=== PATIENT | female | born 1985 | race Caucasian/White ===

== ENCOUNTER 2024-12-23 03:08 | Emergency (ER) | payer BC, SELFPAY ==
[2024-12-23 03:09] VITALS: BP 151/99; PULSE 116; RESP 20; TEMP 36.4; O2SAT 100; BMI 49.1
[2024-12-23 03:13] VITALS: BP 151/99; PULSE 87; RESP 16; TEMP 36.4; O2SAT 100
--- NOTE | 2024-12-23 03:15 | EDS_ITS ---
HPI History of Present Illness Chief Complaint: Wound Check Informant: patient Narrative Narrative: 39-year-old female currently camping this past day noticed redness that seemed warm and felt hot in the right lower leg, was sore at some point and itchy at the same time. It spread up her leg, she sonia a line at the limit of it just below the knee. She states she took some Benadryl 5 hours ago and it seems to be much improved now but when she got up to walk, she had a pain that shot up her leg. She states she is concerned about a blood clot. She has never had a blood clot before. No clotting disorders that she knows of. No recent immobilization, long travel, hospitalization, or surgery. She denies any chest pain, shortness breath, fevers, chills, or other systemic symptoms. She is diabetic she takes medication for it. She has been camping so she is pretty sure she has been bitten by insects as well. She also took a pill of an antibiotic earlier because she was concerned this may be some type of infection. [facility] Medical History Diabetes Diabetes delivery delivered Home Medications ?Medication ?Instructions ?Recorded ?Last Taken ?Type glimepiride 4 mg tablet 4 mg PO DAILY 12/23/24 Unkno wn History losartan 50 mg tablet 50 mg PO DAILY 12/23/24 Unkn own History metformin 500 mg tablet,extended 1,000 mg PO BID 12/23 Unknown History release 24 hr montelukast 10 mg tablet 10 mg PO DAILY 12/23/24 Unkn own History omeprazole 40 mg capsule,delayed 40 mg PO DAILY Unknown History release rosuvastatin 5 mg tablet 5 mg PO QHS 12/23/24 Unknown History Allergy/AdvReac Type Severity Reaction Status Date / Time lisinopril Allergy Angioedema Verified 12/23/24 03:12 Surgical History H/O excision of mass H/O laparoscopy Social History Smoking Status: Former smoker ROS ROS ED Constitutional Constitutional ED: Denies chills or fever(s) Cardiovascular Cardiovascular: Denies chest pain Respiratory/Chest Respiratory/Chest: Denies dyspnea Gastrointestinal Gastrointestinal: Denies nausea or vomiting Musculoskeletal Musculoskeletal: Reports extremity pain; Denies neck pain Integumentary Reports erythema, pruritus and rash; Denies Abrasions or wounds Neurologic Neurologic: Denies paresthesias or weakness EXAM Physical Exam Const Vital Signs: 12/23/24 03:09 12/23/24 03:13 Temperature 97.5 F L 97.5 F L Temperature Source Oral Oral Pulse Rate 116 H 87 Respiratory Rate 20 H 16 Blood Pressure 151/99 H 151/99 H Blood Pressure Mean 116 116 Pulse Ox 100 100 Positive well nourished, well developed and obese General Appearance ED: well developed and NAD Nutritional Appearance: obese Neck full ROM and supple Resp normal respiratory effort Back/Spine normal ROM and normal to inspection Extremity Extremity Narrative: Faint nontender erythema medial aspect of the right lower leg. Patient has an ink pen line drawn just below the knee, and there is barely visible hyperemia present below this area. Patient presents a photograph of the erythema distal lower leg much more prominent than it is now from earlier in the day yesterday. No inguinal lymphadenopathy. All compartment soft and nondistended. No edema in the leg. Full range of motion all joints without difficulty or limitation. Neuro oriented x3, no focal motor deficits and no sensory deficits noted Neuro Narrative: Normal gait Sensorium / Orientation: alert Psych mental status grossly normal and thought process normal Skin no wounds Rashes: no rashes MDM MDM MDM Narrative Medical decision making narrative: I do not think this is likely to be cellulitis or a DVT. 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 She has neurovascular intact distally with palpable pulses. There is no induration or tenderness with the hyperemia that is at the medial aspect of the distal right lower leg right now, and it blanches and there is no petechia or bullae or other skin abnormalities. This barely visible closer to the line that she sonia. It is much less prominent than the photograph that she provides of her leg earlier in the day. It improved with antihistamine. I think this is probably some type of localized reaction or insect sting, and I do not think she needs to be taking antibiotics especially if they were not prescribed for this reason. We discussed that. She is concerned about a blood clot so I did a D-dimer since she is low risk for having that problem, it is negative ruling out DVT and PE. Patient reassured, discharged, we discussed reasons to return to the ER signs or symptoms of dangerous infection such as cellulitis, which we both agrees probably not present right now. Lab Data Attestation: I reviewed the patient's lab results. Labs: Laboratory Results - last 24 hr 12/23/24 03:17 WBC 11.0 RBC 4.67 Hgb 10.2 L Hct 34.8 L MCV 74.5 L MCH 21.8 L MCHC 29.3 L RDW Std Deviation 73.4 H RDW Coeff of Brandee 27.4 H Plt Count 237 MPV 9.3 Immature Gran % (Auto) 1.000 H Neut % (Auto) 53.8 Lymph % (Auto) 32.7 [place] % (Auto) 6.0 Eos % (Auto) 6.0 H Baso % (Auto) 0.5 Absolute Neuts (auto) 5.9 Absolute Lymphs (auto) 3.59 Nucleated RBC % 0 D-Dimer Quant (PE/DVT) 0.29 Discharge Plan Triage Chief Complaint: Wound Check ED Provider: Karlos Mercer Dx/Rx/DC Orders Clinical Impression: Insect bite of right lower leg with local reaction Instructions: ED Insect Bite Prescriptions: No Action losartan 50 mg tablet 50 mg PO DAILY omeprazole 40 mg capsule,delayed release(DR/EC) 40 mg PO DAILY glimepiride 4 mg tablet 4 mg PO DAILY montelukast 10 mg tablet 10 mg PO DAILY metformin 500 mg tablet extended release 24 hr 1,000 mg PO BID rosuvastatin 5 mg tablet 5 mg PO QHS Primary Care Provider: Percy Graham Referrals: Doctor,Your [Non-Staff] - 3-5 Days if not improving Activity Restrictions/Additional Instructions: May use oral Benadryl as needed, may also use topical Benadryl and/or topical hydrocortisone 1% cream twice daily to the affected area. If worsening or developing fevers return to the ER. Print Language: [place] Disposition Disposition: Home, Self Care
[2024-12-23 03:26] LABS: Hematocrit 34.8 % (37-47); Hemoglobin 10.2 g/dL (12.0-15.0); Immature Granulocytes Count 0.110 X10^3/uL (0.0-0.0); Mean Corp Hgb Conc 29.3 g/dL (32-36); Mean Corpuscular Volume 74.5 fL (81-99); Mean Platelet Vol. 9.3 fl (6.2-12.0); NRBC Flagged by Analyzer 0 % (0-5); POSITIVE MORPHOLOGY YES; Platelet Count 237 K/mm3 (150-450); RBC Distribution Width CV 27.4 % (11.6-14.6); RBC Distribution Width SD 73.4 fl (35.1-43.9); Red Blood Count 4.67 M/mm3 (4.2-5.4); White Blood Count 11.0 K/mm3 (4.4-11.0)
[2024-12-23 03:29] LABS: Differential Indicated SCAN CRITERIA MET
--- OUTSIDE RECORDS SUMMARY | 2024-12-23 03:30 | XMS RPT_ITS | CCD ---
Author Organization [facility] Care Team Providers Care Ldr Nurse Name Role Phone Pcp, No Primary Care Provider Unavaildanielle Campos MD, Mayte Colby Primary Care Provider Andres FONSECA, Mayte Colby Primary Care Provider Andres FONSECA, Mayte Colby Primary Care Provider Andres FONSECA, Mayte Colby Primary Care Provider Andres FONSECA, Mayte Colby Primary Care Provider Andres FONSECA, Mayte Colby Primary Care Provider ANDRES FONSECA, DR HU Primary Care Unavailable MENDOZA BOSWELL DO Attending Unavailab MENDOZA Walton DO Attending Unavailab sonny CAMPOS MD, DR HU Primary Care Unavailable Andres FONSECA, Mayte Colby Primary Care Provider Kimberly Alvarado CNP Unavailable ANDRES FONSECA, DR HU Primary Care Physician Kimberly Alvarado CNP Unavailable Jazz Jarquin DO, Nicholas E Unavailable Davis Velazco APRN.CNP Unavailable MAYTE CAMPOS Attending Unavailab MAYTE Garcia Primary Care Unavailab le SELF Referring Unavailable MAYTE CAMPOS Primary Care Unavailab JARRELL Mcghee Attending Unavailable MAYTE CAMPOS Attending Unavailab le MAYTE CAMPOS Primary Care Unavailab le MAYTE CAMPOS Referring Unavailab le MAYTE CAMPOS Primary Care Unavailab le ANDRES, MAYTE COLBY Referring Unavailab le ANDRES, MAYTE COLBY Primary Care Unavailab le ANDRES, MAYTE COLBY Referring Unavailab le ANDRES, MAYTE COLBY Primary Care Unavailab le ANDRES, MAYTE COLBY Referring Unavailab le ANDRES, MAYTE COLBY Primary Care Unavailab le ANDRES, MAYTE COLBY Referring Unavailab le ANDRES, MAYTE COLBY Primary Care Unavailab le ANDRES, MAYTE COLBY Referring Unavailab le ANDRES, MAYTE COLBY Primary Care Unavailab le ANDRES, MAYTE COLBY Referring Unavailab le ANDRES, MAYTE COLBY Primary Care Unavailab le CHLEBECK, DAVIS Attending Unavailable ANDRES, MAYTE COLBY Referring Unavailab le ANDRES, MAYTE COLBY Primary Care Unavailab le CHLEBECK, DAVIS Referring Unavailable ANDRES, MAYTE COLBY Primary Care Unavailab le BLACK, JAKY SNEED Attending Unavailabl e ANDRES, MAYTEDEBORAH TAYLORORY Primary Care Unavailab le Allergies Allergy Classification Reported Allergen(s) Allergy Type Date of Onset Reaction(s) Facility (20 sources) Lisinopril; Translations: [lisinopril] Drug Allergy 12-12-2019 Cough [facility] Medications Current Medications Medication Drug Class(es) Dates Sig (Normalized) Sig (Original) acetaminophen 325 mg oral tablet (20 sources) take 2 tablets by mouth every six hours as needed acetaminophen (TYLENOL) 325 mg tablet Take 650 mg by mouth every 6 hours as needed. Active Comment on above: Take 650 mg by mouth every 6 hours as needed. acetaminophen 325 mg / oxyCODONE hydrochloride 5 mg oral tablet (1 source) Opioid Agonist Start: 04-21-2023 End: 2023 take 1 tablet by mouth every four hours as needed for pain Percocet 5 mg-325 mg oral tablet Dose = 1 tab(s), Oral, q4h, PRN for pain, X 2 day(s), # 12 tab(s), 0 Refill(s), Pharmacy: [facility], Status post endometrial ablation, 170.2, cm, 04/21/23 9:25:00 EST, Height, 131.8, kg, 04/21/23 9:25:00 EST, Dosing Weight Start Date: 04/21/23 Stop Date: 04/23/23 Status: Ordered [id number] 200 actuat albuterol 0.09 mg/actuat metered dose inhaler (20 sources) beta2-Adrenergic Agonist Start: 12-01-2022 End: 02-01-2024 take 2 puff(s) by inhalation every four hours as needed for wheezing albuterol HFA (PROVENTIL HFA, VENTOLIN HFA) 90 mcg/actuation inhaler Inhale 2 Puffs as instructed every 4 hours as needed for wheezing/shortness of breath. 3 Each 3 02/01/2024 Active Start: 02-25-2021 End: 12-01-2022 albuterol HFA (PROVENTIL HFA , VENTOLIN HFA) 90 mcg/actuation inhaler Apply to affected area. 0 02/25/2021 12/01/2022 Discontinued Comment on above: Apply to affected ar ea. Inhale 2 Puffs as in structed every 4 hours as needed for wheezing/shortness of breath. Albuterol (Eqv-ProAir HFA) 90 mcg/inh inhalation aerosol (1 source) Start: Albuterol (Eqv-ProAir HFA) 90 mcg/inh inhalation aerosol 0 Refill(s) Start Date: 04/06/23 Status: Ordered amoxicillin 875 mg / clavulanate 125 mg oral tablet (2 sources) Penicillin-class Antibacterial Start: End: 5 take 1 tablet by mouth every twelve hours amoxicillin-clavula mera potassium (AUGMENTIN) 875-125 mg per tablet Indications: Acute otitis media, right Take 1 tablet by mouth every 12 hours for 10 days. 20 tablet 05/05/2024 05/15/2024 Active Start: 01-27-2022 End: 02-03-2022 take 1 tablet by mouth every twelve hours amoxicillin-clavulanic acid (AUGMENTIN) 875-125 mg per tablet Indications: Chronic sinusitis, unspecified location Take 1 tablet by mouth every 12 hours for 7 days. 14 tablet 0 01/27/2022 02/03/2022 Active Comment on above: Take 1 tablet by guanako every 12 hours for 7 days. Ascorbic Acid (20 sources) Vitamin C Start: 07-05-2018 Vitamin C 0 Re fill(s) Start Date: 07/05/18 Status: Ordered take 1 tablet by mouth once donnie y Ascorbic Acid (VITAMIN C) 1,000 mg tablet Take 1,000 mg by mouth once daily. Active Comment on above: Take 1,000 mg by guanako th once daily. atorvastatin 10 mg oral tablet (1 source) HMG-CoA Reductase Inhibitor Start: 9 atorvastatin 10 mg oral tablet 0 Refill(s) Start Date: 07/05/18 Status: Ordered CHOLECALCIFEROL, VITAMIN D3, ORAL (20 sources) take 5000 [IU] by mouth once daily CHOLECALCIFEROL, VITAMIN D3, ORAL Take 5,000 Units by mouth once daily. Active take 5000 [IU] by mouth once rachele ly CHOLECALCIFEROL, VITAMIN D3, ORAL Take 5,000 Units by mouth once daily. 0 Active Comment on above: Take 5,000 Units by mouth once daily. ferrous gluconate 324 mg oral tablet (1 source) Start: ferrous gluconate 324 mg (38 mg elemental iron) oral tablet Dose : 324 mg = 1 tab(s), Oral, BID, # 100 tab(s), 0 Refill(s), Pharmacy: [facility], 170.2, cm, 04/21/23 9:25:00 EST, Height, kg, 04/21/23 9:25:00 EST, Dosing Weight Start Date: 04/21/23 Status: Ordered fluticasone propionate 0.05 mg/actuat metered dose nasal spray (20 sources) Corticosteroid Start: take 1 spray(s) nasal route once daily fluticasone (FLONASE) 50 mcg/actuation nasal spray INHALE 1 SPRAY EACH NOSTRIL ONCE DAILY 3 Each 3 05/22/2024 Active Start: 04-15-2023 End: 05-05-2024 take 1 spray(s) nasal route once daily fluticasone (FLONASE) 50 mcg/actuation nasal spray INHALE 1 SPRAY EACH NOSTRIL ONCE DAILY 3 Each 3 04/15/2023 05/05/2024 Discontinued (Course of therapy completed) Start: 04-06-2023 fluticasone pr oprionate NASAL 50 mcg/ spray 100 mcg Dose = 2 spray(s), Nostril, each, qAM, 0 Refill(s) Start Date: 04/06/23 Status: Ordered Start: 01-27-2022 End: 04-15-2023 take 1 spray(s) nasal route once daily fluticasone (FLONASE) 50 mcg/actuation nasal spray Use 1 Atkins in each nostril once daily. 1 Each 3 12/01/2022 04/15/2023 Discontinued Start: 11-30-2021 End: 12-01-2022 fluticasone (FLONASE) 50 mcg/actuation nasal spray Comment on above: Use 1 Atkins in each nostril once daily. INHALE 1 SPRAY EACH NOSTRIL ONCE DAILY glimepiride 4 mg oral tablet (20 sources) Sulfonylurea Start: End: take 1 tablet by mouth once daily glimepiride (AMARYL) 4 mg tablet Amaryl 4 mg tablet oral daily 90 tablet 3 08/01/2024 Active Start: 12-25-2021 End: 12-01-2022 glimepiride (AMARYL) 4 mg ta blet Amaryl 4 mg tablet 90 tablet 3 12/25/2021 12/01/2022 Discontinued Start: 09-24-2020 End: 12-25-2021 glimepiride (AMARYL) 4 mg ta blet Amaryl 4 mg tablet 0 09/24/2020 12/25/2021 Discontinued Comment on above: Amaryl 4 mg tablet Amaryl 4 mg tablet o ral daily ibuprofen 600 mg oral tablet (1 source) Nonsteroidal Anti-inflammatory Drug Start: 04-21-20 ibuprofen 600 mg oral tablet Dose : 600 mg = 1 tab(s), Oral, QID, PRN as needed for pain, # 40 tab(s), 1 Refill(s), Pharmacy: [facility], 170.2, cm, 04/21/23 9:25:00 EST, Height, kg, 04/21/23 9:25:00 EST, Dosing Weight Start Date: 04/21/23 Status: Ordered iron sucrose 200 mg in NaCl 0.9% 100 mL (1 source) Start: 08-24-19 End: 08-24-19 iron sucrose 200 mg in NaCl 0.9% 100 mL Inject 200 mg intravenously one time only for 1 dose. 200 mg 3 08/23/2024 08/23/2024 Active loratadine 10 mg oral tablet (20 sources) Start: 05-09-18 loratadine (CLARITIN) 10 mg tablet Take by mouth once daily as needed. 05/09/1971 Active Comment on above: Take by mouth. losartan potassium 50 mg oral tablet (20 sources) Angiotensin 2 Receptor Gregory Start: 12-01-19 End: 08-02-19 take 1 tablet by mouth once daily losartan (COZAAR) 50 mg tablet Take 1 tablet by mouth once daily. 90 tablet 3 08/01/2024 Active Comment on above: Take 1 tablet by guanako once daily. 24 hr metFORMIN hydrochloride 500 mg extended release oral tablet (20 sources) Biguanide Start: 12-26-19 End: 08-02-19 take 2 tablets by mouth twice daily metFORMIN ER (GLUCOPHAGE XR) 500 mg 24 hr tablet Take 2 tablets by mouth two times a day. 360 tablet 3 08/01/2024 Active Start: 09-23-2021 End: 12-25-2021 metFORMIN ER (GLUCOPHAGE XR) 500 mg 24 hr tablet Start: 07-05-2018 take 1 tablet by guanako twice daily metFORMIN 750 mg oral tablet, extended release Dose : 1,000 mg =, Oral, BID, 0 Refill(s) Start Date: 07/05/18 Status: Ordered Comment on above: Take 2 tablets by mo [facility] twice daily. methylPREDNISolone (1 source) Corticosteroid Start : 05-05 End: 05-11 methylPREDNISolone (MEDROL, LYNDA,) 4 mg Dose-Pack Indications: Acute otitis media, right Take as instructed per package. 21 tablet 05/05/2024 05/11/2024 Active montelukast 10 mg oral tablet (20 sources) Leukotriene Receptor Antagonist Start : 11-30 End: 08-01 take 1 tablet by mouth once daily montelukast (SINGULAIR) 10 mg tablet Take 1 tablet by mouth once daily. 90 tablet 3 08/01/2024 Active Comment on above: Take 1 tablet by guanako once daily. omeprazole 40 mg delayed release oral capsule (20 sources) Proton Pump Inhibitor Start : 01-12 End: 08-01 take 1 capsule by mouth once daily omeprazole (PRILOSEC) 40 mg capsule Take 1 capsule by mouth once daily. 90 capsule 3 08/01/2024 Active Comment on above: Take 1 capsule by mo uth once daily. Take 40 mg by mouth once daily. ondansetron 4 mg disintegrating oral tablet (1 source) Serotonin-3 Receptor Antagonist Start : 04-21 ondansetron 4 mg oral tablet, disintegrating Dose : 4 mg = 1 tab(s), Oral, q6h, PRN Nausea/Vomiting, # 20 tab(s), 0 Refill(s), Pharmacy: [facility], 170.2, cm, 04/21/23 9:25:00 EST, Height, kg, 04/21/23 9:25:00 EST, Dosing Weight Start Date: 04/21/23 Status: Ordered pioglitazone 30 mg oral tablet (20 sources) Peroxisome Proliferator Receptor alpha Agonist, Peroxisome Proliferator Receptor gamma Agonist, Thiazolidinedione Start : 07-19 End: 07-19 take 1 tablet by mouth once daily pioglitazone (ACTOS) 30 mg tablet TAKE 1 TABLET BY MOUTH ONCE DAILY 90 tablet 3 07/18/2024 Active Comment on above: Take 1 tablet by guanako once daily. rosuvastatin calcium 5 mg oral tablet (20 sources) HMG-CoA Reductase Inhibitor Start : 12-01 End: 10-25 take 1 tablet by mouth once daily at bedtime rosuvastatin (CRESTOR) 5 mg tablet Take 1 tablet by mouth daily at bedtime. 90 tablet 3 08/01/2024 Active Comment on above: Take 1 tablet by guanako th daily at bedtime. Vitamin D3 (1 source) Start : 07-05 Vitamin D3 0 Refill(s) Start Date: 07/05/18 Status: Ordered Completed/Discontinued Medications Medication Drug Class(es) Dates Sig (Normalized) Sig (Original) Acetaminophen / Chlorpheniramine (4 sources) Histamine-1 Receptor Antagonist End: 12-01-2022 acetaminophen/chlo rpheniramine (COLD AND FLU BP ORAL) Take by mouth as needed. 0 12/01/2022 Discontinued acetaminophen/ch lorpheniramine (COLD AND FLU BP ORAL) Take by mouth as needed. 0 Active Comment on above: Take by mouth as nee ded. escitalopram 10 mg oral tablet (9 sources) Serotonin Reuptake Inhibitor Start: End: 3 take 1 tablet by mouth once daily escitalopram oxalate (LEXAPRO) 10 mg tablet Take 1 tablet by mouth once daily. 30 tablet 01/20/2022 12/01/2022 Discontinued Comment on above: [facility] guaiFENesin (4 sources) End: 3 guaifenesin (MUCUS RELIEF ORAL) Take by mouth as needed. 0 12/01/2022 Discontinued guaifenesin (MUC US RELIEF ORAL) Take by mouth as needed. 0 Active Comment on above: Take by mouth as nee ded. 5 ml iron sucrose 20 mg/ml injection (1 source) Parenteral Iron Replacement Start: End: 200 mg, INTRAVENOUS, ONCE, 1 dose, On Tue10/17/24 at 1400, May administer up to 200 mg via IV push over 5-10 minutes. progesterone 100 mg oral capsule (2 sources) Progesterone Start: End: take 1 capsule by mouth once daily progesterone micronized (PROMETRIUM) 100 mg capsule Take 1 capsule by mouth once daily. 0 04/12/2023 07/20/2023 Discontinued Comment on above: Take 1 capsule by [facility] once daily. SITagliptin 100 mg oral tablet (8 sources) Dipeptidyl Peptidase 4 Inhibitor Start: 022 End: JANUVIA 100 mg tablet tirzepatide (MOUNJARO) 2.5 mg/0.5 mL pen injector (3 sources) Start: End: inject 2.5 mg by subcutaneous injection every week tirzepatide (MOUNJARO) 2.5 mg/0.5 mL pen injector Inject 2.5 mg subcutaneously one time a week. 2 mL 12/29/2022 07/20/2023 Discontinued Start: 12-29-2022 End: 12-29-2023 inject 2.5 mg by subcutaneous injection every week tirzepatide (MOUNJARO) 2.5 mg/0.5 mL pen injector Inject 2.5 mg subcutaneously one time a week. 2 mL 12/29/2022 12/29/2023 Active Comment on above: Inject 2.5 mg subcut aneously one time a week. Problems Active Problems Problem Classification Problem Date Documented Date Episodic/Chronic Acute and chronic tonsillitis (20 sources) Hypertrophy of tonsils; Translations: [Hypertrophy of tonsils] Onset: 09-17-2020 04-28-2022 Chronic Anxiety disorders (20 sources) Anxiety; Translations: [Anxiety disorder, unspecified] Onset: 12-12-2019 04-28-2022 Chronic Deficiency and other anemia (1 source) Iron deficiency anemia secondary to blood loss (chronic); Translations: [Iron deficiency anemia due to chronic blood loss] Onset: 01-20-2022 Chronic Deficiency and other anemia (1 source) Microcytic anemia; Translations: [Iron deficiency anemia, unspecified] 11-01-2024 Episodic Deficiency and other anemia (2 sources) Iron deficiency anemia, unspecified; Translations: [Microcytic anemia] Onset: 01-20-2022 Episodic Diabetes mellitus without complication (20 sources) Type 2 diabetes mellitus; Translations: [Type 2 diabetes mellitus without complications] Onset: 12-12-2019 Chronic Disorders of lipid metabolism (5 sources) Mixed hyperlipidemia; Translations: [Mixed hyperlipidemia] Onset: 02-01-2024 Chronic Esophageal disorders (2 sources) Gastroesophageal reflux disease without esophagitis; Translations: [Gastro-esophageal reflux disease without esophagitis] Onset: 11-01-2024 11-01-2024 Chronic Essential hypertension (20 sources) Essential hypertension; Translations: [Essential (primary) hypertension] Onset: 12-16-2021 Chronic Miscellaneous mental health disorders (2 sources) Primary insomnia; Translations: [Primary insomnia] Onset: 01-20-2022 02-01-2024 Chronic Mood disorders (20 sources) Depressive disorder; Translations: [Depression] Onset: 12-12-2019 01-20-2022 Chronic Mood disorders (1 source) Mood disorders; Translations: [Depression, unspecified depression type] Onset: 01-20-2022 Nonmalignant breast conditions (1 source) Pain of breast; Translations: [Mastodynia] 05-19-2022 Episodic Other hereditary and degenerative nervous system conditions (1 source) Restless legs; Translations: [Restless legs syndrome] 11-01-2024 Chronic Other hereditary and degenerative nervous system conditions (1 source) Restless legs syndrome; Translations: [Restless legs syndrome] Onset: 11-01-2024 Chronic Other nutritional; endocrine; and metabolic disorders (1 source) Morbid obesity 04-21-2023 Chronic Other upper respiratory disease (20 sources) Seasonal allergy; Translations: [Other seasonal allergic rhinitis] Onset: 12-12-2019 04-28-2022 Chronic Other upper respiratory disease (1 source) Other seasonal allergic rhinitis; Translations: [Seasonal allergies] Onset: 04-28-2022 Chronic Other upper respiratory infections (1 source) Chronic sinusitis; Translations: [Chronic sinusitis, unspecified] Chronic Past or Other Problems Problem Classification Problem Date Documented Da te Episodic/Chronic Abdominal pain (20 sources) Upper abdominal pain; Translations: [Upper abdominal pain, unspecified] Onset: 12-16-2021 Episodic Acute bronchitis (20 sources) Acute bronchitis with bronchospasm; Translations: [Acute bronchitis, unspecified] Onset: 02-25-2021 04-28-2022 Episodic Deficiency and other anemia (20 sources) Iron deficiency anemia; Translations: [Iron deficiency anemia, unspecified] Onset: 03-19-2020 01-20-2022 Episodic Deficiency and other anemia (1 source) Other iron deficiency anemias; Translations: [Other iron deficiency anemia] Onset: 01-20-2022 Episodic Headache; including migraine (20 sources) Headache; Translations: [Headaches] Onset: 12-12-2019 04-28-2022 Episodic Hemorrhoids (20 sources) Hemorrhoids; Translations: [Unspecified hemorrhoids] Onset: 12-12-2019 04-28-2022 Episodic Immunizations and screening for infectious disease (20 sources) Contact with or exposure to other viral diseases; Translations: [Exposure to severe acute respiratory syndrome coronavirus 2 (SARS-CoV-2)] Onset: 05-15-2020 04-28-2022 Episodic Malaise and fatigue (2 sources) Fatigue; Translations: [Other fatigue] Onset: 08-01-2024 08-01-2024 Episodic Mycoses (20 sources) Candidiasis of vagina; Translations: [Candidiasis of vagina] Onset: 09-24-2020 04-28-2022 Episodic Other gastrointestinal disorders (3 sources) Mass of left lower quadrant of abdominal wall; Translations: [Left lower quadrant abdominal swelling, mass and lump] Onset: 03-28-2014 03-28-2014 Episodic Other gastrointestinal disorders (20 sources) Left lower quadrant abdominal swelling, mass and lump; Translations: [Abdominal or pelvic swelling, mass, or lump, left lower quadrant] Onset: 03-28-2014 03-28-2014 Episodic Other lower respiratory disease (20 sources) Snoring; Translations: [Snoring] Onset: 12-12-2019 04-28-2022 Episodic Other screening for suspected conditions (not mental disorders or infectious disease) (4 sources) Patient encounter status; Translations: [Encounter for screening mammogram for malignant neoplasm of breast] Onset: 08-22-2024 05-19-2022 Episodic Other skin disorders (20 sources) Acne; Translations: [Acne, unspecified] Onset: 12-12-2019 04-28-2022 Episodic Other upper respiratory infections (20 sources) Upper respiratory infection; Translations: [Acute upper respiratory infection, unspecified] Onset: 05-12-2020 Episodic Otitis media and related conditions (2 sources) Acute right otitis media; Translations: [Otitis media, unspecified, right ear] Onset: 05-05-2024 05-05-2024 Episodic Residual codes; unclassified (20 sources) Insomnia; Translations: [Insomnia, unspecified] Onset: 12-12-2019 01-20-2022 Episodic Residual codes; unclassified (1 source) Past history of procedure; Translations: [Other specified postprocedural states] Onset: 04-21-2023 Episodic Unclassified (2 sources) Patient encounter status 07-03-2024 Results Test Name Value Interpretation Reference Range Facility [facility] 12-13-2024 [facility] Telephone ([facility]) AISSATOU TORRES ([id number]) 1985 F Date Time Provider Department 12/13/24 JAKY HARRISON [facility] During your visit today, we recorded the following information about you: Ethel Fermin RN 12/13/2024 8:47 AM Signed GI referral faxed to [facility] [phone] as ordered. Demos, insurance card, recent office visit and labs sent with referral. Ethel Fermin RN BSN Allergies As of Date: 12/13/2024 Noted Allergy Reaction LISINOPRIL 12/12/2019 3 - Cough Date Reviewed: 12/12/2024 Reviewed by: Ana Lilia Strickland RN - Fully Assessed Reason for Visit: Referral Request [124] Cmt: GI Referral Prescriptions as of 12/13/2024 - rosuvastatin (CRESTOR) 5 mg tablet Take 1 tablet by mouth daily at bedtime. - omeprazole (PRILOSEC) 40 mg capsule Take 1 capsule by mouth once daily. - montelukast (SINGULAIR) 10 mg tablet Take 1 tablet by mouth once daily. - metFORMIN ER (GLUCOPHAGE XR) 500 mg 24 hr tablet Take 2 tablets by mouth two times a day. - losartan (COZAAR) 50 mg tablet Take 1 tablet by mouth once daily. - glimepiride (AMARYL) 4 mg tablet Amaryl 4 mg tablet oral daily - pioglitazone (ACTOS) 30 mg tablet TAKE 1 TABLET BY MOUTH ONCE DAILY - fluticasone (FLONASE) 50 mcg/actuation nasal spray INHALE 1 SPRAY EACH NOSTRIL ONCE DAILY - albuterol HFA (PROVENTIL HFA, VENTOLIN HFA) 90 mcg/actuation inhaler Inhale 2 Puffs as instructed every 4 hours as needed for wheezing/shortness of breath. - CHOLECALCIFEROL, VITAMIN D3, ORAL Take 5,000 Units by mouth once daily. - Ascorbic Acid (VITAMIN C) 1,000 mg tablet Take 1,000 mg by mouth once daily. - loratadine (CLARITIN) 10 mg tablet Take by mouth once daily as needed. - acetaminophen (TYLENOL) 325 mg tablet Take 650 mg by mouth every 6 hours as needed. Problem List As Of Date 12/13/2024 Noted Resolved Abdominal wall mass of left lower quadrant [R19*03/28/2014 Depression [F32.A] 12/12/2019 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 (type 2/adult o*12/12/2019 Iron deficiency anemia [D50.9] 03/19/2020 Insomnia [G47.00] 12/12/2019 Upper respiratory infection [J06.9] 05/15/2020 Snoring [R06.83] 12/12/2019 Seasonal allergies [J30.2] 12/12/2019 Hypertrophy of tonsils [J35.1] 09/17/2020 Hemorrhoids [K64.9] 12/12/2019 Headaches [R51.9] 12/12/2019 Exposure to severe acute respiratory syndrome c*05/15/2020 Essential (primary) hypertension [I10] 12/16/2021 Candidiasis of vagina [B37.31] 09/24/2020 Anxiety [F41.9] 12/12/2019 Acute sinusitis [J01.90] 05/12/2020 Acute bronchitis with bronchospasm [J20.9] 02/25/2021 Acne [L70.9] 12/12/2019 Generalized abdominal pain [R10.84] 12/16/2021 Encounter Status:Closed by ETHEL FERMIN on 12/13/[address] [facility] CNOVSPon 12-12-2024 CNOVSP Visit (SP) Office ([facility]) AISSATOU TORRES ([id number]) 1985 F Date Time Provider Department 12/12/24 2:00 PM JAKY HARRISON [facility] During your visit today, we recorded the following information about you: Jaky Harrison PA-C 12/12/2024 1:28 PM Signed . [facility] CLINICAL NOTE Department of Hematology and Medical Oncology PATIENT NAME: Aissatou Torres CLINIC NO.: [id number] ATTENDING PHYSICIAN: Jaky Harrison PA-C DATE OF SERVICE: 12/12/2024 CLINICAL SUMMARY She reports being anemic for as long as she can remember, with iron deficiency noted during her pregnancies, requiring iron supplementation. Despite this, she feels it was never adequately addressed. 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 She denies any other bleeding, including epistaxis, gingival bleeding, or hematochezia, and has not undergone a colonoscopy. She notes a family history of colon cancer in her maternal grandmother. She has been on omeprazole for GERD, which was diagnosed after she experienced symptoms she initially thought were allergies, including coughing and post-nasal drip. She is also taking Singulair. On 10/17/24, she received her first Venofer iron infusion. Following the infusion, she experienced a mild headache on Tuesday and , which progressed to a severe headache with nausea on Tuesday, causing her to leave work. She reports significant fatigue,restless legs. No ice pica. WBC 10.99, hemoglobin 8.9, MCV 70.5, plts 346 on 11/01/24. Iron 12, TIBC 391, saturation 3.1%, ferritin <0.5 on 08/22/24. Iron 15, TIBC 391, saturation 3.8%, ferritin 1.8 on 10/15/24. Recording using [employer] software for draft documentation of the visit was discussed with the patient/authorized financial services representative; all questions welcomed and answered. Patient/authorized financial services representative agreed to proceed INTERIM HISTORY: Nursing notes reviewed; agree with findings as documented. Ms. Torres returns for follow up. Patient with a history of heavy menstrual bleeding, GERD, and possible IBS presents for evaluation of severe iron deficiency anemia. In April of the previous year, she underwent an endometrial ablation, which initially resulted in cessation of menstrual bleeding. However, in July, she began experiencing menstrual periods again, though not as heavy as before. In October, she received a Venofer infusion, but she did not tolerate it well with headache, and nausea. Subsequent blood work revealed persistently low iron levels. Her hemoglobin has been in the 8s. She reports ongoing fatigue and questions the cause of her iron deficiency. She has not yet seen a GI specialist but has been advised to undergo a colonoscopy, especially given her family history of colon cancer (grandmother). She has been diagnosed with GERD and is taking omeprazole. She has not had any prior blood transfusions. She reports chronic nausea, frequent diarrhea, and constipation. She has not had any stomach or colon surgeries but has had two C-sections. She mentions a previous mass removal, initially thought to be metallic but later suggested to be endometriosis. She has undergone multiple ultrasounds, urine tests, a CT scan, and an MRI related to this issue. REVIEW OF SYSTEMS: As described above. Constitutional: (+) fatigue Gastrointestinal: (+) nausea, (+) diarrhea, (+) constipation, (+) abdominal pain PHYSICAL EXAMINATION: General: Alert AND oriented, no acute distress Skin: Normal HEENT: Pupils equal, round. Oral cavity, oropharynx clear Neck: Supple, no mass Breast: Deferred Respiratory: Clear to auscultation, bilaterally Cardiovascular: Regular rate and rhythm, no murmurs, rubs, or gallops Abdomen: Soft, non-tender, non-distended, no masses palpable, no hepatosplenomegaly, normal bowel sounds Genitourinary: Deferred MSK: Back is non-tender Extremities: No clubbing, cyanosis, or edema DIAGNOSTIC STUDIES: Latest Ref Rng AND Units 08/01/2021 08/08/2024 11/01/2024 CBC WBC 3.70 - 11.00 k/uL 10.8 11.07 10.99 RBC 3.90 - 5.20 m/uL 4.54 4.61 4.64 Hemoglobin 11.5 - 15.5 g/dL 11.7 8.5 8.9 Hematocrit 36.0 - 46.0 % 36.9 31.0 32.7 MCV 80.0 - 100.0 fL 81.3 67.2 70.5 MCH 26.0 - 34.0 pg 18.4 19.2 MCHC 30.5 - 36.0 g/dL 31.7 27.4 27.2 RDW 11 - 14.5 14.3 RDW-CV 11.5 - 15.0 % 17.9 22.5 Platelet Count 150 - 400 k/uL 276 360 346 MPV 9.0 - 12.7 fL 10.2 9.5 9.7 Neutrophil % 45 - 75 % 57.5 Lymphocyte % 20 - 40 % 32.6 Baso% % 0.5 0.4 Abs Neut (ANC) 1.45 - 7.50 k/uL 6.07 6.58 Lymphocytes, Absolute 0.9 - 4.4 K/CU MM 3.50 Abs Lymph 1.00 - 4.00 k/uL 3.74 3.20 MONOCYTES,ABSOLUTE 0.1 - 1.1 K/CU MM 0.50 Abs [place] <0.87 k/uL 0.60 (more content not included)... Normal [facility] Ferritin SerPl-mCncon 2024 Ferritin [Mass/Vol] 4.0 ng/mL Low 8.0-307.0 [facility] Comment on above: Order Comment: Speci men Type: BLOOD SPECIMENOrdering Facility: [facility] Address: [address] [place] [address] Performed By: #### 2 276-4, 17105-1 ####[facility] LABORATORYCLIA [id number] [place] [id number] [place] Iron and Iron binding capaci ty panelon 12-12-2024 Iron [Mass/Vol] 15 ug/dL Low 50-170 [facility] Comment on above: Order Comment: Speci men Type: BLOOD SPECIMENOrdering Facility: [facility] Address: [address] [place] [address] Result Comment: Lyssa ents treated with metal-binding drugs (e.g.deferoxamine) may have depressed iron values, as chelated iron may not properly react in the Siemens iron assay. Performed By: #### 2 276-4, 17267-1 ####[facility] LABORATORYCLIA [id number] [place] [id number] [place] Iron binding capacity [Mass/Vol] 372 ug/dL Normal 221-481 [facility] Comment on above: Order Comment: Speci men Type: BLOOD SPECIMENOrdering Facility: [facility] Address: [address] [place] [address] Performed By: #### 2 276-4, 18447-6 ####[facility] LABORATORYCLIA [id number] [address] [place] Iron/TIBC [Molar ratio] 4.0 % Low 22.0-44.0 [facility] Comment on above: Order Comment: Speci men Type: BLOOD SPECIMENOrdering Facility: [facility] Address: [address] [place] [address] Performed By: #### 2 276-4, 50849-6 ####[facility] LABORATORYCLIA [id number] [place] [id number] [facility] Charlie 11-20-2024 CNPN Telephone ([facility]) AISSATOU TORRES ([id number]) 1985 F Date Time Provider Department 11/20/24 ANA LILIA SINGH [facility] During your visit today, we recorded the following information about you: Reyna Joyner 11/20/2024 9:10 AM Signed Left message for patient to call and schedule her iron. Reyna Joyner Allergies As of Date: 11/20/2024 Noted Allergy Reaction LISINOPRIL 12/12/2019 3 - Cough Date Reviewed: 11/01/2024 Reviewed by: Davis Velazco APRN.AUTOMOTIVE STARTER REPAIRER - Fully Assessed Reason for Visit: Appointment [186] Prescriptions as of 11/20/2024 - rosuvastatin (CRESTOR) 5 mg tablet Take 1 tablet by mouth daily at bedtime. - omeprazole (PRILOSEC) 40 mg capsule Take 1 capsule by mouth once daily. - montelukast (SINGULAIR) 10 mg tablet Take 1 tablet by mouth once daily. - metFORMIN ER (GLUCOPHAGE XR) 500 mg 24 hr tablet Take 2 tablets by mouth two times a day. - losartan (COZAAR) 50 mg tablet Take 1 tablet by mouth once daily. - glimepiride (AMARYL) 4 mg tablet Amaryl 4 mg tablet oral daily - pioglitazone (ACTOS) 30 mg tablet TAKE 1 TABLET BY MOUTH ONCE DAILY - fluticasone (FLONASE) 50 mcg/actuation nasal spray INHALE 1 SPRAY EACH NOSTRIL ONCE DAILY - albuterol HFA (PROVENTIL HFA, VENTOLIN HFA) 90 mcg/actuation inhaler Inhale 2 Puffs as instructed every 4 hours as needed for wheezing/shortness of breath. - CHOLECALCIFEROL, VITAMIN D3, ORAL Take 5,000 Units by mouth once daily. - Ascorbic Acid (VITAMIN C) 1,000 mg tablet Take 1,000 mg by mouth once daily. - loratadine (CLARITIN) 10 mg tablet Take by mouth once daily as needed. - acetaminophen (TYLENOL) 325 mg tablet Take 650 mg by mouth every 6 hours as needed. Problem List As Of Date 11/20/2024 Noted Resolved Abdominal wall mass of left lower quadrant [R19*03/28/2014 Depression [F32.A] 12/12/2019 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 (type 2/adult o*12/12/2019 Iron deficiency anemia [D50.9] 03/19/2020 Insomnia [G47.00] 12/12/2019 Upper respiratory infection [J06.9] 05/15/2020 Snoring [R06.83] 12/12/2019 Seasonal allergies [J30.2] 12/12/2019 Hypertrophy of tonsils [J35.1] 09/17/2020 Hemorrhoids [K64.9] 12/12/2019 Headaches [R51.9] 12/12/2019 Exposure to severe acute respiratory syndrome c*05/15/2020 Essential (primary) hypertension [I10] 12/16/2021 Candidiasis of vagina [B37.31] 09/24/2020 Anxiety [F41.9] 12/12/2019 Acute sinusitis [J01.90] 05/12/2020 Acute bronchitis with bronchospasm [J20.9] 02/25/2021 Acne [L70.9] 12/12/2019 Generalized abdominal pain [R10.84] 12/16/2021 Encounter Status:Closed by [facility] AISSATOU TORRES ([id number]) 1985 F Date Time Provider Department 11/20/24 DAVIS VELAZCO [facility] During your visit today, we recorded the following information about you: Allison Quiroga 11/20/2024 9:17 AM Signed Patient called in to schedule her MONOFERRIC. I talked with Kaila. She advised me to schedule her for 3 hours. Patient is aware of her time and date for apt. Allison Quiroga Allergies As of Date: 11/20/2024 Noted Allergy Reaction LISINOPRIL 12/12/2019 3 - Cough Date Reviewed: 11/01/2024 Reviewed by: Davis Velazco APRN.AUTOMOTIVE STARTER REPAIRER - Fully Assessed Reason for Visit: Appointment [186] Prescriptions as of 11/20/2024 - rosuvastatin (CRESTOR) 5 mg tablet Take 1 tablet by mouth daily at bedtime. - omeprazole (PRILOSEC) 40 mg capsule Take 1 capsule by mouth once daily. - montelukast (SINGULAIR) 10 mg tablet Take 1 tablet by mouth once daily. - metFORMIN ER (GLUCOPHAGE XR) 500 mg 24 hr tablet Take 2 tablets by mouth two times a day. - losartan (COZAAR) 50 mg tablet Take 1 tablet by mouth once daily. - glimepiride (AMARYL) 4 mg tablet Amaryl 4 mg tablet oral daily - pioglitazone (ACTOS) 30 mg tablet TAKE 1 TABLET BY MOUTH ONCE DAILY - fluticasone (FLONASE) 50 mcg/actuation nasal spray INHALE 1 SPRAY EACH NOSTRIL ONCE DAILY - albuterol HFA (PROVENTIL HFA, VENTOLIN HFA) 90 mcg/actuation inhaler Inhale 2 Puffs as instructed every 4 hours as needed for wheezing/shortness of breath. - CHOLECALCIFEROL, VITAMIN D3, ORAL Take 5,000 Units by mouth once daily. - Ascorbic Acid (VITAMIN C) 1,000 mg tablet Take 1,000 mg by mouth once daily. - loratadine (CLARITIN) 10 mg tablet Take by mouth once daily as needed. - acetaminophen (TYLENOL) 325 mg tablet Take 650 mg by mouth every 6 hours as needed. Problem List As Of Date 11/20/2024 Noted Resolved Abdominal wall mass of left lower quadrant [R19*03/28/2014 Depression [F32.A] 12/12/2019 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 (type 2/adult o*12/12/2019 Iron deficiency anemia [D50.9] 03/19/2020 Insomnia [G47.00] 12/12/2019 Upper respiratory infection [J06.9] 05/15/2020 Snoring [R06.83] 12/12/2019 Seasonal allergies [J30.2] 12/12/2019 Hypertrophy of tonsils [J35.1] 09/17/2020 Hemorrhoids [K64.9] 12/12/2019 Headaches [R51.9] 12/12/2019 Exposure to severe acute respiratory syndrome c*05/15/2020 Essential (primary) hypertension [I10] 12/16/2021 Candidiasis of vagina [B37.31] 09/24/2020 Anxiety [F41.9] 12/12/2019 Acute sinusitis [J01.90] 05/12/2020 Acute bronchitis with bronchospasm [J20.9] 02/25/2021 Acne [L70.9] 12/12/2019 Generalized abdominal pain [R10.84] 12/16/2021 Encounter Status:Closed by ALLISNO QUIROGA [facility] AISSATOU TORRES ([id number]) 1985 F Date Time Provider Department 11/20/24 JAKY HARRISON [facility] During your visit today, we recorded the following information about you: William Melgar 11/20/2024 11:06 AM Signed Called patient to schedule follow up. William Melgar November 20, 2024 11:06 AM Allergies As of Date: 11/20/2024 Noted Allergy Reaction LISINOPRIL 12/12/2019 3 - Cough Date Reviewed: 11/01/2024 Reviewed by: Davis Velazco APRN.AUTOMOTIVE STARTER REPAIRER - Fully Assessed Prescriptions as of 11/20/2024 - rosuvastatin (CRESTOR) 5 mg tablet Take 1 tablet by mouth daily at bedtime. - omeprazole (PRILOSEC) 40 mg capsule Take 1 capsule by mouth once daily. - montelukast (SINGULAIR) 10 mg tablet Take 1 tablet by mouth once daily. - metFORMIN ER (GLUCOPHAGE XR) 500 mg 24 hr tablet Take 2 tablets by mouth two times a day. - losartan (COZAAR) 50 mg tablet Take 1 tablet by mouth once daily. - glimepiride (AMARYL) 4 mg tablet Amaryl 4 mg tablet oral daily - pioglitazone (ACTOS) 30 mg tablet TAKE 1 TABLET BY MOUTH ONCE DAILY - fluticasone (FLONASE) 50 mcg/actuation nasal spray INHALE 1 SPRAY EACH NOSTRIL ONCE DAILY - albuterol HFA (PROVENTIL HFA, VENTOLIN HFA) 90 mcg/actuation inhaler Inhale 2 Puffs as instructed every 4 hours as needed for wheezing/shortness of breath. - CHOLECALCIFEROL, VITAMIN D3, ORAL Take 5,000 Units by mouth once daily. - Ascorbic Acid (VITAMIN C) 1,000 mg tablet Take 1,000 mg by mouth once daily. - loratadine (CLARITIN) 10 mg tablet Take by mouth once daily as needed. - acetaminophen (TYLENOL) 325 mg tablet Take 650 mg by mouth every 6 hours as needed. Problem List As Of Date 11/20/2024 Noted Resolved Abdominal wall mass of left lower quadrant [R19*03/28/2014 Depression [F32.A] 12/12/2019 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 (type 2/adult o*12/12/2019 Iron deficiency anemia [D50.9] 03/19/2020 Insomnia [G47.00] 12/12/2019 Upper respiratory infection [J06.9] 05/15/2020 Snoring [R06.83] 12/12/2019 Seasonal allergies [J30.2] 12/12/2019 Hypertrophy of tonsils [J35.1] 09/17/2020 Hemorrhoids [K64.9] 12/12/2019 Headaches [R51.9] 12/12/2019 Exposure to severe acute respiratory syndrome c*05/15/2020 Essential (primary) hypertension [I10] 12/16/2021 Candidiasis of vagina [B37.31] 09/24/2020 Anxiety [F41.9] 12/12/2019 Acute sinusitis [J01.90] 05/12/2020 Acute bronchitis with bronchospasm [J20.9] 02/25/2021 Acne [L70.9] 12/12/2019 Generalized abdominal pain [R10.84] 12/16/2021 Encounter Status:Closed by WILLIAM MELGAR on 11/20/[address] [facility] AISSATOU TORRES ([id number]) 1985 F Date Time Provider Department 11/02/24 JAKY HARRISON [facility] During your visit today, we recorded the following information about you: William Melgar 11/02/2024 7:17 PM Signed Called patient and left voicemail to schedule Iron and follow up office visit William Melgar November 02, 2024 7:17 PM Allergies As of Date: 11/02/2024 Noted Allergy Reaction LISINOPRIL 12/12/2019 3 - Cough Date Reviewed: 11/01/2024 Reviewed by: Davis Velazco APRN.AUTOMOTIVE STARTER REPAIRER - Fully Assessed Prescriptions as of 11/02/2024 - rosuvastatin (CRESTOR) 5 mg tablet Take 1 tablet by mouth daily at bedtime. - omeprazole (PRILOSEC) 40 mg capsule Take 1 capsule by mouth once daily. - montelukast (SINGULAIR) 10 mg tablet Take 1 tablet by mouth once daily. - metFORMIN ER (GLUCOPHAGE XR) 500 mg 24 hr tablet Take 2 tablets by mouth two times a day. - losartan (COZAAR) 50 mg tablet Take 1 tablet by mouth once daily. - glimepiride (AMARYL) 4 mg tablet Amaryl 4 mg tablet oral daily - pioglitazone (ACTOS) 30 mg tablet TAKE 1 TABLET BY MOUTH ONCE DAILY - fluticasone (FLONASE) 50 mcg/actuation nasal spray INHALE 1 SPRAY EACH NOSTRIL ONCE DAILY - albuterol HFA (PROVENTIL HFA, VENTOLIN HFA) 90 mcg/actuation inhaler Inhale 2 Puffs as instructed every 4 hours as needed for wheezing/shortness of breath. - CHOLECALCIFEROL, VITAMIN D3, ORAL Take 5,000 Units by mouth once daily. - Ascorbic Acid (VITAMIN C) 1,000 mg tablet Take 1,000 mg by mouth once daily. - loratadine (CLARITIN) 10 mg tablet Take by mouth once daily as needed. - acetaminophen (TYLENOL) 325 mg tablet Take 650 mg by mouth every 6 hours as needed. Problem List As Of Date 11/02/2024 Noted Resolved Abdominal wall mass of left lower quadrant [R19*03/28/2014 Depression [F32.A] 12/12/2019 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 (type 2/adult o*12/12/2019 Iron deficiency anemia [D50.9] 03/19/2020 Insomnia [G47.00] 12/12/2019 Upper respiratory infection [J06.9] 05/15/2020 Snoring [R06.83] 12/12/2019 Seasonal allergies [J30.2] 12/12/2019 Hypertrophy of tonsils [J35.1] 09/17/2020 Hemorrhoids [K64.9] 12/12/2019 Headaches [R51.9] 12/12/2019 Exposure to severe acute respiratory syndrome c*05/15/2020 Essential (primary) hypertension [I10] 12/16/2021 Candidiasis of vagina [B37.31] 09/24/2020 Anxiety [F41.9] 12/12/2019 Acute sinusitis [J01.90] 05/12/2020 Acute bronchitis with bronchospasm [J20.9] 02/25/2021 Acne [L70.9] 12/12/2019 Generalized abdominal pain [R10.84] 12/16/2021 Encounter Status:Closed by WILLIMA MELGAR on 11/02/[address] [facility] CBC W Auto Differential pane l (Bld)on 11-01-2024 Basophils (Bld) [#/Vol] 0.04 10*3/uL NINF [facility] Basophils/100 WBC (Bld) 0.4 % [facility] Differential cell count method Nom (Bld) Auto [facility] Eosinophils (Bld) [#/Vol] 0.42 10*3/uL [facility] Eosinophils/100 WBC (Bld) 3.8 % [facility] Erythrocyte distribution width (RBC) [Ratio] 22.5 % High 11.5 - 15.0 % [facility] Hematocrit (Bld) [Volume fraction] 32.7 % Low 36.0 - 46.0 % [facility] Hemoglobin (Bld) [Mass/Vol] 8.9 g/dL Low 11.5 - 15.5 g/dL [facility] Immature granulocytes (Bld) [#/Vol] 0.09 10*3/uL [facility] Immature granulocytes/100 WBC (Bld) 0.8 % [facility] Interpretation and review of laboratory results Abnormal [facility] Lymphocytes (Bld) [#/Vol] 3.2 10*3/uL [facility] Lymphocytes/100 WBC (Bld) 29.1 % [facility] MCH (RBC) [Entitic mass] 19.2 pg Low 26.0 - 34.0 pg [facility] MCHC (RBC) [Mass/Vol] 27.2 g/dL Low 30.5 - 36.0 g/dL [facility] MCV (RBC) [Entitic vol] 70.5 fL Low 80.0 - 100.0 fL [facility] Monocytes (Bld) [#/Vol] 0.66 10*3/uL [facility] Monocytes/100 WBC (Bld) 6 % [facility] Neutrophils (Bld) [#/Vol] 6.58 10*3/uL [facility] Neutrophils/100 WBC (Bld) 59.9 % [facility] Nucleated RBC (Bld) [#/Vol] [facility] Nucleated RBC/100 WBC (Bld) [Ratio] 0 % /100 WBC [facility] Platelet mean volume (Bld) [Entitic vol] 9.7 fL 9.0 - 12.7 fL [facility] Platelets (Bld) [#/Vol] 346 10*3/uL [facility] RBC (Bld) [#/Vol] 4.64 10*6/uL 3.90 - 5.2 0 m/uL [facility] WBC (Bld) [#/Vol] 10.99 10*3/uL [facility] Basophils (Bld) [#/Vol] 0.04 10*3/uL Normal <0.11 [facility] Comment on above: Order Comment: Speci men Type: BLOOD SPECIMENOrdering Facility: [facility] Address: [address] [place] [address] Performed By: #### 5 7021-8, 22591-0 ####[facility]ORATORYCLIA [id number] [place] [address] [place] Basophils/100 WBC (Bld) 0.4 % Normal [facility] Comment on above: Order Comment: Speci men Type: BLOOD SPECIMENOrdering Facility: [facility] Address: [address] [place] [address] Performed By: #### 5 7021-8, 02014-1 ####[facility]ORATORYCLIA [id number] [place] [id number] [place] Differential cell count method Nom (Bld) Auto Normal [facility] Comment on above: Order Comment: Speci men Type: BLOOD SPECIMENOrdering Facility: [facility] Address: [address] [place] [address] Performed By: #### 5 7021-8, 86458-7 ####[facility]ORATORYCLIA [id number] [place] [address] [place] Eosinophils (Bld) [#/Vol] 0.42 10*3/uL Normal <0.46 [facility] Comment on above: Order Comment: Speci men Type: BLOOD SPECIMENOrdering Facility: [facility] Address: [address] [place] [address] Performed By: #### 5 7021-8, 22246-1 ####[facility]ORATORYCLIA [id number] [place] [id number] [place] Eosinophils/100 WBC (Bld) 3.8 % Normal [facility] Comment on above: Order Comment: Speci men Type: BLOOD SPECIMENOrdering Facility: [facility] Address: [address] [place] [address] Performed By: #### 5 7021-8, 91923-1 ####[facility]ORATORYCLIA [id number] [address] [place] Erythrocyte distribution width (RBC) [Ratio] 22.5 % High 11.5-15.0 [facility] Comment on above: Order Comment: Speci men Type: BLOOD SPECIMENOrdering Facility: [facility] Address: [address] [place] [address] Performed By: #### 5 7021-8, 16036-6 ####[facility]ORATORYCLIA [id number] [place] [address] [place] Hematocrit (Bld) [Volume fraction] 32.7 % Low 36.0-46.0 [facility] Comment on above: Order Comment: Speci men Type: BLOOD SPECIMENOrdering Facility: [facility] Address: [address] [place] [address] Performed By: #### 5 7021-8, 61418-1 ####[facility]ORATORYCLIA [id number] [place] [address] [place] Hemoglobin (Bld) [Mass/Vol] 8.9 g/dL Low 11.5-15.5 [facility] Comment on above: Order Comment: Speci men Type: BLOOD SPECIMENOrdering Facility: [facility] Address: [address] [place] [address] Performed By: #### 5 7021-8, 74866-6 ####[facility]ATORYCLIA [id number] [place] [address] [place] Immature granulocytes (Bld) [#/Vol] 0.09 10*3/uL Normal <0.10 [facility] Comment on above: Order Comment: Speci men Type: BLOOD SPECIMENOrdering Facility: [facility] Address: [address] [place] [address] Performed By: #### 5 7021-8, 56535-1 ####[facility]ORATORYCLIA [id number] [address] [place] Immature granulocytes/100 WBC (Bld) 0.8 % Normal [facility] Comment on above: Order Comment: Speci men Type: BLOOD SPECIMENOrdering Facility: [facility] Address: [address] [place] [address] Performed By: #### 5 7021-8, 46584-0 ####[facility]ATORYCLIA [id number] [place] [address] [place] Lymphocytes (Bld) [#/Vol] 3.20 10*3/uL Normal 1.00-4.00 [facility] Comment on above: Order Comment: Speci men Type: BLOOD SPECIMENOrdering Facility: [facility] Address: [address] [place] [address] Performed By: #### 5 7021-8, 36629-4 ####[facility]ORATORYCLIA [id number] [place] [address] [place] Lymphocytes/100 WBC (Bld) 29.1 % Normal [facility] Comment on above: Order Comment: Speci men Type: BLOOD SPECIMENOrdering Facility: [facility] Address: [address] [place] [address] Performed By: #### 5 7021-8, 04124-5 ####[facility]ATORYCLIA [id number] [place] [address] [place] MCH (RBC) [Entitic mass] 19.2 pg Low 26.0-34.0 [facility] Comment on above: Order Comment: Speci men Type: BLOOD SPECIMENOrdering Facility: [facility] Address: [address] [place] [address] Performed By: #### 5 7021-8, 45150-9 ####[facility]ATORYCLIA [id number] [place] [address] [place] MCHC (RBC) [Mass/Vol] 27.2 g/dL Low 30.5-36.0 [facility] Comment on above: Order Comment: Speci men Type: BLOOD SPECIMENOrdering Facility: [facility] Address: [address] [place] [address] Performed By: #### 5 7021-8, 94054-4 ####[facility]ATORYCLIA [id number] [place] [address] [place] MCV (RBC) [Entitic vol] 70.5 fL Low 80.0-100.0 [facility] Comment on above: Order Comment: Speci men Type: BLOOD SPECIMENOrdering Facility: [facility] Address: [address] [place] [address] Performed By: #### 5 7021-8, 09541-2 ####[facility]ATORYCLIA [id number] [place] [address] [place] Monocytes (Bld) [#/Vol] 0.66 10*3/uL Normal <0.87 [facility] Comment on above: Order Comment: Speci men Type: BLOOD SPECIMENOrdering Facility: [facility] Address: [address] [place] [address] Performed By: #### 5 7021-8, 99925-3 ####[facility]ORATORYCLIA [id number] [place] [address] [place] Monocytes/100 WBC (Bld) 6.0 % Normal [facility] Comment on above: Order Comment: Speci men Type: BLOOD SPECIMENOrdering Facility: [facility] Address: [address] [place] [address] Performed By: #### 5 7021-8, 81183-0 ####[facility]ORATORYCLIA [id number] [place] [address] [place] Neutrophils (Bld) [#/Vol] 6.58 10*3/uL Normal 1.45-7.50 [facility] Comment on above: Order Comment: Speci men Type: BLOOD SPECIMENOrdering Facility: [facility] Address: [address] [place] [address] Performed By: #### 5 7021-8, 87766-9 ####[facility]ATORYCLIA [id number] [place] [address] [place] Neutrophils/100 WBC (Bld) 59.9 % Normal [facility] Comment on above: Order Comment: Speci men Type: BLOOD SPECIMENOrdering Facility: [facility] Address: [address] [place] [id number] Performed By: #### 5 7021-8, 67370-6 ####[facility]ATORYCLIA [id number] [place] [id number] [place] Nucleated RBC (Bld) [#/Vol] 10*3/uL Normal <0.01 [facility] Comment on above: Order Comment: Speci men Type: BLOOD SPECIMENOrdering Facility: [facility] Address: [address] [place] [address] Performed By: #### 5 7021-8, 54043-3 ####[facility]ORATORYCLIA [id number] [place] [id number] [place] Nucleated RBC/100 WBC (Bld) [Ratio] 0.0 /100 WBC Normal [facility] Comment on above: Order Comment: Speci men Type: BLOOD SPECIMENOrdering Facility: [facility] Address: [address] [place] [address] Performed By: #### 5 7021-8, 18528-2 ####[facility]ORATORYCLIA [id number] [place] [id number] [place] Platelet mean volume (Bld) [Entitic vol] 9.7 fL Normal 9.0-12.7 [facility] Comment on above: Order Comment: Speci men Type: BLOOD SPECIMENOrdering Facility: [facility] Address: [address] [place] [address] Performed By: #### 5 7021-8, 06074-9 ####[facility]ATORYCLIA [id number] [place] [id number] [place] Platelets (Bld) [#/Vol] 346 10*3/uL Normal 150-400 [facility] Comment on above: Order Comment: Speci men Type: BLOOD SPECIMENOrdering Facility: [facility] Address: [address] [place] [address] Performed By: #### 5 7021-8, 55387-8 ####[facility]ATORYCLIA [id number] [place] [address] [place] RBC (Bld) [#/Vol] 4.64 10*6/uL Normal 3.90-5.20 [facility] Comment on above: Order Comment: Speci men Type: BLOOD SPECIMENOrdering Facility: [facility] Address: [address] [place] [address] Performed By: #### 5 7021-8, 91624-4 ####[facility]ATORYCLIA [id number] [place] [id number] [facility] WBC (Bld) [#/Vol] 10.99 10*3/uL Normal 3.70-11.00 [facility] Comment on above: Order Comment: Speci men Type: BLOOD SPECIMENOrdering Facility: [facility] Address: [address] [place] [address] Performed By: #### 5 7021-8, 83697-1 ####[facility]ATORYCLIA [id number] [address] [facility] CNOVSPon 11-01-2024 CNOVSP Visit (SP) Office ([facility]) AISSATOU TORRES ([id number]) 1985 F Date Time Provider Department 11/01/24 10:30 AM DAVIS VELAZCO [facility] During your visit today, we recorded the following information about you: Temperature Pulse Respiration Blood pressure 97 degrees 86/minute 16/minute 139/79 Weight 138.3 kg Davis Velazco APRN.CNP 11/01/2024 3:16 PM Signed [facility] CLINICAL NOTE Department of Hematology and Medical Oncology PATIENT NAME: Aissatou Torres CLINIC NO.: [id number] ATTENDING PROVIDER: Davis Velazco APRN.CNP DATE OF SERVICE: 11/01/2024 REFERRING PHYSICIAN: Mayte Campos MD Recording using [employer] software for draft documentation of the visit was discussed with the patient/authorized financial services representative; all questions welcomed and answered. Patient/authorized financial services representative agreed to proceed HISTORY OF PRESENT ILLNESS Ms. Aissatou Torres is a 39 year old woman with anemia who presents for consultation regarding her diagnosis and management, at the request of Dr. Mayte Campos. My recommendations will be communicated to Dr. Campos by means of shared medical records. She reports being anemic for as long as she can remember, with iron deficiency noted during her pregnancies, requiring iron supplementation. Despite this, she feels it was never adequately addressed. 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 She denies any other bleeding, including epistaxis, gingival bleeding, or hematochezia, and has not undergone a colonoscopy. She notes a family history of colon cancer in her maternal grandmother. She has been on omeprazole for GERD, which was diagnosed after she experienced symptoms she initially thought were allergies, including coughing and post-nasal drip. She is also taking Singulair. On 10/17/24, she received her first Venofer iron infusion. Following the infusion, she experienced a mild headache on Tuesday and , which progressed to a severe headache with nausea on Tuesday, causing her to leave work. She has not received any further infusions. She reports significant fatigue, feeling more drained than usual, and does not feel rested upon waking. She experiences severe pain in her arms, particularly her elbows during the day and shoulders at night, along with restless legs. These symptoms have slightly improved over the past few days. She denies any unusual cravings such as pica. She reports frequent headaches, weight gain despite trying to eat less, and increased sensitivity to cold. She experiences dyspnea and palpitations, particularly when walking, but denies chest pain. She has ongoing abdominal pain and alternating constipation and diarrhea, with occasional nausea, particularly after her iron infusion. She denies any urinary issues or hematuria. 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 She also notes occasional pruritus and dizziness but denies syncope. She has a non-painful nodule on her neck that has decreased in size. PAST MEDICAL HISTORY Diagnosis Date Abdominal wall mass of left lower quadrant 03/28/2014 Acne 12/12/2019 Acute sinusitis 05/12/2020 Candidiasis of vagina 09/24/2020 Depression 12/12/2019 Diabetes mellitus type II (HCC) 12/12/2019 Exposure to severe acute respiratory syndrome coronavirus 2 (SARS-CoV-2) 05/15/2020 Generalized abdominal pain 12/16/2021 Hemorrhoids 12/12/2019 Hypertrophy of tonsils 09/17/2020 Iron deficiency anemia 03/19/2020 Pelvic pain in female Seasonal allergies 12/12/2019 Snoring 12/12/2019 Subcutaneous mass 04/25/14 Left lower abdominal wall Upper respiratory infection 05/15/2020 PAST SURGICAL HISTORY Procedure Laterality Date ANESTH, SECTION X 2 EXC TUMOR SOFT TISSUE ABDL WALL SUBFASCIAL <5CM 04/25/14 EXPL LAP W W/WO BX 11/2013 HYSTEROSCOPY 11/2013 LIG/TRNSXJ FLP TUBE ABDL/VAG APPR UNI/BI 2009 Current Outpatient Medications on File Prior to Visit Medication Sig rosuvastatin (CRESTOR) 5 mg tablet Take 1 tablet by mouth daily at bedtime. omeprazole (PRILOSEC) 40 mg capsule Take 1 capsule by mouth once daily. montelukast (SINGULAIR) 10 mg tablet Take 1 tablet by mouth once daily. metFORMIN ER (GLUCOPHAGE XR) 500 mg 24 hr tablet Take 2 tablets by mouth two times a day. losartan (COZAAR) 50 mg tablet Take 1 tablet by mouth once daily. glimepiride (AMARYL) 4 mg tablet Amaryl 4 mg tablet oral daily pioglitazone (ACTOS) 30 mg tablet TAKE 1 TABLET BY MOUTH ONCE DAILY fluticasone (FLONASE) 50 mcg/actuation nasal spray INHALE 1 SPRAY EACH NOSTRIL ONCE DAILY albuterol HFA (PROVENTIL HFA, VENTOLIN HFA) 90 (more content not included)... Normal [facility] Comprehensive metabolic 2000 panelon 11-01-2024 Albumin [Mass/Vol] 3.5 g/dL 3.2 - 5.0 g/dL [facility] ALP [Catalytic activity/Vol] 63 U/L 45 - 117 U/L [facility] ALT [Catalytic activity/Vol] 20 U/L 13 - 61 U/L [facility] Comment on above: Results may be false ly depressed after the administration of Sulfasalazine and/or Sulfapyridine. Anion gap [Moles/Vol] 10 mmol/L 5 - 16 mmol/L [facility] AST [Catalytic activity/Vol] 23 U/L 8 - 34 U/L [facility] Comment on above: Results may be false ly depressed after the administration of Sulfasalazine and/or Sulfapyridine. Bilirubin [Mass/Vol] 0.4 mg/dL 0.2 - 1 .0 mg/dL [facility] Calcium [Mass/Vol] 8.9 mg/dL 8.5 - 10. 5 mg/dL [facility] Chloride [Moles/Vol] 105 mmol/L 98 - 10 7 mmol/L [facility] CO2 [Moles/Vol] 26 mmol/L 21 - 32 mmol/L [facility] Creatinine [Mass/Vol] 0.66 mg/dL 0.51 - 0.95 mg/dL [facility] Comment on above: Patients receiving e ither N-Acetylcysteine (NAC) or Metamizole prior to venipuncture, may have falsely depressed results. GFR/1.73 sq M.predicted among non-blacks MDRD (S/P/Bld) [Vol rate/Area] 113 mL/min/{1.73_m2} - PINF [facility] Comment on above: Estimated Glomerular Filtration Rate (eGFR) is calculated using the 2020 CKD-EPI creatinine equation. This equation utilizes serum creatinine, sex, and age as parameters. The creatinine assay has traceable calibration to isotope dilution-mass spectrometry. Refer to KDIGO guidelines for clinical interpretation. In patients with unstable renal function, e.g. those with acute kidney injury, the eGFR may not accurately reflect actual GFR. Glucose [Mass/Vol] 83 mg/dL 70 - 100 mg/dL [facility] Comment on above: The [place] Diab[employer] s Association (ADA) provides guidance for cutoff values for fasting glucose and random glucose. The ADA defines fasting as no caloric intake for at least 8 hours. Fasting plasma glucose results between 100 to 125 mg/dL indicate increased risk for diabetes (prediabetes). Fasting plasma glucose results greater than or equal to 126 mg/dL meet the criteria for diagnosis of diabetes. In the absence of unequivocal hyperglycemia, results should be confirmed by repeat testing. In a patient with classic symptoms of hyperglycemia or hyperglycemic crisis, random plasma glucose results greater than or equal to 200 mg/dL meet the criteria for diagnosis of diabetes. Reference: Standards of Medical Care in Diabetes 2016, [place] Diabetes Association. Diabetes Care. 2016.39(Suppl 1). Results may be falsely elevated after the administration of Sulfapyridine. Results may be falsely depressed after the administration of Sulfasalazine. Potassium [Moles/Vol] 4.1 mmol/L 3.5 - 5.1 mmol/L [facility] Protein [Mass/Vol] 6.6 g/dL 6.0 - 8.5 g/dL [facility] Sodium [Moles/Vol] 141 mmol/L 136 - 145 mmol/L [facility] Urea nitrogen [Mass/Vol] 13 mg/dL 7 - 26 mg/dL [facility] Albumin [Mass/Vol] 3.5 g/dL Normal 3.2-5.0 [facility] Comment on above: Order Comment: Daniel mac Type: BLOOD SPECIMENOrdering Facility: [facility] Address: [address] [place] [address] Performed By: #### 2 132-9, 21148-3, 2276-4, 43121-3 ####[facility]ORATORYCLIA [id number] [place] [address] [place] ALP [Catalytic activity/Vol] 63 U/L Normal 45-117 [facility] Comment on above: Order Comment: Daniel mac Type: BLOOD SPECIMENOrdering Facility: [facility] Address: [address] [place], [place] [address] Performed By: #### 2 132-9, 29895-5, 2276-4, 68741-6 ####[facility]ORATORYCLIA [id number] [place] [id number] [place] ALT [Catalytic activity/Vol] 20 U/L Normal 13-61 [facility] Comment on above: Order Comment: Daniel mac Type: BLOOD SPECIMENOrdering Facility: [facility] Address: [address] [place] [address] Result Comment: Resu lts may be falsely depressed after the administration of Sulfasalazine and/or Sulfapyridine. Performed By: #### 2 132-9, 14791-0, 2276-4, 43915-7 ####[facility]ATORYCLIA [id number] [place] [id number] [place] Anion gap [Moles/Vol] 10 mmol/L Normal 5-16 [facility] Comment on above: Order Comment: Speci men Type: BLOOD SPECIMENOrdering Facility: [facility] Address: [address] [place] [address] Performed By: #### 2 132-9, 88560-3, 2276-4, 02980-3 ####[facility]ATORYCLIA [id number] [place] [id number] [place] AST [Catalytic activity/Vol] 23 U/L Normal 8-34 [facility] Comment on above: Order Comment: Speci men Type: BLOOD SPECIMENOrdering Facility: [facility] Address: [address] [place] [address] Result Comment: Resu lts may be falsely depressed after the administration of Sulfasalazine and/or Sulfapyridine. Performed By: #### 2 132-9, 17475-8, 2276-4, 36673-4 ####[facility]ATORYCLIA [id number] [place] [id number] [place] Bilirubin [Mass/Vol] 0.4 mg/dL Normal 0.2-1.0 [facility] Comment on above: Order Comment: Speci men Type: BLOOD SPECIMENOrdering Facility: [facility] Address: [address] [place] [address] Performed By: #### 2 132-9, 59474-8, 2276-4, 22499-2 ####[facility]ATORYCLIA [id number] [place] [id number] [place] Calcium [Mass/Vol] 8.9 mg/dL Normal 8.5-10.5 [facility] Comment on above: Order Comment: Speci men Type: BLOOD SPECIMENOrdering Facility: [facility] Address: [address] [place] [address] Performed By: #### 2 132-9, 53435-7, 2276-4, 13697-1 ####[facility]ATORYCLIA [id number] [place] [id number] [place] Chloride [Moles/Vol] 105 mmol/L Normal 98-107 [facility] Comment on above: Order Comment: Speci men Type: BLOOD SPECIMENOrdering Facility: [facility] Address: [address] [place] [address] Performed By: #### 2 132-9, 23789-2, 2276-4, 69955-3 ####[facility]ATORYCLIA [id number] [place] [id number] [place] CO2 [Moles/Vol] 26 mmol/L Normal 21-32 [facility] Comment on above: Order Comment: Speci men Type: BLOOD SPECIMENOrdering Facility: [facility] Address: [address] [place] [address] Performed By: #### 2 132-9, 63491-7, 2276-4, 67365-9 ####[facility]ATORYCLIA [id number] [place] [id number] [place] Creatinine [Mass/Vol] 0.66 mg/dL Normal 0.51-0.95 [facility] Comment on above: Order Comment: Speci men Type: BLOOD SPECIMENOrdering Facility: [facility] Address: [address] [place] [address] Result Comment: Lyssa ents receiving either N-Acetylcysteine (NAC) or Metamizole prior to venipuncture, may have falsely depressed results. Performed By: #### 2 132-9, 98540-2, 2276-4, 67400-9 ####[facility]ATORYCLIA [id number] [place] [id number] [place] Creatinine and Glomerular filtration rate.predicted panel (S/P/Bld) 113 mL/min/1.73m??? Normal >=60 [facility] Comment on above: Order Comment: Speci men Type: BLOOD SPECIMENOrdering Facility: [facility] Address: [address] [place] [id number] Result Comment: Lynn mated Glomerular Filtration Rate (eGFR) is calculated using the 2020 CKD-EPI creatinine equation. This equation utilizes serum creatinine, sex, and age as parameters. The creatinine assay has traceable calibration to isotope dilution-mass spectrometry. Refer to KDIGO guidelines for clinical interpretation. In patients with unstable renal function, e.g. those with acute kidney injury, the eGFR may not accurately reflect actual GFR. Performed By: #### 2 132-9, 02285-9, 2276-4, 02650-3 ####[facility]ATORYCLIA [id number] [place] [id number] [place] Glucose [Mass/Vol] 83 mg/dL Normal 70-100 [facility] Comment on above: Order Comment: Daniel mac Type: BLOOD SPECIMENOrdering Facility: [facility] Address: [address] [place] [address] Result Comment: The [place] Diabetes Association (ADA) provides guidance for cutoff values for fasting glucose and random glucose. The ADA defines fasting as no caloric intake for at least 8 hours. Fasting plasma glucose results between 100 to 125 mg/dL indicate increased risk for diabetes (prediabetes). Fasting plasma glucose results greater than or equal to 126 mg/dL meet the criteria for diagnosis of diabetes. In the absence of unequivocal hyperglycemia, results should be confirmed by repeat testing. In a patient with classic symptoms of hyperglycemia or hyperglycemic crisis, random plasma glucose results greater than or equal to 200 mg/dL meet the criteria for diagnosis of diabetes. Reference: Standards of Medical Care in Diabetes 2016, [place] Diabetes Association. Diabetes Care. 2016.39(Suppl 1). Results may be falsely elevated after the administration of Sulfapyridine. Results may be falsely depressed after the administration of Sulfasalazine. Performed By: #### 2 132-9, 80334-8, 2276-4, 15627-0 ####[facility]ATORYCLIA [id number] [place] [id number] [place] Potassium [Moles/Vol] 4.1 mmol/L Normal 3.5-5.1 [facility] Comment on above: Order Comment: Daniel mac Type: BLOOD SPECIMENOrdering Facility: [facility] Address: [address] [place] [address] Performed By: #### 2 132-9, 00552-6, 2276-4, 56807-0 ####[facility]ATORYCLIA [id number] [place] [id number] [place] Protein [Mass/Vol] 6.6 g/dL Normal 6.0-8.5 [facility] Comment on above: Order Comment: Speci men Type: BLOOD SPECIMENOrdering Facility: [facility] Address: [address] [place], [place] [address] Performed By: #### 2 132-9, 54593-8, 2276-4, 44834-9 ####[facility]ATORYCLIA [id number] [place] [id number] [place] Sodium [Moles/Vol] 141 mmol/L Normal 136-145 [facility] Comment on above: Order Comment: Speci men Type: BLOOD SPECIMENOrdering Facility: [facility] Address: [address] [place], [place] [address] Performed By: #### 2 132-9, 28447-0, 2276-4, 91733-4 ####[facility]ATORYCLIA [id number] [place] [id number] [place] Urea nitrogen [Mass/Vol] 13 mg/dL Normal 7-26 [facility] Comment on above: Order Comment: Speci men Type: BLOOD SPECIMENOrdering Facility: [facility] Address: [address] [place], [place] [address] Performed By: #### 2 132-9, 55533-8, 2276-4, 61346-6 ####[facility]ATORYCLIA [id number] [place] [id number] [place] FERRITINon 11-01-2024 Ferritin [Mass/Vol] 9.4 ng/mL 8.0 - 30 7.0 ng/mL [facility] FOLATE, SERUMon 11-01-2024 Folate [Mass/Vol] 16.2 ng/mL 3.0 - PINF ng/mL [facility] Ferritin SerPl-mCncon 2024 Ferritin [Mass/Vol] 9.4 ng/mL Normal 8.0-307.0 [facility] Comment on above: Order Comment: Daniel mac Type: BLOOD SPECIMENOrdering Facility: [facility] Address: [address] [place] [address] Performed By: #### 2 132-9, 46758-6, 2276-4, 12490-5 ####[facility]ATORYCLIA [id number] [place] [id number] [place] Folate SerPl-ncon 11-02-19 Folate [Mass/Vol] 16.2 ng/mL Normal >3.0 [facility] Comment on above: Order Comment: Daniel mac Type: BLOOD SPECIMENOrdering Facility: [facility] Address: [address] [place] [address] Performed By: #### 2 284-8 ####[facility]ATORYCLIA [id number] [place] [id number] [place] Folate [Mass/Vol]on 11-02-19 Interpretation and review of laboratory results Normal [facility] Iron and Iron binding capaci panelon 11-01-2024 Interpretation and review of laboratory results Abnormal [facility] Iron [Mass/Vol] 15 ug/dL Low 50 - 170 ug/dL [facility] Comment on above: Patients treated wit h metal-binding drugs (e.g.deferoxamine) may have depressed iron values, as chelated iron may not properly react in the Siemens iron assay. Iron binding capacity [Mass/Vol] 374 ug/dL 221 - 481 ug/dL [facility] Iron/TIBC [Molar ratio] 4 % Low 22.0 - 44.0 % [facility] Iron [Mass/Vol] 15 ug/dL Low 50-170 [facility] Comment on above: Order Comment: Daniel amc Type: BLOOD SPECIMENOrdering Facility: [facility] Address: [address] [place] [address] Result Comment: Lyssa ents treated with metal-binding drugs (e.g.deferoxamine) may have depressed iron values, as chelated iron may not properly react in the Siemens iron assay. Performed By: #### 2 132-9, 47150-3, 2276-4, 78757-8 ####[facility]ATORYCLIA [id number] [place] [id number] [place] Iron binding capacity [Mass/Vol] 374 ug/dL Normal 221-481 [facility] Comment on above: Order Comment: Speci men Type: BLOOD SPECIMENOrdering Facility: [facility] Address: [address] [place] [address] Performed By: #### 2 132-9, 19970-9, 2276-4, 50876-2 ####[facility]ATORYCLIA [id number] [place] [id number] [place] Iron/TIBC [Molar ratio] 4.0 % Low 22.0-44.0 [facility] Comment on above: Order Comment: Speci men Type: BLOOD SPECIMENOrdering Facility: [facility] Address: [address] [place] [address] Performed By: #### 2 132-9, 21067-2, 2276-4, 25630-8 ####[facility]ATORYCLIA [id number] [place] [id number] [place] No Panel Informationon 11-01 Interpretation and review of laboratory results Normal [facility] PROTEIN ELECTROPHORESIS SERU M (P)on 11-01-2024 Albumin [Mass/Vol] 3.57 g/dL Normal 3.43-5.41 [facility] Comment on above: Order Comment: Speci men Type: BLOOD SPECIMENOrdering Facility: [facility] Address: [address] [place], [place] [address] Performed By: #### L [id number] ####[facility] LABCLIA [id number] [place] [id number] [place] Alpha 1 globulin Elph [Mass/Vol] 0.29 g/dL Normal 0.18-0.43 [facility] Comment on above: Order Comment: Speci men Type: BLOOD SPECIMENOrdering Facility: [facility] Address: [address] [place] [address] Performed By: #### L [id number] ####[facility] LABCLIA [id number] [place] [address] [place] Alpha 2 globulin Elph [Mass/Vol] 0.66 g/dL Normal 0.42-0.98 [facility] Comment on above: Order Comment: Speci men Type: BLOOD SPECIMENOrdering Facility: [facility] Address: [address] [place] [address] Performed By: #### L [id number] ####[facility] LABCLIA [id number] [place] [address] [place] Beta globulin Elph [Mass/Vol] 0.73 g/dL Normal 0.61-1.17 [facility] Comment on above: Order Comment: Speci men Type: BLOOD SPECIMENOrdering Facility: [facility] Address: [address] [place] [address] Performed By: #### L [id number] ####[facility] LABCLIA [id number] [place] [address] [place] Gamma globulin Elph [Mass/Vol] 0.85 g/dL Normal 0.53-1.51 [facility] Comment on above: Order Comment: Speci men Type: BLOOD SPECIMENOrdering Facility: [facility] Address: [address] [place] [address] Performed By: #### L [id number] ####[facility] LABCLIA [id number] [place] [address] [place] M-PROTEIN LOCATION Normal [facility] Comment on above: Order Comment: Speci men Type: BLOOD SPECIMENOrdering Facility: [facility] Address: [address] [place] [address] Result Comment: Not Applicable. Performed By: #### L [id number] ####[facility] LABIA [id number] [place] [address] [place] Protein Fractions [Interp] No definitive M protein is identified on protein electrophoresis. Normal No definitive M protein is identified on protein electrophores is. [facility] Comment on above: Order Comment: Speci men Type: BLOOD SPECIMENOrdering Facility: [facility] Address: [address] [place] [address] Performed By: #### L [id number] ####[facility] LABCLIA [id number] [place] [address] [place] Protein.monoclonal Elph [Mass/Vol] 0.00 g/dL Normal <=0.00 [facility] Comment on above: Order Comment: Speci men Type: BLOOD SPECIMENOrdering Facility: [facility] Address: [address] [place] [address] Performed By: #### L [id number] ####[facility] LABCLIA [id number] [place] [address] [place] SPE STAFF REVIEW Reviewed by Miranda Keys MD [facility] Comment on above: Order Comment: Speci men Type: BLOOD SPECIMENOrdering Facility: [facility] Address: [address] [place] [address] Performed By: #### L [id number] ####[facility] LABCLIA [id number] [place] [address] [place] Prot SerPl-mCncon 11-01-2024 Protein [Mass/Vol] 6.1 g/dL Low 6.3-8.0 [facility] Comment on above: Order Comment: Speci men Type: BLOOD SPECIMENOrdering Facility: [facility] Address: [address] [place] [address] Performed By: #### 2 885-2 ####[facility] LABCLIA [id number] [place] [address] [place] RETICULOCYTE COUNTon 025 Reticulocytes (Bld) [#/Vol] 0.088 10*3/uL [facility] Retics #on 06-26-2025 Reticulocytes (Bld) [#/Vol] 0.23039 10*3/uL Normal 0.018-0.100 [facility] Comment on above: Order Comment: Daniel mac Type: BLOOD SPECIMENOrdering Facility: [facility] Address: [address] [place] [id number] Performed By: #### 5 7021-8, 01300-4 ####[facility] LABORATORYCLIA [id number] [address] Reticulocytes (Bld) [#/Vol]o n 11-01-2024 Interpretation and review of laboratory results Normal [facility] Reticulocytes/100 RBC (Bld) 1.9 % 0.4 - 2.0 % [facility] Reticulocytes/100 RBC (Bld) 1.9 % Normal 0.4-2.0 [facility] Comment on above: Order Comment: Daniel mac Type: BLOOD SPECIMENOrdering Facility: [facility] Address: [address] [place] [address] [place] [address] Performed By: #### 5 7021-8, 98424-1 ####[facility] LABORATORYCLIA [id number] [address] [place] VITAMIN B12on 11-01-2024 Cobalamin (Vitamin B12) [Mass/Vol] 441 pg/mL 193 - 986 pg/mL [facility] Vit B12 SerPl-mCncon 025 Cobalamin (Vitamin B12) [Mass/Vol] 441 pg/mL Normal 193-986 [facility] Comment on above: Order Comment: Daniel mac Type: BLOOD SPECIMENOrdering Facility: [facility] Address: [address] [place], [place] [address] [address] Performed By: #### 2 132-9, 25027-5, 2276-4, 66691-0 ####[facility] LABORATORYCLIA [id number] [address] OF [place] CNPVernell 10-22-2024 CNPN Telephone ([facility]) BRIANAISSATOU ([id number]) 1985 F Date Time Provider Department 10/22/24 MAYTE CAMPOS During your visit today, we recorded the following information about you: Yazmin Tovar LPN 10/22/2024 9:34 AM Signed Patient had iron infusion on Tuesday of last week Ever since patient is experiencing increased fatigue, weakness, nauseous, and headache. Patient states they informed her this could be a side effect, but is wondering how long side effects are to be taking place. Patient is 5 days since infusion Yazmin Tovar LPN October 22, 2024 9:34 AM Mayte Campos MD 10/22/2024 9:59 AM Signed Should gradually improve over next week or so. Follow up if fails to get better Yazmin Tovar LPN 10/22/2024 3:30 PM Signed Patient notified of information, verbalized understanding. No questions, comments, or concerns at this time. Yazmin Tovar LPN October 22, 2024 3:30 PM Allergies As of Date: 10/22/2024 Noted Allergy Reaction LISINOPRIL 12/12/2019 3 - Cough Date Reviewed: 10/17/2024 Reviewed by: Ciarra Vallejo, RN - Fully Assessed Prescriptions as of 10/22/2024 - rosuvastatin (CRESTOR) 5 mg tablet Take 1 tablet by mouth daily at bedtime. - omeprazole (PRILOSEC) 40 mg capsule Take 1 capsule by mouth once daily. - montelukast (SINGULAIR) 10 mg tablet Take 1 tablet by mouth once daily. - metFORMIN ER (GLUCOPHAGE XR) 500 mg 24 hr tablet Take 2 tablets by mouth two times a day. - losartan (COZAAR) 50 mg tablet Take 1 tablet by mouth once daily. - glimepiride (AMARYL) 4 mg tablet Amaryl 4 mg tablet oral daily - pioglitazone (ACTOS) 30 mg tablet TAKE 1 TABLET BY MOUTH ONCE DAILY - fluticasone (FLONASE) 50 mcg/actuation nasal spray INHALE 1 SPRAY EACH NOSTRIL ONCE DAILY - albuterol HFA (PROVENTIL HFA, VENTOLIN HFA) 90 mcg/actuation inhaler Inhale 2 Puffs as instructed every 4 hours as needed for wheezing/shortness of breath. - CHOLECALCIFEROL, VITAMIN D3, ORAL Take 5,000 Units by mouth once daily. - Ascorbic Acid (VITAMIN C) 1,000 mg tablet Take 1,000 mg by mouth once daily. - loratadine (CLARITIN) 10 mg tablet Take by mouth once daily as needed. - acetaminophen (TYLENOL) 325 mg tablet Take 650 mg by mouth every 6 hours as needed. Problem List As Of Date 10/22/2024 Noted Resolved Abdominal wall mass of left lower quadrant [R19*03/28/2014 Depression [F32.A] 12/12/2019 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 (type 2/adult o*12/12/2019 Iron deficiency anemia [D50.9] 03/19/2020 Insomnia [G47.00] 12/12/2019 Upper respiratory infection [J06.9] 05/15/2020 Snoring [R06.83] 12/12/2019 Seasonal allergies [J30.2] 12/12/2019 Hypertrophy of tonsils [J35.1] 09/17/2020 Hemorrhoids [K64.9] 12/12/2019 Headaches [R51.9] 12/12/2019 Exposure to severe acute respiratory syndrome c*05/15/2020 Essential (primary) hypertension [I10] 12/16/2021 Candidiasis of vagina [B37.31] 09/24/2020 Anxiety [F41.9] 12/12/2019 Acute sinusitis [J01.90] 05/12/2020 Acute bronchitis with bronchospasm [J20.9] 02/25/2021 Acne [L70.9] 12/12/2019 Generalized abdominal pain [R10.84] 12/16/2021 Encounter Status:Closed by VICTORIANO TOVAR LAUREN on 10/22/[address] [facility] Ferritin SerPl-mCnetteon 2024 Ferritin [Mass/Vol] 1.8 ng/mL Low 8.0-307.0 [facility] Comment on above: Order Comment: Speci men Type: BLOOD SPECIMENOrdering Facility: [facility] Address: [address] [place] [address] Performed By: #### 2 276-4, 44934-7 ####[facility] LABORATORYCLIA [id number] [place] [id number] [place] [facility] Iron and Iron binding capaci ty panelon 10-15-2024 Iron [Mass/Vol] 15 ug/dL Low 50-170 [facility] Comment on above: Order Comment: Daniel mac Type: BLOOD SPECIMENOrdering Facility: [facility] Address: [address] [place] [address] Result Comment: Lyssa ents treated with metal-binding drugs (e.g.deferoxamine) may have depressed iron values, as chelated iron may not properly react in the Siemens iron assay. Performed By: #### 2 276-4, 11142-7 ####[facility] LABORATORYCLIA [id number] [address] Iron binding capacity [Mass/Vol] 391 ug/dL Normal 221-481 [facility] Comment on above: Order Comment: Daniel mac Type: BLOOD SPECIMENOrdering Facility: [facility] Address: [address] [place] [address] Performed By: #### 2 276-4, 36498-6 ####[facility] LABORATORYCLIA [id number] [address] Iron/TIBC [Molar ratio] 3.8 % Low 22.0-44.0 [facility] Comment on above: Order Comment: Daniel mac Type: BLOOD SPECIMENOrdering Facility: [facility] Address: [address] [place] [address] Performed By: #### 2 276-4, 74710-7 ####[facility] LABORATORYCLIA [id number] [place] [id number] [facility] CNPVernell 10-11-2024 CHRISTINAN Telephone ([facility]) BRIANAISSATOU ([id number]) 1985 F Date Time Provider Department 10/11/24 MAYTE CAMPOS During your visit today, we recorded the following information about you: Yazmin Tovar LPN 10/11/2024 11:26 AM Signed [facility] phoned office in regards to patient having an appointment scheduled for iron infusion next week. In order for patient to obtain infusion, new labs need completed. Please sign pended: Pended Orders ID Status Description Pended By When Reason [id number] Pended FERRITIN Yazmin Tovar LPN 10/11/24 1125 [id number] Pended IRON AND TIBC Yazmin Tovar LPN 10/11/24 1125 Yazmin Tovar LPN October 11, 2024 11:26 AM Mayte Campos MD 10/11/2024 4:31 PM Signed signed Yazmin Tovar LPN 10/11/2024 4:42 PM Signed Patient notified of information on My Chart. Notification will be sent to this nurse if message has not been read within 1 day. Patient will be contacted by another form of communication if notification of not reading My Chart message is received. Yazmin Tovar LPN October 11, 2024 4:42 PM Allergies As of Date: 10/11/2024 Noted Allergy Reaction LISINOPRIL 12/12/2019 3 - Cough Date Reviewed: 08/01/2024 Reviewed by: Anabel Stubbs LPN - Fully Assessed Primary Visit Diagnosis:Other iron deficiency anemia [D50.8] Order(s):FERRITIN [SQFERR] Order #: [id number] FUTURE IRON AND TIBC [SQIRON] Order #: [id number] FUTURE Prescriptions as of 10/11/2024 - rosuvastatin (CRESTOR) 5 mg tablet Take 1 tablet by mouth daily at bedtime. - omeprazole (PRILOSEC) 40 mg capsule Take 1 capsule by mouth once daily. - montelukast (SINGULAIR) 10 mg tablet Take 1 tablet by mouth once daily. - metFORMIN ER (GLUCOPHAGE XR) 500 mg 24 hr tablet Take 2 tablets by mouth two times a day. - losartan (COZAAR) 50 mg tablet Take 1 tablet by mouth once daily. - glimepiride (AMARYL) 4 mg tablet Amaryl 4 mg tablet oral daily - pioglitazone (ACTOS) 30 mg tablet TAKE 1 TABLET BY MOUTH ONCE DAILY - fluticasone (FLONASE) 50 mcg/actuation nasal spray INHALE 1 SPRAY EACH NOSTRIL ONCE DAILY - albuterol HFA (PROVENTIL HFA, VENTOLIN HFA) 90 mcg/actuation inhaler Inhale 2 Puffs as instructed every 4 hours as needed for wheezing/shortness of breath. - CHOLECALCIFEROL, VITAMIN D3, ORAL Take 5,000 Units by mouth once daily. - Ascorbic Acid (VITAMIN C) 1,000 mg tablet Take 1,000 mg by mouth once daily. - loratadine (CLARITIN) 10 mg tablet Take by mouth once daily as needed. - acetaminophen (TYLENOL) 325 mg tablet Take 650 mg by mouth every 6 hours as needed. Problem List As Of Date 10/11/2024 Noted Resolved Abdominal wall mass of left lower quadrant [R19*03/28/2014 Depression [F32.A] 12/12/2019 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 (type 2/adult o*12/12/2019 Iron deficiency anemia [D50.9] 03/19/2020 Insomnia [G47.00] 12/12/2019 Upper respiratory infection [J06.9] 05/15/2020 Snoring [R06.83] 12/12/2019 Seasonal allergies [J30.2] 12/12/2019 Hypertrophy of tonsils [J35.1] 09/17/2020 Hemorrhoids [K64.9] 12/12/2019 Headaches [R51.9] 12/12/2019 Exposure to severe acute respiratory syndrome c*05/15/2020 Essential (primary) hypertension [I10] 12/16/2021 Candidiasis of vagina [B37.31] 09/24/2020 Anxiety [F41.9] 12/12/2019 Acute sinusitis [J01.90] 05/12/2020 Acute bronchitis with bronchospasm [J20.9] 02/25/2021 Acne [L70.9] 12/12/2019 Generalized abdominal pain [R10.84] 12/16/2021 Encounter Status:Closed by MAYTE CAMPOS on 10/11/24 Normal [facility] DBT Breast - bilateral luiz capellan 08-22-2024 IMPRESSION: There is no mammographic evidence of malignancy in either breast. Routine screening mammogram is recommended. Annual mammogram will be due in 1 year. BI-RADS Category 1: Negative RISK: Based on the Tyrer-Cuzick (TC) risk assessment model, this patient has a 7.6% lifetime risk of developing breast cancer, meaning they are at average risk for developing breast cancer. However, this is only an estimate based on available history provided on the patient's questionnaire. We encourage all patients to talk with their providers about these results, further recommendations for managing breast health, and appropriate supplemental screening options if the patient has dense breast tissue. Interpreting Radiologist: Dagmar Vegas M.D. Electronically signed on: 08/22/2024 Film Recordist: POWER Transcribe Date/Time: Aug 22 2024 9:08A Dictated by : DAGMAR VEGAS MD This examination was interpreted and the report reviewed and electronically signed by: DAGMAR VEGAS MD on Aug 22 2024 10:34AM [facility] * * *Final Report* * * DATE OF EXAM: Aug 22 2024 9:36AM [facility] 0582 - [facility] SCREENING W LEONOR / PROCEDURE REASON: 93533, 91026, Z12.31 BILATERAL SCREENING MAMMOGRAM WITH CAD * * * * Physician Interpretation * * * * [facility] [address] [facility] [address] #[id number] - [facility] SCREENING W LEONOR HISTORY: 39 year-old patient seen for screening. Patient is asymptomatic in both breasts. Patient states no personal history of breast cancer. COMPARISON STUDIES: The present examination has been compared to a prior imaging study dated 05/19/2022 (mammogram). MAMMOGRAM TECHNIQUE: The study was acquired using full field digital technology and interpreted from soft copy. Digital Breast Tomosynthesis (DBT) images were obtained and used to assist in the interpretation of this examination. MAMMOGRAM FINDINGS: There are scattered areas of fibroglandular density. No suspicious masses, calcifications or other abnormalities are seen in either breast. There are no significant interval changes. [facility] Provider, Armin Latifsanti multani [place] - 08/22/2024 * * *Final Report* * * DATE OF EXAM: Aug 22 2024 9:36AM [facility] 0582 - [facility] SCREENING W LEONOR / PROCEDURE REASON: 17184, 53277, Z12.31 BILATERAL SCREENING MAMMOGRAM WITH CAD * * * * Physician Interpretation * * * * [facility] - [facility] [address] [place] [address] #[id number] - [facility] SCREENING W LEONOR HISTORY: 39 year-old patient seen for screening. Patient is asymptomatic in both breasts. Patient states no personal history of breast cancer. COMPARISON STUDIES: The present examination has been compared to a prior imaging study dated 05/19/2022 (mammogram). MAMMOGRAM TECHNIQUE: The study was acquired using full field digital technology and interpreted from soft copy. Digital Breast Tomosynthesis (DBT) images were obtained and used to assist in the interpretation of this examination. MAMMOGRAM FINDINGS: There are scattered areas of fibroglandular density. No suspicious masses, calcifications or other abnormalities are seen in either breast. There are no significant interval changes. IMPRESSION IMPRESSION: There is no mammographic evidence of malignancy in either breast. Routine screening mammogram is recommended. Annual mammogram will be due in 1 year. BI-RADS Category 1: Negative RISK: Based on the Tyrer-Cuzick (TC) risk assessment model, this patient has a 7.6% lifetime risk of developing breast cancer, meaning they are at average risk for developing breast cancer. However, this is only an estimate based on available history provided on the patient's questionnaire. We encourage all patients to talk with their providers about these results, further recommendations for managing breast health, and appropriate supplemental screening options if the patient has dense breast tissue. Interpreting Radiologist: Dagmar Vegas M.D. Electronically signed on: 08/22/2024 Film Recordist: POWER Transcribe Date/Time: Aug 22 2024 9:08A Dictated by : DAGMAR VEGAS MD This examination was interpreted and the report reviewed and electronically signed by: DAGMAR VEGAS MD on Aug 22 2024 10:34AM EST [facility] Radiology Study observation (narrative) [facility] DBT Breast - bilateral scree ningOrdered By: Ccf Provider on 08-22-2024 [facility] Ferritin SerPl-mCncon 2024 Ferritin [Mass/Vol] ng/mL Low 8.0-307.0 [facility] Comment on above: Order Comment: Speci men Type: BLOOD SPECIMENOrdering Facility: [facility] Address: [address] [place], [place] [address] Performed By: #### 2 276-4, 74550-6 ####[facility] LABORATORYCLIA [id number] [place] [id number] [place] Iron and Iron binding capaci ty panelon 08-22-2024 Iron [Mass/Vol] 12 ug/dL Low 50-170 [facility] Comment on above: Order Comment: Speci men Type: BLOOD SPECIMENOrdering Facility: [facility] Address: [address] [place] [address] Result Comment: Lyssa ents treated with metal-binding drugs (e.g.deferoxamine) may have depressed iron values, as chelated iron may not properly react in the Siemens iron assay. Performed By: #### 2 276-4, 12358-3 ####[facility] LABORATORYCLIA [id number] [place] [id number] [place] Iron binding capacity [Mass/Vol] 391 ug/dL Normal 221-481 [facility] Comment on above: Order Comment: Speci men Type: BLOOD SPECIMENOrdering Facility: [facility] Address: [address] [place] [address] Performed By: #### 2 276-4, 61087-8 ####[facility] LABORATORYCLIA [id number] [place] [id number] [place] Iron/TIBC [Molar ratio] 3.1 % Low 22.0-44.0 [facility] Comment on above: Order Comment: Speci men Type: BLOOD SPECIMENOrdering Facility: [facility] Address: [address] [place] [address] Performed By: #### 2 276-4, 86558-8 ####[facility] LABORATORYCLIA [id number] [place] [address] [place] [facility] SCREENING W TOMOon 08-22 [facility] SCREENING W LEONOR * * *Final Report* * * DATE OF EXAM: Aug 22 2024 9:36AM [facility] 0582 - [facility] SCREENING W LEONOR / PROCEDURE REASON: 74014, 71504, Z12.31 BILATERAL SCREENING MAMMOGRAM WITH CAD * * * * Physician Interpretation * * * * [facility] [address] [place] [address] #[id number] - [facility] SCREENING W LEONOR HISTORY: 39 year-old patient seen for screening. Patient is asymptomatic in both breasts. Patient states no personal history of breast cancer. COMPARISON STUDIES: The present examination has been compared to a prior imaging study dated 05/19/2022 (mammogram). MAMMOGRAM TECHNIQUE: The study was acquired using full field digital technology and interpreted from soft copy. Digital Breast Tomosynthesis (DBT) images were obtained and used to assist in the interpretation of this examination. MAMMOGRAM FINDINGS: There are scattered areas of fibroglandular density. No suspicious masses, calcifications or other abnormalities are seen in either breast. There are no significant interval changes. IMPRESSION: There is no mammographic evidence of malignancy in either breast. Routine screening mammogram is recommended. Annual mammogram will be due in 1 year. BI-RADS Category 1: Negative RISK: Based on the Tyrer-Cuzick (TC) risk assessment model, this patient has a 7.6% lifetime risk of developing breast cancer, meaning they are at average risk for developing breast cancer. However, this is only an estimate based on available history provided on the patient's questionnaire. We encourage all patients to talk with their providers about these results, further recommendations for managing breast health, and appropriate supplemental screening options if the patient has dense breast tissue. Interpreting Radiologist: Dagmar Vegas M.D. Electronically signed on: 08/22/2024 Film Recordist: POWER Transcribe Date/Time: Aug 22 2024 9:08A Dictated by : DAGMAR VEGAS MD This examination was interpreted and the report reviewed and electronically signed by: DAGMAR VEGAS MD on Aug 22 2024 10:34AM EST [id number] Normal [facility] CBC W Auto Differential pane l (Bld)on 08-08-2024 Basophils (Bld) [#/Vol] 0.05 10*3/uL Normal <0.11 [facility] Comment on above: Order Comment: Speci men Type: BLOOD SPECIMENOrdering Facility: [facility] Address: [address] [place] [address] Performed By: #### 5 7021-8 ####[facility] LABORATORYCLIA [id number] [place] [address] [place] Basophils/100 WBC (Bld) 0.5 % Normal [facility] Comment on above: Order Comment: Speci men Type: BLOOD SPECIMENOrdering Facility: [facility] Address: [address] [place] [address] Performed By: #### 5 7021-8 ####[facility] LABORATORYCLIA [id number] [place] [address] [place] Differential cell count method Nom (Bld) Auto Normal [facility] Comment on above: Order Comment: Speci men Type: BLOOD SPECIMENOrdering Facility: [facility] Address: [address] [place] [address] Performed By: #### 5 7021-8 ####[facility] LABORATORYCLIA [id number] [place] [address] [place] Eosinophils (Bld) [#/Vol] 0.52 10*3/uL High <0.46 [facility] Comment on above: Order Comment: Speci men Type: BLOOD SPECIMENOrdering Facility: [facility] Address: [address] [place] [address] Performed By: #### 5 7021-8 ####[facility] LABORATORYCLIA [id number] [place] [address] [place] Eosinophils/100 WBC (Bld) 4.7 % Normal [facility] Comment on above: Order Comment: Speci men Type: BLOOD SPECIMENOrdering Facility: [facility] Address: [address] [place] [address] Performed By: #### 5 7021-8 ####[facility] LABORATORYCLIA [id number] [place] [address] [place] Erythrocyte distribution width (RBC) [Ratio] 17.9 % High 11.5-15.0 [facility] Comment on above: Order Comment: Speci men Type: BLOOD SPECIMENOrdering Facility: [facility] Address: [address] [place] [address] Performed By: #### 5 7021-8 ####[facility] LABORATORYCLIA [id number] [place] [address] [place] Hematocrit (Bld) [Volume fraction] 31.0 % Low 36.0-46.0 [facility] Comment on above: Order Comment: Speci men Type: BLOOD SPECIMENOrdering Facility: [facility] Address: [address] [place] [address] Performed By: #### 5 7021-8 ####[facility] LABORATORYCLIA [id number] [place] [address] [place] Hemoglobin (Bld) [Mass/Vol] 8.5 g/dL Low 11.5-15.5 [facility] Comment on above: Order Comment: Speci men Type: BLOOD SPECIMENOrdering Facility: [facility] Address: [address] [place] [address] Performed By: #### 5 7021-8 ####[facility] LABORATORYCLIA [id number] [place] [address] [place] Immature granulocytes (Bld) [#/Vol] 0.09 10*3/uL Normal <0.10 [facility] Comment on above: Order Comment: Speci men Type: BLOOD SPECIMENOrdering Facility: [facility] Address: [address] [place] [address] Performed By: #### 5 7021-8 ####[facility] LABORATORYCLIA [id number] [address] Immature granulocytes/100 WBC (Bld) 0.8 % Normal [facility] Comment on above: Order Comment: Speci men Type: BLOOD SPECIMENOrdering Facility: [facility] Address: [address] [place] [address] Performed By: #### 5 7021-8 ####[facility] LABORATORYCLIA [id number] [place] [address] [facility] OF [place] Lymphocytes (Bld) [#/Vol] 3.74 10*3/uL Normal 1.00-4.00 [facility] Comment on above: Order Comment: Speci men Type: BLOOD SPECIMENOrdering Facility: [facility] Address: [address] [place] [address] Performed By: #### 5 7021-8 ####[facility] LABORATORYCLIA [id number] [address] Lymphocytes/100 WBC (Bld) 33.8 % Normal [facility] Comment on above: Order Comment: Speci men Type: BLOOD SPECIMENOrdering Facility: [facility] Address: [address] [place] [address] Performed By: #### 5 7021-8 ####[facility]ATORYCLIA [id number] [address] [place] MCH (RBC) [Entitic mass] 18.4 pg Low 26.0-34.0 [facility] Comment on above: Order Comment: Speci men Type: BLOOD SPECIMENOrdering Facility: [facility] Address: [address] [place] [address] Performed By: #### 5 7021-8 ####[facility]ATORYCLIA [id number] [address] [place] MCHC (RBC) [Mass/Vol] 27.4 g/dL Low 30.5-36.0 [facility] Comment on above: Order Comment: Speci men Type: BLOOD SPECIMENOrdering Facility: [facility] Address: [address] [place] [address] Performed By: #### 5 7021-8 ####[facility]ATORYCLIA [id number] [place] [address] [place] MCV (RBC) [Entitic vol] 67.2 fL Low 80.0-100.0 [facility] Comment on above: Order Comment: Speci men Type: BLOOD SPECIMENOrdering Facility: [facility] Address: [address] [place] [address] Performed By: #### 5 7021-8 ####[facility]ATORYCLIA [id number] [place] [address] [place] Monocytes (Bld) [#/Vol] 0.60 10*3/uL Normal <0.87 [facility] Comment on above: Order Comment: Speci men Type: BLOOD SPECIMENOrdering Facility: [facility] Address: [address] [place] [address] Performed By: #### 5 7021-8 ####[facility]ATORYCLIA [id number] [address] [place] Monocytes/100 WBC (Bld) 5.4 % Normal [facility] Comment on above: Order Comment: Speci men Type: BLOOD SPECIMENOrdering Facility: [facility] Address: [address] [place] [address] Performed By: #### 5 7021-8 ####[facility]ATORYCLIA [id number] [place] [address] [place] Neutrophils (Bld) [#/Vol] 6.07 10*3/uL Normal 1.45-7.50 [facility] Comment on above: Order Comment: Speci men Type: BLOOD SPECIMENOrdering Facility: [facility] Address: [address] [place] [address] Performed By: #### 5 7021-8 ####[facility]ATORYCLIA [id number] [address] [place] Neutrophils/100 WBC (Bld) 54.8 % Normal [facility] Comment on above: Order Comment: Speci men Type: BLOOD SPECIMENOrdering Facility: [facility] Address: [address] [place] [address] Performed By: #### 5 7021-8 ####[facility]ATORYCLIA [id number] [place] [id number] [place] Nucleated RBC (Bld) [#/Vol] 10*3/uL Normal <0.01 [facility] Comment on above: Order Comment: Speci men Type: BLOOD SPECIMENOrdering Facility: [facility] Address: [address] [place] [address] Performed By: #### 5 7021-8 ####[facility]ATORYCLIA [id number] [place] [id number] [place] Nucleated RBC/100 WBC (Bld) [Ratio] 0.0 /100 WBC Normal [facility] Comment on above: Order Comment: Speci men Type: BLOOD SPECIMENOrdering Facility: [facility] Address: [address] [place] [address] Performed By: #### 5 7021-8 ####[facility]ATORYCLIA [id number] [place] [address] [place] Platelet mean volume (Bld) [Entitic vol] 9.5 fL Normal 9.0-12.7 [facility] Comment on above: Order Comment: Speci men Type: BLOOD SPECIMENOrdering Facility: [facility] Address: [address] [place] [address] Performed By: #### 5 7021-8 ####[facility]ATORYCLIA [id number] [place] [id number] [place] Platelets (Bld) [#/Vol] 360 10*3/uL Normal 150-400 [facility] Comment on above: Order Comment: Speci men Type: BLOOD SPECIMENOrdering Facility: [facility] Address: [address] [place] [address] Performed By: #### 5 7021-8 ####[facility]ATORYCLIA [id number] [place] [id number] [place] RBC (Bld) [#/Vol] 4.61 10*6/uL Normal 3.90-5.20 [facility] Comment on above: Order Comment: Speci men Type: BLOOD SPECIMENOrdering Facility: [facility] Address: [address] [place] [address] Performed By: #### 5 7021-8 ####[facility]ATORYCLIA [id number] [address] OF [facility] WBC (Bld) [#/Vol] 11.07 10*3/uL High 3.70-11.00 [facility] Comment on above: Order Comment: Speci men Type: BLOOD SPECIMENOrdering Facility: [facility] Address: [address] [place] [address] Performed By: #### 5 7021-8 ####[facility]ATORYCLIA [id number] [place] 3235[address] [facility] Comprehensive metabolic 2000 panelon 08-08-2024 Albumin [Mass/Vol] 3.3 g/dL Normal 3.2-5.0 [facility] Comment on above: Order Comment: Speci men Type: BLOOD SPECIMENOrdering Facility: [facility] Address: [address] [place], [place] [address] Performed By: #### 2 4323-8, 3015-3 ####[facility]ATORYCLIA [id number] [address] OF [facility]#### 65597-3 ####[facility]ATORYCLIA [id number] [address] STATES OF [facility] LABCLIA [id number] [place] [address] [place] ALP [Catalytic activity/Vol] 61 U/L Normal 45-117 [facility] Comment on above: Order Comment: Speci men Type: BLOOD SPECIMENOrdering Facility: [facility] Address: [address] [place] [address] Performed By: #### 2 4323-8, 6-3 ####[facility]ATORYCLIA [id number] [address] [place]#### [address]-5 ####[facility]ATORYCLIA [id number] [address] [place] LABCLIA [id number] [place] [address] [place] ALT [Catalytic activity/Vol] 16 U/L Normal 13-61 [facility] Comment on above: Order Comment: Speci men Type: BLOOD SPECIMENOrdering Facility: [facility] Address: [address] [place] [address] Result Comment: Resu lts may be falsely depressed after the administration of Sulfasalazine and/or Sulfapyridine. Performed By: #### 2 4323-8, 3016-3 ####[facility]ATORYCLIA [id number] [address] [place]#### [address]-9 ####[facility]ATORYCLIA [id number] [address] [place] LABCLIA [id number] [address] STATES [facility] Anion gap [Moles/Vol] 7 mmol/L Normal 5-16 [facility] Comment on above: Order Comment: Speci men Type: BLOOD SPECIMENOrdering Facility: [facility] Address: [address] [place] [address] Performed By: #### 2 4323-8, 3016-3 ####[facility]ATORYCLIA [id number] [address] [place]#### 16625-5 ####[facility]ORYCLIA [id number] [address] [place] LABCLIA [id number] [place] [address] [place] AST [Catalytic activity/Vol] 18 U/L Normal 8-34 [facility] Comment on above: Order Comment: Speci men Type: BLOOD SPECIMENOrdering Facility: [facility] Address: [address] [place] [id number] Result Comment: Resu lts may be falsely depressed after the administration of Sulfasalazine and/or Sulfapyridine. Performed By: #### 2 4323-8, 3015-3 ####[facility]ATORYCLIA [id number] [place] [address] [place]#### 97547-3 ####[facility]ATORYCLIA [id number] [place] [address] [facility] [place] LABCLIA [id number] [place] [address] [place] Bilirubin [Mass/Vol] 0.3 mg/dL Normal 0.2-1.0 [facility] Comment on above: Order Comment: Speci men Type: BLOOD SPECIMENOrdering Facility: [facility] Address: [address] [place] [address] Performed By: #### 2 4323-8, 3015-07 ####[facility]ATORYCLIA [id number] [place] [address] [place]#### 98733-9 ####[facility]ATORYCLIA [id number] [place] [address] [facility] [place] LABCLIA [id number] [place] [address] [place] Calcium [Mass/Vol] 9.5 mg/dL Normal 8.5-10.5 [facility] Comment on above: Order Comment: Speci men Type: BLOOD SPECIMENOrdering Facility: [facility] Address: [address] [place], [place] [address] Performed By: #### 2 4323-8, 3 ####[facility]ATORYCLIA [id number] [place] [address] [place]#### 47087-0 ####[facility]ATORYCLIA [id number] [place] [address] [facility] [place] LABCLIA [id number] [place] [address] [place] Chloride [Moles/Vol] 103 mmol/L Normal 98-107 [facility] Comment on above: Order Comment: Speci men Type: BLOOD SPECIMENOrdering Facility: [facility] Address: [address] [place] [address] Performed By: #### 2 4323-8, 6-3 ####[facility]ATORYCLIA [id number] [place] [address] [place]#### 24668-2 ####[facility]ATORYCLIA [id number] [address] [place] LABCLIA [id number] [place] [address] [place] CO2 [Moles/Vol] 28 mmol/L Normal 21-32 [facility] Comment on above: Order Comment: Speci men Type: BLOOD SPECIMENOrdering Facility: [facility] Address: [address] [place] [address] Performed By: #### 2 4323-8, 3015-3 ####[facility]ATORYCLIA [id number] [address] [place]#### 52734-2 ####[facility]ORYCLIA [id number] [address] [place] LABCLIA [id number] [place] [address] [place] Creatinine [Mass/Vol] 0.64 mg/dL Normal 0.51-0.95 [facility] Comment on above: Order Comment: Speci men Type: BLOOD SPECIMENOrdering Facility: [facility] Address: [address] [place] [address] Result Comment: Lyssa ents receiving either N-Acetylcysteine (NAC) or Metamizole prior to venipuncture, may have falsely depressed results. Performed By: #### 2 4323-8, 3016-3 ####[facility]ATORYCLIA [id number] [address]#### 36552-9 ####[facility]ATORYCLIA [id number] [address] [place] LABCLIA [id number] [address] Creatinine and Glomerular filtration rate.predicted panel (S/P/Bld) 114 mL/min/1.73m??? Normal >=60 [facility] Comment on above: Order Comment: Speci men Type: BLOOD SPECIMENOrdering Facility: [facility] Address: [address] [place] [address] Result Comment: Lynn mated Glomerular Filtration Rate (eGFR) is calculated using the 2020 CKD-EPI creatinine equation. This equation utilizes serum creatinine, sex, and age as parameters. The creatinine assay has traceable calibration to isotope dilution-mass spectrometry. Refer to KDIGO guidelines for clinical interpretation. In patients with unstable renal function, e.g. those with acute kidney injury, the eGFR may not accurately reflect actual GFR. Performed By: #### 2 4323-8, 3016-3 ####[facility]ATORYCLIA [id number] [address]#### 82002-1 ####[facility]ORYCLIA [id number] [address] [place] LABCLIA [id number] [address] Glucose [Mass/Vol] 73 mg/dL Normal 70-100 [facility] Comment on above: Order Comment: Daniel men Type: BLOOD SPECIMENOrdering Facility: [facility] Address: [address] [place] [address] Result Comment: The [place] Diabetes Association (ADA) provides guidance for cutoff values for fasting glucose and random glucose. The ADA defines fasting as no caloric intake for at least 8 hours. Fasting plasma glucose results between 100 to 125 mg/dL indicate increased risk for diabetes (prediabetes). Fasting plasma glucose results greater than or equal to 126 mg/dL meet the criteria for diagnosis of diabetes. In the absence of unequivocal hyperglycemia, results should be confirmed by repeat testing. In a patient with classic symptoms of hyperglycemia or hyperglycemic crisis, random plasma glucose results greater than or equal to 200 mg/dL meet the criteria for diagnosis of diabetes. Reference: Standards of Medical Care in Diabetes 2016, [place] Diabetes Association. Diabetes Care. 2016.39(Suppl 1). Results may be falsely elevated after the administration of Sulfapyridine. Results may be falsely depressed after the administration of Sulfasalazine. Performed By: #### 2 4323-8, 3016-3 ####[facility]ATORYCLIA [id number] [address]#### 90365-8 ####[facility]ORYCLIA [id number] [address] [place] LABCLIA [id number] [place] [address] [place] Potassium [Moles/Vol] 4.2 mmol/L Normal 3.5-5.1 [facility] Comment on above: Order Comment: Cocoi estefania Type: BLOOD SPECIMENOrdering Facility: [facility] Address: [address] [place] [address] Performed By: #### 2 4323-8, 6-3 ####[facility]ATORYCLIA [id number] [address]#### 33614-5 ####[facility]ATORYCLIA [id number] [address] [place] LABCLIA [id number] [place] [address] [place] Protein [Mass/Vol] 6.3 g/dL Normal 6.0-8.5 [facility] Comment on above: Order Comment: Speci men Type: BLOOD SPECIMENOrdering Facility: [facility] Address: [address] [place] [address] Performed By: #### 2 4323-8, 6-3 ####[facility]ORATORYCLIA [id number] [place] [address] [place]#### 94400-8 ####[facility]ATORYCLIA [id number] [place] [address] [place] [facility] [place] LABCLIA [id number] [place] [address] [place] Sodium [Moles/Vol] 138 mmol/L Normal 136-145 [facility] Comment on above: Order Comment: Speci men Type: BLOOD SPECIMENOrdering Facility: [facility] Address: [address] [place] [address] Performed By: #### 2 4323-8, 3015-3 ####[facility]ATORYCLIA [id number] [place] [address] [place]#### 87232-5 ####[facility]ATORYCLIA [id number] [place] [address] [place] [facility] [place] LABCLIA [id number] [place] [address] [place] [address] [place] [facility] Urea nitrogen [Mass/Vol] 10 mg/dL Normal 7-26 [facility] Comment on above: Order Comment: Speci men Type: BLOOD SPECIMENOrdering Facility: [facility] Address: [address] [place] [address] Performed By: #### 2 4323-8, 3015-3 ####[facility]ATORYCLIA [id number] [place] [address] [place]#### 42014-9 ####[facility]ATORYCLIA [id number] [place] [address] [place] [facility] [place] LABCLIA [id number] [place] [address] [place] HbA1c (Bld)on 08-08-2024 Average glucose Estimated from glycated hemoglobin (Bld) [Mass/Vol] 128 mg/dL Normal [facility] Comment on above: Order Comment: Daniel mac Type: BLOOD SPECIMENOrdering Facility: [facility] Address: [address] [place] [address] Result Comment: eAG: (Estimated average glucose) is a calculated value from HgbA1c and is financial services representative of the average blood glucose level in the last 2-3 month period. Performed By: #### 5 5454-3 ####[facility] LABCLIA [id number] [address] STATES OF [facility] HbA1c (Bld) [Mass fraction] 6.1 % High 4.3-5.6 [facility] Comment on above: Order Comment: Daniel mac Type: BLOOD SPECIMENOrdering Facility: [facility] Address: [address] [place] [address] Result Comment: Amer [place] Diabetes Association guidelines indicate that patients with HgbA1c in the range 5.7-6.4% are at increased risk for development of diabetes, and intervention by lifestyle modification may be beneficial. HgbA1c greater or equal to 6.5% is considered diagnostic of diabetes. Performed By: #### 5 5454-3 ####[facility] LABCLIA [id number] [address] Lipid 1996 panelon 5 Cholesterol [Mass/Vol] 110 mg/dL Normal 0-199 [facility] Comment on above: Order Comment: Daniel mac Type: BLOOD SPECIMENOrdering Facility: [facility] Address: [address] [place] [address] Result Comment: <200 mg/dL, Desirable 200-239 mg/dL, Borderline high >239 mg/dL, High Performed By: #### 2 4323-8, 3016-3 ####[facility]ATORYCLIA [id number] [address] [place]#### 62119-8 ####[facility]ORATORYCLIA [id number] [address] [place] LABCLIA [id number] [place], [place] [address] [place] [address] Cholesterol in HDL [Mass/Vol] 32 mg/dL Low >40 [facility] Comment on above: Order Comment: Speci men Type: BLOOD SPECIMENOrdering Facility: [facility] Address: [address] [place] [address] Result Comment: 40-5 9 mg/dL, Acceptable >59 mg/dL, High: Negative risk factor for coronary heart disease <40 mg/dL, Low: Positive risk factor for coronary heart disease Performed By: #### 2 4323-8, 3015-3 ####[facility]ATORYCLIA [id number] [address]#### 41564-7 ####[facility]ATORYCLIA [id number] [address] LABCLIA [id number] [address] Cholesterol in LDL [Mass/Vol] 52 mg/dL Normal 0-129 [facility] Comment on above: Order Comment: Speci men Type: BLOOD SPECIMENOrdering Facility: [facility] Address: [address] [place] [address] Result Comment: <100 mg/dL, Optimal 100-129 mg/dL, Near optimal/above optimal 130-159 mg/dL, Borderline high 160-189 mg/dL, High >189 mg/dL, Very high Secondary prevention optimal LDL Cholesterol levels are recommended to be < 70 mg/dL Performed By: #### 2 4323-8, 3015-3 ####[facility]ATORYCLIA [id number] [address] [place]#### 48990-1 ####[facility]ORATORYCLIA [id number] [place] [address] [facility] [place] LABCLIA [id number] [place] [address] [place] Cholesterol in LDL/Cholesterol in HDL [Mass ratio] 1.63 {ratio} Normal <2.54 [facility] Comment on above: Order Comment: Speci men Type: BLOOD SPECIMENOrdering Facility: [facility] Address: [address] [place] [address] Result Comment: Adamaris gross: 1. National Cholesterol Education Program ATP III Guideline At-A-Glance Quick Desk Reference: National Heart, Lung, and Blood [place]. National Institutes of Health. 2001: NIH Publication No. 01-3305. 2. An International Atherosclerosis Society position paper: global recommendations for the management of dyslipidemia: executive summary, Atherosclerosis. 2014: 232(2):410-413. Performed By: #### 2 4323-8, 3015-3 ####[facility]ORATORYCLIA [id number] [address] STATES [facility]#### 63105-1 ####[facility]ATORYCLIA [id number] [address] [place] LABCLIA [id number] [address] Cholesterol in VLDL [Mass/Vol] 26 mg/dL Normal <30 [facility] Comment on above: Order Comment: Speci men Type: BLOOD SPECIMENOrdering Facility: [facility] Address: [address] [place] [address] Performed By: #### 2 4323-8, 3015-3 ####[facility]ATORYCLIA [id number] [address] [place]#### [address]90-5 ####[facility]ATORYCLIA [id number] [address] [place] LABCLIA [id number] [address] Cholesterol non HDL [Mass/Vol] 78 mg/dL Normal <130 [facility] Comment on above: Order Comment: Speci men Type: BLOOD SPECIMENOrdering Facility: [facility] Address: [address] [place] [address] [place] [address] Result Comment: <130 mg/dL, Optimal 130-159 mg/dL, Near optimal/above optimal 160-189 mg/dL, Borderline high 190-219 mg/dL, High >219 mg/dL, Very high Secondary prevention optimal non HDL Cholesterol levels are recommended to be <100 mg/dL Performed By: #### 2 4323-8, 3015-3 ####[facility]ATORYCLIA [id number] [address]#### 09607-8 ####[facility]ORATORYCLIA [id number] [address] LABCLIA [id number] [address] Cholesterol.total/Cho lesterol in HDL [Mass ratio] 3.44 {ratio} Normal <5.10 [facility] Comment on above: Order Comment: Speci men Type: BLOOD SPECIMENOrdering Facility: [facility] Address: [address] [place] [address] Performed By: #### 2 43238, 3015-07 ####[facility]ATORYCLIA [id number] [address]#### 68978-3 ####[facility]ORATORYCLIA [id number] [address] LABCLIA [id number] [address] FASTING TIME 12 hrs Normal [facility] Comment on above: Order Comment: Speci men Type: BLOOD SPECIMENOrdering Facility: [facility] Address: [address] [place] [address] Performed By: #### 2 4323-8, 3015-3 ####[facility]ATORYCLIA [id number] [address] [place]#### 77131-4 ####[facility]ATORYCLIA [id number] [address] [place] LABCLIA [id number] [place] [address] [place] [facility] Triglyceride [Mass/Vol] 129 mg/dL Normal 30-149 [facility] Comment on above: Order Comment: Speci men Type: BLOOD SPECIMENOrdering Facility: [facility] Address: [address] [place] [address] Result Comment: <150 mg/dL, Normal 150-199 mg/dL, Borderline high 200-499 mg/dL, High >499 mg/dL, Very high Patients receiving either N-Acetylcysteine (NAC) or Metamizole prior to venipuncture, may have falsely depressed results. Performed By: #### 2 4323-8, 3015-3 ####[facility]ATORYCLIA [id number] [address]#### 42970-2 ####[facility]ATORYCLIA [id number] [address] LABCLIA [id number] [address] [place] TSH SerPl-aCncon 08-08-2024 TSH Qn 2.943 m[IU]/L Normal 0.358-3.740 [facility] Comment on above: Order Comment: Speci men Type: BLOOD SPECIMENOrdering Facility: [facility] Address: [address] [place] [address] Result Comment: 3rd generation ultra sensitive TSH. Performed By: #### 2 4323-8, 3015-3 ####[facility]ORATORYCLIA [id number] [place] [address] [place]#### 00006-1 ####[facility]ORATORYCLIA [id number] [address] LABCLIA [id number] [place] [address] [place] CNOVon 08-01-2024 CNOV Office Visit (FAMMAS ) AISSATOU TORRES ([id number]) 1985 F Date Time Provider Department 08/01/24 1:40 PM MAYTE CAMPOS During your visit today, we recorded the following information about you: Temperature Pulse Respiration Blood pressure 98 degrees 90/minute 18/minute 134/82 Weight Height 136.1 kg 1.651 Anabel Ferrell LPN 08/01/2024 1:54 PM Addendum Patient is here for her annual physical. Urine Albumin:Creatinine Ratio Never done Diabetic Foot Exam Never done Hepatitis C Screening Never done HIV Screening Never done BP Controlled (<130/80) Never done DTaP,Tdap,Td Vaccine(1 - Tdap) Never done Hepatitis B Vaccine(1 of 3 - 19+ 3-dose series) Never done Pneumococcal Vaccine(1 of 2 - PCV) Never done Cervical Cancer Screening Never done HbA1C due on 03/14/2023 Mammogram Screening due on 05/19/2023 Dilated Retinal Exam due on 08/03/2023 LDL Cholesterol due on 12/13/2023 Influenza Vaccine(1) Never done Covid-19 Vaccine( season) Never done No vaccines today. Anabel Stubbs LPN August 01, 2024 1:54 PM Mayte Campos MD 08/01/2024 2:28 PM Signed Subjective Aissatou Torres is a 39 year old female. Aissatou presents today for her annual wellness visit. Additionally she follows up for multiple medical problems. See list. Her blood pressure is under good control on her current regimen. She remains on Crestor for treatment of high cholesterol. GI symptoms are improved with omeprazole. Blood sugars have been elevated. Most recent A1c was 8.0. Insurance did not cover treatment with GLP-1's. She remains on Actos, metformin, glimepiride. Review of Systems Constitutional: Negative. HENT: Negative. Eyes: Negative. Respiratory: Negative. Cardiovascular: Negative. Gastrointestinal: Negative. Endocrine: Negative. Genitourinary: Negative. Musculoskeletal: Negative. Skin: Negative. Allergic/Immunologic: Negative. Neurological: Negative. Hematological: Negative. Psychiatric/Behavioral : Negative. PAST SURGICAL HISTORY Procedure Laterality Date ANESTH, SECTION X 2 EXC TUMOR SOFT TISSUE ABDL WALL SUBFASCIAL <5CM 04/25/14 EXPL LAP W W/WO BX 11/2013 HYSTEROSCOPY 11/2013 LIG/TRNSXJ FLP TUBE ABDL/VAG APPR UNI/BI 2009 PAST MEDICAL HISTORY Diagnosis Date Abdominal wall mass of left lower quadrant 03/28/2014 Acne 12/12/2019 Acute sinusitis 05/12/2020 Candidiasis of vagina 09/24/2020 Depression 12/12/2019 Diabetes mellitus type II (HCC) 12/12/2019 Exposure to severe acute respiratory syndrome coronavirus 2 (SARS-CoV-2) 05/15/2020 Generalized abdominal pain 12/16/2021 Hemorrhoids 12/12/2019 Hypertrophy of tonsils 09/17/2020 Iron deficiency anemia 03/19/2020 Pelvic pain in female Seasonal allergies 12/12/2019 Snoring 12/12/2019 Subcutaneous mass 04/25/14 Left lower abdominal wall Upper respiratory infection 05/15/2020 FAMILY HISTORY Problem Relation Age of Onset None Mother None Father Social History Tobacco Use Smoking status: Never Smokeless tobacco: Never Vaping Use Vaping status: Never Used Substance Use Topics Alcohol use: No Drug use: No ALLERGIES Allergen Reactions Lisinopril Cough MEDICATIONS: pioglitazone (ACTOS) 30 mg tablet TAKE 1 TABLET BY MOUTH ONCE DAILY fluticasone (FLONASE) 50 mcg/actuation nasal spray INHALE 1 SPRAY EACH NOSTRIL ONCE DAILY albuterol HFA (PROVENTIL HFA, VENTOLIN HFA) 90 mcg/actuation inhaler Inhale 2 Puffs as instructed every 4 hours as needed for wheezing/shortness of breath. CHOLECALCIFEROL, VITAMIN D3, ORAL Take 5,000 Units by mouth once daily. Ascorbic Acid (VITAMIN C) 1,000 mg tablet Take 1,000 mg by mouth once daily. loratadine (CLARITIN) 10 mg tablet Take by mouth once daily as needed. acetaminophen (TYLENOL) 325 mg tablet Take 650 mg by mouth every 6 hours as needed. rosuvastatin (CRESTOR) 5 mg tablet Take 1 tablet by mouth daily at bedtime. omeprazole (PRILOSEC) 40 mg capsule Take 1 capsule by mouth once daily. montelukast (SINGULAIR) 10 mg tablet Take 1 tablet by mouth once daily. metFORMIN ER (GLUCOPHAGE XR) 500 mg 24 hr tablet Take 2 tablets by mouth two times a day. losartan (COZAAR) 50 mg tablet Take 1 tablet by mouth once daily. glimepiride (AMARYL) 4 mg tablet Amaryl 4 mg tablet oral daily Allergies, past surgical history, family history and past medical history were reviewed per this encounter. Medications were reviewed and verified. 05/05/2024 07/31/2024 INTAKE PAIN ASSESSMENT Are you having pain associated with your visit today? Yes, Provider notified No Pain Scales Verbal (Numeric Rating or Visual Analog Scale) Pain Level 3 Pain Location Ear-Right Description Aching Duration Amount of Time 1 Duration Units Days Frequency Intermittent If pain assessment is 0, no action needed. If pain assessment is positive, please see assessment and plain. O (more content not included)... [facility] ([facility] ) AISSATOU TORRES ([id number]) 1985 F Date Time Provider Department 05/05/24 12:50 PM JARRELL DRIVER [facility] During your visit today, we recorded the following information about you: Temperature Pulse Respiration Blood pressure 98 degrees 83/minute 18/minute 150/92 Jarrell Driver MD 05/05/2024 1:01 PM Signed Aissatou Murcia Brian is a 39 year old female who presents with Cough (Cough, congestion, right ear pain all x 8 days) HPI Patient is a 39-year-old female presents with cough, congestion, and right ear pain for the last 8 days. She does not have any fevers. She is not having shortness of breath or chest pain. She has not tried anything for her symptoms. PAST MEDICAL HISTORY Diagnosis Date Abdominal wall mass of left lower quadrant 03/28/2014 Acne 12/12/2019 Acute sinusitis 05/12/2020 Candidiasis of vagina 09/24/2020 Depression 12/12/2019 Diabetes mellitus type II (HCC) 12/12/2019 Exposure to severe acute respiratory syndrome coronavirus 2 (SARS-CoV-2) 05/15/2020 Generalized abdominal pain 12/16/2021 Hemorrhoids 12/12/2019 Hypertrophy of tonsils 09/17/2020 Iron deficiency anemia 03/19/2020 Pelvic pain in female Seasonal allergies 12/12/2019 Snoring 12/12/2019 Subcutaneous mass 04/25/14 Left lower abdominal wall Upper respiratory infection 05/15/2020 ACTIVE PROBLEM LIST Abdominal Wall Mass of Left Lower Quadrant Depression Diabetes Beginning in Adulthood (Type 2/Adult Onset) (Hcc) Iron Deficiency Anemia Insomnia Upper Respiratory Infection Snoring Seasonal Allergies Hypertrophy of Tonsils Hemorrhoids Headaches Exposure to Severe Acute Respiratory Syndrome Coronavirus 2 (Sars-Cov-2) Essential (Primary) Hypertension Candidiasis of Vagina Anxiety Acute Sinusitis Acute Bronchitis With Bronchospasm Acne Generalized Abdominal Pain Current Outpatient Medications Medication Sig Dispense Refill albuterol HFA (PROVENTIL HFA, VENTOLIN HFA) 90 mcg/actuation inhaler Inhale 2 Puffs as instructed every 4 hours as needed for wheezing/shortness of breath. 3 Each 3 glimepiride (AMARYL) 4 mg tablet Amaryl 4 mg tablet oral daily 90 tablet 3 losartan (COZAAR) 50 mg tablet Take 1 tablet by mouth once daily. 90 tablet 3 metFORMIN ER (GLUCOPHAGE XR) 500 mg 24 hr tablet Take 2 tablets by mouth two times a day. 360 tablet 3 montelukast (SINGULAIR) 10 mg tablet Take 1 tablet by mouth once daily. 90 tablet 3 omeprazole (PRILOSEC) 40 mg capsule Take 1 capsule by mouth once daily. 90 capsule 3 rosuvastatin (CRESTOR) 5 mg tablet Take 1 tablet by mouth daily at bedtime. 90 tablet 3 CHOLECALCIFEROL, VITAMIN D3, ORAL Take 5,000 Units by mouth once daily. Ascorbic Acid (VITAMIN C) 1,000 mg tablet Take 1,000 mg by mouth once daily. pioglitazone (ACTOS) 30 mg tablet Take 1 tablet by mouth once daily. 90 tablet 3 loratadine (CLARITIN) 10 mg tablet Take by mouth once daily as needed. acetaminophen (TYLENOL) 325 mg tablet Take 650 mg by mouth every 6 hours as needed. amoxicillin-clavulanat e potassium (AUGMENTIN) 875-125 mg per tablet Take 1 tablet by mouth every 12 hours for 10 days. 20 tablet 0 methylPREDNISolone (MEDROL, LYNDA,) 4 mg Dose-Pack Take as instructed per package. 21 tablet 0 No current facility-administered medications for this visit. Social History Tobacco Use Smoking status: Never Smokeless tobacco: Never Vaping Use Vaping status: Never Used Substance Use Topics Alcohol use: No Drug use: No Alcohol Use: No Tobacco Use: Never FAMILY HISTORY Problem Relation Age of Onset None Mother None Father ROS Per HPI. Otherwise negative. BP 150/92 Pulse 83 Temp 98 Resp 18 SpO2 98% Physical Exam Procedures General: Patient appears well and nontoxic appearing. CV: Regular rate and rhythm. Respiratory: Lungs clear to auscultation bilaterally. He is speaking full sentences. HEENT: Pupils are equal round and reactive to light and accommodation. There is no tonsillar hypertrophy or exudates but she is significant bulging of the tympanic membranes right worse than left with a central indentation and erythema of the right TM. ASSESSMENT/PLAN: 1. Acute otitis media, right - ICD9: 382.9, ICD10: H66.91 Patient has acute otitis media on the right side. I will be treating this with Augmentin twice daily for the next 10 days. As well as give Medrol Dosepak for inflammation. Red flag signs and symptoms to include significant worsening of her symptoms was discussed as a reason to return to this urgent care for evaluation. Patient voiced understanding agreement with the above plan and she was discharged in stable condition. - AMOXICILLIN 875 MG-POTASSIUM CLAVULANATE 125 MG TABLET - METHYLPREDNISOLONE 4 MG TABLETS IN A DOSE PACK Jarrell Driver MD Referring Provider: SELF [[id number]] Allergies As of Date: 05/05/2024 Noted Allergy Reaction (more content not included)... [facility]COon 03-22-20[address] [facility] [address] [facility]OVon 02-01-2024 [facility] Office Visit (FAMMAS ) AISSATOU TORRES ([id number]) 1985 F Date Time Provider Department 02/01/24 1:40 PM MAYTE CAMPOS During your visit today, we recorded the following information about you: Temperature Pulse Respiration Blood pressure 97.6 degrees 102/minute 18/minute 134/82 Weight Height 132 kg 1.702 m Yazmin Tovar LPN 02/01/2024 2:29 PM Signed Patient is in office for follow up for Diabetes. Patient was last seen in office on 10-26-2023 Patient was advised: Continue present medications. Start Actos as previously prescribed. Patient's insurance does not cover Ozempic or Mounjaro. Check labs as above. Monitor blood pressure regularly. Exercise as tolerated. Maintain good diet. Follow-up in 6 months. No current complaints or concerns Yazmin Tovar LPN February 01, 2024 1:48 PM Mayte Campos MD 02/01/2024 2:29 PM Signed Subjective Aissatou Torres is a 38 year old female.The patient presents today for follow-up for multiple medical problems. See list. Her chronic medical problems have been stable. Her blood pressure is under good control. Review of Systems Constitutional: Negative. HENT: Negative. Eyes: Negative. Respiratory: Negative. Cardiovascular: Negative. Gastrointestinal: Negative. Endocrine: Negative. Genitourinary: Negative. Musculoskeletal: Negative. Skin: Negative. Allergic/Immunologic: Negative. Neurological: Negative. Hematological: Negative. Psychiatric/Behavioral : Negative. PAST SURGICAL HISTORY Procedure Laterality Date ANESTH, SECTION X 2 EXC TUMOR SOFT TISSUE ABDL WALL SUBFASCIAL <5CM 04/25/14 EXPL LAP W W/WO BX 11/2013 HYSTEROSCOPY 11/2013 LIG/TRNSXJ FLP TUBE ABDL/VAG APPR UNI/BI 2009 PAST MEDICAL HISTORY Diagnosis Date Abdominal wall mass of left lower quadrant 03/28/2014 Acne 12/12/2019 Acute sinusitis 05/12/2020 Candidiasis of vagina 09/24/2020 Depression 12/12/2019 Diabetes mellitus type II (HCC) 12/12/2019 Exposure to severe acute respiratory syndrome coronavirus 2 (SARS-CoV-2) 05/15/2020 Generalized abdominal pain 12/16/2021 Hemorrhoids 12/12/2019 Hypertrophy of tonsils 09/17/2020 Iron deficiency anemia 03/19/2020 Pelvic pain in female Seasonal allergies 12/12/2019 Snoring 12/12/2019 Subcutaneous mass 04/25/14 Left lower abdominal wall Upper respiratory infection 05/15/2020 FAMILY HISTORY Problem Relation Age of Onset None Mother None Father Social History Tobacco Use Smoking status: Never Smokeless tobacco: Never Vaping Use Vaping status: Never Used Substance Use Topics Alcohol use: No Drug use: No ALLERGIES Allergen Reactions Lisinopril Cough MEDICATIONS: glimepiride (AMARYL) 4 mg tablet Amaryl 4 mg tablet oral daily losartan (COZAAR) 50 mg tablet Take 1 tablet by mouth once daily. metFORMIN ER (GLUCOPHAGE XR) 500 mg 24 hr tablet Take 2 tablets by mouth two times a day. montelukast (SINGULAIR) 10 mg tablet Take 1 tablet by mouth once daily. omeprazole (PRILOSEC) 40 mg capsule Take 1 capsule by mouth once daily. rosuvastatin (CRESTOR) 5 mg tablet Take 1 tablet by mouth daily at bedtime. CHOLECALCIFEROL, VITAMIN D3, ORAL Take 5,000 Units by mouth once daily. Ascorbic Acid (VITAMIN C) 1,000 mg tablet Take 1,000 mg by mouth once daily. pioglitazone (ACTOS) 30 mg tablet Take 1 tablet by mouth once daily. fluticasone (FLONASE) 50 mcg/actuation nasal spray INHALE 1 SPRAY EACH NOSTRIL ONCE DAILY (Patient taking differently: Use 2 Sprays in each nostril once daily.) loratadine (CLARITIN) 10 mg tablet Take by mouth once daily as needed. acetaminophen (TYLENOL) 325 mg tablet Take 650 mg by mouth every 6 hours as needed. albuterol HFA (PROVENTIL HFA, VENTOLIN HFA) 90 mcg/actuation inhaler Inhale 2 Puffs as instructed every 4 hours as needed for wheezing/shortness of breath. Allergies, past surgical history, family history and past medical history were reviewed per this encounter. Medications were reviewed and verified. 10/25/2023 02/01/2024 INTAKE PAIN ASSESSMENT Are you having pain associated with your visit today? No No If pain assessment is 0, no action needed. If pain assessment is positive, please see assessment and plain. Objective BP 134/82 (BP Site: Left Arm, BP Position: Sitting, BP Cuff Size: Extra Large Adult) Pulse 102 Temp 36.4 ?C (97.6 ?F) (Temporal) Resp 18 Ht 170.2 cm (5' 7) Wt 132 kg (291 lb) LMP (LMP Unknown) SpO2 99% BMI 45.58 kg/m? Physical Exam Vitals reviewed. Constitutional: Appearance: Normal appearance. HENT: Head: Normocephalic and atraumatic. Nose: Nose normal. Eyes: Extraocular Movements: Extraocular movements intact. Pupils: Pupils are equal, round, and reactive to light. Cardiovascular: Rate and Rhythm: Normal rate and regular rhythm. Pulmonary: Effort: Pulmonary effort is normal. Breath sounds: No (more content not included)... Normal [facility] .CBC Path Reviewon CBC Path Review Marked microcytic, hypochromic anemia with normal RBC count and mild anisopoikilocytosis noted. A few ovalocytes are seen. Rule out blood loss. Rule out combined iron deficiency/thalassemia . Normal [facility] ([place]) Comment on above: Result Comment: Elec tronically signed by: CARLOS BRITO 04.22.2023 07:50 EST Performed By: #### C BCPR #### [place] [address] #### CBC, DIFF, GFR, BMP, MORPH #### [address] [address] .GFRon 04-21-2023 GFR Non- 85 ml/min/1.73sqm Normal [facility] ([place]) Comment on above: Result Comment: GFR Population mean for , Non- Americans Ages 20-29 = 116 mL/min/1.73 sq.m. Ages 30-39 = 107 mL/min/1.73 sq.m. Ages 40-49 = 99 mL/min/1.73 sq.m. Ages 50-59 = 93 mL/min/1.73 sq.m. Ages 60-69 = 85 mL/min/1.73 sq.m. Ages 70+ = 75 mL/min/1.73 sq.m. Chronic Kidney Disease: Less than 60 mL/min/1.73 square meters End Stage Renal Disease: Less than 15 mL/min/1.73 square meters Performed By: #### C BCPR #### [address] [address] #### CBC, DIFF, GFR, BMP, MORPH #### [address] [address] GFR 103 ml/min/1.73sqm Normal [facility] ([place]) Comment on above: Result Comment: GFR Population mean for , Non- Americans Ages 20-29 = 116 mL/min/1.73 sq.m. Ages 30-39 = 107 mL/min/1.73 sq.m. Ages 40-49 = 99 mL/min/1.73 sq.m. Ages 50-59 = 93 mL/min/1.73 sq.m. Ages 60-69 = 85 mL/min/1.73 sq.m. Ages 70+ = 75 mL/min/1.73 sq.m. Chronic Kidney Disease: Less than 60 mL/min/1.73 square meters End Stage Renal Disease: Less than 15 mL/min/1.73 square meters Performed By: #### C BCPR #### [place] [address] #### CBC, DIFF, GFR, BMP, MORPH #### [address] [address] .Manual Diffon 04-21-2023 Basophil %, Manual 1.0 % Normal 0.0-2.5 [facility] ([place]) Comment on above: Performed By: #### C BCPR #### [address] [address] #### CBC, DIFF, GFR, BMP, MORPH #### [address] [address] Basophil, Abs Manual 0.1 10 3/mcL Normal 0.0-0.2 [facility] ([place]) Comment on above: Performed By: #### C BCPR #### [place] [address] #### CBC, DIFF, GFR, BMP, MORPH #### [address] [address] Eosinophil %, Manual 4.0 % Normal 0.0-7.0 [facility] ([place]) Comment on above: Performed By: #### C BCPR #### [place] [address] #### CBC, DIFF, GFR, BMP, MORPH #### [address] [address] Eosinophil, Abs Manual 0.3 10 3/mcL Normal 0.0-0.4 [facility] ([place]) Comment on above: Performed By: #### C BCPR #### [place] [address] #### CBC, DIFF, GFR, BMP, MORPH #### [address] [address] Lymphocyte %, Manual 31.0 % Normal 10.0-50.0 [facility] ([place]) Comment on above: Performed By: #### C BCPR #### [place] [address] #### CBC, DIFF, GFR, BMP, MORPH #### [address] [address] Lymphocyte, Abs Manual 2.8 10 3/mcL Normal 0.8-3.9 [facility] ([place]) Comment on above: Performed By: #### C BCPR #### [place] [address] #### CBC, DIFF, GFR, BMP, MORPH #### [address] [address] Monocyte %, Manual 4.0 % Normal 1.7-13.0 [facility] ([place]) Comment on above: Performed By: #### C BCPR #### [place] [address] #### CBC, DIFF, GFR, BMP, MORPH #### [address] [address] Monocyte, Abs Manual 0.4 10 3/mcL Normal 0.2-1.0 [facility] ([place]) Comment on above: Performed By: #### C BCPR #### [place] [address] #### CBC, DIFF, GFR, BMP, MORPH #### [address] [address] Neutrophil %, Manual 60.0 % Normal 37.0-80.0 [facility] ([place]) Comment on above: Performed By: #### C BCPR #### [place] [address] #### CBC, DIFF, GFR, BMP, MORPH #### [address] [address] Neutrophil, Abs Manual 5.4 10 3/mcL Normal 2.9-6.2 [facility] ([place]) Comment on above: Performed By: #### C BCPR #### [place] [address] #### CBC, DIFF, GFR, BMP, MORPH #### [address] [address] Nucleated RBC 0.0 /100 WBC Normal [facility] ([place]) Comment on above: Performed By: #### C BCPR #### [place] [address] #### CBC, DIFF, GFR, BMP, MORPH #### [address] [address] .Morphon 04-21-2023 Anisocytosis Ql (Bld) 2+ Normal [facility] ([place]) Comment on above: Performed By: #### C BCPR #### [place] [address] #### CBC, DIFF, GFR, BMP, MORPH #### [address] [address] Hypochrom 1+ Normal [facility] ([place]) Comment on above: Performed By: #### C BCPR #### [place] [address] #### CBC, DIFF, GFR, BMP, MORPH #### [address] [address] Microcytosis 2+ Normal [facility] ([place]) Comment on above: Performed By: #### C BCPR #### [address] [address] #### CBC, DIFF, GFR, BMP, MORPH #### [address] [address] Ovalocytes 1+ Normal [facility] ([place]) Comment on above: Performed By: #### C BCPR #### [address] [address] #### CBC, DIFF, GFR, BMP, MORPH #### [address] [address] Platelet Estimate Normal Normal [facility] ([place]) Comment on above: Performed By: #### C BCPR #### [place] [address] #### CBC, DIFF, GFR, BMP, MORPH #### [address] [address] Tear Cell 1+ Normal [facility] ([place]) Comment on above: Performed By: #### C BCPR #### [place] [address] #### CBC, DIFF, GFR, BMP, MORPH #### [address] [address] BMPon 04-21-2023 BUN/Creatinine Ratio 14 ratio Normal 12-02 [facility] ([place]) Comment on above: Performed By: #### C BCPR #### [place] [address] #### CBC, DIFF, GFR, BMP, MORPH #### [address] [address] Calcium [Mass/Vol] 8.3 mg/dL Low 8.4-10.2 [facility] ([place]) Comment on above: Performed By: #### C BCPR #### [place] [address] #### CBC, DIFF, GFR, BMP, MORPH #### [address] [address] Chloride [Moles/Vol] 104 mmol/L Normal 98-107 [facility] ([place]) Comment on above: Performed By: #### C BCPR #### [place] [address] #### CBC, DIFF, GFR, BMP, MORPH #### [address] [address] CO2 [Moles/Vol] 26 mmol/L Normal 22-29 [facility] ([place]) Comment on above: Performed By: #### C BCPR #### [place] [address] #### CBC, DIFF, GFR, BMP, MORPH #### [address] [address] Creatinine [Mass/Vol] 0.76 mg/dL Normal 0.55-1.02 [facility] ([place]) Comment on above: Performed By: #### C BCPR #### [place] [address] #### CBC, DIFF, GFR, BMP, MORPH #### [address] [address] Electrolyte Balance 10.0 mEq/L Normal 4.0-15.0 [facility] ([place]) Comment on above: Performed By: #### C BCPR #### [place] [address] #### CBC, DIFF, GFR, BMP, MORPH #### [address] [address] Glucose [Mass/Vol] 140 mg/dL High 70-105 [facility] ([place]) Comment on above: Performed By: #### C BCPR #### [place] [address] #### CBC, DIFF, GFR, BMP, MORPH #### [address] [address] Potassium [Moles/Vol] 4.3 mmol/L Normal 3.5-5.1 [facility] ([place]) Comment on above: Performed By: #### C BCPR #### [place] [address] #### CBC, DIFF, GFR, BMP, MORPH #### [address] [address] Sodium [Moles/Vol] 140 mmol/L Normal 136-145 [facility] ([place]) Comment on above: Performed By: #### C BCPR #### [place] [address] #### CBC, DIFF, GFR, BMP, MORPH #### [place] [id number] Urea nitrogen [Mass/Vol] 11 mg/dL Normal 7-18 [facility] ([place]) Comment on above: Performed By: #### C BCPR #### [place] [address] #### CBC, DIFF, GFR, BMP, MORPH #### [address] [address] CBCon 04-21-2023 Erythrocyte distribution width (RBC) [Ratio] 18.8 % High 11.5-14.5 [facility] ([place]) Comment on above: Performed By: #### C BCPR #### [place] [address] #### CBC, DIFF, GFR, BMP, MORPH #### [address] [address] Hematocrit (Bld) [Volume fraction] 26.5 % Low 37.0-47.0 [facility] ([place]) Comment on above: Performed By: #### C BCPR #### [place] [address] #### CBC, DIFF, GFR, BMP, MORPH #### [address] [address] Hgb 7.9 G/dL Low 12.0-16.0 [facility] ([place]) Comment on above: Performed By: #### C BCPR #### [place] [address] #### CBC, DIFF, GFR, BMP, MORPH #### [address] [address] MCH (RBC) [Entitic mass] 18.6 pg Low 27.0-31.2 [facility] ([place]) Comment on above: Performed By: #### C BCPR #### [place] [address] #### CBC, DIFF, GFR, BMP, MORPH #### [address] [address] MCHC 29.7 G/dL Low 33.0-37.0 [facility] ([place]) Comment on above: Performed By: #### C BCPR #### [place] [address] #### CBC, DIFF, GFR, BMP, MORPH #### [address] [address] MCV (RBC) [Entitic vol] 62.7 fL Low 80.0-94.0 [facility] ([place]) Comment on above: Performed By: #### C BCPR #### [place] [address] #### CBC, DIFF, GFR, BMP, MORPH #### [address] [address] Platelet 263 10 3/mcL Normal 130-400 [facility] ([place]) Comment on above: Performed By: #### C BCPR #### [place] [address] #### CBC, DIFF, GFR, BMP, MORPH #### [address] [address] Platelet mean volume (Bld) [Entitic vol] 8.3 fL Normal 7.4-10.4 [facility] ([place]) Comment on above: Performed By: #### C BCPR #### [place] [address] #### CBC, DIFF, GFR, BMP, MORPH #### [place] [address] [place], [place] [address] RBC 4.23 10 6/mcL Normal 4.20-5.40 [facility] ([place]) Comment on above: Performed By: #### C BCPR #### [address] [address] #### CBC, DIFF, GFR, BMP, MORPH #### [address] [address] WBC 9.0 10 3/mcL Normal 4.6-10.8 [facility] ([place]) Comment on above: Performed By: #### C BCPR #### [address] [address] #### CBC, DIFF, GFR, BMP, MORPH #### [address] [address] LABORATORYOrdered By: Taylor Layton on 04-21-2023 Glucose [Mass/Vol] 183 mg/dL High 70 - 110 mg/dL [facility] Work Phone: Comment on above: Result Comment: FANS CLERK notified [facility] LABORATORYOrdered By: SYSTEM SYSTEM on 04-21-2023 Anisocytosis Ql (Bld) 2+ *NA* (04/21/23 9:34 AM) Invalid Interpretation Code AO Workflow SS Basophil %, Manual 1.0 % Normal 0.0 - 2.5 % AO Wo rkflow SS Basophil, Abs Manual 0.1 103/mcL Normal 0.0 - 0 .2 10^3/mcL AO Workflow SS Calcium [Mass/Vol] 8.3 mg/dL Low 8.4 - 10. 2 mg/dL AO ADM SS Chloride [Moles/Vol] 104 mmol/L Normal 98 - 10 7 mmol/L AO ADM SS CO2 [Moles/Vol] 26 mmol/L Normal 22 - 29 mmol/L AO ADM SS Creatinine [Mass/Vol] 0.76 mg/dL Normal 0.55 - 1.02 mg/dL AO ADM SS Electrolyte Balance 10.0 mEq/L Normal 4.0 - 15 .0 mEq/L AO ADM SS Eosinophil %, Manual 4.0 % Normal 0.0 - 7.0 % AO Workflow SS Eosinophils (Bld) [#/Vol] 0.3 103/mcL Normal 0.0 - 0.4 10^3/mcL AO Workflow SS Erythrocyte distribution width (RBC) [Ratio] 18.8 % High 11.5 - 14.5 % AO Workflow SS GFR/1.73 sq M.predicted among blacks MDRD (S/P/Bld) [Vol rate/Area] 103 ml/min/1.73sqm Invalid Interpretation Code AO Chemistry S Comment on above: Interpretive Data: GFR Population mean for , Non- Americans Ages 20-29 = 116 mL/min/1.73 sq.m. Ages 30-39 = 107 mL/min/1.73 sq.m. Ages 40-49 = 99 mL/min/1.73 sq.m. Ages 50-59 = 93 mL/min/1.73 sq.m. Ages 60-69 = 85 mL/min/1.73 sq.m. Ages 70+ = 75 mL/min/1.73 sq.m. Chronic Kidney Disease: Less than 60 mL/min/1.73 square meters End Stage Renal Disease: Less than 15 mL/min/1.73 square meters GFR/1.73 sq M.predicted among non-blacks MDRD (S/P/Bld) [Vol rate/Area] 85 ml/min/1.73sqm Invalid Interpretation Code AO Chemistry S Comment on above: Interpretive Data: GFR Population mean for , Non- Americans Ages 20-29 = 116 mL/min/1.73 sq.m. Ages 30-39 = 107 mL/min/1.73 sq.m. Ages 40-49 = 99 mL/min/1.73 sq.m. Ages 50-59 = 93 mL/min/1.73 sq.m. Ages 60-69 = 85 mL/min/1.73 sq.m. Ages 70+ = 75 mL/min/1.73 sq.m. Chronic Kidney Disease: Less than 60 mL/min/1.73 square meters End Stage Renal Disease: Less than 15 mL/min/1.73 square meters Glucose [Mass/Vol] 140 mg/dL High 70 - 105 mg/dL AO ADM SS Hematocrit (Bld) [Volume fraction] 26.5 % Low 37.0 - 47.0 % AO Workflow SS Hemoglobin (Bld) [Mass/Vol] 7.9 G/dL Low 12.0 - 16.0 G/dL AO Workflow SS Hypochromia Ql (Bld) 1+ *NA* (04/21/23 9:34 AM) Invalid Interpretation Code AO Workflow SS Lymphocyte %, Manual 31.0 % Normal 10.0 - 50.0 % A O Workflow SS Lymphocyte, Abs Manual 2.8 103/mcL Normal 0.8 - 3.9 10^3/mcL AO Workflow SS MCH (RBC) [Entitic mass] 18.6 pg Low 27.0 - 31.2 pg AO Workflow SS MCHC 29.7 G/dL Low 33.0 - 37.0 G/dL AO Workflow SS MCV (RBC) [Entitic vol] 62.7 fL Low 80.0 - 94.0 fL AO Workflow SS Microcytes Ql (Bld) 2+ *NA* (04/21/23 9:34 AM) Invalid Interpretation Code AO Workflow SS Monocyte %, Manual 4.0 % Normal 1.7 - 13.0 % AO W orkflow SS Monocyte, Abs Manual 0.4 103/mcL Normal 0.2 - 1 .0 10^3/mcL AO Workflow SS Neutrophil %, Manual 60.0 % Normal 37.0 - 80.0 % A O Workflow SS Neutrophil, Abs Manual 5.4 103/mcL Normal 2.9 - 6.2 10^3/mcL AO Workflow SS Nucleated RBC 0.0 /100 WBC Invalid Interpretation Code AO Workflow SS Ovalocytes LM Ql (Bld) 1+ *NA* (04/21/23 9:34 AM) Invalid Interpretation Code AO Workflow SS Platelet Estimate Normal *NA* (04/21/23 9:34 AM) Invalid Interpretation Code AO Workflow SS Platelet mean volume (Bld) [Entitic vol] 8.3 fL Normal 7.4 - 10.4 fL AO Workflow SS Platelets (Bld) [#/Vol] 263 103/mcL Normal 130 - 400 10^3/mcL AO Workflow SS Potassium [Moles/Vol] 4.3 mmol/L Normal 3.5 - 5.1 mmol/L AO ADM SS RBC (Bld) [#/Vol] 4.23 106/mcL Normal 4.20 - 5.4 0 10^6/mcL AO Workflow SS Sodium [Moles/Vol] 140 mmol/L Normal 136 - 145 mmol/L AO ADM SS Tear Cell 1+ *NA* (04/21/23 9:34 AM) Invalid Interpretation Code AO Workflow SS Urea nitrogen [Mass/Vol] 11 mg/dL Normal 7 - 18 mg/dL AO ADM SS Urea nitrogen/Creatinine [Mass ratio] 14 ratio Normal 7 - 27 ratio AO ADM SS WBC (Bld) [#/Vol] 9.0 103/mcL Normal 4.6 - 10.8 10^3/mcL AO Workflow SS LABORATORYOrdered By: Bk daniels on 04-21-2023 Glucose [Mass/Vol] 137 mg/dL High 70 - 110 mg/dL [facility] Work Phone: LABORATORYOrdered By: Consuelo Tinsley on 04-21-2023 HCG ( test) Ql Negative (04/21/23 9:11 AM) Normal AO Manual Urine SS test (u) int Not detected Invalid Interpretation Code AO Manual Urine SS PREGUon 04-21-2023 HCG ( test) Ql (U) Negative Normal [facility] ([place]) Comment on above: Performed By: #### P REGU #### [address] [address] test (u) int Not detected Invalid Interpretation Code [facility] ([place]) Comment on above: Performed By: #### P REGU #### [address] [address] No Panel Informationon 01-20 IMPRESSION: Uterus is mildly enlarged and heterogeneous but no discrete fibroids are noted. The endometrium is incompletely evaluated but where visualized is not grossly thickened. The left ovary is grossly unremarkable and the right ovary is not visualized. Film Recordist: PSCB Transcribe Date/Time: Jan 20 2023 12:40P Dictated by : SARA LOPEZ MD This examination was interpreted and the report reviewed and electronically signed by: SARA LOPEZ MD on Jan 20 2023 12:45PM [facility] Radiology Study observation (narrative) [facility] No Panel InformationOrdered By: Ccf Provider on 01-20-2023 [facility] US Pelvison 01-20-2023 * * *Final Report* * * DATE OF EXAM: Jan 20 2023 12:18PM U 1065 - US FEMALE PELV TRANSABD COMPLETE / PROCEDURE REASON: irregular menstruation * * * * Physician Interpretation * * * * EXAMINATION: TRANSVAGINAL AND LIMITED TRANSABDOMINAL FEMALE PELVIC ULTRASOUND CLINICAL HISTORY: Irregular menstruation. TECHNIQUE: Sonography of the pelvis was performed by transvaginal and transabdominal (limited) techniques. Images were obtained and stored in a permanent archive. MQ: [facility]_2021 COMPARISON: MRI of the pelvis 02/25/2014 RESULT: Uterus: -Size: 12.6 x 4.3 x 6.7 cm -Orientation: Anteverted -Endometrial echo complex: Evaluation of the endometrium was inadequate. No endometrial abnormality. The endometrial echo complex measured 0.5 cm. -Cervix: Unremarkable. -Adenomyosis assessment: There are no sonographic findings of adenomyosis. -Fibroids: There are no fibroids. Right Ovary: Not visualized Left Ovary: The left ovary is seen transabdominally only measuring 2.5 x 2.7 x 1.9 cm and is grossly normal. Free Fluid: No abnormal free fluid is present. [facility] Provider, [facility] Shaina Tineo - 01/20/2023 * * *Final Report* * * DATE OF EXAM: Jan 20 2023 12:18PM U 1065 - US FEMALE PELV TRANSABD COMPLETE / PROCEDURE REASON: irregular menstruation * * * * Physician Interpretation * * * * EXAMINATION: TRANSVAGINAL AND LIMITED TRANSABDOMINAL FEMALE PELVIC ULTRASOUND CLINICAL HISTORY: Irregular menstruation. TECHNIQUE: Sonography of the pelvis was performed by transvaginal and transabdominal (limited) techniques. Images were obtained and stored in a permanent archive. MQ: [facility]_2021 COMPARISON: MRI of the pelvis 02/25/2014 RESULT: Uterus: -Size: 12.6 x 4.3 x 6.7 cm -Orientation: Anteverted -Endometrial echo complex: Evaluation of the endometrium was inadequate. No endometrial abnormality. The endometrial echo complex measured 0.5 cm. -Cervix: Unremarkable. -Adenomyosis assessment: There are no sonographic findings of adenomyosis. -Fibroids: There are no fibroids. Right Ovary: Not visualized Left Ovary: The left ovary is seen transabdominally only measuring 2.5 x 2.7 x 1.9 cm and is grossly normal. Free Fluid: No abnormal free fluid is present. IMPRESSION IMPRESSION: Uterus is mildly enlarged and heterogeneous but no discrete fibroids are noted. The endometrium is incompletely evaluated but where visualized is not grossly thickened. The left ovary is grossly unremarkable and the right ovary is not visualized. Film Recordist: GALEN Transcribe Date/Time: Jan 20 2023 12:40P Dictated by : SARA LOPEZ MD This examination was interpreted and the report reviewed and electronically signed by: SARA LOPEZ MD on Jan 20 2023 12:45PM [facility] US Pelvis transvaginalon * * *Final Report* * * DATE OF EXAM: Jan 20 2023 12:18PM U 1060 - US FEMALE PELVIS TRANSVAG / PROCEDURE REASON: irregular menstruation * * * * Physician Interpretation * * * * EXAMINATION: TRANSVAGINAL AND LIMITED TRANSABDOMINAL FEMALE PELVIC ULTRASOUND CLINICAL HISTORY: Irregular menstruation. TECHNIQUE: Sonography of the pelvis was performed by transvaginal and transabdominal (limited) techniques. Images were obtained and stored in a permanent archive. MQ: [facility]_2021 COMPARISON: MRI of the pelvis 02/25/2014 RESULT: Uterus: -Size: 12.6 x 4.3 x 6.7 cm -Orientation: Anteverted -Endometrial echo complex: Evaluation of the endometrium was inadequate. No endometrial abnormality. The endometrial echo complex measured 0.5 cm. -Cervix: Unremarkable. -Adenomyosis assessment: There are no sonographic findings of adenomyosis. -Fibroids: There are no fibroids. Right Ovary: Not visualized Left Ovary: The left ovary is seen transabdominally only measuring 2.5 x 2.7 x 1.9 cm and is grossly normal. Free Fluid: No abnormal free fluid is present. [facility] Provider, Armin Tineo - 01/20/2023 * * *Final Report* * * DATE OF EXAM: Jan 20 2023 12:18PM RMU 1060 - US FEMALE PELVIS TRANSVAG / PROCEDURE REASON: irregular menstruation * * * * Physician Interpretation * * * * EXAMINATION: TRANSVAGINAL AND LIMITED TRANSABDOMINAL FEMALE PELVIC ULTRASOUND CLINICAL HISTORY: Irregular menstruation. TECHNIQUE: Sonography of the pelvis was performed by transvaginal and transabdominal (limited) techniques. Images were obtained and stored in a permanent archive. MQ: P_2021 COMPARISON: MRI of the pelvis 02/25/2014 RESULT: Uterus: -Size: 12.6 x 4.3 x 6.7 cm -Orientation: Anteverted -Endometrial echo complex: Evaluation of the endometrium was inadequate. No endometrial abnormality. The endometrial echo complex measured 0.5 cm. -Cervix: Unremarkable. -Adenomyosis assessment: There are no sonographic findings of adenomyosis. -Fibroids: There are no fibroids. Right Ovary: Not visualized Left Ovary: The left ovary is seen transabdominally only measuring 2.5 x 2.7 x 1.9 cm and is grossly normal. Free Fluid: No abnormal free fluid is present. IMPRESSION IMPRESSION: Uterus is mildly enlarged and heterogeneous but no discrete fibroids are noted. The endometrium is incompletely evaluated but where visualized is not grossly thickened. The left ovary is grossly unremarkable and the right ovary is not visualized. Film Recordist: GALEN Transcribe Date/Time: Jan 20 2023 12:40P Dictated by : SARA LOPEZ MD This examination was interpreted and the report reviewed and electronically signed by: SARA LOPEZ MD on Jan 20 2023 12:45PM [facility] Breast Screeningon 2022 IMPRESSION: NEGATIVE There is no mammographic evidence of malignancy. A 1 year screening mammogram is recommended. The false-negative rate of mammography is approximately 10%. Management of a palpable abnormality must be based upon clinical grounds. Dagmar alvarado/portillo:05/19/2022 14:29:29 Boat Captain: Joanne ZARAGOZA)(M), [facility] letter sent: Mammography Normal BI-RADS: 1 Negative Film Recordist: Portillo Transcribe Date/Time: May 19 2022 2:00P Dictated by : DAGMAR VEGAS MD This examination was interpreted and the report reviewed and electronically signed by: DAGMAR VEGAS MD on May 19 2022 2:29PM [facility] * * *Final Report* * * DATE OF EXAM: May 19 2022 2:20PM [facility] - [facility] SCREENING / PROCEDURE REASON: [id number], bilateral screening mammogram with cad * * * * Physician Interpretation * * * * BILATERAL FIRST EVER DIGITAL SCREENING MAMMOGRAM WITH CAD: 05/19/2022 Ordering Physician: MAYTE CAMPOS M.D. CLINICAL: [id number], Bilateral Screening Mammogram With Cad. No prior exams were available for comparison. There are scattered fibroglandular elements in both breasts that could obscure a lesion on mammography. Current study was also evaluated with a Computer Aided Detection (CAD) system. No significant masses, calcifications, or other findings are seen in either breast. [facility] Provider, [facility] Shaina [place] - 05/20/2022 * * *Final Report* * * DATE OF EXAM: May 19 2022 2:20PM [facility] - [facility] SCREENING / PROCEDURE REASON: [id number], bilateral screening mammogram with cad * * * * Physician Interpretation * * * * BILATERAL FIRST EVER DIGITAL SCREENING MAMMOGRAM WITH CAD: 05/19/2022 Ordering Physician: MAYTE CAMPOS M.D. CLINICAL: [id number], Bilateral Screening Mammogram With Cad. No prior exams were available for comparison. There are scattered fibroglandular elements in both breasts that could obscure a lesion on mammography. Current study was also evaluated with a Computer Aided Detection (CAD) system. No significant masses, calcifications, or other findings are seen in either breast. IMPRESSION IMPRESSION: NEGATIVE There is no mammographic evidence of malignancy. A 1 year screening mammogram is recommended. The false-negative rate of mammography is approximately 10%. Management of a palpable abnormality must be based upon clinical grounds. Dagmar Vegas M.D. ear/portillo:05/19/2022 14:29:29 Boat Captain: Joanne WILKERSON(R)(M), [facility] letter sent: Mammography Normal BI-RADS: 1 Negative Film Recordist: Portillo Transcribe Date/Time: May 19 2022 2:00P Dictated by : DAGMAR VEGAS MD This examination was interpreted and the report reviewed and electronically signed by: DAGMAR VEGAS MD on May 19 2022 2:29PM [facility] Breast ScreeningOrdered B y: [facility]cf Provider on 05-20-2022 [facility] Breast Screeningon 2022 Radiology Study observation (narrative) [facility] HGB A1C GLYCOHBon 08-27-2021 HbA1c (Bld) [Mass fraction] 7.9 % High 4.3-6.0 [facility] Comment on above: Performed By: #### L 550.51279 #### [facility] [address] [place] [address] CBC W/DIFFon 08-01-2021 BASO ABS 0.00 K/CU MM Normal 0-0.2 [facility] Comment on above: Performed By: #### L 200.19480 #### [facility] [address] [place] [address] Basophils/100 WBC (Bld) 0.4 % Normal 0-2 [facility] Comment on above: Performed By: #### L 200.86249 #### [facility] [address] [place] [address] EOS ABS 0.40 K/CU MM Normal 0-0.5 [facility] Comment on above: Performed By: #### L 200.31310 #### [facility] [address] [place] [address] Eosinophils/100 WBC (Bld) 3.9 % Normal 0-5 [facility] Comment on above: Performed By: #### L 200.99019 #### [facility] [address] [place] [address] Erythrocyte distribution width (RBC) [Ratio] 14.3 % Normal 11-14.5 [facility] Comment on above: Performed By: #### L 200.10870 #### [facility] [address] [place] [address] Hematocrit (Bld) [Volume fraction] 36.9 % Normal 35.0-47.0 [facility] Comment on above: Performed By: #### L 200.04211 #### [facility] [address] [place] [address] Hemoglobin (Bld) [Mass/Vol] 11.7 g/dL Normal 11.5-15.5 [facility] Comment on above: Performed By: #### L 200.29267 #### [facility] [address] [place] [address] IMMATR GRAN ABS 0.10 K/CU MM Normal Less than 2 [facility] Comment on above: Performed By: #### L 200.53522 #### [facility] [address] [place] [address] IMMATURE GRAN % 0.9 % Normal Less than 2 [facility] Comment on above: Performed By: #### L 200.09634 #### [facility] [address] [place] [address]# [phone] LYMPH ABS 3.50 K/CU MM Normal 0.9-4.4 [facility] Comment on above: Performed By: #### L 200.43241 #### [facility] [address] [place] [address] Lymphocytes/100 WBC (Bld) 32.6 % Normal 20-40 [facility] Comment on above: Performed By: #### L 200.08858 #### [facility] [address] [place] [address] MCHC (RBC) [Mass/Vol] 31.7 g/dL Low 32.0-36.0 [facility] Comment on above: Performed By: #### L 200.11839 #### [facility] [address] [place] [address] MCV (RBC) [Entitic vol] 81.3 fL Normal 80.0-99.0 [facility] Comment on above: Performed By: #### L 200.25254 #### [facility] [place] [address] MONO ABS 0.50 K/CU MM Normal 0.1-1.1 [facility] Comment on above: Performed By: #### L 200.13101 #### [facility] [address] [place] [address] Monocytes/100 WBC (Bld) 4.7 % Normal 2-10 [facility] Comment on above: Performed By: #### L 200.34001 #### [facility] [address] [place] [address] NEUTROPHIL ABS 6.20 K/CU MM Normal 2.0-8.3 [facility] Comment on above: Performed By: #### L 200.90305 #### [facility] [address] [place] [address] Neutrophils/100 WBC (Bld) 57.5 % Normal 45-75 [facility] Comment on above: Performed By: #### L 200.25130 #### [facility] [address] [place] [address] Nucleated RBC/100 WBC (Bld) [Ratio] 0.0 % Normal Less than 1 [facility] Comment on above: Performed By: #### L 200.90510 #### [facility] [address] [place] [address] Platelet mean volume (Bld) [Entitic vol] 10.2 fL Normal 9.4-12.4 [facility] Comment on above: Performed By: #### L 200.14809 #### [facility] [address] [place] [address] PLT 276 K/CU MM Normal 150-450 [facility] Comment on above: Performed By: #### L 200.26681 #### [facility] [address] [place] [address] RBC 4.54 M/CU MM Normal 3.90-5.30 [facility] Comment on above: Performed By: #### L 200.76234 #### [facility] [address] [place] [address] WBC 10.8 K/CUMM Normal 4.5-11.0 [facility] Comment on above: Performed By: #### L 200.40218 #### [facility] [address] [place], [place] [id number] CMPon 08-01-2021 Albumin [Mass/Vol] 3.2 g/dL Normal 3.2-5.0 [facility] Comment on above: Performed By: #### L 500.34900, L500.13783, L500.57180 #### [facility] [address] [place] [address] Albumin/Globulin [Mass ratio] 1.1 {ratio} Normal 0.8-2.0 [facility] Comment on above: Performed By: #### L 500.15568, L500.88652, L500.74912 #### [facility] [address] [place] [address] ALK PHOS 79 U/L Normal 45-117 [facility] Comment on above: Performed By: #### L 500.56832, L500.62854, L500.57113 #### [facility] [address] [place] [address] ALT [Catalytic activity/Vol] 29 U/L Normal 13-61 [facility] Comment on above: Result Comment: RESU LTS MAY BE FALSELY DEPRESSED AFTER THE ADMINISTRATION OF SULFASALAZINE AND/OR SULFAPYRIDINE. Performed By: #### L 500.87854, L500.64294, L500.11663 #### [facility] [address] [place] [address] Anion gap [Moles/Vol] 6 mmol/L Normal 5-16 [facility] Comment on above: Performed By: #### L 500.97763, L500.66916, L500.20612 #### [facility] [place] [address] AST [Catalytic activity/Vol] 35 U/L High 8-34 [facility] Comment on above: Result Comment: RESU LTS MAY BE FALSELY DEPRESSED AFTER THE ADMINISTRATION OF SULFASALAZINE AND/OR SULFAPYRIDINE. Performed By: #### L 500.33821, L500.52807, L500.28083 #### [facility] [address] [place] [address] BILI TOTAL 0.30 MG/DL Normal 0.2-1.0 [facility] Comment on above: Performed By: #### L 500.29074, L500.19037, L500.72048 #### [facility] [address] [place] [address] Calcium [Mass/Vol] 9.3 mg/dL Normal 8.5-10.5 [facility] Comment on above: Result Comment: NOTE NEW NORMAL RANGE DUE TO REAGENT CHANGE Performed By: #### L 500.28074, L500.71521, L500.05198 #### [facility] [address] [place] [address] Chloride [Moles/Vol] 105 mmol/L Normal 98-107 [facility] Comment on above: Performed By: #### L 500.94893, L500.41653, L500.91687 #### [facility] [address] [place] [address] CO2 [Moles/Vol] 27.0 mmol/L Normal 21-32 [facility] Comment on above: Performed By: #### L 500.06893, L500.87223, L500.28868 #### [facility] [address] [place] [address] Creatinine [Mass/Vol] 0.65 mg/dL Normal 0.510-0.950 [facility] Comment on above: Result Comment: Lyssa ents receiving either N-Acetylcysteine (NAC) or Metamizole prior to venipuncture, may have falsely depressed results. Performed By: #### L 500.69392, L500.34862, L500.60112 #### [facility] [address] [place] [address] Globulin (S) [Mass/Vol] 2.9 g/dL Normal 2.2-4.2 [facility] Comment on above: Performed By: #### L 500.07939, L500.63236, L500.22468 #### [facility] [address] [place] [address] Glucose [Mass/Vol] 145 mg/dL High 70-100 [facility] Comment on above: Result Comment: 70-1 00- Normal Fasting; 100-125 Impaired Fasting; greater than 126 on more than one result- Diabetes. ADA guidelines. Results may be falsely elevated after the administration of Sulfapyridine. Results may be falsely depressed after the administration of Sulfasalazine. Performed By: #### L 500.44894, L500.77621, L500.69603 #### [facility] [address] [place] [address] Potassium [Moles/Vol] 4.5 mmol/L Normal 3.5-5.1 [facility] Comment on above: Performed By: #### L 500.09130, L500.43926, L500.53392 #### [facility] [address] [place], [place] [id number] Protein [Mass/Vol] 6.1 g/dL Normal 6.0-8.5 [facility] Comment on above: Performed By: #### L 500.68285, L500.96040, L500.61139 #### [facility] [address] [place] [address] Sodium [Moles/Vol] 138 mmol/L Normal 136-145 [facility] Comment on above: Performed By: #### L 500.79589, L500.35181, L500.43366 #### [facility] [address] [place], [place] [id number] Urea nitrogen [Mass/Vol] 11 mg/dL Normal 7-26 [facility] Comment on above: Performed By: #### L 500.81173, L500.76434, L500.33611 #### [facility] [address] [place] [address] Urea nitrogen/Creatinine [Mass ratio] 17 mg/mg Normal 15-24 [facility] Comment on above: Performed By: #### L 500.29354, L500.04620, L500.33720 #### [facility] [address] [place] [address] GFR ESTon 08-01-2021 IF AMER Greater than 60 Normal [facility] Comment on above: Performed By: #### L 500.21215, L500.51955, L500.43656 #### [facility] [address] [place] [address] IF non-AFR AMER Greater than 60 Normal [facility] Comment on above: Performed By: #### L 500.71085, L500.75749, L500.26325 #### [facility] [address] [place] [address] LIPIDon 08-01-2021 CHOL 139 MG/dL Normal 0-199 [facility] Comment on above: Performed By: #### L 500.04444, L500.23139, L500.35298 #### [facility] [address] [place], [place] [id number] Cholesterol in HDL [Mass/Vol] 33 mg/dL Low GREATER THAN 40 [facility] Comment on above: Result Comment: Lyssa ents receiving Metamizole prior to venipuncture, may have falsely depressed results. Performed By: #### L 500.71887, L500.43659, L500.32346 #### [facility] [address] [place] [address] Cholesterol in LDL [Mass/Vol] 61 mg/dL Normal [facility] Comment on above: Result Comment: ___C HOLESTEROL/HDL RATIO RISK___ CHD RISK = Total CHOL LDL HDL (CHOL/HDL) Recommended <200 <130 >40 <3.4 Borderline 200-239 130-159 3.4-4.99 High >240 >160 >5.0 Performed By: #### L 500.24798, L500.17824, L500.75099 #### [facility] [address] [facility] [place] [address] Triglyceride [Mass/Vol] 225 mg/dL High 30-149 [facility] Comment on above: Result Comment: Lyssa ents receiving either N-Acetylcysteine (NAC) or Metamizole prior to venipuncture, may have falsely depressed results. Performed By: #### L 500.67902, L500.69968, L500.84320 #### [facility] [address] [place] [address] HGB A1C GLYCOHBon 12-24-2020 HbA1c (Bld) [Mass fraction] 8.3 % High 4.3-6.0 [facility] Comment on above: Performed By: #### L 550.08236 #### [facility] [address] [place] [address] IRONon 09-18-2020 Iron [Mass/Vol] 210 ug/dL High 50-170 [facility] Comment on above: Result Comment: Lyssa ents treated with metal-binding drugs (e.g.deferoxamine) may have depressed iron values, as chelated iron may not properly react in the Siemens iron assay. Performed By: #### L 500.42771 #### [facility] [address] [place] [address] CBC W/DIFFon 09-17-2020 BASO ABS 0.10 K/CU MM Normal 0-0.2 [facility] Comment on above: Performed By: #### L 200.34291, L550.66019 #### [facility] [address] [place] [address] Basophils/100 WBC (Bld) 0.5 % Normal 0-2 [facility] Comment on above: Performed By: #### L 200.11378, L550.52272 #### [facility] [address] [place] [address] EOS ABS 0.20 K/CU MM Normal 0-0.5 [facility] Comment on above: Performed By: #### L 200.56028, L550.62547 #### [facility] [address] [place] [address] Eosinophils/100 WBC (Bld) 2.3 % Normal 0-5 [facility] Comment on above: Performed By: #### L 200.97034, L550.68118 #### [facility] [address] [place] [address] Erythrocyte distribution width (RBC) [Ratio] 12.3 % Normal 11-14.5 [facility] Comment on above: Performed By: #### L 200.90424, L550.99005 #### [facility] [address] [place] [address] Hematocrit (Bld) [Volume fraction] 42.2 % Normal 35.0-47.0 [facility] Comment on above: Performed By: #### L 200.77086, L550.72614 #### [facility] [address] [place] [address] Hemoglobin (Bld) [Mass/Vol] 14.0 g/dL Normal 11.5-15.5 [facility] Comment on above: Performed By: #### L 200.21632, L550.41703 #### [facility] [address] [place] [address] IMMATR GRAN ABS 0.10 K/CU MM Normal Less than 2 [facility] Comment on above: Performed By: #### L 200.54089, L550.13396 #### [facility] [address] [place] [address] IMMATURE GRAN % 0.9 % Normal Less than 2 [facility] Comment on above: Performed By: #### L 200.03582, L550.54305 #### [facility] [address] [place] [address] LYMPH ABS 3.40 K/CU MM Normal 0.9-4.4 [facility] Comment on above: Performed By: #### L 200.97144, L550.18724 #### [facility] [address] [place] [address] Lymphocytes/100 WBC (Bld) 32.5 % Normal 20-40 [facility] Comment on above: Performed By: #### L 200.50542, L550.90873 #### [facility] [address] [place] [address] MCHC (RBC) [Mass/Vol] 33.2 g/dL Normal 32.0-36.0 [facility] Comment on above: Performed By: #### L 200.08883, L550.03189 #### [facility] [address] [place] [address] MCV (RBC) [Entitic vol] 85.3 fL Normal 80.0-99.0 [facility] Comment on above: Performed By: #### L 200.33917, L550.45062 #### [facility] [address] [place] [address] MONO ABS 0.50 K/CU MM Normal 0.1-1.1 [facility] Comment on above: Performed By: #### L 200.49353, L550.52307 #### [facility] [address] [place] [address] Monocytes/100 WBC (Bld) 5.0 % Normal 2-10 [facility] Comment on above: Performed By: #### L 200.58867, L550.11592 #### [facility] [address] [place] [address] NEUTROPHIL ABS 6.20 K/CU MM Normal 2.0-8.3 [facility] Comment on above: Performed By: #### L 200.47192, L550.14375 #### [facility] [address] [place] [address] Neutrophils/100 WBC (Bld) 58.8 % Normal 45-75 [facility] Comment on above: Performed By: #### L 200.95437, L550.59393 #### [facility] [address] [place] [id number] Nucleated RBC/100 WBC (Bld) [Ratio] 0.0 % Normal Less than 1 [facility] Comment on above: Performed By: #### L 200.98123, L550.28481 #### [facility] [address] [place] [address] Platelet mean volume (Bld) [Entitic vol] 11.0 fL Normal 9.4-12.4 [facility] Comment on above: Performed By: #### L 200.10638, L550.13498 #### [facility] [address] [place] [address] PLT 218 K/CU MM Normal 150-450 [facility] Comment on above: Performed By: #### L 200.99746, L550.34499 #### [facility] [address] [place] [address] RBC 4.95 M/CU MM Normal 3.90-5.30 [facility] Comment on above: Performed By: #### L 200.82265, L550.39831 #### [facility] [address] [place], [place] [id number] WBC 10.6 K/CUMM Normal 4.5-11.0 [facility] Comment on above: Performed By: #### L 200.93132, L550.34755 #### [facility] [address] [place], [place] [id number] HGB A1C GLYCOHBon 09-17-2020 HbA1c (Bld) [Mass fraction] 11.4 % High 4.3-6.0 [facility] Comment on above: Performed By: #### L 200.66756, L550.87627 #### [facility] [address] [phone] Vital Signs Date Time Vital Sign Value Performing Clinician Facility 11-01-2024 11:27-0400 Body mass index (BMI) [Ratio] 50.75 kg/m2 Davis Velazco AUTO SERVICER.AUTOMOTIVE STARTER REPAIRER Work Phone: [facility] 11-01-2024 11:27-0400 Body temperature 97 [degF] Davis Velazco AUTO SERVICER.AUTOMOTIVE STARTER REPAIRER Work Phone: [facility] 11-01-2024 11:27-0400 Body weight 138.35 kg Davis Velazco AUTO SERVICER.AUTOMOTIVE STARTER REPAIRER Work Phone: [facility] 11-01-2024 11:27-0400 Diastolic blood pressure 79 mm[Hg] Davis Velazco AUTO SERVICER.AUTOMOTIVE STARTER REPAIRER Work Phone: [facility] 11-01-2024 11:27-0400 Heart rate 86 /min Davis Velazco AUTO SERVICER.AUTOMOTIVE STARTER REPAIRER Work Phone: [facility] 11-01-2024 11:27-0400 Respiratory rate 16 /min Davis Velazco AUTO SERVICER.AUTOMOTIVE STARTER REPAIRER Work Phone: [facility] 11-01-2024 11:27-0400 SaO2% (BldA) [Mass fraction] 100 % Davis Velazco AUTO SERVICER.AUTOMOTIVE STARTER REPAIRER Work Phone: [facility] 11-01-2024 11:27-0400 Systolic blood pressure 139 mm[Hg] Davis Velazco AUTO SERVICER.AUTOMOTIVE STARTER REPAIRER Work Phone: [facility] 10-17-2024 14:38-0400 Diastolic blood pressure 68 mm[Hg] [facility] 10-17-2024 14:38-0400 Heart rate 83 /min [facility] 10-17-2024 14:38-0400 Res[facility] rate 16 /[facility]-17-[facility]24 14:38-0400 SaO2% (BldA) [Mass fraction] 97 % [facility] 10-17-2024 14:38-0400 Systolic blood pressure 139 mm[Hg] [facility] 10-17-2024 13:47-0400 Body temperature 97.11 [degF] [facility] 08-01-2024 13:54-0400 Body height 165.1 cm Mayte Campos MD Work Phone: [facility] 08-01-2024 13:54-0400 Body mass index (BMI) [Ratio] 49.92 kg/m2 Mayte Campos MD Work Phone: [facility] 08-01-2024 13:54-0400 Body temperature 98.01 [degF] Mayte Campos MD Work Phone: [facility] 08-01-2024 13:54-0400 Body weight 136.08 kg Mayte Campos MD Work Phone: [facility] 08-01-2024 13:54-0400 Diastolic blood pressure 82 mm[Hg] Mayte Campos MD Work Phone: [facility] 08-01-2024 13:54-0400 Heart rate 90 /min Mayte Campos MD Work Phone: [facility] 08-01-2024 13:54-0400 Respiratory rate 18 /min Mayte Campos MD Work Phone: [facility] 08-01-2024 13:54-0400 SaO2% (BldA) [Mass fraction] 99 % Mayte Campos MD Work Phone: [facility] 08-01-2024 13:54-0400 Systolic blood pressure 134 mm[Hg] Mayte Campos MD Work Phone: [facility] 05-05-2024 12:53-0500 Body temperature 98.01 [degF] Jarrell Driver MD Work Phone: [facility] 05-05-2024 12:53-0500 Diastolic blood pressure 92 mm[Hg] Jarrell Driver MD Work Phone: [facility] 05-05-2024 12:53-0500 Heart rate 83 /min Jarrell Driver MD Work Phone: [facility] 05-05-2024 12:53-0500 Respiratory rate 18 /min Jarrell Driver MD Work Phone: [facility] 05-05-2024 12:53-0500 SaO2% (BldA) [Mass fraction] 98 % Jarrell Driver MD Work Phone: [facility] 05-05-2024 12:53-0500 Systolic blood pressure 150 mm[Hg] Jarrell Driver MD Work Phone: [facility] 02-01-2024 13:44-0400 Body height 170.2 cm Mayte Campos MD Work Phone: [facility] 02-01-2024 13:44-0400 Body mass index (BMI) [Ratio] 45.58 kg/m2 Mayte Campos MD Work Phone: [facility] 02-01-2024 13:44-0400 Body temperature 97.59 [degF] Mayte Campos MD Work Phone: [facility] 02-01-2024 13:44-0400 Body weight 132 kg Mayte Campos MD Work Phone: [facility] 02-01-2024 13:44-0400 Diastolic blood pressure 82 mm[Hg] Mayte Campos MD Work Phone: [facility] 02-01-2024 13:44-0400 Heart rate 102 /min Mayte Campos MD Work Phone: [facility] 02-01-2024 13:44-0400 Respiratory rate 18 /min Mayte Campos MD Work Phone: [facility] 02-01-2024 13:44-0400 SaO2% (BldA) [Mass fraction] 99 % Mayte Campos MD Work Phone: [facility] 02-01-2024 13:44-0400 Systolic blood pressure 134 mm[Hg] Mayte Campos MD Work Phone: [facility] 10-26-2023 09:30-0400 Body height 170.2 cm Mayte Campos MD Work Phone: [facility] 10-26-2023 09:30-0400 Body mass index (BMI) [Ratio] 44.83 kg/m2 Mayte Campos MD Work Phone: [facility] 10-26-2023 09:30-0400 Body temperature 98.1 [degF] Mayte Campos MD Work Phone: [facility] 10-26-2023 09:30-0400 Body weight 129.84 kg Mayte Campos MD Work Phone: [facility] 10-26-2023 09:30-0400 Diastolic blood pressure 86 mm[Hg] Mayte Campos MD Work Phone: [facility] 10-26-2023 09:30-0400 Heart rate 85 /min Mayte Campos MD Work Phone: [facility] 10-26-2023 09:30-0400 Respiratory rate 16 /min Mayte Campos MD Work Phone: [facility] 10-26-2023 09:30-0400 SaO2% (BldA) [Mass fraction] 100 % Mayte Campos MD Work Phone: [facility] 10-26-2023 09:30-0400 Systolic blood pressure 130 mm[Hg] Mayte Campos MD Work Phone: [facility] 07-20-2023 13:06-0400 Body height 170.2 cm Mayte Campos MD Work Phone: [facility] 07-20-2023 13:06-0400 Body temperature 97.9 [degF] Mayte Campos MD Work Phone: [facility] 07-20-2023 13:06-0400 Body weight 131.72 kg Mayte Campos MD Work Phone: [facility] 07-20-2023 13:06-0400 Diastolic blood pressure 78 mm[Hg] Mayte Campos MD Work Phone: [facility] 07-20-2023 13:06-0400 Heart rate 88 /min Mayte Campos MD Work Phone: [facility] 07-20-2023 13:06-0400 Respiratory rate 18 /min Mayte Campos MD Work Phone: [facility] 07-20-2023 13:06-0400 SaO2% (BldA) [Mass fraction] 99 % Mayte Campos MD Work Phone: [facility] 07-20-2023 13:06-0400 Systolic blood pressure 130 mm[Hg] Mayte Campos MD Work Phone: [facility] 04-21-2023 16:02-0500 Diastolic Blood Pressure Non-Invasive 89 mm[Hg] MENDOZA SHEROCK DO [facility] 04-21-2023 16:02-0500 Heart rate 71 /min MENDOZA SHEROCK DO [facility] 04-21-2023 16:02-0500 Respiratory rate 15 /min MENDOZA SHEROCK DO [facility] 04-21-2023 16:02-0500 Systolic Blood Pressure Non-Invasive 147 mm[Hg] MENDOZA SHEROCK DO [facility] 04-21-2023 14:53-0500 Diastolic Blood Pressure Non-Invasive 85 mm[Hg] MENDOZA SHEROCK DO [facility] 04-21-2023 14:53-0500 Heart rate 84 /min MENDOZA SHEROCK DO [facility] 04-21-2023 14:53-0500 Respiratory rate 18 /min MENDOZA SHEROCK DO [facility] 04-21-2023 14:53-0500 Systolic Blood Pressure Non-Invasive 130 mm[Hg] MENDOZA SHEROCK DO [facility] 04-21-2023 14:33-0500 Diastolic Blood Pressure Non-Invasive 97 mm[Hg] MENDOZA SHEROCK DO [facility] 04-21-2023 14:33-0500 Heart rate 91 /min MENDOZA SHEROCK DO [facility] 04-21-2023 14:33-0500 Respiratory rate 20 /min MENDOZA SHEROCK DO [facility] 04-21-2023 14:33-0500 Systolic Blood Pressure Non-Invasive 121 mm[Hg] MENDOZA KINGSLEYOCK DO [facility] 04-21-2023 13:15-0500 Respiratory Rate - Anes 14 br/min MENDOZA SHEROCK DO [facility] 04-21-2023 13:10-0500 Respiratory Rate - Anes 16 br/min MENDOZA SHEROCK DO [facility] 04-21-2023 13:05-0500 Respiratory Rate - Anes 14 br/min MENDOZA SHEROCK DO [facility] 04-21-2023 09:24-0500 Body height 170.2 cm MENDOAZ KINGSLEYOCK DO [facility] 04-21-2023 09:24-0500 Body weight 131.8 kg MENDOZA TEETEEOCK DO [facility] 04-21-2023 09:23-0500 Body temperature 97.88 [degF] MENDOZA TEETEEOCK DO [facility] 04-21-2023 09:23-0500 Heart rate 96 /min MENDOZA BOSWELL [facility] 12-29-2022 14:48-0400 Body height 170.2 cm Mayte Campos MD Work Phone: [facility] 12-29-2022 14:48-0400 Body temperature 97 [degF] Mayte Campos MD Work Phone: [facility] 12-29-2022 14:48-0400 Body weight 130.73 kg Mayte Campos MD Work Phone: [facility] 12-29-2022 14:48-0400 Diastolic blood pressure 82 mm[Hg] Mayte Campos MD Work Phone: [facility] 12-29-2022 14:48-0400 Heart rate 102 /min Mayte Campos MD Work Phone: [facility] 12-29-2022 14:48-0400 Respiratory rate 18 /min Mayte Campos MD Work Phone: [facility] 12-29-2022 14:48-0400 SaO2% (BldA) [Mass fraction] 96 % Mayte Campos MD Work Phone: [facility] 12-29-2022 14:48-0400 Systolic blood pressure 128 mm[Hg] Mayte Campos MD Work Phone: [facility] 12-01-2022 15:36-0400 Body height 170.2 cm Mayte Campos MD Work Phone: [facility] 12-01-2022 15:36-0400 Body temperature 97.3 [degF] Mayte Campos MD Work Phone: [facility] 12-01-2022 15:36-0400 Body weight 131.09 kg Mayte Campos MD Work Phone: [facility] 12-01-2022 15:36-0400 Diastolic blood pressure 86 mm[Hg] Mayte Campos MD Work Phone: [facility] 12-01-2022 15:36-0400 Heart rate 82 /min Mayte Campos MD Work Phone: [facility] 12-01-2022 15:36-0400 Respiratory rate 18 /min Mayte Campos MD Work Phone: [facility] 12-01-2022 15:36-0400 SaO2% (BldA) [Mass fraction] 98 % Mayte Campos MD Work Phone: [facility] 12-01-2022 15:36-0400 Systolic blood pressure 132 mm[Hg] Mayte Campos MD Work Phone: [facility] 05-10-2022 14:04-0500 Body temperature 97.5 [degF] Parmjit Bell MD Work Phone: [facility] 05-10-2022 14:04-0500 Body weight 130 kg Parmjit Bell MD Work Phone: [facility] 05-10-2022 14:04-0500 Diastolic blood pressure 96 mm[Hg] Parmjit Bell MD Work Phone: [facility] 05-10-2022 14:04-0500 Heart rate 83 /min Parmjit Bell MD Work Phone: [facility] 05-10-2022 14:04-0500 Respiratory rate 19 /min Parmjit Bell MD Work Phone: [facility] 05-10-2022 14:04-0500 SaO2% (BldA) [Mass fraction] 98 % Parmjit Bell MD Work Phone: [facility] 05-10-2022 14:04-0500 Systolic blood pressure 146 mm[Hg] Parmjit Bell MD Work Phone: [facility] 01-27-2022 13:07-0400 Body temperature 98.01 [degF] Bry Loco PA-C Work Phone: [facility] 01-27-2022 13:07-0400 Body weight 133.18 kg Bry Loco PA-C Work Phone: [facility] 01-27-2022 13:07-0400 Diastolic blood pressure 99 mm[Hg] Bry Demetro PA-C Work Phone: [facility] 01-27-2022 13:07-0400 Heart rate 88 /min Bry Demetro PA-C Work Phone: [facility] 01-27-2022 13:07-0400 Respiratory rate 20 /min Bry Demetro PA-C Work Phone: [facility] 01-27-2022 13:07-0400 SaO2% (BldA) [Mass fraction] 97 % Bry Demetro PA-C Work Phone: [facility] 01-27-2022 13:07-0400 Systolic blood pressure 147 mm[Hg] Bry Demetro PA-C Work Phone: [facility] 12-16-2021 13:15-0400 Body height 168.9 cm Mayte Campos MD Work Phone: [facility] 12-16-2021 13:15-0400 Body temperature 97.5 [degF] Mayte Campos MD Work Phone: [facility] 12-16-2021 13:15-0400 Body weight 132.09 kg Mayte Campos MD Work Phone: [facility] 12-16-2021 13:15-0400 Diastolic blood pressure 88 mm[Hg] Mayte Campos MD Work Phone: [facility] 12-16-2021 13:15-0400 Heart rate 88 /min Mayte Campos MD Work Phone: [facility] 12-16-2021 13:15-0400 Respiratory rate 18 /min Mayte Campos MD Work Phone: [facility] 12-16-2021 13:15-0400 SaO2% (BldA) [Mass fraction] 98 % Mayte Campos MD Work Phone: [facility] 12-16-2021 13:15-0400 Systolic blood pressure 138 mm[Hg] Mayte Campos MD Work Phone: [facility] 07-15-2021 13:14-0500 Body temperature 96.6 [degF] Mayte Campos MD Work Phone: [facility] 07-15-2021 13:14-0500 Body weight 133.81 kg Mayte Campos MD Work Phone: [facility] 07-15-2021 13:14-0500 Diastolic blood pressure 90 mm[Hg] Mayte Campos MD Work Phone: [facility] 07-15-2021 13:14-0500 Heart rate 100 /min Mayte Campos MD Work Phone: [facility] 07-15-2021 13:14-0500 Respiratory rate 14 /min Mayte Campos MD Work Phone: [facility] 07-15-2021 13:14-0500 Systolic blood pressure 124 mm[Hg] Mayte Campos MD Work Phone: [facility] Encounters Encounter Date Encounter Type Care Provider Facility Start: 12-12-2024 End: 12-12-2024 ambulatory DAVIS VELAZCO Facility:[id number] Start: 12-04-2024 End: 12-04-2024 ambulatory Support Services [facility] Start: 11-26-2024 End: 11-27-2024 ambulatory Support Services [facility]cology Start: 11-20-2024 End: 11-20-2024 Telephone encounter Ana Lilia Singh MD Work Phone: [facility] Comment on above: Appointment Start: 11-02-2024 End: 11-02-2024 Telephone encounter Jaky Harrison PA-C Work Phone: [facility] Start: 11-01-2024 End: 11-01-2024 Patient encounter procedure Davis Velazco AUTO SERVICER.AUTOMOTIVE STARTER REPAIRER Work Phone: [facility] Start: 11-01-2024 End: 11-01-2024 ambulatory Davis Velazco AUTO SERVICER.AUTOMOTIVE STARTER REPAIRER Work Phone: [facility] Comment on above: Iron deficiency anem ia, unspecified iron deficiency anemia type (Primary Dx); Microcytic anemia; Restless legs syndrome; Gastroesophageal reflux disease without esophagitis Start: 10-22-2024 End: 10-22-2024 Telephone encounter Mayte Campos MD Work Phone: [facility] Start: 10-17-2024 End: 10-17-2024 Follow-up encounter Mayte Campos MD Work Phone: [facility] Start: 10-17-2024 End: 10-17-[address] Comment on above: Iron deficiency anem ia, unspecified iron deficiency anemia type (Primary Dx) Start: 10-15-2024 End: 10-15-2024 ambulatory MAYTE CAMPOS Facility:[id number] Start: 10-11-2024 End: 10-11-2024 Telephone encounter Mayte Campos MD Work Phone: [facility] Start: 08-23-2024 End: 08-23-2024 Follow-up encounter Yazmin Tovar LPN [facility] Start: 08-22-2024 End: 08-22-2024 Subsequent hospital visit by physician Screen [facility] RADIO [facility]MO [facility] Comment on above: Encounter for screen ing mammogram for breast cancer [Z12.31] Start: 08-22-2024 End: 08-22-2024 ambulatory MAYTE CAMPOS Facility:[id number] Start: 08-12-2024 End: 08-12-2024 Follow-up encounter Mayte Campos MD Work Phone: [facility] Start: 08-08-2024 End: 08-08-2024 ambulatory MAYTE CAMPOS Facility:[id number] Start: 08-04-2024 ambulatory MAYTE CAMPOS Facility:[id number] Start: 08-01-2024 End: 08-01-2024 Patient encounter status Mayte Campos MD Work Phone: [facility] Work Phone: Start: 08-01-2024 End: 08-01-2024 Periodic preventive med est patient 40-64yrs Mayte Campos MD Work Phone: [facility] Comment on above: Wellness examination (Primary Dx); Essential (primary) hypertension; 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); Other iron deficiency anemia; Depression, unspecified depression type; Anxiety; Seasonal allergies; Pure hypercholesterolemia; Fatigue, unspecified type Start: 08-01-2024 End: 08-01-2024 ambulatory MAYTE CAMPOS Facility:[id number] Start: 08-01-2024 Encounter for genera l adult medical examination without abnormal findings MAYTE CAMPOS [facility] Start: 07-18-2024 End: 07-18-2024 Refill Mayte Campos MD Work Phone: [facility] Comment on above: Refill Request Start: 07-03-2024 End: 08-03-2024 ambulatory Mayte Campos MD Work Phone: [facility] Start: 07-03-2024 End: 08-03-2024 Patient encounter procedure Mayte Campos MD Work Phone: [facility] Start: 06-15-2024 End: 06-15-2024 ambulatory Mayte Campos MD Work Phone: [facility] Start: 06-15-2024 End: 06-15-2024 Patient encounter procedure Mayte Campos MD Work Phone: [facility] Comment on above: Patient Update (DM E ye Exam) Start: 05-21-2024 End: 05-22-2024 Refill Mayte Campos MD Work Phone: [facility] Comment on above: Refill Request Start: 05-05-2024 End: 05-05-2024 Office outpatient visit 15 minutes Jarrell Driver MD Work Phone: [facility] Comment on above: Acute otitis media, right (Primary Dx) Start: 05-05-2024 End: 05-05-2024 ambulatory SELF Facility:[id number] Start: 02-01-2024 End: 02-01-2024 E-mail encounter from caregiver Mayte Campos MD Work Phone: [facility] Start: 02-01-2024 End: 02-01-2024 Patient encounter procedure Mayte Campos MD Work Phone: [facility] Comment on above: DM Eye Exam Start: 02-01-2024 End: 02-01-2024 Office outpatient visit 25 minutes Mayte Campos MD Work Phone: [facility] Comment on above: Essential (primary) hypertension (Primary Dx); 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); Other iron deficiency anemia; Depression, unspecified depression type; Anxiety; Seasonal allergies; Primary insomnia; Pure hypercholesterolemia Start: 02-01-2024 End: 02-01-2024 ambulatory MAYTE CAMPOS Facility:[id number] Start: 12-09-2023 Refill Mayte Levi MD Work Phone: [facility] Comment on above: Refill Request Start: 12-05-2023 Patient Msg Mayte Levi MD Work Phone: [facility] Comment on above: Mammogram Order Start: 12-03-2023 Refill Mayte Levi MD Work Phone: [facility] Comment on above: Refill Request Start: 10-26-2023 End: 10-26-2023 Office outpatient visit 15 minutes Mayte Campos MD Work Phone: [facility] Comment on above: Diabetes beginning i n adulthood (type 2/adult onset) (HCC) (Primary Dx); Essential (primary) hypertension; Anxiety; Other iron deficiency anemia; Depression, unspecified depression type Start: 07-20-2023 End: 07-20-2023 Office outpatient visit 15 minutes Mayte Campos MD Work Phone: [facility] Comment on above: Diabetes beginning i n adulthood (type 2/adult onset) ([facility]) (Primary Dx); Essential (primary) hypertension Start: 04-21-2023 End: 04-21-[address] MAYTE CAMPOS MD Facility:B Start: 04-21-2023 End: 04-21-2023 SAME DAY STAY MENDOZA BOSWELL DO [facility] Start: 04-12-2023 Refill Mayte Levi MD Work Phone: [facility] Comment on above: Refill Request; Refi ll Request Start: 04-06-2023 End: 04-07-2023 ambulatory MENDOZA BOSWELL DO Facility:B Start: 01-20-2023 End: 01-20-2023 Subsequent hospital visit by physician [facility] Jozef [facility] Comment on above: Irregular menstruati on, unspecified [N92.6] Start: 12-29-2022 End: 12-29-2022 Office outpatient visit 15 minutes Mayte Campos MD Work Phone: [facility] Comment on above: Diabetes beginning i n adulthood (type 2/adult onset) ([facility]LY [facility]) (Primary Dx) Start: 12-01-2022 End: 12-01-2022 Office outpatient visit 15 minutes Mayte Campos MD Work Phone: [facility] Comment on above: Hypertension, essent ial (Primary Dx); Pure hypercholesterolemia; 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) Start: 08-02-2022 Patient encounter procedure [facility] Prov ider [facility] Department Start: 05-19-2022 End: 05-19-2022 Subsequent hospital visit by physician Screen Mammo [facility] [place] 1 [facility] Comment on above: Encounter for screen ing mammogram for malignant neoplasm of breast [Z12.31] Start: 05-10-2022 End: 05-10-2022 Patient encounter procedure Parmjit Bell MD Work Phone: [facility] Comment on above: URI with cough and c ongestion (Primary Dx) Start: 01-27-2022 End: 01-27-2022 Patient encounter procedure Bry Loco PA-C Work Phone: [facility] Comment on above: Upper respiratory tr act infection, unspecified type (Primary Dx); Chronic sinusitis, unspecified location Start: 01-15-2022 Chart abstracting Mayte Campos MD Work Phone: Pain Management Start: 12-29-2021 Refill Mayte Levi MD Work Phone: [facility] Comment on above: Refill Request Start: 12-25-2021 Refill Mayte Levi MD Work Phone: [facility] Comment on above: Refill Request Start: 12-16-2021 End: 12-16-2021 Office outpatient visit 25 minutes Mayte Campos MD Work Phone: [facility] Comment on above: Primary hypertension (Primary Dx); Mixed hyperlipidemia; 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); Pain of upper abdomen Start: 10-26-2021 Telephone encounter Mayte Campos MD Work Phone: [facility] Comment on above: Patient Update Refill Request Start: 08-01-2021 End: 08-01-2021 Subsequent hospital visit by physician Mayte Campos MD Work Phone: [facility] Comment on above: I10,E11.9,D50.9 Start: 05-07-2014 End: 05-07-2014 Telephone encounter Aissatou GOODEN Work Phone: General Surgery Start: 11-23-2013 End: 11-23-2013 Telephone encounter Ashley Helms MD Work Phone: [facility] Procedures Date Procedure Procedure Detail Performing Clinician Start: 11-01-2024 Blood count complete auto&auto difrntl wbc Davis Velazco AUTO SERVICER.AUTOMOTIVE STARTER REPAIRER Work Phone: Start: 08-22-2024 Screening digital br east tomosynthesis bi Mayte Campos MD Work Phone: Start: 01-20-2023 Us transvaginal Kimberly Alvarado AUTOMOTIVE STARTER REPAIRER Work Phone: Start: 05-19-2022 Screening mammograph y bi 2-view breast inc cad Mayte Campos MD Work Phone: Start: 12-16-2021 Adult depression scr eening assessment Mayte Campos MD Work Phone: section MENDOZA MARQUEZ DO Other (qualifier value) REJI BOSWELL DO Comment on above: fb removed- excision s GROCERY BAGGER Surgery laparosc opic Plan of Treatment Date Care Activity Detail Author Start: 08-22-2025 Screening for malignant neoplasm of breast Mammogram Screening [facility] Start: 08-08-2025 Hepatitis B surface antibody level LDL Cholesterol [facility] Start: 08-01-2025 Annual PCP Team Chronic Disease Visit Annual PCP Team Chronic Disease Visit [facility] Start: 02-07-2025 Hemoglobin A1c measurement HbA1C [facility] Start: 02-06-2025 End: 02-06-2025 Patient encounter procedure 02/06/2025 1:00 PM EDT Office Visit [facility] [place] [address] [place] [address] Mayte Campos MD [address] [place] [address] 6 Month Follow Up [facility] Comment on above: 6 Month Follow Up Start: 01-31-2025 Annual PCP Team Chronic Disease Visit Annual PCP Team Chronic Disease Visit [facility] Start: 01-07-2025 Influenza vaccination [facility] Start: 12-12-2024 End: 12-12-2024 ambulatory Hematology Oncology Comment on above: 30 day follow [facility] Start: 11-28-2024 End: 11-28-2024 ambulatory 11/28/2024 1:00 PM EDT Infusion Center [facility] [address] [place] [address] [place] [address] [facility] Comment on above: [facility] Start: 11-01-2024 End: 01-31-2025 PROTEIN ELECTROPHORESIS SERUM W/INTERP [facility] Work Phone: Comment on above: Expected: 11/01/2024, Expires: Start: 11-01-2024 End: 11-01-2024 ambulatory 11/01/2024 10:30 AM EDT Visit (SP) Office Hematology Oncology [address] [place] [address] [place] [address] Davis Velazco, AVELINO.AUTOMOTIVE STARTER REPAIRER [address] [facility] [place] [address] new pt SHY/Ref Dr. Meghna Campos Hematology Oncology Comment on above: new pt SHY/Ref Dr. Meghna Campos Start: 10-25-2024 Annual PCP Team Chronic Disease Visit Annual PCP Team Chronic Disease Visit [facility] Start: 10-17-2024 End: 10-17-2024 ambulatory Infusion Center Comment on above: Iron Iron deficiency anem ia, unspecified iron deficiency anemia type (Primary Dx) Start: 10-11-2024 End: 01-10-2025 Ferritin [Mass/volume] in Serum or Plasma [facility] Lab Routine Other iron deficiency anemia Expected: 10/11/2024, Expires: 01/10/2025 [facility] Work Phone: Comment on above: Expected: 10/11/2024, Expires: Start: 10-11-2024 End: 01-10-2025 Iron and Iron binding capacity panel - Serum or Plasma IRON AND TIBC Lab Routine Other iron deficiency anemia Expected: 10/11/2024, Expires: 01/10/2025 [facility] Comment on above: Expected: 10/11/2024, Expires: Start: 08-12-2024 End: 11-11-2024 Ferritin [Mass/volume] in Serum or Plasma FERRITIN Lab Routine Other iron deficiency anemia Expected: 08/12/2024, Expires: 11/11/2024 [facility] Work Phone: Comment on above: Expected: 08/12/2024, Expires: Start: 08-12-2024 End: 11-11-2024 Iron and Iron binding capacity panel - Serum or Plasma IRON AND TIBC Lab Routine Other iron deficiency anemia Expected: 08/12/2024, Expires: 11/11/2024 [facility] Comment on above: Expected: 08/12/2024, Expires: Start: 08-01-2024 End: 10-31-2024 CBC W Auto Differential panel - Blood COMPLETE BLOOD COUNT AND DIFFERENTIAL Lab Routine Other iron deficiency anemia Expected: 08/01/2024, Expires: 10/31/2024 [facility] Work Phone: Comment on above: Expected: 08/01/2024, Expires: Start: 08-01-2024 End: 10-31-2024 Comprehensive metabolic 2000 panel - Serum or Plasma COMPREHENSIVE METABOLIC PANEL Lab Routine Essential (primary) hypertension 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) Pure hypercholesterolemia Expected: 08/01/2024, Expires: 10/31/2024 [facility] Comment on above: Expected: 08/01/2024, Expires: Start: 08-01-2024 End: 10-31-2024 Hemoglobin A1c in Blood HEMOGLOBIN A1C Lab Routine 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) Expected: 08/01/2024, Expires: 10/31/2024 [facility] Comment on above: Expected: 08/01/2024, Expires: Start: 08-01-2024 End: 10-31-2024 Lipid 1996 panel - Serum or Plasma LIPID PANEL, FASTING Lab Routine Pure hypercholesterolemia Expected: 08/01/2024, Expires: 10/31/2024 [facility] Comment on above: Expected: 08/01/2024, Expires: Start: 08-01-2024 End: 10-31-2024 Thyrotropin [Units/volume] in Serum or Plasma THYROID STIMULATING HORMONE Lab Routine Fatigue, unspecified type Expected: 08/01/2024, Expires: 10/31/2024 [facility] Comment on above: Expected: 08/01/2024, Expires: Start: 08-01-2024 End: 08-01-2024 Patient encounter procedure 08/01/2024 1:40 PM EDT Office Visit [facility] [address] [place] [id number] Mayte Campos MD [address] [place], [place] [id number] Annual Wellness [facility] Comment on above: Annual Wellness Start: 07-19-2024 Annual PCP Team Chronic Disease Visit Annual PCP Team Chronic Disease Visit [facility] Start: 02-01-2024 End: 05-02-2024 CBC W Auto Differential panel - Blood COMPLETE BLOOD COUNT AND DIFFERENTIAL Lab Routine Other iron deficiency anemia Expected: 02/01/2024, Expires: 05/02/2024 [facility] Comment on above: Expected: 02/01/2024, Expires: Start: 02-01-2024 End: 05-02-2024 Comprehensive metabolic 2000 panel - Serum or Plasma COMPREHENSIVE METABOLIC PANEL Lab Routine Essential (primary) hypertension 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) Pure hypercholesterolemia Expected: 02/01/2024, Expires: 05/02/2024 [facility] Work Phone: Comment on above: Expected: 02/01/2024, Expires: 4 Start: 02-01-2024 End: 05-02-2024 Hemoglobin A1c in Blood HEMOGLOBIN A1C Lab Routine 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) Expected: 02/01/2024, Expires: 05/02/2024 [facility] Comment on above: Expected: 02/01/2024, Expires: Start: 02-01-2024 End: 05-02-2024 Iron and Iron binding capacity panel - Serum or Plasma IRON AND TIBC Lab Routine Other iron deficiency anemia Expected: 02/01/2024, Expires: 05/02/2024 [facility] Comment on above: Expected: 02/01/2024, Expires: Start: 02-01-2024 End: 05-02-2024 Lipid 1996 panel - Serum or Plasma LIPID PANEL BASIC Lab Routine Pure hypercholesterolemia Expected: 02/01/2024, Expires: 05/02/2024 [facility] Comment on above: Expected: 02/01/2024, Expires: Start: 02-01-2024 End: 02-01-2024 Patient encounter procedure [facility] Comment on above: 3 Month Follow Up COPAY3 Month Fo llow Up Start: 01-08-2024 Covid-19 Vaccine ( season) Covid-19 Vaccine ( season) [facility] Start: 01-08-2024 Covid-19 Vaccine ( season) Covid-19 Vaccine ( season) [facility] Start: 01-08-2024 Influenza vaccination [facility] Start: 12-30-2023 ANNUAL PCP TEAM CHRONIC DISEASE VISIT ANNUAL PCP TEAM CHRONIC DISEASE VISIT [facility] Start: 12-13-2023 Hepatitis B surface antibody level LDL CHOLESTEROL [facility] Start: 12-02-2023 ANNUAL PCP TEAM CHRONIC DISEASE VISIT ANNUAL PCP TEAM CHRONIC DISEASE VISIT [facility] Start: 10-26-2023 End: 01-25-2024 Hemoglobin A1c in Blood HEMOGLOBIN A1C Lab Routine 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) Expected: 10/26/2023, Expires: 01/25/2024 [facility] Work Phone: Comment on above: Expected: 10/26/2023, Expires: 4 Start: 10-20-2023 End: 01-19-2024 Hemoglobin A1c in Blood HGB A1C Lab Routine 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) Expected: 10/20/2023, Expires: 01/19/2024 [facility] Work Phone: Comment on above: Expected: 10/20/2023, Expires: 4 Start: 08-03-2023 Glaucoma screening Dilated Retinal Exam [facility] Start: 08-03-2023 Hepatitis C antibody, confirmatory test DILATED RETINAL EXAM [facility] Start: 05-19-2023 Screening for malignant neoplasm of breast Mammogram Screening [facility] Start: 04-28-2023 ANNUAL PCP TEAM CHRONIC DISEASE VISIT ANNUAL PCP TEAM CHRONIC DISEASE VISIT [facility] Start: 03-14-2023 Hemoglobin A1c measurement HbA1C [facility] Start: 03-14-2023 Hemoglobin A1c/Hemoglobin.total in Blood HBA1C [facility] Start: 01-20-2023 ANNUAL PCP TEAM CHRONIC DISEASE VISIT ANNUAL PCP TEAM CHRONIC DISEASE VISIT [facility] Start: 01-07-2023 Covid-19 Vaccine ( season) Covid-19 Vaccine () [facility] Start: 01-07-2023 Influenza vaccination [facility] Start: 12-16-2022 Adult depression screening assessment DEPRESSION SCREENING [facility] Start: 12-01-2022 End: 01-31-2023 Comprehensive metabolic 2000 panel - Serum or Plasma COMP METABOLIC PANEL Lab Routine Hypertension, essential Pure hypercholesterolemia 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) Expected: 12/01/2022, Expires: 01/31/2023 [facility] Work Phone: Comment on above: Expected: 12/01/2022, Expires: 3 Start: 12-01-2022 End: 01-31-2023 Hemoglobin A1c in Blood HGB A1C Lab Routine 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) Expected: 12/01/2022, Expires: 01/31/2023 [facility] Work Phone: Comment on above: Expected: 12/01/2022, Expires: 3 Start: 12-01-2022 End: 01-31-2023 Lipid 1996 panel - Serum or Plasma LIPID PANEL BASIC Lab Routine Pure hypercholesterolemia Expected: 12/01/2022, Expires: 01/31/2023 [facility] Work Phone: Comment on above: Expected: 12/01/2022, Expires: 3 Start: 08-01-2022 Hepatitis B surface antibody level LDL CHOLESTEROL [facility] Start: 02-25-2022 Hemoglobin A1c/Hemoglobin.total in Blood HBA1C [facility] Start: 01-07-2022 Influenza vaccination [facility] Start: 12-16-2021 End: 02-15-2022 Comprehensive metabolic 2000 panel - Serum or Plasma COMP METABOLIC PANEL Lab Routine Primary hypertension Mixed hyperlipidemia 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 (type 2/adult onset) ([facility]) Expected: 12/16/2021, Expires: 02/15/2022 [facility] Work Phone: Comment on above: Expected: 12/16/2021, Expires: 2 Start: 12-16-2021 End: 02-15-2022 Hemoglobin A1c in Blood HGB A1C Lab Routine 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) Expected: 12/16/2021, Expires: 02/15/2022 [facility] Work Phone: Comment on above: Expected: 12/16/2021, Expires: 2 Start: 12-16-2021 End: 02-15-2022 Lipid 1996 panel - Serum or Plasma LIPID PANEL BASIC Lab Routine Mixed hyperlipidemia Expected: 12/16/2021, Expires: 02/15/2022 [facility] Work Phone: Comment on above: Expected: 12/16/2021, Expires: 2 Start: 01-07-2021 Influenza vaccination [facility] Start: 2013 HPV TESTING HPV TESTING [facility] Start: 2013 Screening for malignant neoplasm of cervix HPV Testing [facility] Start: 2004 PAP TESTING PAP TESTING [facility] Start: 2004 Screening for malignant neoplasm of cervix [facility] Start: 2002 Hepatitis B Vaccine (1 of 3 - 19+ 3-dose series) Hepatitis B Vaccine (1 of 3 - 19+ 3-dose series) [facility] Start: 2002 Pneumococcal vaccination Pneumococcal Vaccine (1 of 2 - PCV) [facility] Start: 2002 Urine microalbumin profile [facility] Start: 2001 BP CONTROLLED (<130/80) BP CONTROLLED (<130/80) [facility] Start: 2001 HEPATITIS C SCREENING HEPATITIS C SCREENING [facility] Start: 2001 Hepatitis C screening Hepatitis C Screening [facility] Start: 2001 HIV SCREENING HIV SCREENING [facility] Start: 2001 HIV screening HIV Screening [facility] Start: 1995 Adult depression screening assessment DEPRESSION SCREENING [facility] Start: 1993 3 comp foot exam completed DIABETIC FOOT EXAM [facility] Start: 1993 Diabetic foot examination Diabetic Foot Exam [facility] Start: 1993 Hepatitis B screening URINE ALBUMIN:CREATININE RATIO [facility] Start: 1993 Hepatitis C antibody, confirmatory test DILATED RETINAL EXAM [facility] Start: 1989 PNEUMOCOCCAL (1 - PCV) PNEUMOCOCCAL (1 - PCV) [facility] Start: 1989 Pneumococcal vaccination [facility] Start: 1988 COVID-19 VACCINE (#1) COVID-19 VACCINE (#1) [facility] Start: 1988 COVID-19 VACCINE (1) COVID-19 VACCINE (1) [facility] Start: 1983 COVID-19 VACCINE (#1) COVID-19 VACCINE (#1) [facility] Start: 1983 HEPATITIS B (1 of 3 - 3-dose series) HEPATITIS B (1 of 3 - 3-dose series) [facility] Start: 1983 Hepatitis B Vaccine (1 of 3 - 3-dose series) Hepatitis B Vaccine (1 of 3 - 3-dose series) [facility] End: 08-02-2025 DBT Breast - bilateral screening AYAD SCREENING [facility] Radiology Routine Encounter for screening mammogram for breast cancer 1 Occurrences starting 07/03/2024 until 08/02/2025 [facility] Work Phone: Comment on above: 1 Occurrences starting 07/03/2024 until 08/02/2025 Protein [Mass/volume ] in Serum or Plasma PROTEIN, TOTAL Lab Routine Iron deficiency anemia, unspecified iron deficiency anemia type Microcytic anemia 11/01/2024 12:07 PM EDT [facility] PROTEIN ELECTROPHORE SIS SERUM (P) PROTEIN ELECTROPHORESIS SERUM (P) Lab Routine Iron deficiency anemia, unspecified iron deficiency anemia type Microcytic anemia 11/01/2024 12:07 PM EDT [facility] End: 01-15-2023 Radiologic exam abdomen 2 views XR ABDOMEN 2V ROUTINE SUPINE W UPRIGHT/DECUB/CTL Radiology Routine Pain of upper abdomen 1 Occurrences starting 12/16/2021 until 01/15/2023 [facility] Work Phone: Comment on above: 1 Occurrences starting 12/16/2021 until 01/15/2023 [facility] Payers Date Payer Category Payer [facility] [id number] 2024 Unknown [id number] 2022 Unknown [id number] 2022 Unknown [id number] 2020 Private Health Insurance [facility] [id number] 2020-Present [phone] [address] [address] [place] [address] O [id number] 2020 Private Health Insurance [id number] 2013 Private Health Insurance [facility] CHOICE PLUS [id number] 2013-2015 POS [id number] 1983 Unknown [id number] 1983 Unknown [id number] Social History Date Type Detail Facility Start: 01-03-2014 End: 05-07-2014 Tobacco smoking status NHIS Never smoker [facility] Start: 01-03-2014 End: 05-07-2014 Tobacco use and exposure Never used [email or web address] Work Phone: Start: 05-07-2014 End: 11-01-2024 Alcohol intake Current non-drinker of alcohol (finding) [facility] Start: 1985 Sex Assigned At Not on file [facility] Start: 12-06-2021 End: 01-27-2022 Exposure to SARS-CoV-2 (event) Not sure [facility] Start: 12-01-2022 End: 08-01-2024 History of Social function [facility] [employer] [facility] Start: 12-01-2022 End: 08-01-2024 Tobacco use panel [facility] Adult Depression Scr eening Assessment 6 [facility] Has the [employer], or [employer] threatened to shut off services in your home in past 12Mo No [facility] Do you belong to any clubs or organizations such as spiritism groups, unions, fraternal or athletic groups, or school groups? Yes [facility] Are you now , , , , never or living with a partner? [facility] How often to you hav e a drink containing alcohol? Monthly or less [facility] How many standard dr inks containing alcohol do you have on a typical day? 1 or 2 [facility] How often do you hav e 6 or more drinks on 1 occasion? Never [facility] Do you feel stress - tense, restless, nervous, or anxious, or unable to sleep at night because your mind is troubled all the time - these days [OSQ] To some extent [facility] (I/We) worried wheth er (my/our) food would run out before (I/we) got money to buy more. Never true [facility] Start: 04-06-2023 Tobacco smoking status Ex-smoker (fi nding) [facility] Sex Assigned At Female [facility] Do you feel stress - tense, restless, nervous, or anxious, or unable to sleep at night because your mind is troubled all the time - these days [OSQ] Only a little [facility] Functional Status Date Assessment Result Facility 08-01-2024 Total score [AUDIT-C] 0 08/02/19 25 1:52 PM EDAnabel Odonnell LPN [facility] 08-01-2024 Humiliation, Afraid, Rape, and Kick questionnaire [HARK] [facility] 04-21-2023 Functional Status Up to bathroom [facility] 04-21-2023 Functional Status bilateral knee high applied/on [facility] 04-21-2023 Functional Status Maintained [facility] 05-30-2014 Are you deaf, or do you have serious difficulty hearing No 05/30/2014 2:04 PM William Moreau No [facility] 05-30-2014 Are you blind, or do you have serious difficulty seeing, even when wearing glasses No 05/30/2014 2:04 PM William Moreau No [facility] 05-30-2014 Do you have serious difficulty walking or climbing stairs No 05/30/2014 2:04 PM William Moreau No [facility] 05-30-2014 Do you have difficul ty dressing or bathing No 05/30/2014 2:04 PM William Moreau No [facility] 05-30-2014 Because of a physica l, mental, or emotional condition, do you have difficulty doing errands alone such as visiting a physician's office or shopping No 05/30/2014 2:04 PM William Moreau No [facility] Mental Status Date Assessment Result Facility 04-21-2023 Mental Status Orientation Oriented x 4 [facility] 04-21-2023 Mental Status [facility] 05-30-2014 Because of a physica l, mental, or emotional condition, do you have serious difficulty concentrating, remembering, or making decisions No 05/30/2014 2:04 PM EST William Escobar [facility] Clinical Notes 11-23-2013 to 12-12-2024 Neisha Hopkins - 12/04/2024 12:47 PM EDTANeisha garibay - 11/26/2024 8:42 AM EDTTelephone Encounter - William Melgar M - 11/20/2024 11:05 AM Davis Pena APRN.AUTOMOTIVE STARTER REPAIRER - 11/01/2024 10:40 AM EDT Note Date & Type Note Facility 12-12-2024 Note HNO ID: [id number] Author: ANA LILIA STRICKLAND, CINDY Service: ? Author Type: Registered Nurse Type: Progress Notes Filed: 12/12/2024 14:23 Note Text: Infusion complete. Patient denies any s/s. 30 minute observation begun [facility] 12-12-2024 Note HNO ID: [id number] Author: JAYK HARRISON PA-C Service: ? Author Type: Physician Corrosion Control Engineer Type: Progress Notes Filed: 12/12/2024 13:28 Note Text: . [facility] CLINICAL NOTE Department of Hematology and Medical Oncology PATIENT NAME: Aissatou Torres CLINIC NO.: [id number] ATTENDING PHYSICIAN: Jaky Harrison PA-C DATE OF SERVICE: 12/12/2024 CLINICAL SUMMARY She reports being anemic for as long as she can remember, with iron deficiency noted during her pregnancies, requiring iron supplementation. Despite this, she feels it was never adequately addressed. 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 She denies any other bleeding, including epistaxis, gingival bleeding, or hematochezia, and has not undergone a colonoscopy. She notes a family history of colon cancer in her maternal grandmother. She has been on omeprazole for GERD, which was diagnosed after she experienced symptoms she initially thought were allergies, including coughing and post-nasal drip. She is also taking Singulair. On 10/17/24, she received her first Venofer iron infusion. Following the infusion, she experienced a mild headache on Tuesday and , which progressed to a severe headache with nausea on Tuesday, causing her to leave work. She reports significant fatigue,restless legs. No ice pica. WBC 10.99, hemoglobin 8.9, MCV 70.5, plts 346 on 11/01/24. Iron 12, TIBC 391, saturation 3.1%, ferritin <0.5 on 08/22/24. Iron 15, TIBC 391, saturation 3.8%, ferritin 1.8 on 10/15/24. Recording using [employer] software for draft documentation of the visit was discussed with the patient/authorized financial services representative; all questions welcomed and answered. Patient/authorized financial services representative agreed to proceed INTERIM HISTORY: Nursing notes reviewed; agree with findings as documented. Ms. Torres returns for follow up. Patient with a history of heavy menstrual bleeding, GERD, and possible IBS presents for evaluation of severe iron deficiency anemia. In April of the previous year, she underwent an endometrial ablation, which initially resulted in cessation of menstrual bleeding. However, in July, she began experiencing menstrual periods again, though not as heavy as before. In October, she received a Venofer infusion, but she did not tolerate it well with headache, and nausea. Subsequent blood work revealed persistently low iron levels. Her hemoglobin has been in the 8s. She reports ongoing fatigue and questions the cause of her iron deficiency. She has not yet seen a GI specialist but has been advised to undergo a colonoscopy, especially given her family history of colon cancer (grandmother). She has been diagnosed with GERD and is taking omeprazole. She has not had any prior blood transfusions. She reports chronic nausea, frequent diarrhea, and constipation. She has not had any stomach or colon surgeries but has had two C-sections. She mentions a previous mass removal, initially thought to be metallic but later suggested to be endometriosis. She has undergone multiple ultrasounds, urine tests, a CT scan, and an MRI related to this issue. REVIEW OF SYSTEMS: As described above. Constitutional: (+) fatigue Gastrointestinal: (+) nausea, (+) diarrhea, (+) constipation, (+) abdominal pain PHYSICAL EXAMINATION: General: Alert AND oriented, no acute distress Skin: Normal HEENT: Pupils equal, round. Oral cavity, oropharynx clear Neck: Supple, no mass Breast: Deferred Respiratory: Clear to auscultation, bilaterally Cardiovascular: Regular rate and rhythm, no murmurs, rubs, or gallops Abdomen: Soft, non-tender, non-distended, no masses palpable, no hepatosplenomegaly, normal bowel sounds Genitourinary: Deferred MSK: Back is non-tender Extremities: No clubbing, cyanosis, or edema DIAGNOSTIC STUDIES: Latest Ref Rng AND Units 08/01/2021 08/08/2024 11/01/2024 CBC WBC 3.70 - 11.00 k/uL 10.8 11.07 10.99 RBC 3.90 - 5.20 m/uL 4.54 4.61 4.64 Hemoglobin 11.5 - 15.5 g/dL 11.7 8.5 8.9 Hematocrit 36.0 - 46.0 % 36.9 31.0 32.7 MCV 80.0 - 100.0 fL 81.3 67.2 70.5 MCH 26.0 - 34.0 pg 18.4 19.2 MCHC 30.5 - 36.0 g/dL 31.7 27.4 27.2 RDW 11 - 14.5 14.3 RDW-CV 11.5 - 15.0 % 17.9 22.5 Platelet Count 150 - 400 k/uL 276 360 346 MPV 9.0 - 12.7 fL 10.2 9.5 9.7 Neutrophil % 45 - 75 % 57.5 Lymphocyte % 20 - 40 % 32.6 Baso% % 0.5 0.4 Abs Neut (ANC) 1.45 - 7.50 k/uL 6.07 6.58 Lymphocytes, Absolute 0.9 - 4.4 K/CU MM 3.50 Abs Lymph 1.00 - 4.00 k/uL 3.74 3.20 MONOCYTES,ABSOLUTE 0.1 - 1.1 K/CU MM 0.50 Abs [place] <0.87 k/uL 0.60 0.66 Abs Eosin <0.46 k/uL 0.40 0.52 0.42 Abs Baso <0.11 k/uL 0.05 0.04 NRBC /100 WBC 0.0 0.0 0.0 Latest Ref Rng AND Units 12/12/2022 08/08/2024 11/01/2024 CMP Sodium 136 - 145 mmol/L 139 13 (more content not included)... [facility] 12-04-2024 Note HNO ID: [id number] Author: ?, ?, ? Service: ? Author Type: ? Type: Progress Notes Filed: 12/04/2024 12:50 Note Text: Summary: [employer] Copay Assistance and Auth Obtained insurance approval and attached to patient's scanned docs. Patient also approved for Monoferric copay assistance program 11/27/2024 - 11/26/2025. Program ID: [id number] $2,000.00 [facility] 12-04-2024 History of Present illness Narrative Summary: [employer] Copay Assistance and Auth Obtained insurance approval and attached to patient's scanned docs. Patient also approved for Monoferric copay assistance program 11/27/2024 - 11/26/2025. Program ID: [id number] $2,000.00 max. documented in this encounter [facility] 12-04-2024 Note Patient Outreach ([facility]) AISSATOU TORRES ([id number]) 1985 F Date Time Provider Department 12/04/24 [facility] During your visit today, we recorded the following information about you: Neisha Hopkins 12/04/2024 12:50 PM Signed Obtained insurance approval and attached to patient's scanned docs. Patient also approved for [employer] copay assistance program 11/27/2024 - 11/26/2025. Program ID: [id number] $2,000.00 max. Allergies As of Date: 12/04/2024 Noted Allergy Reaction LISINOPRIL 12/12/2019 3 - Cough Date Reviewed: 11/01/2024 Reviewed by: Davis Velazco APRN.AUTOMOTIVE STARTER REPAIRER - Fully Assessed Prescriptions as of 12/04/2024 - rosuvastatin (CRESTOR) 5 mg tablet Take 1 tablet by mouth daily at bedtime. - omeprazole (PRILOSEC) 40 mg capsule Take 1 capsule by mouth once daily. - montelukast (SINGULAIR) 10 mg tablet Take 1 tablet by mouth once daily. - metFORMIN ER (GLUCOPHAGE XR) 500 mg 24 hr tablet Take 2 tablets by mouth two times a day. - losartan (COZAAR) 50 mg tablet Take 1 tablet by mouth once daily. - glimepiride (AMARYL) 4 mg tablet Amaryl 4 mg tablet oral daily - pioglitazone (ACTOS) 30 mg tablet TAKE 1 TABLET BY MOUTH ONCE DAILY - fluticasone (FLONASE) 50 mcg/actuation nasal spray INHALE 1 SPRAY EACH NOSTRIL ONCE DAILY - albuterol HFA (PROVENTIL HFA, VENTOLIN HFA) 90 mcg/actuation inhaler Inhale 2 Puffs as instructed every 4 hours as needed for wheezing/shortness of breath. - CHOLECALCIFEROL, VITAMIN D3, ORAL Take 5,000 Units by mouth once daily. - Ascorbic Acid (VITAMIN C) 1,000 mg tablet Take 1,000 mg by mouth once daily. - loratadine (CLARITIN) 10 mg tablet Take by mouth once daily as needed. - acetaminophen (TYLENOL) 325 mg tablet Take 650 mg by mouth every 6 hours as needed. Problem List As Of Date 12/04/2024 Noted Resolved Abdominal wall mass of left lower quadrant [R19*03/28/2014 Depression [F32.A] 12/12/2019 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 (type 2/adult o*12/12/2019 Iron deficiency anemia [D50.9] 03/19/2020 Insomnia [G47.00] 12/12/2019 Upper respiratory infection [J06.9] 05/15/2020 Snoring [R06.83] 12/12/2019 Seasonal allergies [J30.2] 12/12/2019 Hypertrophy of tonsils [J35.1] 09/17/2020 Hemorrhoids [K64.9] 12/12/2019 Headaches [R51.9] 12/12/2019 Exposure to severe acute respiratory syndrome c*05/15/2020 Essential (primary) hypertension [I10] 12/16/2021 Candidiasis of vagina [B37.31] 09/24/2020 Anxiety [F41.9] 12/12/2019 Acute sinusitis [J01.90] 05/12/2020 Acute bronchitis with bronchospasm [J20.9] 02/25/2021 Acne [L70.9] 12/12/2019 Generalized abdominal pain [R10.84] 12/16/2021 Encounter Status:Closed by NEISHA HOPKINS on 12/04/24 [facility] 11-26-2024 Note HNO ID: [id number] Author: ?, ?, ? Service: ? Author Type: ? Type: Progress Notes Filed: 11/27/2024 08:43 Note Text: Summary: Financial Navigation Received message from caregiver advising patient cancelled appointments for Venofer administrations due to cost. Treatment plan also changed to Monoferric due to intolerance of previous iron product. OBC made to patient to discuss [employer] copay assistance program. Patient agreed to enrollment. Completed via [employer] portal. Currently pending benefit investigation. OBC made to [place] to check benefits specific to Monoferric ([phone]). Spoke with Sandy. Advised [employer] manages benefits/auth for Monoferric. Transferred me to [facility] with [employer] ([phone]). Advised auth is required for Monoferric and requested clinicals. Most recent office note faxed to [employer] at [phone]. Pending tracking #: [id number]. [facility] 11-26-2024 History of Present illness Narrative Summary: Financial Navigation Received message from caregiver advising patient cancelled appointments for Venofer administrations due to cost. Treatment plan also changed to Monoferric due to intolerance of previous iron product. OBC made to patient to discuss [employer] copay assistance program. Patient agreed to enrollment. Completed via [employer] portal. Currently pending benefit investigation. OBC made to Tegan to check benefits specific to Monoferric ([phone]). Spoke with Sandy. Advised [employer] manages benefits/auth for Monoferric. Transferred me to [facility] with [employer] ([phone]). Advised auth is required for Monoferric and requested clinicals. Most recent office note faxed to [employer] at [phone]. Pending tracking #: [id number]. documented in this encounter [facility] 11-26-2024 Note Patient Outreach ([facility]) AISSATOU TORRES ([id number]) 1985 F Date Time Provider Department 11/26/24 [facility] During your visit today, we recorded the following information about you: Neisha Hopkins 11/27/2024 8:43 AM Signed Received message from caregiver advising patient cancelled appointments for Venofer administrations due to cost. Treatment plan also changed to Monoferric due to intolerance of previous iron product. OBC made to patient to discuss Monoferric copay assistance program. Patient agreed to enrollment. Completed via [employer] portal. Currently pending benefit investigation. OBC made to Tegan to check benefits specific to Monoferric ([phone]). Spoke with Sandy. Advised [employer] manages benefits/auth for Monoferric. Transferred me to [facility] with [employer] ([phone]). Advised auth is required for Monoferric and requested clinicals. Most recent office note faxed to [employer] at [phone]. Pending tracking #: [id number]. Allergies As of Date: 11/26/2024 Noted Allergy Reaction LISINOPRIL 12/12/2019 3 - Cough Date Reviewed: 11/01/2024 Reviewed by: Davis Velazco APRN.AUTOMOTIVE STARTER REPAIRER - Fully Assessed Prescriptions as of 11/27/2024 - rosuvastatin (CRESTOR) 5 mg tablet Take 1 tablet by mouth daily at bedtime. - omeprazole (PRILOSEC) 40 mg capsule Take 1 capsule by mouth once daily. - montelukast (SINGULAIR) 10 mg tablet Take 1 tablet by mouth once daily. - metFORMIN ER (GLUCOPHAGE XR) 500 mg 24 hr tablet Take 2 tablets by mouth two times a day. - losartan (COZAAR) 50 mg tablet Take 1 tablet by mouth once daily. - glimepiride (AMARYL) 4 mg tablet Amaryl 4 mg tablet oral daily - pioglitazone (ACTOS) 30 mg tablet TAKE 1 TABLET BY MOUTH ONCE DAILY - fluticasone (FLONASE) 50 mcg/actuation nasal spray INHALE 1 SPRAY EACH NOSTRIL ONCE DAILY - albuterol HFA (PROVENTIL HFA, VENTOLIN HFA) 90 mcg/actuation inhaler Inhale 2 Puffs as instructed every 4 hours as needed for wheezing/shortness of breath. - CHOLECALCIFEROL, VITAMIN D3, ORAL Take 5,000 Units by mouth once daily. - Ascorbic Acid (VITAMIN C) 1,000 mg tablet Take 1,000 mg by mouth once daily. - loratadine (CLARITIN) 10 mg tablet Take by mouth once daily as needed. - acetaminophen (TYLENOL) 325 mg tablet Take 650 mg by mouth every 6 hours as needed. Problem List As Of Date 11/26/2024 Noted Resolved Abdominal wall mass of left lower quadrant [R19*03/28/2014 Depression [F32.A] 12/12/2019 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 (type 2/adult o*12/12/2019 Iron deficiency anemia [D50.9] 03/19/2020 Insomnia [G47.00] 12/12/2019 Upper respiratory infection [J06.9] 05/15/2020 Snoring [R06.83] 12/12/2019 Seasonal allergies [J30.2] 12/12/2019 Hypertrophy of tonsils [J35.1] 09/17/2020 Hemorrhoids [K64.9] 12/12/2019 Headaches [R51.9] 12/12/2019 Exposure to severe acute respiratory syndrome c*05/15/2020 Essential (primary) hypertension [I10] 12/16/2021 Candidiasis of vagina [B37.31] 09/24/2020 Anxiety [F41.9] 12/12/2019 Acute sinusitis [J01.90] 05/12/2020 Acute bronchitis with bronchospasm [J20.9] 02/25/2021 Acne [L70.9] 12/12/2019 Generalized abdominal pain [R10.84] 12/16/2021 Encounter Status:Closed by NEISHA HOPKINS on 11/27/24 [facility] 11-20-2024 Telephone encounter Note Called patient to schedule follow up. William Melgar November 20, 2024 11:06 AM [facility] 11-20-2024 Miscellaneous Notes Called patient to schedule follow up. William Melgar November 20, 2024 11:06 AM documented in this encounter [facility] 11-20-2024 Telephone encounter Note Patient called in to schedule her MONOFERRIC. I talked with Kaila. She advised me to schedule her for 3 hours. Patient is aware of her time and date for apt. Allison Quiroga [facility] 11-20-2024 Miscellaneous Notes Patient called in to schedule her MONOFERRIC. I talked with Kaila. She advised me to schedule her for 3 hours. Patient is aware of her time and date for apt. Allison Quiroga documented in this encounter [facility] 11-20-2024 Telephone encounter Note Left message for patient to call and schedule her iron. Reyna Joyner [facility] 11-20-2024 Miscellaneous Notes Left message for patient to call and schedule her iron. Reyna Joyner documented in this encounter [facility] 11-02-2024 Telephone encounter Note Called patient and left voicemail to schedule Iron and follow up office visit William Melgar November 02, 2024 7:17 PM [facility] 11-02-2024 Miscellaneous Notes Called patient and left voicemail to schedule Iron and follow up office visit William Melgar November 02, 2024 7:17 PM documented in this encounter [facility] 11-01-2024 Note HNO ID: [id number] Author: DAVIS VELAZCO APRN.AUTOMOTIVE STARTER REPAIRER Service: ? Author Type: Nurse Practitioner Type: Progress Notes Filed: 11/01/2024 15:16 Note Text: [facility] CLINICAL NOTE Department of Hematology and Medical Oncology PATIENT NAME: Aissatou Torres CLINIC NO.: [id number] ATTENDING PROVIDER: Davis Velazco APRN.CNP DATE OF SERVICE: 11/01/2024 REFERRING PHYSICIAN: Mayte Campos MD Recording using [employer] software for draft documentation of the visit was discussed with the patient/authorized financial services representative; all questions welcomed and answered. Patient/authorized financial services representative agreed to proceed HISTORY OF PRESENT ILLNESS Ms. Aissatou Torres is a 39 year old woman with anemia who presents for consultation regarding her diagnosis and management, at the request of Dr. Mayte Campos. My recommendations will be communicated to Dr. Campos by means of shared medical records. She reports being anemic for as long as she can remember, with iron deficiency noted during her pregnancies, requiring iron supplementation. Despite this, she feels it was never adequately addressed. 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 She denies any other bleeding, including epistaxis, gingival bleeding, or hematochezia, and has not undergone a colonoscopy. She notes a family history of colon cancer in her maternal grandmother. She has been on omeprazole for GERD, which was diagnosed after she experienced symptoms she initially thought were allergies, including coughing and post-nasal drip. She is also taking Singulair. On 10/17/24, she received her first Venofer iron infusion. Following the infusion, she experienced a mild headache on Tuesday and , which progressed to a severe headache with nausea on Tuesday, causing her to leave work. She has not received any further infusions. She reports significant fatigue, feeling more drained than usual, and does not feel rested upon waking. She experiences severe pain in her arms, particularly her elbows during the day and shoulders at night, along with restless legs. These symptoms have slightly improved over the past few days. She denies any unusual cravings such as pica. She reports frequent headaches, weight gain despite trying to eat less, and increased sensitivity to cold. She experiences dyspnea and palpitations, particularly when walking, but denies chest pain. She has ongoing abdominal pain and alternating constipation and diarrhea, with occasional nausea, particularly after her iron infusion. She denies any urinary issues or hematuria. 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 She also notes occasional pruritus and dizziness but denies syncope. She has a non-painful nodule on her neck that has decreased in size. PAST MEDICAL HISTORY Diagnosis Date Abdominal wall mass of left lower quadrant 03/28/2014 Acne 12/12/2019 Acute sinusitis 05/12/2020 Candidiasis of vagina 09/24/2020 Depression 12/12/2019 Diabetes mellitus type II (HCC) 12/12/2019 Exposure to severe acute respiratory syndrome coronavirus 2 (SARS-CoV-2) 05/15/2020 Generalized abdominal pain 12/16/2021 Hemorrhoids 12/12/2019 Hypertrophy of tonsils 09/17/2020 Iron deficiency anemia 03/19/2020 Pelvic pain in female Seasonal allergies 12/12/2019 Snoring 12/12/2019 Subcutaneous mass 04/25/14 Left lower abdominal wall Upper respiratory infection 05/15/2020 PAST SURGICAL HISTORY Procedure Laterality Date ANESTH, SECTION X 2 EXC TUMOR SOFT TISSUE ABDL WALL SUBFASCIAL <5CM 04/25/14 EXPL LAP W W/WO BX 11/2013 HYSTEROSCOPY 11/2013 LIG/TRNSXJ FLP TUBE ABDL/VAG APPR UNI/BI 2009 Current Outpatient Medications on File Prior to Visit Medication Sig rosuvastatin (CRESTOR) 5 mg tablet Take 1 tablet by mouth daily at bedtime. omeprazole (PRILOSEC) 40 mg capsule Take 1 capsule by mouth once daily. montelukast (SINGULAIR) 10 mg tablet Take 1 tablet by mouth once daily. metFORMIN ER (GLUCOPHAGE XR) 500 mg 24 hr tablet Take 2 tablets by mouth two times a day. losartan (COZAAR) 50 mg tablet Take 1 tablet by mouth once daily. glimepiride (AMARYL) 4 mg tablet Amaryl 4 mg tablet oral daily pioglitazone (ACTOS) 30 mg tablet TAKE 1 TABLET BY MOUTH ONCE DAILY fluticasone (FLONASE) 50 mcg/actuation nasal spray INHALE 1 SPRAY EACH NOSTRIL ONCE DAILY albuterol HFA (PROVENTIL HFA, VENTOLIN HFA) 90 mcg/actuation inhaler Inhale 2 Puffs as instructed every 4 hours as needed for wheezing/shortness of breath. CHOLECALCIFEROL, VITAMIN D3, ORAL Take 5,000 Units by mouth once daily. Ascorbic Acid (VITAMIN C) 1,000 mg tablet Take 1,000 mg by mouth once daily. loratadine (CLARITIN) 10 mg tablet (more content not included)... [facility] 11-01-2024 History of Present illness Narrative Images from the original note were not included. [facility] CLINICAL NOTE Department of Hematology and Medical Oncology PATIENT NAME: Aissatou Torres CLINIC NO.: [id number] ATTENDING PROVIDER: Davis Velazco APRN.CNP DATE OF SERVICE: 11/01/2024 REFERRING PHYSICIAN: Mayte Campos MD Recording using [employer] software for draft documentation of the visit was discussed with the patient/authorized financial services representative; all questions welcomed and answered. Patient/authorized financial services representative agreed to proceed HISTORY OF PRESENT ILLNESS Ms. Aissatou Torres is a 39 year old woman with anemia who presents for consultation regarding her diagnosis and management, at the request of Dr. Mayte Campos. My recommendations will be communicated to Dr. Campos by means of shared medical records. She reports being anemic for as long as she can remember, with iron deficiency noted during her pregnancies, requiring iron supplementation. Despite this, she feels it was never adequately addressed. 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 She denies any other bleeding, including epistaxis, gingival bleeding, or hematochezia, and has not undergone a colonoscopy. She notes a family history of colon cancer in her maternal grandmother. She has been on omeprazole for GERD, which was diagnosed after she experienced symptoms she initially thought were allergies, including coughing and post-nasal drip. She is also taking Singulair. On 10/17/24, she received her first Venofer iron infusion. Following the infusion, she experienced a mild headache on Tuesday and , which progressed to a severe headache with nausea on Tuesday, causing her to leave work. She has not received any further infusions. She reports significant fatigue, feeling more drained than usual, and does not feel rested upon waking. She experiences severe pain in her arms, particularly her elbows during the day and shoulders at night, along with restless legs. These symptoms have slightly improved over the past few days. She denies any unusual cravings such as pica. She reports frequent headaches, weight gain despite trying to eat less, and increased sensitivity to cold. She experiences dyspnea and palpitations, particularly when walking, but denies chest pain. She has ongoing abdominal pain and alternating constipation and diarrhea, with occasional nausea, particularly after her iron infusion. She denies any urinary issues or hematuria. 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 She also notes occasional pruritus and dizziness but denies syncope. She has a non-painful nodule on her neck that has decreased in size. PAST MEDICAL HISTORY Diagnosis Date Abdominal wall mass of left lower quadrant 03/28/2014 Acne 12/12/2019 Acute sinusitis 05/12/2020 Candidiasis of vagina 09/24/2020 Depression 12/12/2019 Diabetes mellitus type II (HCC) 12/12/2019 Exposure to severe acute respiratory syndrome coronavirus 2 (SARS-CoV-2) 05/15/2020 Generalized abdominal pain 12/16/2021 Hemorrhoids 12/12/2019 Hypertrophy of tonsils 09/17/2020 Iron deficiency anemia 03/19/2020 Pelvic pain in female Seasonal allergies 12/12/2019 Snoring 12/12/2019 Subcutaneous mass 04/25/14 Left lower abdominal wall Upper respiratory infection 05/15/2020 PAST SURGICAL HISTORY Procedure Laterality Date ANESTH, SECTION X 2 EXC TUMOR SOFT TISSUE ABDL WALL SUBFASCIAL <5CM 04/25/14 EXPL LAP W W/WO BX 11/2013 HYSTEROSCOPY 11/2013 LIG/TRNSXJ FLP TUBE ABDL/VAG APPR UNI/BI 2009 Current Outpatient Medications on File Prior to Visit Medication Sig rosuvastatin (CRESTOR) 5 mg tablet Take 1 tablet by mouth daily at bedtime. omeprazole (PRILOSEC) 40 mg capsule Take 1 capsule by mouth once daily. montelukast (SINGULAIR) 10 mg tablet Take 1 tablet by mouth once daily. metFORMIN ER (GLUCOPHAGE XR) 500 mg 24 hr tablet Take 2 tablets by mouth two times a day. losartan (COZAAR) 50 mg tablet Take 1 tablet by mouth once daily. glimepiride (AMARYL) 4 mg tablet Amaryl 4 mg tablet oral daily pioglitazone (ACTOS) 30 mg tablet TAKE 1 TABLET BY MOUTH ONCE DAILY fluticasone (FLONASE) 50 mcg/actuation nasal spray INHALE 1 SPRAY EACH NOSTRIL ONCE DAILY albuterol HFA (PROVENTIL HFA, VENTOLIN HFA) 90 mcg/actuation inhaler Inhale 2 Puffs as instructed every 4 hours as needed for wheezing/shortness of breath. CHOLECALCIFEROL, VITAMIN D3, ORAL Take 5,000 Units by mouth once daily. Ascorbic Acid (VITAMIN C) 1,000 mg tablet Take 1,000 mg by mouth once daily. loratadine (CLARITIN) 10 mg tablet Take by mouth once daily as needed. acetaminophen (TYLENOL) 325 mg tablet Take 650 mg by mouth every 6 hours as needed. 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 Negative for appetite change, fever and unexpected weight change. HENT: Negative for hearing loss, nosebleeds, sore throat, tinnitus and trouble swallowing. Eyes: Negative for eye problems and icterus. Respiratory: Positive for shortness of breath. Negative for chest tightness, cough and wheezing. Cardiovascular: Positive for palpitations. Negative for chest pain and leg swelling. Gastrointestinal: Positive for abdominal pain, constipation, diarrhea and nausea. Negative for blood in stool, rectal pain and vomiting. Genitourinary: Positive for nocturia and vaginal bleeding. Negative for bladder incontinence, difficulty urinating, frequency and hematuria. Musculoskeletal: Positive for arthralgias. Negative for back pain, flank pain, gait problem, myalgias and neck pain. Neurological: Positive for dizziness and headaches. Negative for extremity weakness, gait problem, light-headedness, numbness, seizures and speech difficulty. Hematological: Does not bruise/bleed easily. Psychiatric/Behavioral: Positive for sleep disturbance. Negative for depression and suicidal ideas. The patient is not nervous/anxious. VITAL SIGNS BP 139/79 Pulse 86 Temp 36.1 C (97 F) (Temporal) Resp 16 Wt (!) 138.3 kg (305 lb) LMP (LMP Unknown) SpO2 100% BMI 50.75 kg/m PHYSICAL EXAM Patient appears comfortable, well-developed, well-nourished, and in no acute distress. Skin is moist, warm and smooth. No petechiae or purpura. HEENT: Normocephalic, atraumatic. Anicteric sclera, conjunctiva clear. PERRLA, EOMF. External ears WNL. Oropharynx without ulcers, lesions or thrush. Dentition in good repair. Neck is supple, and without JVD or palpable thyroid abnormality. Lymph nodes: None are palpable in the bilateral neck, clavicle, axillary or groin areas. Lungs are clear to auscultation, with unlabored breathing and no accessory muscle use. Breasts: deferred. Cardiac exam: RRR. Normal S1, S2. No murmur, gallop or rub. Abdomen: Soft, bowel sounds present, nontender, nondistended. No HSM or masses palpable. DIANE deferred. deferred. Extremities reveal no pedal edema. No clubbing or cyanosis. Musculoskeletal: Motor strength good. No apparent inflammatory arthropathy. Neurologic: No focal motor deficits, normal gait, and no abnormal mental status. Psychiatric: Oriented to person, time and place. Mood and affect appropriate. Appropriate judgment and insight. Memory intact. LABS Latest Ref Rng & Units 08/01/2021 08/08/2024 11/01/2024 CBC WBC 3.70 - 11.00 k/uL 10.8 11.07 10.99 RBC 3.90 - 5.20 m/uL 4.54 4.61 4.64 Hemoglobin 11.5 - 15.5 g/dL 11.7 8.5 8.9 Hematocrit 36.0 - 46.0 % 36.9 31.0 32.7 MCV 80.0 - 100.0 fL 81.3 67.2 70.5 MCH 26.0 - 34.0 pg 18.4 19.2 MCHC 30.5 - 36.0 g/dL 31.7 27.4 27.2 RDW 11 - 14.5 14.3 RDW-CV 11.5 - 15.0 % 17.9 22.5 Platelet Count 150 - 400 k/uL 276 360 346 MPV 9.0 - 12.7 fL 10.2 9.5 9.7 Neutrophil % 45 - 75 % 57.5 Lymphocyte % 20 - 40 % 32.6 Baso% % 0.5 0.4 Abs Neut (ANC) 1.45 - 7.50 k/uL 6.07 6.58 Lymphocytes, Absolute 0.9 - 4.4 K/CU MM 3.50 Abs Lymph 1.00 - 4.00 k/uL 3.74 3.20 MONOCYTES,ABSOLUTE 0.1 - 1.1 K/CU MM 0.50 Abs [place] <0.87 k/uL 0.60 0.66 Abs Eosin <0.46 k/uL 0.40 0.52 0.42 Abs Baso <0.11 k/uL 0.05 0.04 NRBC /100 WBC 0.0 0.0 0.0 Latest Ref Rng & Units 12/12/2022 08/08/2024 11/01/2024 CMP Sodium 136 - 145 mmol/L 139 138 141 Potassium 3.5 - 5.1 mmol/L 4.6 4.2 4.1 Chloride 98 - 107 mmol/L 104 103 105 CO2 21 - 32 mmol/L 27 28 26 Glucose 70 - 100 mg/dL 133 73 83 BUN 7 - 26 mg/dL 11 10 13 Creatinine 0.51 - 0.95 mg/dL 0.71 0.64 0.66 EGFR >=60 mL/min/1.73m 111 114 113 Protein, Total 6.0 - 8.5 g/dL 6.6 6.3 6.6 Albumin 3.2 - 5.0 g/dL 3.3 3.3 3.5 Calcium 8.5 - 10.5 mg/dL 9.2 9.5 8.9 Bilirubin, Total 0.2 - 1.0 mg/dL 0.4 0.3 0.4 AST 8 - 34 U/L 26 18 23 ALT 13 - 61 U/L 31 16 20 Alkaline Phosphatase 45 - 117 U/L 72 61 63 ASSESSMENT Iron deficiency anemia from acute blood loss GERD Hemorrhoids IMPRESSION She was found to have severe iron deficiency in 08/2024 requiring IV Venofer infusion. She received 1 infusion on 10/17/24 that caused headache that worsened after 3 days from the infusion. She did not feel well following her infusion. It was explained to her that her iron deficiency anemia can be from decreased dietary iron intake, reduced absorption, or blood loss. She has started having menstrual cycles again since having uterine ablation 1.5 years ago. She is instructed to start taking Feosol bifera 1 tablet by mouth daily on an empty stomach in the morning. She will need additional IV iron infusions. She did not tolerate IV Venofer, developing intense headaches to where she had to miss work. I would like her to try Monoferric IV 1000 mg. She will be given premedications with Tylenol and Benadryl. Risks and side effects of IV iron were reviewed. It was explained that these include, but are not limited to, nausea, vomiting, fever, flu-like symptoms, backache, arthralgias, myalgias, and allergic reactions including potentially life-threatening anaphylaxis. Referral to GI is made as well. She will need EGD and colonoscopy due to iron deficiency anemia with light menstrual cycles and family history of colon cancer in her maternal grandmother. Today we will repeat CBC, CMP, iron studies, and check retic count, vitamin B12, folate, SPEP. She will follow up in 1 month. All questions answered to satisfaction. Orders Placed This Encounter Complete Blood Count and Differential Standing Status: Future Number of Occurrences: 1 Expected Date: 11/01/2024 Expiration Date: 01/31/2025 CMP Standing Status: Future Number of Occurrences: 1 Expected Date: 11/01/2024 Expiration Date: 01/31/2025 Ferritin, Blood Standing Status: Future Number of Occurrences: 1 Expected Date: 11/01/2024 Expiration Date: 01/31/2025 Scheduling Instructions: In preparation for this test, do not take multivitamins or dietary supplements containing biotin (vitamin B7) for at least 12 hours. Biotin is commonly found in hair, skin, and nail supplements and multivitamins. Tell your doctor if you take supplements containing biotin as part of your medication history. Iron and TIBC, Blood Standing Status: Future Number of Occurrences: 1 Expected Date: 11/01/2024 Expiration Date: 01/31/2025 Reticulocyte Count Standing Status: Future Number of Occurrences: 1 Expected Date: 11/01/2024 Expiration Date: 01/31/2025 Vitamin B12 Standing Status: Future Number of Occurrences: 1 Expected Date: 11/01/2024 Expiration Date: 01/31/2025 Scheduling Instructions: In preparation for this test, do not take multivitamins or dietary supplements containing biotin (vitamin B7) for at least 12 hours. Biotin is commonly found in hair, skin, and nail supplements and multivitamins. Tell your doctor if you take supplements containing biotin as part of your medication history. Folate, Serum Standing Status: Future Number of Occurrences: 1 Expected Date: 11/01/2024 Expiration Date: 01/31/2025 Scheduling Instructions: In preparation for this test, do not take multivitamins or dietary supplements containing biotin (vitamin B7) for at least 12 hours. Biotin is commonly found in hair, skin, and nail supplements and multivitamins. Tell your doctor if you take supplements containing biotin as part of your medication history. Protein Electrophoresis, Serum with interp Standing Status: Future Number of Occurrences: 1 Expected Date: 11/01/2024 Expiration Date: 01/31/2025 Is Patient Taking Daratumumab?: No Is Patient Taking Elotuzumab?: No PROTEIN ELECTROPHORESIS SERUM (P) Protein, Total CONSULT TO GASTROENTEROLOGY Standing Status: Future Expiration Date: 11/01/2025 Does consulting provider have [facility] Epic access?: Yes Comments: Referred to Provider does not have access to [facility] EMR I spent a total of 55 minutes on the date of the service which included preparing to see the patient, [id number] patient care, completing clinical documentation, obtaining and/or reviewing separately obtained history, performing a medically appropriate examination, counseling and educating the patient/family/caregiver, and ordering medications, tests, or procedures. Davis Velazco APRN.AUTOMOTIVE STARTER REPAIRER cc: Mayte Campos [id number] [facility] [id number] documented in this encounter [facility] 10-22-2024 Telephone encounter Note Patient notified of information, verbalized understanding. No questions, comments, or concerns at this time. Yazmin Tovar LPN October 22, 2024 3:30 PM [facility] 10-22-2024 Miscellaneous Notes Patient notified of information, verbalized understanding. No questions, comments, or concerns at this time. Yazmin Tovar LPN October 22, 2024 3:30 PM Should gradually improve over next week or so. Follow up if fails to get better Patient had iron infusion on Tuesday of last week Ever since patient is experiencing increased fatigue, weakness, nauseous, and headache. Patient states they informed her this could be a side effect, but is wondering how long side effects are to be taking place. Patient is 5 days since infusion Yazmin Tovar LPN October 22, 2024 9:34 AM documented in this encounter [facility] 10-22-2024 Telephone encounter Note Should gradually improve over next week or so. Follow up if fails to get better [facility] 10-22-2024 Telephone encounter Note Patient had iron infusion on Tuesday of last week Ever since patient is experiencing increased fatigue, weakness, nauseous, and headache. Patient states they informed her this could be a side effect, but is wondering how long side effects are to be taking place. Patient is 5 days since infusion Yazmin Tovar LPN October 22, 2024 9:34 AM [facility] 10-17-2024 Telephone encounter Note Patient notified of information, verbalized understanding. No questions, comments, or concerns at this time. Will call and get scheduled with Hematology. Turner Mercedes LPN October 17, 2024 9:08 AM [facility] 10-17-2024 Telephone encounter Note ----- Message from Mayte Campos MD sent at 10/17/2024 8:47 AM EDT ----- Consult to hematology for iron deficiency anemia [facility] 10-17-2024 Miscellaneous Notes Patient notified of information, verbalized understanding. No questions, comments, or concerns at this time. Will call and get scheduled with Hematology. Turner Mercedes LPN October 17, 2024 9:08 AM ----- Message from Mayte Campos MD sent at 10/17/2024 8:47 AM EDT ----- Consult to hematology for iron deficiency anemia documented in this encounter [facility] 10-11-2024 Telephone encounter Note Patient notified of information on My Chart. Notification will be sent to this nurse if message has not been read within 1 day. Patient will be contacted by another form of communication if notification of not reading My Chart message is received. Yazmin Tovar LPN October 11, 2024 4:42 PM [facility] 10-11-2024 Miscellaneous Notes Patient notified of information on My Chart. Notification will be sent to this nurse if message has not been read within 1 day. Patient will be contacted by another form of communication if notification of not reading My Chart message is received. Yazmin Tovar LPN October 11, 2024 4:42 PM signed [facility] phoned office in regards to patient having an appointment scheduled for iron infusion next week. In order for patient to obtain infusion, new labs need completed. Please sign pended: Pended Orders ID Status Description Pended By When Reason [id number] Pended FERRITIN Yazmin Tovar LPN 10/11/24 1125 [id number] Pended IRON AND TIBC Yazmin Tovar LPN 10/11/24 1125 Yazmin Tovar LPN October 11, 2024 11:26 AM documented in this encounter [facility] 10-11-2024 Telephone encounter Note signed [facility] 10-11-2024 Telephone encounter Note [facility] phoned office in regards to patient having an appointment scheduled for iron infusion next week. In order for patient to obtain infusion, new labs need completed. Please sign pended: Pended Orders ID Status Description Pended By When Reason [id number] Pended FERRITIN Yazmin Tovar LPN 10/11/24 1125 [id number] Pended IRON AND TIBC Yazmin Tovar LPN 10/11/24 112 Yazmin Tovar LPN October 11, 2024 11:26 AM [facility] 08-23-2024 Telephone encounter Note Infusion center has Infed, Ferrlicet or Venofer in 200mg doses. Pended is Venofer order, others unable to be found on epic by this nurse. Pended Orders ID Status Description Pended By When Reason [id number] Pended iron sucrose 200 mg in NaCl 0.9% 100 mL-ONCE Yazmin Tovar LPN 08/23/24 1536 Yazmin Tovar LPN August 23, 2024 3:36 PM [facility] 08-23-2024 Miscellaneous Notes Infusion center has Infed, Ferrlicet or Venofer in 200mg doses. Pended is Venofer order, others unable to be found on epic by this nurse. Pended Orders ID Status Description Pended By When Reason [id number] Pended iron sucrose 200 mg in NaCl 0.9% 100 mL-ONCE Yazmin Tovar LPN 08/23/24 1536 Yazmin Tovar LPN August 23, 2024 3:36 PM documented in this encounter [facility] 08-23-2024 Telephone encounter Note Patient notified of information, verbalized understanding. No questions, comments, or concerns at this time. Yazmin Tovar LPN August 23, 2024 3:00 PM [facility] 08-23-2024 Telephone encounter Note ----- Message from Mayte Campos MD sent at 08/22/2024 4:34 PM EDT ----- Iron levels extremely low. Arrange iron infusion. Check with infusion lab/hospital pharmacy to see which iron infusion they are currently carrying. [facility] 08-23-2024 Miscellaneous Notes Patient notified of information, verbalized understanding. No questions, comments, or concerns at this time. Yazmin Tovar LPN August 23, 2024 3:00 PM ----- Message from Mayte Campos MD sent at 08/22/2024 4:34 PM EDT ----- Iron levels extremely low. Arrange iron infusion. Check with infusion lab/hospital pharmacy to see which iron infusion they are currently carrying. Patient notified of result information on My Chart. Notification will be sent to this nurse if message has not been read within 2 days. Patient will be contacted by another form of communication if notification of not reading My Chart message is received. Yazmin Tovar LPN August 23, 2024 2:52 PM Message left for patient to phone office at earliest convenience in regards to results. Yazmin Tovar LPN August 23, 2024 2:51 PM ----- Message from Mayte Campos MD sent at 08/22/2024 4:34 PM EDT ----- Iron levels extremely low. Arrange iron infusion. Check with infusion lab/hospital pharmacy to see which iron infusion they are currently carrying. documented in this encounter [facility] 08-23-2024 Telephone encounter Note Patient notified of result information on My Chart. Notification will be sent to this nurse if message has not been read within 2 days. Patient will be contacted by another form of communication if notification of not reading My Chart message is received. Yazmin Tovar LPN August 23, 2024 2:52 PM [facility] 08-23-2024 Telephone encounter Note Message left for patient to phone office at earliest convenience in regards to results. Yazmin Tovar LPN August 23, 2024 2:51 PM [facility] 08-23-2024 Telephone encounter Note ----- Message from Mayte Campos MD sent at 08/22/2024 4:34 PM EDT ----- Iron levels extremely low. Arrange iron infusion. Check with infusion lab/hospital pharmacy to see which iron infusion they are currently carrying. [facility] 08-22-2024 History of Present illness Narrative Radiology Service Progress Note PATIENT NAME: Aissatou Torres DATE OF SERVICE: August 22, 2024 TIME: 9:22 AM PATIENT IDENTITY VERIFICATION COMPLETED USING TWO (2) IDENTIFIERS: Name and Date of confirmed by patient verbally. FALL SCREENING: Has the patient had 2 falls in the last year or 1 fall with injury or currently using an Ambulatory Assistive Device (Walker, Cane, Wheelchair, Crutches, etc.)? No PATIENT GENDER DATA: Assigned female at . status: : No status: NO. PATIENT RELEVANT IMPLANT DATA REVIEWED: Not Applicable PATIENT PRESENTS WITH AN IMPLANTABLE OR ATTACHED WINDOWS SUPPORT ENGINEER: No RADIOLOGY DEPARTMENT: Mammography PERIPHERAL IV DATA: Not applicable SIGNED BY: MILA Mcpherson) August 22, 2024 9:22 AM documented in this encounter [facility] 08-22-2024 Note HNO ID: [id number] Author: GUILLERMINA WILKINS RT(R) Service: ? Author Type: Technologist Type: Progress Notes Filed: 08/22/2024 09:22 Note Text: Radiology Service Progress Note PATIENT NAME: Aissatou Torres DATE OF SERVICE: August 22, 2024 TIME: 9:22 AM PATIENT IDENTITY VERIFICATION COMPLETED USING TWO (2) IDENTIFIERS: Name and Date of confirmed by patient verbally. FALL SCREENING: Has the patient had 2 falls in the last year or 1 fall with injury or currently using an Ambulatory Assistive Device (Walker, Cane, Wheelchair, Crutches, etc.)? No PATIENT GENDER DATA: Assigned female at . status: : No status: NO. PATIENT RELEVANT IMPLANT DATA REVIEWED: Not Applicable PATIENT PRESENTS WITH AN IMPLANTABLE OR ATTACHED WINDOWS SUPPORT ENGINEER: No RADIOLOGY DEPARTMENT: Mammography PERIPHERAL IV DATA: Not applicable SIGNED BY: RT Ky(R) August 22, 2024 9:22 AM [facility] 08-01-2024 Note HNO ID: [id number] Author: MAYTE CAMPOS MD Service: ? Author Type: Physician Type: Progress Notes Filed: 08/01/2024 14:28 Note Text: Subjective Aissatou Torres is a 39 year old female. Aissatou presents today for her annual wellness visit. Additionally she follows up for multiple medical problems. See list. Her blood pressure is under good control on her current regimen. She remains on Crestor for treatment of high cholesterol. GI symptoms are improved with omeprazole. Blood sugars have been elevated. Most recent A1c was 8.0. Insurance did not cover treatment with GLP-1's. She remains on Actos, metformin, glimepiride. Review of Systems Constitutional: Negative. HENT: Negative. Eyes: Negative. Respiratory: Negative. Cardiovascular: Negative. Gastrointestinal: Negative. Endocrine: Negative. Genitourinary: Negative. Musculoskeletal: Negative. Skin: Negative. Allergic/Immunologic: Negative. Neurological: Negative. Hematological: Negative. Psychiatric/Behavioral: Negative. PAST SURGICAL HISTORY Procedure Laterality Date ANESTH, SECTION X 2 EXC TUMOR SOFT TISSUE ABDL WALL SUBFASCIAL <5CM 04/25/14 EXPL LAP W W/WO BX 11/2013 HYSTEROSCOPY 11/2013 LIG/TRNSXJ FLP TUBE ABDL/VAG APPR UNI/BI 2009 PAST MEDICAL HISTORY Diagnosis Date Abdominal wall mass of left lower quadrant 03/28/2014 Acne 12/12/2019 Acute sinusitis 05/12/2020 Candidiasis of vagina 09/24/2020 Depression 12/12/2019 Diabetes mellitus type II (HCC) 12/12/2019 Exposure to severe acute respiratory syndrome coronavirus 2 (SARS-CoV-2) 05/15/2020 Generalized abdominal pain 12/16/2021 Hemorrhoids 12/12/2019 Hypertrophy of tonsils 09/17/2020 Iron deficiency anemia 03/19/2020 Pelvic pain in female Seasonal allergies 12/12/2019 Snoring 12/12/2019 Subcutaneous mass 04/25/14 Left lower abdominal wall Upper respiratory infection 05/15/2020 FAMILY HISTORY Problem Relation Age of Onset None Mother None Father Social History Tobacco Use Smoking status: Never Smokeless tobacco: Never Vaping Use Vaping status: Never Used Substance Use Topics Alcohol use: No Drug use: No ALLERGIES Allergen Reactions Lisinopril Cough MEDICATIONS: pioglitazone (ACTOS) 30 mg tablet TAKE 1 TABLET BY MOUTH ONCE DAILY fluticasone (FLONASE) 50 mcg/actuation nasal spray INHALE 1 SPRAY EACH NOSTRIL ONCE DAILY albuterol HFA (PROVENTIL HFA, VENTOLIN HFA) 90 mcg/actuation inhaler Inhale 2 Puffs as instructed every 4 hours as needed for wheezing/shortness of breath. CHOLECALCIFEROL, VITAMIN D3, ORAL Take 5,000 Units by mouth once daily. Ascorbic Acid (VITAMIN C) 1,000 mg tablet Take 1,000 mg by mouth once daily. loratadine (CLARITIN) 10 mg tablet Take by mouth once daily as needed. acetaminophen (TYLENOL) 325 mg tablet Take 650 mg by mouth every 6 hours as needed. rosuvastatin (CRESTOR) 5 mg tablet Take 1 tablet by mouth daily at bedtime. omeprazole (PRILOSEC) 40 mg capsule Take 1 capsule by mouth once daily. montelukast (SINGULAIR) 10 mg tablet Take 1 tablet by mouth once daily. metFORMIN ER (GLUCOPHAGE XR) 500 mg 24 hr tablet Take 2 tablets by mouth two times a day. losartan (COZAAR) 50 mg tablet Take 1 tablet by mouth once daily. glimepiride (AMARYL) 4 mg tablet Amaryl 4 mg tablet oral daily Allergies, past surgical history, family history and past medical history were reviewed per this encounter. Medications were reviewed and verified. 05/05/2024 07/31/2024 INTAKE PAIN ASSESSMENT Are you having pain associated with your visit today? Yes, Provider notified No Pain Scales Verbal (Numeric Rating or Visual Analog Scale) Pain Level 3 Pain Location Ear-Right Description Aching Duration Amount of Time 1 Duration Units Days Frequency Intermittent If pain assessment is 0, no action needed. If pain assessment is positive, please see assessment and plain. Objective BP 134/82 Pulse 90 Temp 36.7 ?C (98 ?F) (Temporal) Resp 18 Ht 165.1 cm (5' 5) Wt 136.1 kg (300 lb) LMP (LMP Unknown) SpO2 99% BMI 49.92 kg/m? Physical Exam Vitals reviewed. Constitutional: Appearance: Normal appearance. She is obese. HENT: Head: Normocephalic and atraumatic. Nose: Nose normal. Eyes: Extraocular Movements: Extraocular movements intact. Pupils: Pupils are equal, round, and reactive to light. Cardiovascular: Rate and Rhythm: Normal rate and regular rhythm. Pulmonary: Effort: Pulmonary effort is normal. Breath sounds: Normal breath sounds. Abdominal: General: Bowel sounds are normal. Palpations: Abdomen is soft. Musculoskeletal: General: Normal range of motion. Cervical back: Normal range of motion and neck supple. Skin: General: Skin is warm and dry. Capillary Refill: Capillary refill takes less than 2 seconds. Neurological: General: No focal deficit present. Mental Status: She is alert and oriented to person, place, and time. Mental status is at baseline. Psy (more content not included)... [facility] 08-01-2024 History of Present illness Narrative Subjective Aissatou Torres is a 39 year old female. Aissatou presents today for her annual wellness visit. Additionally she follows up for multiple medical problems. See list. Her blood pressure is under good control on her current regimen. She remains on Crestor for treatment of high cholesterol. GI symptoms are improved with omeprazole. Blood sugars have been elevated. Most recent A1c was 8.0. Insurance did not cover treatment with GLP-1's. She remains on Actos, metformin, glimepiride. Review of Systems Constitutional: Negative. HENT: Negative. Eyes: Negative. Respiratory: Negative. Cardiovascular: Negative. Gastrointestinal: Negative. Endocrine: Negative. Genitourinary: Negative. Musculoskeletal: Negative. Skin: Negative. Allergic/Immunologic: Negative. Neurological: Negative. Hematological: Negative. Psychiatric/Behavioral: Negative. PAST SURGICAL HISTORY Procedure Laterality Date ANESTH, SECTION X 2 EXC TUMOR SOFT TISSUE ABDL WALL SUBFASCIAL <5CM 04/25/14 EXPL LAP W W/WO BX 11/2013 HYSTEROSCOPY 11/2013 LIG/TRNSXJ FLP TUBE ABDL/VAG APPR UNI/BI 2009 PAST MEDICAL HISTORY Diagnosis Date Abdominal wall mass of left lower quadrant 03/28/2014 Acne 12/12/2019 Acute sinusitis 05/12/2020 Candidiasis of vagina 09/24/2020 Depression 12/12/2019 Diabetes mellitus type II (HCC) 12/12/2019 Exposure to severe acute respiratory syndrome coronavirus 2 (SARS-CoV-2) 05/15/2020 Generalized abdominal pain 12/16/2021 Hemorrhoids 12/12/2019 Hypertrophy of tonsils 09/17/2020 Iron deficiency anemia 03/19/2020 Pelvic pain in female Seasonal allergies 12/12/2019 Snoring 12/12/2019 Subcutaneous mass 04/25/14 Left lower abdominal wall Upper respiratory infection 05/15/2020 FAMILY HISTORY Problem Relation Age of Onset None Mother None Father Social History Tobacco Use Smoking status: Never Smokeless tobacco: Never Vaping Use Vaping status: Never Used Substance Use Topics Alcohol use: No Drug use: No ALLERGIES Allergen Reactions Lisinopril Cough MEDICATIONS: pioglitazone (ACTOS) 30 mg tablet TAKE 1 TABLET BY MOUTH ONCE DAILY fluticasone (FLONASE) 50 mcg/actuation nasal spray INHALE 1 SPRAY EACH NOSTRIL ONCE DAILY albuterol HFA (PROVENTIL HFA, VENTOLIN HFA) 90 mcg/actuation inhaler Inhale 2 Puffs as instructed every 4 hours as needed for wheezing/shortness of breath. CHOLECALCIFEROL, VITAMIN D3, ORAL Take 5,000 Units by mouth once daily. Ascorbic Acid (VITAMIN C) 1,000 mg tablet Take 1,000 mg by mouth once daily. loratadine (CLARITIN) 10 mg tablet Take by mouth once daily as needed. acetaminophen (TYLENOL) 325 mg tablet Take 650 mg by mouth every 6 hours as needed. rosuvastatin (CRESTOR) 5 mg tablet Take 1 tablet by mouth daily at bedtime. omeprazole (PRILOSEC) 40 mg capsule Take 1 capsule by mouth once daily. montelukast (SINGULAIR) 10 mg tablet Take 1 tablet by mouth once daily. metFORMIN ER (GLUCOPHAGE XR) 500 mg 24 hr tablet Take 2 tablets by mouth two times a day. losartan (COZAAR) 50 mg tablet Take 1 tablet by mouth once daily. glimepiride (AMARYL) 4 mg tablet Amaryl 4 mg tablet oral daily Allergies, past surgical history, family history and past medical history were reviewed per this encounter. Medications were reviewed and verified. 05/05/2024 07/31/2024 INTAKE PAIN ASSESSMENT Are you having pain associated with your visit today? Yes, Provider notified No Pain Scales Verbal (Numeric Rating or Visual Analog Scale) Pain Level 3 Pain Location Ear-Right Description Aching Duration Amount of Time 1 Duration Units Days Frequency Intermittent If pain assessment is 0, no action needed. If pain assessment is positive, please see assessment and plain. Objective BP 134/82 Pulse 90 Temp 36.7 C (98 F) (Temporal) Resp 18 Ht 165.1 cm (5' 5) Wt 136.1 kg (300 lb) LMP (LMP Unknown) SpO2 99% BMI 49.92 kg/m Physical Exam Vitals reviewed. Constitutional: Appearance: Normal appearance. She is obese. HENT: Head: Normocephalic and atraumatic. Nose: Nose normal. Eyes: Extraocular Movements: Extraocular movements intact. Pupils: Pupils are equal, round, and reactive to light. Cardiovascular: Rate and Rhythm: Normal rate and regular rhythm. Pulmonary: Effort: Pulmonary effort is normal. Breath sounds: Normal breath sounds. Abdominal: General: Bowel sounds are normal. Palpations: Abdomen is soft. Musculoskeletal: General: Normal range of motion. Cervical back: Normal range of motion and neck supple. Skin: General: Skin is warm and dry. Capillary Refill: Capillary refill takes less than 2 seconds. Neurological: General: No focal deficit present. Mental Status: She is alert and oriented to person, place, and time. Mental status is at baseline. Psychiatric: Mood and Affect: Mood normal. Behavior: Behavior normal. Procedures Assessment and Plan Encounter Diagnosis ICD-10-CM 1. Wellness examination Z00.00 2. Essential (primary) hypertension I10 COMPREHENSIVE METABOLIC PANEL Stable on current regimen. Continue present medications. Monitor blood pressure regularly. 3. 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 (type 2/adult onset) ([facility]) E11.9 COMPREHENSIVE METABOLIC PANEL HEMOGLOBIN A1C Recheck A1C. Adjust regimen as needed. 4. Other iron deficiency anemia D50.8 COMPLETE BLOOD COUNT AND DIFFERENTIAL Recheck CBC 5. Depression, unspecified depression type F32.A Stable on current medicine 6. Anxiety F41.9 Stable 7. Seasonal allergies J30.2 Stable on current medications. 8. Pure hypercholesterolemia E78.00 COMPREHENSIVE METABOLIC PANEL LIPID PANEL, FASTING Continue Crestor. Recheck lipids. 9. Fatigue, unspecified type R53.83 THYROID STIMULATING HORMONE Patient with fatigue and weight gain. Check TSH. All open preventative health maintenance topics discussed with patient in detail. This includes risks and benefits regarding vaccines, cancer screening, healthy life style, and diet. Continue present medications. Check labs as above. Monitor blood pressure regularly. Exercise as tolerated. Maintain good diet. Follow-up in 6 months. Mayte Campos MD August 01, 2024 Patient is here for her annual physical. Urine Albumin:Creatinine Ratio Never done Diabetic Foot Exam Never done Hepatitis C Screening Never done HIV Screening Never done BP Controlled (<130/80) Never done DTaP,Tdap,Td Vaccine(1 - Tdap) Never done Hepatitis B Vaccine(1 of 3 - 19+ 3-dose series) Never done Pneumococcal Vaccine(1 of 2 - PCV) Never done Cervical Cancer Screening Never done HbA1C due on 03/14/2023 Mammogram Screening due on 05/19/2023 Dilated Retinal Exam due on 08/03/2023 LDL Cholesterol due on 12/13/2023 Influenza Vaccine(1) Never done Covid-19 Vaccine( season) Never done No vaccines today. Anabel Stubbs LPN August 01, 2024 1:54 PM documented in this encounter [facility] 08-01-2024 Note HNO ID: [id number] Author: ANABEL STUBBS LPN Service: ? Author Type: LICENSED NURSE Type: Progress Notes Filed: 08/01/2024 13:54 Note Text: Patient is here for her annual physical. Urine Albumin:Creatinine Ratio Never done Diabetic Foot Exam Never done Hepatitis C Screening Never done HIV Screening Never done BP Controlled (<130/80) Never done DTaP,Tdap,Td Vaccine(1 - Tdap) Never done Hepatitis B Vaccine(1 of 3 - 19+ 3-dose series) Never done Pneumococcal Vaccine(1 of 2 - PCV) Never done Cervical Cancer Screening Never done HbA1C due on 03/14/2023 Mammogram Screening due on 05/19/2023 Dilated Retinal Exam due on 08/03/2023 LDL Cholesterol due on 12/13/2023 Influenza Vaccine(1) Never done Covid-19 Vaccine( season) Never done No vaccines today. Anabel Stubbs LPN August 01, 2024 1:54 PM [facility] 07-18-2024 Telephone encounter Note Last Office Visit: 02/01/24 Next visit: 08/01/24 Requested Prescriptions Pending Prescriptions Disp Refills pioglitazone (ACTOS) 30 mg tablet [Pharmacy Med Name: pioglitazone 30 mg tablet] 90 tablet 3 Sig: TAKE 1 TABLET BY MOUTH ONCE DAILY Turner Mercedes LPN July 18, 2024 11:07 AM [facility] 07-18-2024 Miscellaneous Notes Last Office Visit: 02/01/24 Next visit: 08/01/24 Requested Prescriptions Pending Prescriptions Disp Refills pioglitazone (ACTOS) 30 mg tablet [Pharmacy Med Name: pioglitazone 30 mg tablet] 90 tablet 3 Sig: TAKE 1 TABLET BY MOUTH ONCE DAILY Turner Mercedes LPN July 18, 2024 11:07 AM documented in this encounter [facility] 07-03-2024 Note Patient Outreach (FA MMAS) AISSATOU TORRES ([id number]) 1985 F Date Time Provider Department 07/03/24 MAYTE CAMPOS During your visit today, we recorded the following information about you: Allergies As of Date: 07/03/2024 Noted Allergy Reaction LISINOPRIL 12/12/2019 3 - Cough Date Reviewed: 05/05/2024 Reviewed by: Karla Bullard LPN - Fully Assessed Visit Diagnosis:Encounter for screening mammogram for breast cancer [Z12.31] Order(s):AYAD SCREENING W LEONOR [[id number]] Order #: [id number] FUTURE Prescriptions as of 08/03/2024 - rosuvastatin (CRESTOR) 5 mg tablet Take 1 tablet by mouth daily at bedtime. - omeprazole (PRILOSEC) 40 mg capsule Take 1 capsule by mouth once daily. - montelukast (SINGULAIR) 10 mg tablet Take 1 tablet by mouth once daily. - metFORMIN ER (GLUCOPHAGE XR) 500 mg 24 hr tablet Take 2 tablets by mouth two times a day. - losartan (COZAAR) 50 mg tablet Take 1 tablet by mouth once daily. - glimepiride (AMARYL) 4 mg tablet Amaryl 4 mg tablet oral daily - pioglitazone (ACTOS) 30 mg tablet TAKE 1 TABLET BY MOUTH ONCE DAILY - fluticasone (FLONASE) 50 mcg/actuation nasal spray INHALE 1 SPRAY EACH NOSTRIL ONCE DAILY - albuterol HFA (PROVENTIL HFA, VENTOLIN HFA) 90 mcg/actuation inhaler Inhale 2 Puffs as instructed every 4 hours as needed for wheezing/shortness of breath. - CHOLECALCIFEROL, VITAMIN D3, ORAL Take 5,000 Units by mouth once daily. - Ascorbic Acid (VITAMIN C) 1,000 mg tablet Take 1,000 mg by mouth once daily. - loratadine (CLARITIN) 10 mg tablet Take by mouth once daily as needed. - acetaminophen (TYLENOL) 325 mg tablet Take 650 mg by mouth every 6 hours as needed. Problem List As Of Date 07/03/2024 Noted Resolved Abdominal wall mass of left lower quadrant [R19*03/28/2014 Depression [F32.A] 12/12/2019 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 (type 2/adult o*12/12/2019 Iron deficiency anemia [D50.9] 03/19/2020 Insomnia [G47.00] 12/12/2019 Upper respiratory infection [J06.9] 05/15/2020 Snoring [R06.83] 12/12/2019 Seasonal allergies [J30.2] 12/12/2019 Hypertrophy of tonsils [J35.1] 09/17/2020 Hemorrhoids [K64.9] 12/12/2019 Headaches [R51.9] 12/12/2019 Exposure to severe acute respiratory syndrome c*05/15/2020 Essential (primary) hypertension [I10] 12/16/2021 Candidiasis of vagina [B37.31] 09/24/2020 Anxiety [F41.9] 12/12/2019 Acute sinusitis [J01.90] 05/12/2020 Acute bronchitis with bronchospasm [J20.9] 02/25/2021 Acne [L70.9] 12/12/2019 Generalized abdominal pain [R10.84] 12/16/2021 Encounter Status:Closed by TC [employer] on 08/03/24 [facility] 06-15-2024 Note HNO ID: [id number] Author: VERONICA BRAMBILA MA Service: ? Author Type: Social Worker Palliative Care Type: Progress Notes Filed: 06/15/2024 14:55 Note Text: Summary: DM Eye Exam Update Called and spoke with Michael at [facility] to verify if patient has had DM Eye Exam in last year, patients last DOS 07/2022. Will update patient. Veronica Brambila, [facility] Population Health Navigator [facility] 06-15-2024 History of Present illness Narrative Summary: DM Eye Exam Update Called and spoke with Michael at [facility] to verify if patient has had DM Eye Exam in last year, patients last DOS 07/2022. Will update patient. Veronica Brambila [facility] Health Navigator [facility] Summary: DM Eye Exam Outside medical records requested Patient has been identified by name and date of : Yes Outside medical record requested via: Fax Type of outside medical Record requested: Eye exam- HM has been updated - No [facility] Navigator [facility] documented in this encounter [facility] 06-15-2024 Note Patient Outreach (FA MMAS) AISSATOU TORRES ([id number]) 1985 F Date Time Provider Department 06/15/24 MAYTE CAMPOS During your visit today, we recorded the following information about you: Veronica Brambila MA 06/15/2024 2:55 PM Signed Outside medical records requested Patient has been identified by name and date of : Yes Outside medical record requested via: Fax Type of outside medical Record requested: Eye exam- HM has been updated - No [facility] Health Navigator [facility] Veronica Brambila MA 06/15/2024 2:55 PM Signed Called and spoke with Michael at [facility] to verify if patient has had DM Eye Exam in last year, patients last DOS 07/2022. Will update patient. Veronica Brambila [facility] Allergies As of Date: 06/15/2024 Noted Allergy Reaction LISINOPRIL 12/12/2019 3 - Cough Date Reviewed: 05/05/2024 Reviewed by: Karla Bullard LPN - Fully Assessed Reason for Visit: Patient Update [1234] Cmt: DM Eye Exam Prescriptions as of 06/15/2024 - fluticasone (FLONASE) 50 mcg/actuation nasal spray INHALE 1 SPRAY EACH NOSTRIL ONCE DAILY - albuterol HFA (PROVENTIL HFA, VENTOLIN HFA) 90 mcg/actuation inhaler Inhale 2 Puffs as instructed every 4 hours as needed for wheezing/shortness of breath. - glimepiride (AMARYL) 4 mg tablet Amaryl 4 mg tablet oral daily - losartan (COZAAR) 50 mg tablet Take 1 tablet by mouth once daily. - metFORMIN ER (GLUCOPHAGE XR) 500 mg 24 hr tablet Take 2 tablets by mouth two times a day. - montelukast (SINGULAIR) 10 mg tablet Take 1 tablet by mouth once daily. - omeprazole (PRILOSEC) 40 mg capsule Take 1 capsule by mouth once daily. - rosuvastatin (CRESTOR) 5 mg tablet Take 1 tablet by mouth daily at bedtime. - CHOLECALCIFEROL, VITAMIN D3, ORAL Take 5,000 Units by mouth once daily. - Ascorbic Acid (VITAMIN C) 1,000 mg tablet Take 1,000 mg by mouth once daily. - pioglitazone (ACTOS) 30 mg tablet Take 1 tablet by mouth once daily. - loratadine (CLARITIN) 10 mg tablet Take by mouth once daily as needed. - acetaminophen (TYLENOL) 325 mg tablet Take 650 mg by mouth every 6 hours as needed. Problem List As Of Date 06/15/2024 Noted Resolved Abdominal wall mass of left lower quadrant [R19*03/28/2014 Depression [F32.A] 12/12/2019 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 (type 2/adult o*12/12/2019 Iron deficiency anemia [D50.9] 03/19/2020 Insomnia [G47.00] 12/12/2019 Upper respiratory infection [J06.9] 05/15/2020 Snoring [R06.83] 12/12/2019 Seasonal allergies [J30.2] 12/12/2019 Hypertrophy of tonsils [J35.1] 09/17/2020 Hemorrhoids [K64.9] 12/12/2019 Headaches [R51.9] 12/12/2019 Exposure to severe acute respiratory syndrome c*05/15/2020 Essential (primary) hypertension [I10] 12/16/2021 Candidiasis of vagina [B37.31] 09/24/2020 Anxiety [F41.9] 12/12/2019 Acute sinusitis [J01.90] 05/12/2020 Acute bronchitis with bronchospasm [J20.9] 02/25/2021 Acne [L70.9] 12/12/2019 Generalized abdominal pain [R10.84] 12/16/2021 Encounter Status:Closed by VERONICA BRAMBILA on 06/15/24 [facility] 05-29-2024 Note HNO ID: [id number] Author: VERONICA BRAMBILA MA Service: ? Author Type: Social Worker Palliative Care Type: Progress Notes Filed: 06/15/2024 14:55 Note Text: Summary: DM Eye Exam Outside medical records requested Patient has been identified by name and date of : Yes Outside medical record requested via: Fax Type of outside medical Record requested: Eye exam- has been updated - No Outside medical record sent to: [facility] Jozef Brambila, [place] Population Health Navigator [facility] 05-21-2024 Telephone encounter Note Last Office Visit: 02/01/24 Next visit: 08/01/24 Requested Prescriptions Pending Prescriptions Disp Refills fluticasone (FLONASE) 50 mcg/actuation nasal spray [Pharmacy Med Name: fluticasone propionate 50 mcg/actuation nasal spray,suspension] 16 g 3 Sig: INHALE 1 SPRAY EACH NOSTRIL ONCE DAILY Turner Mercedes LPN May 21, 2024 4:17 PM [facility] 05-21-2024 Miscellaneous Notes Last Office Visit: 02/01/24 Next visit: 08/01/24 Requested Prescriptions Pending Prescriptions Disp Refills fluticasone (FLONASE) 50 mcg/actuation nasal spray [Pharmacy Med Name: fluticasone propionate 50 mcg/actuation nasal spray,suspension] 16 g 3 Sig: INHALE 1 SPRAY EACH NOSTRIL ONCE DAILY Turner Mercedes LPN May 21, 2024 4:17 PM documented in this encounter [facility] 05-05-2024 Note HNO ID: [id number] Author: JARRELL DRIVER MD Service: ? Author Type: Physician Type: Progress Notes Filed: 05/05/2024 13:01 Note Text: Aissatou Torres is a 39 year old female who presents with Cough (Cough, congestion, right ear pain all x 8 days) HPI Patient is a 39-year-old female presents with cough, congestion, and right ear pain for the last 8 days. She does not have any fevers. She is not having shortness of breath or chest pain. She has not tried anything for her symptoms. PAST MEDICAL HISTORY Diagnosis Date Abdominal wall mass of left lower quadrant 03/28/2014 Acne 12/12/2019 Acute sinusitis 05/12/2020 Candidiasis of vagina 09/24/2020 Depression 12/12/2019 Diabetes mellitus type II (HCC) 12/12/2019 Exposure to severe acute respiratory syndrome coronavirus 2 (SARS-CoV-2) 05/15/2020 Generalized abdominal pain 12/16/2021 Hemorrhoids 12/12/2019 Hypertrophy of tonsils 09/17/2020 Iron deficiency anemia 03/19/2020 Pelvic pain in female Seasonal allergies 12/12/2019 Snoring 12/12/2019 Subcutaneous mass 04/25/14 Left lower abdominal wall Upper respiratory infection 05/15/2020 ACTIVE PROBLEM LIST Abdominal Wall Mass of Left Lower Quadrant Depression Diabetes Beginning in Adulthood (Type 2/Adult Onset) (Hcc) Iron Deficiency Anemia Insomnia Upper Respiratory Infection Snoring Seasonal Allergies Hypertrophy of Tonsils Hemorrhoids Headaches Exposure to Severe Acute Respiratory Syndrome Coronavirus 2 (Sars-Cov-2) Essential (Primary) Hypertension Candidiasis of Vagina Anxiety Acute Sinusitis Acute Bronchitis With Bronchospasm Acne Generalized Abdominal Pain Current Outpatient Medications Medication Sig Dispense Refill albuterol HFA (PROVENTIL HFA, VENTOLIN HFA) 90 mcg/actuation inhaler Inhale 2 Puffs as instructed every 4 hours as needed for wheezing/shortness of breath. 3 Each 3 glimepiride (AMARYL) 4 mg tablet Amaryl 4 mg tablet oral daily 90 tablet 3 losartan (COZAAR) 50 mg tablet Take 1 tablet by mouth once daily. 90 tablet 3 metFORMIN ER (GLUCOPHAGE XR) 500 mg 24 hr tablet Take 2 tablets by mouth two times a day. 360 tablet 3 montelukast (SINGULAIR) 10 mg tablet Take 1 tablet by mouth once daily. 90 tablet 3 omeprazole (PRILOSEC) 40 mg capsule Take 1 capsule by mouth once daily. 90 capsule 3 rosuvastatin (CRESTOR) 5 mg tablet Take 1 tablet by mouth daily at bedtime. 90 tablet 3 CHOLECALCIFEROL, VITAMIN D3, ORAL Take 5,000 Units by mouth once daily. Ascorbic Acid (VITAMIN C) 1,000 mg tablet Take 1,000 mg by mouth once daily. pioglitazone (ACTOS) 30 mg tablet Take 1 tablet by mouth once daily. 90 tablet 3 loratadine (CLARITIN) 10 mg tablet Take by mouth once daily as needed. acetaminophen (TYLENOL) 325 mg tablet Take 650 mg by mouth every 6 hours as needed. amoxicillin-clavulanate potassium (AUGMENTIN) 875-125 mg per tablet Take 1 tablet by mouth every 12 hours for 10 days. 20 tablet 0 methylPREDNISolone (MEDROL, LYNDA,) 4 mg Dose-Pack Take as instructed per package. 21 tablet 0 No current facility-administered medications for this visit. Social History Tobacco Use Smoking status: Never Smokeless tobacco: Never Vaping Use Vaping status: Never Used Substance Use Topics Alcohol use: No Drug use: No Alcohol Use: No Tobacco Use: Never FAMILY HISTORY Problem Relation Age of Onset None Mother None Father ROS Per HPI. Otherwise negative. BP 150/92 Pulse 83 Temp 98 Resp 18 SpO2 98% Physical Exam Procedures General: Patient appears well and nontoxic appearing. CV: Regular rate and rhythm. Respiratory: Lungs clear to auscultation bilaterally. He is speaking full sentences. HEENT: Pupils are equal round and reactive to light and accommodation. There is no tonsillar hypertrophy or exudates but she is significant bulging of the tympanic membranes right worse than left with a central indentation and erythema of the right TM. ASSESSMENT/PLAN: 1. Acute otitis media, right - ICD9: 382.9, ICD10: H66.91 Patient has acute otitis media on the right side. I will be treating this with Augmentin twice daily for the next 10 days. As well as give Medrol Dosepak for inflammation. Red flag signs and symptoms to include significant worsening of her symptoms was discussed as a reason to return to this urgent care for evaluation. Patient voiced understanding agreement with the above plan and she was discharged in stable condition. - AMOXICILLIN 875 MG-POTASSIUM CLAVULANATE 125 MG TABLET - METHYLPREDNISOLONE 4 MG TABLETS IN A DOSE PACK Jarrell Driver MD [facility] 05-05-2024 History of Present illness Narrative Aissatou Torres is a 39 year old female who presents with Cough (Cough, congestion, right ear pain all x 8 days) HPI Patient is a 39-year-old female presents with cough, congestion, and right ear pain for the last 8 days. She does not have any fevers. She is not having shortness of breath or chest pain. She has not tried anything for her symptoms. PAST MEDICAL HISTORY Diagnosis Date Abdominal wall mass of left lower quadrant 03/28/2014 Acne 12/12/2019 Acute sinusitis 05/12/2020 Candidiasis of vagina 09/24/2020 Depression 12/12/2019 Diabetes mellitus type II (HCC) 12/12/2019 Exposure to severe acute respiratory syndrome coronavirus 2 (SARS-CoV-2) 05/15/2020 Generalized abdominal pain 12/16/2021 Hemorrhoids 12/12/2019 Hypertrophy of tonsils 09/17/2020 Iron deficiency anemia 03/19/2020 Pelvic pain in female Seasonal allergies 12/12/2019 Snoring 12/12/2019 Subcutaneous mass 04/25/14 Left lower abdominal wall Upper respiratory infection 05/15/2020 ACTIVE PROBLEM LIST Abdominal Wall Mass of Left Lower Quadrant Depression Diabetes Beginning in Adulthood (Type 2/Adult Onset) ([facility]) Iron Deficiency Anemia Insomnia Upper Respiratory Infection Snoring Seasonal Allergies Hypertrophy of Tonsils Hemorrhoids Headaches Exposure to Severe Acute Respiratory Syndrome Coronavirus 2 (Sars-Cov-2) Essential (Primary) Hypertension Candidiasis of Vagina Anxiety Acute Sinusitis Acute Bronchitis With Bronchospasm Acne Generalized Abdominal Pain Current Outpatient Medications Medication Sig Dispense Refill albuterol HFA (PROVENTIL HFA, VENTOLIN HFA) 90 mcg/actuation inhaler Inhale 2 Puffs as instructed every 4 hours as needed for wheezing/shortness of breath. 3 Each 3 glimepiride (AMARYL) 4 mg tablet Amaryl 4 mg tablet oral daily 90 tablet 3 losartan (COZAAR) 50 mg tablet Take 1 tablet by mouth once daily. 90 tablet 3 metFORMIN ER (GLUCOPHAGE XR) 500 mg 24 hr tablet Take 2 tablets by mouth two times a day. 360 tablet 3 montelukast (SINGULAIR) 10 mg tablet Take 1 tablet by mouth once daily. 90 tablet 3 omeprazole (PRILOSEC) 40 mg capsule Take 1 capsule by mouth once daily. 90 capsule 3 rosuvastatin (CRESTOR) 5 mg tablet Take 1 tablet by mouth daily at bedtime. 90 tablet 3 CHOLECALCIFEROL, VITAMIN D3, ORAL Take 5,000 Units by mouth once daily. Ascorbic Acid (VITAMIN C) 1,000 mg tablet Take 1,000 mg by mouth once daily. pioglitazone (ACTOS) 30 mg tablet Take 1 tablet by mouth once daily. 90 tablet 3 loratadine (CLARITIN) 10 mg tablet Take by mouth once daily as needed. acetaminophen (TYLENOL) 325 mg tablet Take 650 mg by mouth every 6 hours as needed. amoxicillin-clavulanate potassium (AUGMENTIN) 875-125 mg per tablet Take 1 tablet by mouth every 12 hours for 10 days. 20 tablet 0 methylPREDNISolone (MEDROL, LYNDA,) 4 mg Dose-Pack Take as instructed per package. 21 tablet 0 No current facility-administered medications for this visit. Social History Tobacco Use Smoking status: Never Smokeless tobacco: Never Vaping Use Vaping status: Never Used Substance Use Topics Alcohol use: No Drug use: No Alcohol Use: No Tobacco Use: Never FAMILY HISTORY Problem Relation Age of Onset None Mother None Father ROS Per HPI. Otherwise negative. BP 150/92 Pulse 83 Temp 98 Resp 18 SpO2 98% Physical Exam Procedures General: Patient appears well and nontoxic appearing. CV: Regular rate and rhythm. Respiratory: Lungs clear to auscultation bilaterally. He is speaking full sentences. HEENT: Pupils are equal round and reactive to light and accommodation. There is no tonsillar hypertrophy or exudates but she is significant bulging of the tympanic membranes right worse than left with a central indentation and erythema of the right TM. ASSESSMENT/PLAN: 1. Acute otitis media, right - ICD9: 382.9, ICD10: H66.91 Patient has acute otitis media on the right side. I will be treating this with Augmentin twice daily for the next 10 days. As well as give Medrol Dosepak for inflammation. Red flag signs and symptoms to include significant worsening of her symptoms was discussed as a reason to return to this urgent care for evaluation. Patient voiced understanding agreement with the above plan and she was discharged in stable condition. - AMOXICILLIN 875 MG-POTASSIUM CLAVULANATE 125 MG TABLET - METHYLPREDNISOLONE 4 MG TABLETS IN A DOSE PACK Jarrell Driver MD documented in this encounter [facility] 02-01-2024 Note HNO ID: [id number] Author: MAYTE CAMPOS MD Service: ? Author Type: Physician Type: Progress Notes Filed: 02/01/2024 14:29 Note Text: Subjective Aissatou Torres is a 38 year old female.The patient presents today for follow-up for multiple medical problems. See list. Her chronic medical problems have been stable. Her blood pressure is under good control. Review of Systems Constitutional: Negative. HENT: Negative. Eyes: Negative. Respiratory: Negative. Cardiovascular: Negative. Gastrointestinal: Negative. Endocrine: Negative. Genitourinary: Negative. Musculoskeletal: Negative. Skin: Negative. Allergic/Immunologic: Negative. Neurological: Negative. Hematological: Negative. Psychiatric/Behavioral: Negative. PAST SURGICAL HISTORY Procedure Laterality Date ANESTH, SECTION X 2 EXC TUMOR SOFT TISSUE ABDL WALL SUBFASCIAL <5CM 04/25/14 EXPL LAP W W/WO BX 11/2013 HYSTEROSCOPY 11/2013 LIG/TRNSXJ FLP TUBE ABDL/VAG APPR UNI/BI 2009 PAST MEDICAL HISTORY Diagnosis Date Abdominal wall mass of left lower quadrant 03/28/2014 Acne 12/12/2019 Acute sinusitis 05/12/2020 Candidiasis of vagina 09/24/2020 Depression 12/12/2019 Diabetes mellitus type II (HCC) 12/12/2019 Exposure to severe acute respiratory syndrome coronavirus 2 (SARS-CoV-2) 05/15/2020 Generalized abdominal pain 12/16/2021 Hemorrhoids 12/12/2019 Hypertrophy of tonsils 09/17/2020 Iron deficiency anemia 03/19/2020 Pelvic pain in female Seasonal allergies 12/12/2019 Snoring 12/12/2019 Subcutaneous mass 04/25/14 Left lower abdominal wall Upper respiratory infection 05/15/2020 FAMILY HISTORY Problem Relation Age of Onset None Mother None Father Social History Tobacco Use Smoking status: Never Smokeless tobacco: Never Vaping Use Vaping status: Never Used Substance Use Topics Alcohol use: No Drug use: No ALLERGIES Allergen Reactions Lisinopril Cough MEDICATIONS: glimepiride (AMARYL) 4 mg tablet Amaryl 4 mg tablet oral daily losartan (COZAAR) 50 mg tablet Take 1 tablet by mouth once daily. metFORMIN ER (GLUCOPHAGE XR) 500 mg 24 hr tablet Take 2 tablets by mouth two times a day. montelukast (SINGULAIR) 10 mg tablet Take 1 tablet by mouth once daily. omeprazole (PRILOSEC) 40 mg capsule Take 1 capsule by mouth once daily. rosuvastatin (CRESTOR) 5 mg tablet Take 1 tablet by mouth daily at bedtime. CHOLECALCIFEROL, VITAMIN D3, ORAL Take 5,000 Units by mouth once daily. Ascorbic Acid (VITAMIN C) 1,000 mg tablet Take 1,000 mg by mouth once daily. pioglitazone (ACTOS) 30 mg tablet Take 1 tablet by mouth once daily. fluticasone (FLONASE) 50 mcg/actuation nasal spray INHALE 1 SPRAY EACH NOSTRIL ONCE DAILY (Patient taking differently: Use 2 Sprays in each nostril once daily.) loratadine (CLARITIN) 10 mg tablet Take by mouth once daily as needed. acetaminophen (TYLENOL) 325 mg tablet Take 650 mg by mouth every 6 hours as needed. albuterol HFA (PROVENTIL HFA, VENTOLIN HFA) 90 mcg/actuation inhaler Inhale 2 Puffs as instructed every 4 hours as needed for wheezing/shortness of breath. Allergies, past surgical history, family history and past medical history were reviewed per this encounter. Medications were reviewed and verified. 10/25/2023 02/01/2024 INTAKE PAIN ASSESSMENT Are you having pain associated with your visit today? No No If pain assessment is 0, no action needed. If pain assessment is positive, please see assessment and plain. Objective BP 134/82 (BP Site: Left Arm, BP Position: Sitting, BP Cuff Size: Extra Large Adult) Pulse 102 Temp 36.4 ?C (97.6 ?F) (Temporal) Resp 18 Ht 170.2 cm (5' 7) Wt 132 kg (291 lb) LMP (LMP Unknown) SpO2 99% BMI 45.58 kg/m? Physical Exam Vitals reviewed. Constitutional: Appearance: Normal appearance. HENT: Head: Normocephalic and atraumatic. Nose: Nose normal. Eyes: Extraocular Movements: Extraocular movements intact. Pupils: Pupils are equal, round, and reactive to light. Cardiovascular: Rate and Rhythm: Normal rate and regular rhythm. Pulmonary: Effort: Pulmonary effort is normal. Breath sounds: Normal breath sounds. Abdominal: General: Bowel sounds are normal. Palpations: Abdomen is soft. Musculoskeletal: General: Normal range of motion. Cervical back: Normal range of motion and neck supple. Skin: General: Skin is warm and dry. Capillary Refill: Capillary refill takes less than 2 seconds. Neurological: General: No focal deficit present. Mental Status: She is alert and oriented to person, place, and time. Mental status is at baseline. Psychiatric: Mood and Affect: Mood normal. Behavior: Behavior normal. Assessment and Plan Encounter Diagnosis ICD-10-CM 1. Essential (primary) hypertension I10 COMPREHENSIVE METABOLIC PANEL Well-controlled on current medication 2. 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 (type 2/adult onset) ([facility]) E11.9 COMPREHENSIVE METABOLIC PANEL HEMOGLOBIN A1C (more content not included)... [facility] 02-01-2024 History of Present illness Narrative Subjective Aissatou Torres is a 38 year old female.The patient presents today for follow-up for multiple medical problems. See list. Her chronic medical problems have been stable. Her blood pressure is under good control. Review of Systems Constitutional: Negative. HENT: Negative. Eyes: Negative. Respiratory: Negative. Cardiovascular: Negative. Gastrointestinal: Negative. Endocrine: Negative. Genitourinary: Negative. Musculoskeletal: Negative. Skin: Negative. Allergic/Immunologic: Negative. Neurological: Negative. Hematological: Negative. Psychiatric/Behavioral: Negative. PAST SURGICAL HISTORY Procedure Laterality Date ANESTH, SECTION X 2 EXC TUMOR SOFT TISSUE ABDL WALL SUBFASCIAL <5CM 04/25/14 EXPL LAP W W/WO BX 11/2013 HYSTEROSCOPY 11/2013 LIG/TRNSXJ FLP TUBE ABDL/VAG APPR UNI/BI 2009 PAST MEDICAL HISTORY Diagnosis Date Abdominal wall mass of left lower quadrant 03/28/2014 Acne 12/12/2019 Acute sinusitis 05/12/2020 Candidiasis of vagina 09/24/2020 Depression 12/12/2019 Diabetes mellitus type II (HCC) 12/12/2019 Exposure to severe acute respiratory syndrome coronavirus 2 (SARS-CoV-2) 05/15/2020 Generalized abdominal pain 12/16/2021 Hemorrhoids 12/12/2019 Hypertrophy of tonsils 09/17/2020 Iron deficiency anemia 03/19/2020 Pelvic pain in female Seasonal allergies 12/12/2019 Snoring 12/12/2019 Subcutaneous mass 04/25/14 Left lower abdominal wall Upper respiratory infection 05/15/2020 FAMILY HISTORY Problem Relation Age of Onset None Mother None Father Social History Tobacco Use Smoking status: Never Smokeless tobacco: Never Vaping Use Vaping status: Never Used Substance Use Topics Alcohol use: No Drug use: No ALLERGIES Allergen Reactions Lisinopril Cough MEDICATIONS: glimepiride (AMARYL) 4 mg tablet Amaryl 4 mg tablet oral daily losartan (COZAAR) 50 mg tablet Take 1 tablet by mouth once daily. metFORMIN ER (GLUCOPHAGE XR) 500 mg 24 hr tablet Take 2 tablets by mouth two times a day. montelukast (SINGULAIR) 10 mg tablet Take 1 tablet by mouth once daily. omeprazole (PRILOSEC) 40 mg capsule Take 1 capsule by mouth once daily. rosuvastatin (CRESTOR) 5 mg tablet Take 1 tablet by mouth daily at bedtime. CHOLECALCIFEROL, VITAMIN D3, ORAL Take 5,000 Units by mouth once daily. Ascorbic Acid (VITAMIN C) 1,000 mg tablet Take 1,000 mg by mouth once daily. pioglitazone (ACTOS) 30 mg tablet Take 1 tablet by mouth once daily. fluticasone (FLONASE) 50 mcg/actuation nasal spray INHALE 1 SPRAY EACH NOSTRIL ONCE DAILY (Patient taking differently: Use 2 Sprays in each nostril once daily.) loratadine (CLARITIN) 10 mg tablet Take by mouth once daily as needed. acetaminophen (TYLENOL) 325 mg tablet Take 650 mg by mouth every 6 hours as needed. albuterol HFA (PROVENTIL HFA, VENTOLIN HFA) 90 mcg/actuation inhaler Inhale 2 Puffs as instructed every 4 hours as needed for wheezing/shortness of breath. Allergies, past surgical history, family history and past medical history were reviewed per this encounter. Medications were reviewed and verified. 10/25/2023 02/01/2024 INTAKE PAIN ASSESSMENT Are you having pain associated with your visit today? No No If pain assessment is 0, no action needed. If pain assessment is positive, please see assessment and plain. Objective BP 134/82 (BP Site: Left Arm, BP Position: Sitting, BP Cuff Size: Extra Large Adult) Pulse 102 Temp 36.4 C (97.6 F) (Temporal) Resp 18 Ht 170.2 cm (5' 7) Wt 132 kg (291 lb) LMP (LMP Unknown) SpO2 99% BMI 45.58 kg/m Physical Exam Vitals reviewed. Constitutional: Appearance: Normal appearance. HENT: Head: Normocephalic and atraumatic. Nose: Nose normal. Eyes: Extraocular Movements: Extraocular movements intact. Pupils: Pupils are equal, round, and reactive to light. Cardiovascular: Rate and Rhythm: Normal rate and regular rhythm. Pulmonary: Effort: Pulmonary effort is normal. Breath sounds: Normal breath sounds. Abdominal: General: Bowel sounds are normal. Palpations: Abdomen is soft. Musculoskeletal: General: Normal range of motion. Cervical back: Normal range of motion and neck supple. Skin: General: Skin is warm and dry. Capillary Refill: Capillary refill takes less than 2 seconds. Neurological: General: No focal deficit present. Mental Status: She is alert and oriented to person, place, and time. Mental status is at baseline. Psychiatric: Mood and Affect: Mood normal. Behavior: Behavior normal. Assessment and Plan Encounter Diagnosis ICD-10-CM 1. Essential (primary) hypertension I10 COMPREHENSIVE METABOLIC PANEL Well-controlled on current medication 2. 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 (type 2/adult onset) (FORM[facility]LY [facility]) E11.9 COMPREHENSIVE METABOLIC PANEL HEMOGLOBIN A1C Sugars improved 3. Other iron deficiency anemia D50.8 IRON AND TIBC COMPLETE BLOOD COUNT AND DIFFERENTIAL Patient off iron. Recheck iron levels 4. Depression, unspecified depression type F32.A Stable and improved 5. Anxiety F41.9 Stable 6. Seasonal allergies J30.2 Unchanged 7. Primary insomnia F51.01 Symptoms improved 8. Pure hypercholesterolemia E78.00 COMPREHENSIVE METABOLIC PANEL LIPID PANEL BASIC Recheck lipids Continue present medications. Check labs as above. Monitor blood pressure regularly. Exercise as tolerated. Maintain good diet. Follow-up in 6 months. Mayte Campos MD Patient is in office for follow up for Diabetes. Patient was last seen in office on 10-26-2023 Patient was advised: Continue present medications. Start Actos as previously prescribed. Patient's insurance does not cover Ozempic or Mounjaro. Check labs as above. Monitor blood pressure regularly. Exercise as tolerated. Maintain good diet. Follow-up in 6 months. No current complaints or concerns Yazmin Tovar LPN February 01, 2024 1:48 PM documented in this encounter [facility] 02-01-2024 Note HNO ID: [id number] Author: YAZMIN TOVAR LPN Service: ? Author Type: LICENSED NURSE Type: Progress Notes Filed: 02/01/2024 14:29 Note Text: Patient is in office for follow up for Diabetes. Patient was last seen in office on 10-26-2023 Patient was advised: Continue present medications. Start Actos as previously prescribed. Patient's insurance does not cover Ozempic or Mounjaro. Check labs as above. Monitor blood pressure regularly. Exercise as tolerated. Maintain good diet. Follow-up in 6 months. No current complaints or concerns Yazmin Tovar LPN February 01, 2024 1:48 PM [facility] 10-26-2023 History of Present illness Narrative Subjective Aissatou Torres is a 38 year old female. Aissatou presents today for follow-up for her diabetes. At her last appointment Actos was added to her regimen. She did not start it for fear of side effects. Her sugars are relatively unchanged. She has made some dietary changes. Her BMI remains greater than 44. Review of Systems Constitutional: Negative. HENT: Negative. Eyes: Negative. Respiratory: Negative. Cardiovascular: Negative. Gastrointestinal: Negative. Endocrine: Negative. Genitourinary: Negative. Musculoskeletal: Negative. Skin: Negative. Allergic/Immunologic: Negative. Neurological: Negative. Hematological: Negative. Psychiatric/Behavioral: Negative. PAST SURGICAL HISTORY Procedure Laterality Date ANESTH, SECTION X 2 EXC TUMOR SOFT TISSUE ABDL WALL SUBFASCIAL <5CM 04/25/14 EXPL LAP W W/WO BX 11/2013 HYSTEROSCOPY 11/2013 LIG/TRNSXJ FLP TUBE ABDL/VAG APPR UNI/BI 2009 PAST MEDICAL HISTORY Diagnosis Date Abdominal wall mass of left lower quadrant 03/28/2014 Acne 12/12/2019 Acute sinusitis 05/12/2020 Candidiasis of vagina 09/24/2020 Depression 12/12/2019 Diabetes mellitus type II (HCC) 12/12/2019 Exposure to severe acute respiratory syndrome coronavirus 2 (SARS-CoV-2) 05/15/2020 Generalized abdominal pain 12/16/2021 Hemorrhoids 12/12/2019 Hypertrophy of tonsils 09/17/2020 Iron deficiency anemia 03/19/2020 Pelvic pain in female Seasonal allergies 12/12/2019 Snoring 12/12/2019 Subcutaneous mass 04/25/14 Left lower abdominal wall Upper respiratory infection 05/15/2020 FAMILY HISTORY Problem Relation Age of Onset None Mother None Father Social History Tobacco Use Smoking status: Never Smokeless tobacco: Never Vaping Use Vaping Use: Never used Substance Use Topics Alcohol use: No Drug use: No ALLERGIES Allergen Reactions Lisinopril Cough MEDICATIONS: CHOLECALCIFEROL, VITAMIN D3, ORAL Take 5,000 Units by mouth once daily. Ascorbic Acid (VITAMIN C) 1,000 mg tablet Take 1,000 mg by mouth once daily. fluticasone (FLONASE) 50 mcg/actuation nasal spray INHALE 1 SPRAY EACH NOSTRIL ONCE DAILY (Patient taking differently: Use 2 Sprays in each nostril once daily.) albuterol HFA (PROVENTIL HFA, VENTOLIN HFA) 90 mcg/actuation inhaler Inhale 2 Puffs as instructed every 4 hours as needed for wheezing/shortness of breath. loratadine (CLARITIN) 10 mg tablet Take by mouth. acetaminophen (TYLENOL) 325 mg tablet Take 650 mg by mouth every 6 hours as needed. glimepiride (AMARYL) 4 mg tablet Amaryl 4 mg tablet oral daily losartan (COZAAR) 50 mg tablet Take 1 tablet by mouth once daily. metFORMIN ER (GLUCOPHAGE XR) 500 mg 24 hr tablet Take 2 tablets by mouth two times a day. montelukast (SINGULAIR) 10 mg tablet Take 1 tablet by mouth once daily. omeprazole (PRILOSEC) 40 mg capsule Take 1 capsule by mouth once daily. rosuvastatin (CRESTOR) 5 mg tablet Take 1 tablet by mouth daily at bedtime. pioglitazone (ACTOS) 30 mg tablet Take 1 tablet by mouth once daily. (Patient not taking: Reported on 10/26/2023) Allergies, past surgical history, family history and past medical history were reviewed per this encounter. Medications were reviewed and verified. Objective BP 130/86 (BP Site: Left Arm, BP Position: Sitting, BP Cuff Size: Large Adult) Pulse 85 Temp 36.7 C (98.1 F) (Temporal) Resp 16 Ht 170.2 cm (5' 7) Wt 129.8 kg (286 lb 4 oz) LMP (LMP Unknown) SpO2 100% BMI 44.83 kg/m Physical Exam Vitals reviewed. Constitutional: Appearance: Normal appearance. She is obese. HENT: Head: Normocephalic and atraumatic. Nose: Nose normal. Eyes: Extraocular Movements: Extraocular movements intact. Pupils: Pupils are equal, round, and reactive to light. Cardiovascular: Rate and Rhythm: Normal rate and regular rhythm. Pulmonary: Effort: Pulmonary effort is normal. Breath sounds: Normal breath sounds. Abdominal: General: Bowel sounds are normal. Palpations: Abdomen is soft. Musculoskeletal: General: Normal range of motion. Cervical back: Normal range of motion and neck supple. Skin: General: Skin is warm and dry. Capillary Refill: Capillary refill takes less than 2 seconds. Neurological: General: No focal deficit present. Mental Status: She is alert and oriented to person, place, and time. Mental status is at baseline. Psychiatric: Mood and Affect: Mood normal. Behavior: Behavior normal. Assessment and Plan Encounter Diagnosis ICD-10-CM 1. 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 (type 2/adult onset) ([facility]) E11.9 HEMOGLOBIN A1C 2. Essential (primary) hypertension I10 3. Anxiety F41.9 4. Other iron deficiency anemia D50.8 5. Depression, unspecified depression type F32.A Continue present medications. Start Actos as previously prescribed. Patient's insurance does not cover Ozempic or Mounjaro. Check labs as above. Monitor blood pressure regularly. Exercise as tolerated. Maintain good diet. Follow-up in 6 months. Mayte Campos MD Patient is in office for follow up for diabetes. Patient was last seen in office on 07-20-2023 Patient was advised: Continue Present medications. Add Actos 30 mg daily. Increase exercise, improve diabetic diet. Improve weight loss. Follow-up in 3 months. Patient is not taking Actos because she is worried about possible side effects. Refills entered. Olga Arreaga LPN October 26, 2023 9:35 AM documented in this encounter [facility] 07-20-2023 History of Present illness Narrative Subjective Aissatou Torres is a 38 year old female. Lori presents today for follow-up for her diabetes. She was to start Mounjaro for additional therapy. Her A1c is 8.01-month ago. Her insurance however did not cover the medication well and it was going to cost her $900 for 3 months. Which is more than she can afford. Review of Systems Constitutional: Negative. HENT: Negative. Eyes: Negative. Respiratory: Negative. Cardiovascular: Negative. Gastrointestinal: Negative. Endocrine: Negative. Genitourinary: Negative. Musculoskeletal: Negative. Skin: Negative. Allergic/Immunologic: Negative. Neurological: Negative. Hematological: Negative. Psychiatric/Behavioral: Negative. PAST SURGICAL HISTORY Procedure Laterality Date ANESTH, SECTION X 2 EXC TUMOR SOFT TISSUE ABDL WALL SUBFASCIAL <5CM 04/25/14 EXPL LAP W W/WO BX 11/2013 HYSTEROSCOPY 11/2013 LIG/TRNSXJ FLP TUBE ABDL/VAG APPR UNI/BI 2009 PAST MEDICAL HISTORY Diagnosis Date Abdominal wall mass of left lower quadrant 03/28/2014 Acne 12/12/2019 Acute sinusitis 05/12/2020 Candidiasis of vagina 09/24/2020 Depression 12/12/2019 Diabetes mellitus type II (HCC) 12/12/2019 Exposure to severe acute respiratory syndrome coronavirus 2 (SARS-CoV-2) 05/15/2020 Generalized abdominal pain 12/16/2021 Hemorrhoids 12/12/2019 Hypertrophy of tonsils 09/17/2020 Iron deficiency anemia 03/19/2020 Pelvic pain in female Seasonal allergies 12/12/2019 Snoring 12/12/2019 Subcutaneous mass 04/25/14 Left lower abdominal wall Upper respiratory infection 05/15/2020 FAMILY HISTORY Problem Relation Age of Onset None Mother None Father Social History Tobacco Use Smoking status: Never Smokeless tobacco: Never Vaping Use Vaping Use: Never used Substance Use Topics Alcohol use: No Drug use: No ALLERGIES Allergen Reactions Lisinopril Cough MEDICATIONS: CHOLECALCIFEROL, VITAMIN D3, ORAL Take 5,000 Units by mouth once daily. Ascorbic Acid (VITAMIN C) 1,000 mg tablet Take 1,000 mg by mouth once daily. fluticasone (FLONASE) 50 mcg/actuation nasal spray INHALE 1 SPRAY EACH NOSTRIL ONCE DAILY (Patient taking differently: Use 2 Sprays in each nostril once daily.) omeprazole (PRILOSEC) 40 mg capsule Take 1 capsule by mouth once daily. losartan (COZAAR) 50 mg tablet Take 1 tablet by mouth once daily. glimepiride (AMARYL) 4 mg tablet Amaryl 4 mg tablet oral daily montelukast (SINGULAIR) 10 mg tablet Take 1 tablet by mouth once daily. metFORMIN ER (GLUCOPHAGE XR) 500 mg 24 hr tablet Take 2 tablets by mouth twice daily. albuterol HFA (PROVENTIL HFA, VENTOLIN HFA) 90 mcg/actuation inhaler Inhale 2 Puffs as instructed every 4 hours as needed for wheezing/shortness of breath. rosuvastatin (CRESTOR) 5 mg tablet Take 1 tablet by mouth daily at bedtime. loratadine (CLARITIN) 10 mg tablet Take by mouth. acetaminophen (TYLENOL) 325 mg tablet Take 650 mg by mouth every 6 hours as needed. pioglitazone (ACTOS) 30 mg tablet Take 1 tablet by mouth once daily. Allergies, past surgical history, family history and past medical history were reviewed per this encounter. Medications were reviewed and verified. Objective BP 130/78 (BP Site: Left Arm, BP Position: Sitting, BP Cuff Size: Regular Adult) Pulse 88 Temp 36.6 C (97.9 F) (Temporal) Resp 18 Ht 170.2 cm (5' 7) Wt 131.7 kg (290 lb 6.4 oz) LMP (LMP Unknown) SpO2 99% BMI 45.48 kg/m Physical Exam Vitals reviewed. Constitutional: Appearance: Normal appearance. HENT: Head: Normocephalic and atraumatic. Nose: Nose normal. Eyes: Extraocular Movements: Extraocular movements intact. Pupils: Pupils are equal, round, and reactive to light. Cardiovascular: Rate and Rhythm: Normal rate and regular rhythm. Pulmonary: Effort: Pulmonary effort is normal. Breath sounds: Normal breath sounds. Abdominal: General: Bowel sounds are normal. Palpations: Abdomen is soft. Musculoskeletal: General: Normal range of motion. Cervical back: Normal range of motion and neck supple. Skin: General: Skin is warm and dry. Capillary Refill: Capillary refill takes less than 2 seconds. Neurological: General: No focal deficit present. Mental Status: She is alert and oriented to person, place, and time. Mental status is at baseline. Psychiatric: Mood and Affect: Mood normal. Behavior: Behavior normal. Assessment and Plan Encounter Diagnosis ICD-10-CM 1. 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) E11.9 HGB A1C 2. Essential (primary) hypertension I10 Present medications. Add Actos 30 mg daily. Increase exercise, improve diabetic diet. Improve weight loss. Follow-up in 3 months. Mayte Campos MD Patient is in office for follow up for chronic medical conditions. Patient was last seen in office on 06-08-2023. Patient did not have labs obtained as ordered. Patient states that Mounjaro and Ozempic are too expensive for her. Mounjaro was prescribed at last visit for patients diabetes. No refills needed Yazmin Tovar LPN July 20, 2023 1:07 PM documented in this encounter [facility] 04-21-2023 Hospital Discharge instructions Patient Education 04/21/2023 13:33:02 Endometrial Ablation, Care After Endometrial Ablation, Care After This sheet gives you information about how to care for yourself after your procedure. Your health care provider may also give you more specific instructions. If you have problems or questions, contact your health care provider. What can I expect after the procedure? After the procedure, it is common to have: A need to urinate more frequently than usual for the first 24 hours. Cramps similar to menstrual cramps. These may last for 1 2 days. Thin, watery vaginal discharge that is light pink or brown in color. This may last a few weeks. Discharge will be heavy for the first few days after your procedure. You may need to wear a sanitary pad. Nausea. Vaginal bleeding for 4 6 weeks after the procedure, as tissue healing occurs. Follow these instructions at home: Activity Do not drive for 24 hours if you were given amedicine to help you relax (sedative) during your procedure. Do not have sex or put anything into your vagina until your health care provider approves. Do not lift anything that is heavier than 10 lb (4.5 kg), or the limit that you are told, until your health care provider says that it is safe. Return to your normal activities as told by your health care provider. Ask your health care provider what activities are safe for you. General instructions Take [id number] and prescription medicines only as told by your health care provider. Do not take baths, swim, or use a hot tub until your health care provider approves. You will be able to take showers. Check your vaginal area every day for signs of infection. Check for: ?Redness, swelling, or pain. ?More discharge or blood, instead of less. ?Bad-smelling discharge. Keep all follow-up visits as told by your health care provider. This is important. Drink enough fluid to keep your urine pale yellow. Contact a health care provider if you have: Vaginal redness, swelling, or pain. Vaginal discharge or bleeding that gets worse instead of getting better. Bad-smelling vaginal discharge. A fever or chills. Trouble urinating. Get help right away if you have: Heavy vaginal bleeding. Severe cramps. Summary After endometrial ablation, it is normal to have thin, watery vaginal discharge that is light pink or brown in color. This may last a few weeks and may be heavier right after the procedure. Vaginal bleeding is also normal after the procedure and should get better with time. Check your vaginal area every day for signs of infection, such as bad-smelling discharge. Keep all follow-up visits as told by your health care provider. This is important. This information is not intended to replace advice given to you by your health care provider. Make sure you discuss any questions you have with your health care provider. Document Released: 03/07/2018 Document Revised: 08/16/2019 Document Reviewed: 03/07/2018 [employer] Patient Education 2020 [employer]. 04/21/2023 13:33:00 Cryoablation, Care After Cryoablation, Care After This sheet gives you information about how to care for yourself after your procedure. Your health care provider may also give you more specific instructions. If you have problems or questions, contact your health care provider. What can I expect after the procedure? After the procedure, it is common to have: Soreness around the treatment area. Mild pain and swelling in the treatment area. Follow these instructions at home: Treatment area care Follow instructions from your health care provider about how to take care of your incision. Make sure you: ?Wash your hands with soap and water before you change your bandage (dressing). If soap and water are not available, use hand program advocate. ?Change your dressing as told by your health care provider. ?Leave stitches (sutures) in place. They may need to stay in place for 2 weeks or longer. Check your treatment area every day for signs of infection. Check for: ?More redness, swelling, or pain. ?More fluid or blood. ?Warmth. ?Pus or a bad smell. Keep the treated area clean, dry, and covered with a dressing until it has healed. Clean the area with soap and water or as told by your health care provider. You may shower if your health care provider approves. If your bandage gets wet, change it right away. Activity Follow instructions from your health care provider about any activity limitations. Do not drive for 24 hours if you received a medicine to help you relax (sedative). General instructions Take cdzb-yul-hzzmhij and prescription medicines only as told by your health care provider. Keep all follow-up visits as told by your health care provider. This is important. Contact a health care provider if: You do not have a bowel movement for 2 days. You have nausea or vomiting. You have more redness, swelling, or pain around your treatment area. You have more fluid or blood coming from your treatment area. Your treatment area feels warm to the touch. You have pus or a bad smell coming from your treatment area. You have a fever. Get help right away if: You have severe pain. You have trouble swallowing or breathing. You have severe weakness or dizziness. You have chest pain or shortness of breath. This information is not intended to replace advice given to you by your health care provider. Make sure you discuss any questions you have with your health care provider. Document Released: 02/13/2014 Document Revised: 04/07/2018 Document Reviewed: 09/22/2016 [employer] Patient Education 2020 [employer]. 04/21/2023 13:32:19 General Anesthesia, Adult, Care After General Anesthesia, Adult, Care After This sheet gives you information about how to care for yourself after your procedure. Your health care provider may also give you more specific instructions. If you have problems or questions, contact your health care provider. What can I expect after the procedure? After the procedure, the following side effects are common: Pain or discomfort at the IV site. Nausea. Vomiting. Sore throat. Trouble concentrating. Feeling cold or chills. Weak or tired. Sleepiness and fatigue. Soreness and body aches. These side effects can affect parts of the body that were not involved in surgery. Follow these instructions at home: For at least 24 hours after the procedure: Have a responsible adult stay with you. It is important to have someone help care for you until you are awake and alert. Rest as needed. Do not: ?Participate in activities in which you could fall or become injured. ?Drive. ?Use heavy machinery. ?Drink alcohol. ?Take sleeping pills or medicines that cause drowsiness. ?Make important decisions or sign legal documents. ?Take care of children on your own. Eating and drinking Follow any instructions from your health care provider about eating or drinking restrictions. When you feel hungry, start by eating small amounts of foods that are soft and easy to digest (bland), such as toast. Gradually return to your regular diet. Drink enough fluid to keep your urine pale yellow. If you vomit, rehydrate by drinking water, juice, or clear broth. General instructions If you have sleep apnea, surgery and certain medicines can increase your risk for breathing problems. Follow instructions from your health care provider about wearing your sleep device: ?Anytime you are sleeping, including during daytime naps. ?While taking prescription pain medicines, sleeping medicines, or medicines that make you drowsy. Return to your normal activities as told by your health care provider. Ask your health care provider what activities are safe for you. Take fijl-qka-bdipnwl and prescription medicines only as told by your health care provider. If you smoke, do not smoke without supervision. Keep all follow-up visits as told by your health care provider. This is important. Contact a health care provider if: You have nausea or vomiting that does not get better with medicine. You cannot eat or drink without vomiting. You have pain that does not get better with medicine. You are unable to pass urine. You develop a skin rash. You have a fever. You have redness around your IV site that gets worse. Get help right away if: You have difficulty breathing. You have chest pain. You have blood in your urine or stool, or you vomit blood. Summary After the procedure, it is common to have a sore throat or nausea. It is also common to feel tired. Have a responsible adult stay with you for the first 24 hours after general anesthesia. It is important to have someone help care for you until you are awake and alert. When you feel hungry, start by eating small amounts of foods that are soft and easy to digest (bland), such as toast. Gradually return to your regular diet. Drink enough fluid to keep your urine pale yellow. Return to your normal activities as told by your health care provider. Ask your health care provider what activities are safe for you. This information is not intended to replace advice given to you by your health care provider. Make sure you discuss any questions you have with your health care provider. Document Released: 08/01/2001 Document Revised: 04/28/2018 Document Reviewed: 12/09/2017 [employer] Patient Education 2020 [employer]. Follow Up Care 03/18/2023 08:27:05 With:MENDOZA BOSWELL DO Address: [address] [place] [address] [address] [place] [phone] When: Unknown Comments:follow up in office within 2 weeks [facility] 04-21-2023 Summary of episode note Discharge Instructions Thank you for allowing [facility] to assist you with your healthcare needs. The following is important discharge information regarding your hospital visit. Your Care Team MAYTE CAMPOS MD Your Diagnosis Status post endometrial ablation What to do next Follow Up Appointments Follow Up with MENDOZA BOSWELL DO When Why: follow up in office within 2 weeks Where: [address] [place] [address] [address] [place] [address] [phone] The Following Activity and Diet Have Been Ordered for You Discharge Activity - Ordered -- Sexual [place] Restricted, 2 weeks, 04/21/23 14:04:00 EST Discharge Driving Restrictions - Ordered -- No driving until pain-free, 04/21/23 14:04:00 EST Discharge Return to Work, School, or Sports - Ordered -- within 1-2 days, May return to: work, 04/21/23 14:04:00 EST Discharge Diet - Ordered -- NNo changes were made to your diet during your hospital stay. Please resume your pre hospitalization diet on discharge., 04/21/23 14:04:00 EST The Following Equipment Has Been Ordered for You No qualifying data available. The Following Treatments Have Been Ordered for You Discharge Labs No qualifying data available. Discharge Radiology No qualifying data available. Other Therapies No qualifying data available. Post Acute Orders No qualifying data available. Someone Will Contact You Regarding These Home Health Referrals No home referrals have been ordered for you. No one will call you. Allergies lisinopril (cough) Medications Please ask your primary doctor or pharmacist before taking any other medication not listed, including over the counter drugs, herbal medications, vitamins and or supplements as they may interact with your home medications. What How Much When Why Instructions Last Dose New acetaminophen-oxyCODONE (Percocet 5 mg-325 mg oral tablet) 1 tab(s) by mouth Every 4 hours as needed for for pain Status post endometrial ablation Duration: 2 Days Pickup at [facility] New ferrous gluconate (ferrous gluconate 324 mg (38 mg elemental iron) oral tablet) 1 tab(s) by mouth Two (2) times a day Pickup at [facility] New ibuprofen (ibuprofen 600 mg oral tablet) 1 tab(s) by mouth Four (4) times a day as needed for as needed for pain Refills: 1 Pickup at [facility] New ondansetron (ondansetron 4 mg oral tablet, disintegrating) 1 tab(s) by mouth Every 6 hours as needed for Nausea/Vomiting Pickup at [facility] Unchanged albuterol (Albuterol (Eqv-ProAir HFA) 90 mcg/ inh inhalation aerosol) Unchanged ascorbic acid (Vitamin C) Unchanged atorvastatin (atorvastatin 10 mg oral tablet) Unchanged cholecalciferol (Vitamin D3) Unchanged fluticasone nasal (fluticasone proprionate NASAL 50 mcg/ spray) 2 spray(s) each nostril Once a day (in the morning) Unchanged glimepiride (glimepiride 4 mg oral tablet) 1 tab(s) by mouth Every day Unchanged loratadine (loratadine 10 mg oral tablet) 1 tab(s) by mouth Once a day Unchanged losartan (losartan 50 mg oral tablet) 1 tab(s) by mouth Every day Unchanged metFORMIN (metFORMIN 750 mg oral tablet, extended release) 1,000 Milligram by mouth Two (2) times a day Unchanged montelukast (montelukast 10 mg oral tablet) 1 tab(s) by mouth Once a day Unchanged omeprazole (omeprazole 40 mg oral delayed release capsule) 1 cap by mouth Once a day Unchanged progesterone (progesterone 100 mg oral capsule) 1 cap by mouth Once a day Duration: 10 Days Unchanged rosuvastatin (rosuvastatin 5 mg oral tablet) 1 tab(s) by mouth Every day Pharmacy Information [facility]: [address] [place], [place] [id number] [phone] Please take this list to your next doctor s visit. Bring all medications you take, including over the counter medications, herbals and other supplements with you to your doctor s visit. Patients and families are reminded to discard old lists and to update any records with all medication providers or retail pharmacies. Education Materials Endometrial Ablation, Care After This sheet gives you information about how to care for yourself after your procedure. Your health care provider may also give you more specific instructions. If you have problems or questions, contact your health care provider. What can I expect after the procedure? After the procedure, it is common to have: A need to urinate more frequently than usual for the first 24 hours. Cramps similar to menstrual cramps. These may last for 1 2 days. Thin, watery vaginal discharge that is light pink or brown in color. This may last a few weeks. Discharge will be heavy for the first few days after your procedure. You may need to wear a sanitary pad. Nausea. Vaginal bleeding for 4 6 weeks after the procedure, as tissue healing occurs. Follow these instructions at home: Activity Do not drive for 24 hours if you were given amedicine to help you relax (sedative) during your procedure. Do not have sex or put anything into your vagina until your health care provider approves. Do not lift anything that is heavier than 10 lb (4.5 kg), or the limit that you are told, until your health care provider says that it is safe. Return to your normal activities as told by your health care provider. Ask your health care provider what activities are safe for you. General instructions Take zzfb-qnk-phnfrcd and prescription medicines only as told by your health care provider. Do not take baths, swim, or use a hot tub until your health care provider approves. You will be able to take showers. Check your vaginal area every day for signs of infection. Check for: ? Redness, swelling, or pain. ? More discharge or blood, instead of less. ? Bad-smelling discharge. Keep all follow-up visits as told by your health care provider. This is important. Drink enough fluid to keep your urine pale yellow. Contact a health care provider if you have: Vaginal redness, swelling, or pain. Vaginal discharge or bleeding that gets worse instead of getting better. Bad-smelling vaginal discharge. A fever or chills. Trouble urinating. Get help right away if you have: Heavy vaginal bleeding. Severe cramps. Summary After endometrial ablation, it is normal to have thin, watery vaginal discharge that is light pink or brown in color. This may last a few weeks and may be heavier right after the procedure. Vaginal bleeding is also normal after the procedure and should get better with time. Check your vaginal area every day for signs of infection, such as bad-smelling discharge. Keep all follow-up visits as told by your health care provider. This is important. This information is not intended to replace advice given to you by your health care provider. Make sure you discuss any questions you have with your health care provider. Document Released: 03/07/2018 Document Revised: 08/16/2019 Document Reviewed: 03/07/2018 [employer] Patient Education 2020 [employer] Cryoablation, Care After This sheet gives you information about how to care for yourself after your procedure. Your health care provider may also give you more specific instructions. If you have problems or questions, contact your health care provider. What can I expect after the procedure? After the procedure, it is common to have: Soreness around the treatment area. Mild pain and swelling in the treatment area. Follow these instructions at home: Treatment area care Follow instructions from your health care provider about how to take care of your incision. Make sure you: ? Wash your hands with soap and water before you change your bandage (dressing). If soap and water are not available, use hand program advocate. ? Change your dressing as told by your health care provider. ? Leave stitches (sutures) in place. They may need to stay in place for 2 weeks or longer. Check your treatment area every day for signs of infection. Check for: ? More redness, swelling, or pain. ? More fluid or blood. ? Warmth. ? Pus or a bad smell. Keep the treated area clean, dry, and covered with a dressing until it has healed. Clean the area with soap and water or as told by your health care provider. You may shower if your health care provider approves. If your bandage gets wet, change it right away. Activity Follow instructions from your health care provider about any activity limitations. Do not drive for 24 hours if you received a medicine to help you relax (sedative). General instructions Take qfsw-kzg-kdchdtc and prescription medicines only as told by your health care provider. Keep all follow-up visits as told by your health care provider. This is important. Contact a health care provider if: You do not have a bowel movement for 2 days. You have nausea or vomiting. You have more redness, swelling, or pain around your treatment area. You have more fluid or blood coming from your treatment area. Your treatment area feels warm to the touch. You have pus or a bad smell coming from your treatment area. You have a fever. Get help right away if: You have severe pain. You have trouble swallowing or breathing. You have severe weakness or dizziness. You have chest pain or shortness of breath. This information is not intended to replace advice given to you by your health care provider. Make sure you discuss any questions you have with your health care provider. Document Released: 02/13/2014 Document Revised: 04/07/2018 Document Reviewed: 09/22/2016 [employer] Patient Education 2020 [employer]. General Anesthesia, Adult, Care After This sheet gives you information about how to care for yourself after your procedure. Your health care provider may also give you more specific instructions. If you have problems or questions, contact your health care provider. What can I expect after the procedure? After the procedure, the following side effects are common: Pain or discomfort at the IV site. Nausea. Vomiting. Sore throat. Trouble concentrating. Feeling cold or chills. Weak or tired. Sleepiness and fatigue. Soreness and body aches. These side effects can affect parts of the body that were not involved in surgery. Follow these instructions at home: For at least 24 hours after the procedure: Have a responsible adult stay with you. It is important to have someone help care for you until you are awake and alert. Rest as needed. Do not: ? Participate in activities in which you could fall or become injured. ? Drive. ? Use heavy machinery. ? Drink alcohol. ? Take sleeping pills or medicines that cause drowsiness. ? Make important decisions or sign legal documents. ? Take care of children on your own. Eating and drinking Follow any instructions from your health care provider about eating or drinking restrictions. When you feel hungry, start by eating small amounts of foods that are soft and easy to digest (bland), such as toast. Gradually return to your regular diet. Drink enough fluid to keep your urine pale yellow. If you vomit, rehydrate by drinking water, juice, or clear broth. General instructions If you have sleep apnea, surgery and certain medicines can increase your risk for breathing problems. Follow instructions from your health care provider about wearing your sleep device: ? Anytime you are sleeping, including during daytime naps. ? While taking prescription pain medicines, sleeping medicines, or medicines that make you drowsy. Return to your normal activities as told by your health care provider. Ask your health care provider what activities are safe for you. Take dgsy-pug-qocgegk and prescription medicines only as told by your health care provider. If you smoke, do not smoke without supervision. Keep all follow-up visits as told by your health care provider. This is important. Contact a health care provider if: You have nausea or vomiting that does not get better with medicine. You cannot eat or drink without vomiting. You have pain that does not get better with medicine. You are unable to pass urine. You develop a skin rash. You have a fever. You have redness around your IV site that gets worse. Get help right away if: You have difficulty breathing. You have chest pain. You have blood in your urine or stool, or you vomit blood. Summary After the procedure, it is common to have a sore throat or nausea. It is also common to feel tired. Have a responsible adult stay with you for the first 24 hours after general anesthesia. It is important to have someone help care for you until you are awake and alert. When you feel hungry, start by eating small amounts of foods that are soft and easy to digest (bland), such as toast. Gradually return to your regular diet. Drink enough fluid to keep your urine pale yellow. Return to your normal activities as told by your health care provider. Ask your health care provider what activities are safe for you. This information is not intended to replace advice given to you by your health care provider. Make sure you discuss any questions you have with your health care provider. Document Released: 08/01/2001 Document Revised: 04/28/2018 Document Reviewed: 12/09/2017 [employer] Patient Education 2020 [employer]. Additional Information VACCINATE! IT SAVES LIVES! Members of the community who have not yet received the COVID-19 vaccine and would like to receive it can visit one of [facility] vaccine clinics. There are many vaccine clinic locations within the [facility]. For locations and available times, please visit https://gettheshot.coronavirus.[place].gov/. It is important to note that some COVID mobile vaccine clinics are held outdoors and may be canceled in rainy or stormy conditions. To learn more about pediatric vaccinations (ages 5-11), we invite you to visit the [facility] webpage. https://www.[facility].org/pag es/6174-Tsygh-Fofxayrzdet-Frequent eo-Slyux-Dshobvgfm.html To learn more about the COVID-19 vaccine, we invite you to visit the CDC website for a list of frequently asked questions.https://www.cdc.gov/jaime navirus/2019-ncov/vaccines/faq.htm l [email or web address] Patient Portal Access Instructions: Stay connected with your healthcare team and access your personal medical information anytime with the [facility] Patient Portal. Please follow the directions below to create your [email or web address] account: 1.Access the email account you provided upon registration to the hospital/physician office.2.Look for an invitation email from [facility].3.Open the email and access the invitation link: Accept Invitation to [facility].4.Fill in the required harvey to create your account. To access your account, visit [email or web address]. Click the blue button labeled Access Patient Portal and then log in with the username and password that you created in the steps above. You will be able to view your test results, lab results, a summary of your visits, upcoming appointments and more. There is also a convenient messaging option where you can send secure messages to your provider. In addition, you will have the ability to download any documents or summaries to your computer and/or send the information securely to a physician. Remember that your healthcare information is confidential, so carefully consider who you will allow to register on the [facility] Patient Portal for access to your information. You can also access the [facility] Patient Portal on the [employer] steve. Simply click on Patient Portal and then log into your account. If you would like to receive a full copy of your medical records, please contact the [facility] Medical Records Department by calling [phone], Tuesday through Tuesday between 8 a.m. and 4:30 p.m. HOW TO SAFELY DISPOSE OF PRESCRIPTION MEDICATIONS Please use one of the following methods to safely dispose of your unused medications. 1.Use a drug disposal kit: the drug disposal pouch allows you to safely discard your old and unused drugs. Ask your nurse to give you one when you are discharged.2.Visit a local take-back location: Many local pharmacies and police departments have programs that collect old and unwanted prescription drugs. Call your local pharmacy or go to http://[employer]/3Z8Vl8u to find one close to you.3.Make use of household items: Use cat litter or old coffee grounds to dispose medications if other options are not available. Mix your drugs with these household products, seal them in an airtight container and throw it into the garbage. Call [facility]: [phone] to be sure your drugs can be disposed of in this way. Some medicines may require a different approach.4.Never flush your medications down the toilet. IF YOU HAVE BEEN PRESCRIBED AN OPIOID FOR PAIN If you have been prescribed an opioid (such as hydrocodone, oxycodone or morphine), it is critical to understand the possible side effects and risks of opioid pain medications. Even when taken as directed, opioids can have several side effects including: Tolerance, meaning you might need to take more of a medication for the same pain relief. Nausea, vomiting and/or constipation. Sleepiness, dizziness, dry mouth, confusion, depression or itching. Physical dependence, meaning you have withdrawal symptoms when a medication is stopped, can develop within a few days. KNOW YOUR RESPONSIBILITIES It is important to know exactly how much and how often to take the opioid pain medications you are prescribed. Never take opioids in higher amounts or more often than prescribed. Do not combine opioids with alcohol or other drugs that cause drowsiness, such as benzodiazepines, also known as benzos, including diazepam and alprazolam, muscle relaxants or sleep aids. Never sell or share prescription opioids. This is illegal. Store opioids in a secure place and out of reach of others (including children, family, friends and visitors). The last page of this document has been signed and retained as a CHART COPY. Signatures Patient Education Materials Endometrial Ablation, Care After Cryoablation, Care After General Anesthesia, Adult, Care After Medication Leaflets My discharge plan and instructions have been reviewed and explained to me and I,RACHEAL TORRESANDA understand my current condition and have read and understand these discharge instructions. I have received a written copy of the plan/instructions. If I have questions, I am aware that I should contact my doctor. 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 Pt still has significant iron deficiency anemia. Addendum by IQRA BOSWELL DO on April 21, 2023 12:05 EST WBC: 9 10^3/mcL (04/21/23 09:34:00) RBC: 4.23 10^6/mcL (04/21/23 09:34:00) Hgb: 7.9 G/dL Low (04/21/23 09:34:00) Hct: 26.5 % Low (04/21/23 09:34:00) MCV: 62.7 fL Low (04/21/23 09:34:00) MCH: 18.6 pg Low (04/21/23 09:34:00) MCHC: 29.7 G/dL Low (04/21/23 09:34:00) RDW: 18.8 % High (04/21/23 09:34:00) Platelet: 263 10^3/mcL (04/21/23 09:34:00) MPV: 8.3 fL (04/21/23 09:34:00) Neutrophil %, Manual: 60 % (04/21/23 09:34:00) Lymphocyte %, Manual: 31 % (04/21/23 09:34:00) Monocyte %, Manual: 4 % (04/21/23 09:34:00) Eosinophil %, Manual: 4 % (04/21/23 09:34:00) Basophil %, Manual: 1 % (04/21/23 09:34:00) Nucleated RBC: 0 /100 WBC (04/21/23 09:34:00) Neutrophil, Abs Manual: 5.4 10^3/mcL (04/21/23 09:34:00) Lymphocyte, Abs Manual: 2.8 10^3/mcL (04/21/23 09:34:00) Monocyte, Abs Manual: 0.4 10^3/mcL (04/21/23 09:34:00) Eosinophil, Abs Manual: 0.3 10^3/mcL (04/21/23 09:34:00) Basophil, Abs Manual: 0.1 10^3/mcL (04/21/23 09:34:00) Platelet Estimate: Adequate (04/21/23 09:34:00) Anisocytosis: 2+ (04/21/23 09:34:00) Hypochrom: 1+ (04/21/23 09:34:00) Microcytosis: 2+ (04/21/23 09:34:00) Tear Cell: 1+ (04/21/23 09:34:00) Ovalocytes: 1+ (04/21/23 09:34:00) Test Urine: Negative. (04/21/23 09:11:00) test (u) int: test (u) int (04/21/23 09:11:00) Glucose Level: 140 mg/dL High (04/21/23 09:34:00) Sodium Level: 140 mmol/L (04/21/23 09:34:00) Potassium Level: 4.3 mmol/L (04/21/23 09:34:00) Chloride: 104 mmol/L (04/21/23 09:34:00) CO2: 26 mmol/L (04/21/23 09:34:00) Electrolyte Balance: 10 mEq/L (04/21/23 09:34:00) BUN: 11 mg/dL (04/21/23 09:34:00) Creatinine Lvl (s): 0.76 mg/dL (04/21/23 09:34:00) BUN/Creatinine Ratio: 14 ratio (04/21/23 09:34:00) Calcium Lvl: 8.3 mg/dL Low (04/21/23 09:34:00) GFR Non-: 85 ml/min/1.73sqm (04/21/23 09:34:00) GFR : 103 ml/min/1.73sqm (04/21/23 09:34:00) Blood Glucose, Capillary: 137 mg/dL High (04/21/23 09:34:00) Diagnostic Tests Pending * .CBC Path Review 04/21/23 [facility] 12-14-2023 Anesthesiology Consult note Patient: AISSATOU TORRES Age: 37 years Sex: Female : 1985 Associated Diagnoses: None Author: DINA QUINN APRN-YUN Preoperative Information Anesthesia history Patient's history: negative. Family's history: negative. Health Status Allergies: Allergic Reactions (Selected) Severity Not Documented Lisinopril- Cough., Allergies (1) ActiveReaction lisinoprilcough Current medications: (Selected) Inpatient Medications Ordered LR 1000 mL: 125 mL/hr, Intravenous, Stop: 04/22/23 17:59:00 EST Documented Medications Documented Albuterol (Eqv-ProAir HFA) 90 mcg/inh inhalation aerosol: 0 Refill(s) Vitamin C: 0 Refill(s) Vitamin D3: 0 Refill(s) atorvastatin 10 mg oral tablet: 0 Refill(s) fluticasone proprionate NASAL 50 mcg/ spray: 100 mcg, 2 spray(s), Nostril, each, qAM, 0 Refill(s) glimepiride 4 mg oral tablet: 4 mg, 1 tab(s), Oral, Daily, 100 tab(s), 0 Refill(s) loratadine 10 mg oral tablet: 10 mg, 1 tab(s), Oral, qDay, 30 tab(s), 0 Refill(s) losartan 50 mg oral tablet: 50 mg, 1 tab(s), Oral, Daily, 100 tab(s), 0 Refill(s) metFORMIN 750 mg oral tablet, extended release: 1,000 mg, Oral, BID, 0 Refill(s) montelukast 10 mg oral tablet: 10 mg, 1 tab(s), Oral, qDay, 0 Refill(s) omeprazole 40 mg oral delayed release capsule: 40 mg, 1 cap(s), Oral, qDay, 30 cap(s), 0 Refill(s) progesterone 100 mg oral capsule: 100 mg, 1 cap(s), Oral, qDay, for 10 day(s), 40 cap(s), 0 Refill(s) rosuvastatin 5 mg oral tablet: 5 mg, 1 tab(s), Oral, Daily, 100 tab(s), 0 Refill(s), Medications (1) Active Scheduled: (0) Continuous: (1) Lactated Ringers 1000 mL 1,000 mL, Intravenous, 125 mL/hr PRN: (0) Problem list: Medical Morbid obesity / SNOMED CT [id number] / Confirmed, Active Problems (5) Bronchitis Diabetes GERD (gastroesophageal reflux disease) Morbid obesity Wheezing Histories Past Medical History: No active or resolved past medical history items have been selected or recorded. Family History: Entire family history is negative. Procedure history: Caesarean section ([id number]). Caesarean section ([id number]). Other ([id number]). Comments: 07/18/2018 12:57 Celeste Loco MA [employer] Surgery laparoscopic Other ([id number]). Comments: 07/18/2018 12:57 Celeste Loco MA fb removed- excisions Social History Social & Psychosocial Habits Alcohol 04/06/2023 Use: Never Substance Abuse 04/06/2023 Use: Never Tobacco 04/06/2023 Tobacco Use: Former smoker, quit more Home/Environment 04/21/2023 Living situation: Home/Independent Nutrition/Health 04/21/2023 Type of diet: Regular Appetite Excellent Eating Difficulties None . Physical Examination Vital Signs 04/21/2023 9:23 EST Temperature Temporal Artery 36.6 DegC Peripheral Pulse Rate 96 bpm Respiratory Rate 13 br/min LOW Systolic Blood Pressure Non-Invasive 137 mmHg Diastolic Blood Pressure Non-Invasive 89 mmHg Vital Signs(last 24 hrs) Last Charted Resp Rate L 13br/min (APR 21 09:23) SNC510 mmHg (APR 21 09:23) DBP89 mmHg (APR 21 09:23) Measurements from flowsheet : Measurements 04/21/2023 9:24 EST Height 170.2 cm Admission Weight 131.8 kg [place] Body Weight 61.62 kg Admission Body Mass Index 45.5 m2 Pain assessment: Pain Assessment 04/21/2023 9:23 EST Primary Pain Intensity 0 Pain Scale Type 0-10 Pain scale . General: Alert and oriented. Airway: Normal temporomandibular joint mobility. Mallampati classification: II (soft palate, fauces, uvula visible). Dentition Evaluation: Denies loose/chipped teeth. Respiratory: Lungs are clear to auscultation, Respirations are non-labored. Cardiovascular: Normal rate, Regular rhythm. Neurologic: Alert, Oriented. Review / Management Results review: Labs (Last four charted values) WBC 9.0(APR 21) Hgb L 7.9(APR 21) Hct L 26.5(APR 21) Plt 263(APR 21) Na 140(APR 21) K 4.3(APR 21) CO2 26(APR 21) Cl 104(APR 21) Cr 0.76(APR 21) BUN 11(APR 21) Glucose H 140(APR 21) Ca L 8.3(APR 21) , Lab results 04/21/2023 12:04 EST [place] History and Physical (Modified) 04/21/2023 11:45 EST [facility] MAIN OR Preop & Phase II Record [facility] MAIN OR Preop & Phase II Record 04/21/2023 9:36 EST SN - Preop - CTm Pt in SDS Room 04/21/2023 9:09 SN - Preop - CTm Pt Ready for OR/Proced 04/21/2023 9:36 04/21/2023 9:35 EST Lactated Ringers Injection Begin Bag 1,000 mL mL 04/21/2023 9:34 EST WBC 9.0 10^3/mcL RBC 4.23 10^6/mcL Hgb 7.9 G/dL LOW Hct 26.5 % LOW MCV 62.7 fL LOW MCH 18.6 pg LOW MCHC 29.7 G/dL LOW RDW 18.8 % HI Platelet 263 10^3/mcL MPV 8.3 fL Neutrophil %, Manual 60.0 % Lymphocyte %, Manual 31.0 % Monocyte %, Manual 4.0 % Eosinophil %, Manual 4.0 % Basophil %, Manual 1.0 % Nucleated RBC 0.0 /100 WBC NA Neutrophil, Abs Manual 5.4 10^3/mcL Lymphocyte, Abs Manual 2.8 10^3/mcL Monocyte, Abs Manual 0.4 10^3/mcL Eosinophil, Abs Manual 0.3 10^3/mcL Basophil, Abs Manual 0.1 10^3/mcL Platelet Estimate Normal Anisocytosis 2+ Hypochrom 1+ Microcytosis 2+ Tear Cell 1+ Ovalocytes 1+ Glucose Level 140 mg/dL HI Sodium Level 140 mmol/L Potassium Level 4.3 mmol/L Chloride 104 mmol/L CO2 26 mmol/L Electrolyte Balance 10.0 mEq/L BUN 11 mg/dL Creatinine Lvl (s) 0.76 mg/dL BUN/Creatinine Ratio 14 ratio Calcium Lvl 8.3 mg/dL LOW GFR Non- 85 ml/min/1.73sqm NA GFR 103 ml/min/1.73sqm NA Blood Glucose, Capillary 137 mg/dL HI Creatinine Clearance Calc 96.68 mL/min Antecubital Left 04/21/2023 20 gauge Peripheral IV Activity: Insert new site Peripheral IV Dressing Condition: Clean, Dry, Intact Peripheral IV Dressing Activity: Applied Peripheral IV Line Status/Patency: Flushes easily Peripheral IV Site Condition: No complications Peripheral IV Equipment: Extension set Peripheral IV Number of Attempts: 1 Slide Review Man Indicated 04/21/2023 9:24 EST Height 170.2 cm Admission Weight 131.8 kg [place] Body Weight 61.62 kg Admission Body Mass Index 45.5 m2 Respirations Unlabored Respiratory Pattern Regular Abdomen Description Non-distended, Symmetric Abdomen Palpation Non-Tender Urinary Elimination Voiding, no difficulties Skin Temperature Warm Skin Description Normal for ethnicity Skin Integrity Intact Extremity Movement Equal Characteristics of Speech Clear Level of Consciousness Alert Strength All Extremities Strong Tone All Extremities Normal Sensation All Extremities Intact Affect/Behavior Appropriate, Calm, Cooperative Orientation Oriented x 4 Activity Status ADL Awake, Resting Standard Safety ID band on, Allergy Band on, Call device within reach, Bed in low position, Wheels locked, Upper/Half-Length side-rails up, Phone within reach, Safety level maintained 04/21/2023 9:23 EST Temperature Temporal Artery 36.6 DegC Peripheral Pulse Rate 96 bpm Respiratory Rate 13 br/min LOW Systolic Blood Pressure Non-Invasive 137 mmHg Diastolic Blood Pressure Non-Invasive 89 mmHg Primary Pain Intensity 0 Pain Scale Type 0-10 Pain scale Heart Rhythm Regular Oxygen Saturation 98 % 04/21/2023 9:21 EST Allergies Yes Consent Form Signed Yes Patient Dressed In Hospital gown History & Physical On Chart Yes Belongings At Bedside Pants, Shirt, Shoes, Socks, Undergarments NPO Status Maintained Patient ID Band on and Verified Yes Implants Verified Yes Pacemaker/AICD Verified Yes Site Verified by Patient/Family Yes Blood Consent Signed Yes Last Fluid Intake 04/21/2023 8:35 Last Food Intake 04/20/2023 20:30 Last Void 04/21/2023 9:15 04/21/2023 9:20 EST Designated Person #1 We May Share ALBIN TORRES [phone] Designated Person #1 Relationship Spouse Privacy Restrictions Requested None Status No, per patient Sensory Deficits None Sleep Apnea Snore Yes Sleep Apnea Tired Yes Sleep Apnea Obstruction Yes Sleep Apnea Pressure Yes Sleep Apnea BMI Yes Sleep Apnea Age No Sleep Apnea Neck Yes Sleep Apnea Gender No Sleep Apnea Score 6 >HHI Diagnosed With Sleep Apnea No Advanced Directives No - refuses information Infectious Disease Symptoms Patient states no symptoms Infectious Disease Recent Exposure No Alcohol and Drug Use No Employee of Institutional Living No Health Care Employee No History of Exposure to TB No History of Positive Chest X-Ray for TB No History of Positive TB Skin Test No Homeless No Known Immunosuppression No Recent Immigrant No Resident of Institutional Living No Bloody Sputum No Fatigue No Fever No Loss of Appetite No Night Sweats No Persistent Cough > 3 Weeks No Weight Loss No Patient Aware Date/Time Of Surgery Yes Pre-Op Patient Education NPO after midnight, No makeup, No jewelry, Responsible Libertarian, Aware of surgery location, Pre-op education done, Instructed to take ordered medications, SSI prevention handoutgiven SN - Preprocedure Comments Spoke with patient, Verbalizes/Nonverbally indicates understanding, Other: [place] Barriers to Learning None evident Teaching Method Explanation Preferred Spoken Language Georgian Preferred Written Language Georgian Teaching Evaluation No further teaching needed Safety Brochure Information Reviewed Unable to complete Thais Ingram Video Viewed No Information Given by Patient Patient's Current Physicians DR CAMPOS - PCP ([place]) Discharge To, Anticipated Home independently Prev Test Positive/Diagnosis w/COVID-19 Yes Previous COVID-19 Positive Date 05/29 Current Quarantine/Isolated any Illness No Any Contact with Sick Animals/Birds No Traveled Anywhere in Last 30 Days No Lost Weight Unintentionally Recently No Eat Poorly Due to Decreased Appetite No Total MST Score 0 No Personal Devices, Patient Valuables Glasses Anesthesia/Transfusions Prior anesthesia Admission Note-Nursing Same Day Patient History 04/21/2023 9:11 EST Test Urine Negative test (u) int test (u) int QC PRGUN Negative QC PRGUP Positive . Assessment and Plan [place] [employer] Anesthesiologists (ASA) physical status classification: Class III. Anesthetic Preoperative Plan Anesthetic technique: General. Maintenance airway: Laryngeal mask airway. Postoperative pain management: Per surgeon. Risks discussed: nausea, vomiting, sore throat, dental injury, hypotension, allergic reaction, serious complications. Informed consent: signed by patient. Digitally Signed by DINA QUINN on 04/21/2023 12:12 PM [facility]12-14-2023 Note BOMOSEEN ADMISSION HISTORY AND PHYSICIAL History and Physical Update I have examined the patient; reviewed the H&P and there are no changes to the H&P unless noted below. Pt still has significant iron deficiency anemia. Digitally Signed by MENDOZA BOSWELL DO on 04/21/2023 12:05 PM [facility]12-14-2023 Note BOMOSEEN ADMISSION HISTORY AND PHYSICIAL History and Physical Update I have examined the patient; reviewed the H&P and there are no changes to the H&P unless noted below. Pt still has significant iron deficiency anemia. Digitally Signed by MENDOZA BOSWELL DO on 04/21/2023 12:05 PM [facility]12-07-2023 Miscellaneous Notes* Telephone Encounter - Yazmin Tovar LPN - 04/14/2023 4:27 PM EST Last Office Visit: 12-29-2022 Next Scheduled Office Visit: 06-08-2023 Requested Prescriptions Pending Prescriptions Disp Refills fluticasone (FLONASE) 50 mcg/actuation nasal spray [Pharmacy Med Name: FLUTICASONE PROP 50 MCG SPRAY] 3 Each 3 Sig: INHALE 1 SPRAY EACH NOSTRIL ONCE DAILY Yazmin Tovar LPN April 14, 2023 4:29 PM [facility] History of Present illness Narrative* Mayte Campos MD - 12/29/2022 4:10 PM EDT This note was created using [employer]. Subjective Aissatou Torres is a 37 year old female. Aissatou presents today for follow-up for her diabetes. Recent A1c was 8.0. She is currently on Amaryl and metformin. She is interested in both improving her sugars and lowering her weight. Her BMI is 45. Review of Systems Constitutional: Negative. HENT: Negative. Eyes: Negative. Respiratory: Negative. Cardiovascular: Negative. Gastrointestinal: Negative. Endocrine: Negative. Genitourinary: Negative. Musculoskeletal: Negative. Skin: Negative. Allergic/Immunologic: Negative. Neurological: Negative. Hematological: Negative. Psychiatric/Behavioral: Negative. Objective BP 128/82 (BP Site: Left Arm, BP Position: Sitting, BP Cuff Size: Regular Adult) Pulse 102 Temp36.1 C (97 F) (Temporal) Resp 18 Ht 170.2 cm (5' 7) Wt 130.7 kg (288 lb 3.2 oz) LMP (LMP Unknown) SpO2 96% BMI 45.14 kg/m Physical Exam Vitals reviewed. Constitutional: Appearance: Normal appearance. HENT: Head: Normocephalic and atraumatic. Nose: Nose normal. Eyes: Extraocular Movements: Extraocular movements intact. Pupils: Pupils are equal, round, and reactive to light. Cardiovascular: Rate and Rhythm: Normal rate and regular rhythm. Pulmonary: Effort: Pulmonary effort is normal. Breath sounds: Normal breath sounds. Abdominal: General: Bowel sounds are normal. Palpations: Abdomen is soft. Musculoskeletal: General: Normal range of motion. Cervical back: Normal range of motion and neck supple. Skin: General: Skin is warm and dry. Capillary Refill: Capillary refill takes less than 2 seconds. Neurological: General: No focal deficit present. Mental Status: She is alert and oriented to person, place, and time. Mental status is at baseline. Psychiatric: Mood and Affect: Mood normal. Behavior: Behavior normal. Assessment and Plan Encounter Diagnosis ICD-10-CM 1. 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 (type 2/adult onset) ([facility]) E11.9 Continue present medications. Add Mounjaro 2.5 mg weekly. Follow-up in 1 month. Monitor sugars regularly. Improve diabetic diet. Increase exercise. Mayte Campos MD * Yazmin Tovar LPN - 12/29/2022 2:42 PM EDT Patient is in office for follow up for elevated A1C. Hemoglobin A1C Latest Ref Rng & Units 12/12/2022 08/26/2021 12/24/2020 09/17/2020 HEMOGLOBIN A1C 4.3 - 6.0 % 8.0(H) 7.9(H) 8.3(H) 11.4(H) Patient states she has been having a period for the past 6 weeks. Patient states she is cramping every once in awhile, but nothing extreme. Patient is going to follow up with [employer]. No refills needed Yazmin Tovar LPN December 29, 2022 2:53 PM documented in this [facility]07[facility] History of Present illness Narrative* Mayte Campos MD - 12/01/2022 4:08 PM EDT This note was created using [employer]. Subjective Aissatou Torres is a 37 year old female. Aissatou presents today for follow-up for her diabetes, hypertension, and high cholesterol. She has not been on cholesterol medicine. She was previously on Lipitor. She reports she does not regularly check her sugars. Review of Systems Constitutional: Negative. HENT: Negative. Eyes: Negative. Respiratory: Negative. Cardiovascular: Negative. Gastrointestinal: Negative. Endocrine: Negative. Genitourinary: Negative. Musculoskeletal: Negative. Skin: Negative. Allergic/Immunologic: Negative. Neurological: Negative. Hematological: Negative. Psychiatric/Behavioral: Negative. Objective BP 132/86 (BP Site: Left Arm, BP Position: Sitting, BP Cuff Size: Regular Adult) Pulse 82 Temp 36.3 C (97.3 F) (Temporal) Resp 18 Ht 170.2 cm (5' 7) Wt 131.1 kg (289 lb) LMP (LMP Unknown) SpO2 98% BMI 45.26 kg/m Physical Exam Vitals reviewed. Constitutional: Appearance: Normal appearance. HENT: Head: Normocephalic and atraumatic. Nose: Nose normal. Eyes: Extraocular Movements: Extraocular movements intact. Pupils: Pupils are equal, round, and reactive to light. Cardiovascular: Rate and Rhythm: Normal rate and regular rhythm. Pulmonary: Effort: Pulmonary effort is normal. Breath sounds: Normal breath sounds. Abdominal: General: Bowel sounds are normal. Palpations: Abdomen is soft. Musculoskeletal: General: Normal range of motion. Cervical back: Normal range of motion and neck supple. Skin: General: Skin is warm and dry. Capillary Refill: Capillary refill takes less than 2 seconds. Neurological: General: No focal deficit present. Mental Status: She is alert and oriented to person, place, and time. Mental status is at baseline. Psychiatric: Mood and Affect: Mood normal. Behavior: Behavior normal. Assessment and Plan Encounter Diagnosis ICD-10-CM 1. Hypertension, essential I10 COMP METABOLIC PANEL 2. Pure hypercholesterolemia E78.00 COMP METABOLIC PANEL LIPID PANEL BASIC 3. 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 (type 2/adult onset) ([facility]) E11.9 COMP METABOLIC PANEL HGB A1C Continue current medications. Add Crestor for treatment of cholesterol. Labs as above. Follow-up in6 months. Mayte Campos MD * Yazmin Tovar LPN - 12/01/2022 3:40 PM EDT Patient in office today for 6 month exam. Patient states she does not currently check her blood glucose. Patient states that she has 2 glucometers and each give different readings. Patient also states she does not check blood pressure at home as well. Patient states she feels ok. Yazmin Tovar LPN December 01, 2022 3:41 PM documented in [facility] History of Present illness Narrative* Son Lachelle MD Arabella - 05/10/2022 2:48 PM EST Aissatou M Lantzer is a 37 year old female who presents with cough (Started 2 days ago /), congestion, and Ear Problem (Right ear pain /) HPI patient is 37-year-old female who presented to the [facility] this afternoon with complaint of nonproductive cough, nasal congestion postnasal drainage and ear pain and loss of voice the symptoms started 2 days ago and patient concerning coming for further evaluation treatment. Patient has been taking the Mucinex DM [id number] and Tylenol with cold and flu without relief PAST MEDICAL HISTORY Diagnosis Date Abdominal wall mass of left lower quadrant 03/28/2014 Acne 12/12/2019 Acute sinusitis 05/12/2020 Candidiasis of vagina 09/24/2020 Depression 12/12/2019 Diabetes mellitus type II (HCC) 12/12/2019 Exposure to severe acute respiratory syndrome coronavirus 2 (SARS-CoV-2) 05/15/2020 Generalized abdominal pain 12/16/2021 Hemorrhoids 12/12/2019 Hypertrophy of tonsils 09/17/2020 Iron deficiency anemia 03/19/2020 Pelvic pain in female Seasonal allergies 12/12/2019 Snoring 12/12/2019 Subcutaneous mass 04/25/14 Left lower abdominal wall Upper respiratory infection 05/15/2020 ACTIVE PROBLEM LIST Abdominal Wall Mass of Left Lower Quadrant Depression Diabetes Mellitus Type II (Hcc) Iron Deficiency Anemia Insomnia Upper Respiratory Infection Snoring Seasonal Allergies Hypertrophy of Tonsils Hemorrhoids Headaches Exposure to Severe Acute Respiratory Syndrome Coronavirus 2 (Sars-Cov-2) Essential (Primary) Hypertension Candidiasis of Vagina Anxiety Acute Sinusitis Acute Bronchitis With Bronchospasm Acne Generalized Abdominal Pain Current Outpatient Medications Medication Sig Dispense Refill acetaminophen/chlorpheniramine (COLD AND FLU BP ORAL) Take by mouth as needed. guaifenesin (MUCUS RELIEF ORAL) Take by mouth as needed. omeprazole (PRILOSEC) 40 mg capsule losartan (COZAAR) 50 mg tablet Take 1 tablet by mouth once daily. 90 tablet 3 glimepiride (AMARYL) 4 mg tablet Amaryl 4 mg tablet 90 tablet 3 montelukast (SINGULAIR) 10 mg tablet Take 1 tablet by mouth once daily. 90 tablet 3 metFORMIN ER (GLUCOPHAGE XR) 500 mg 24 hr tablet Take 2 tablets by mouth twice daily. 360 tablet 3 albuterol HFA (PROVENTIL HFA, VENTOLIN HFA) 90 mcg/actuation inhaler Apply to affected area. fluticasone (FLONASE) 50 mcg/actuation nasal spray loratadine (CLARITIN) 10 mg tablet Take by mouth. acetaminophen (TYLENOL) 325 mg tablet Take 650 mg by mouth every 6 hours as needed. fluticasone (FLONASE) 50 mcg/actuation nasal spray Use 1 Atkins in each nostril once daily. (Patientnot taking: Reported on 05/10/2022) 1 Each 0 escitalopram oxalate (LEXAPRO) 10 mg tablet Take 1 tablet by mouth once daily. (Patient not taking:No sig reported) 30 tablet 11 JANUVIA 100 mg tablet (Patient not taking: No sig reported) No current facility-administered medications for this visit. Social History Tobacco Use Smoking status: Never Smokeless tobacco: Never Vaping Use Vaping Use: Never used Substance Use Topics Alcohol use: No Drug use: No Alcohol Use: No Tobacco Use: Never FAMILY HISTORY Problem Relation Age of Onset None Mother None Father Review of Systems Constitutional: Negative for chills, diaphoresis, fever and malaise/fatigue. HENT: Positive for congestion and ear pain. Negative for ear discharge and sinus pain. Eyes: Negative for blurred vision and pain. Respiratory: Positive for cough. Negative for shortness of breath and wheezing. Cardiovascular: Negative for chest pain and palpitations. Gastrointestinal: Negative for abdominal pain, diarrhea, nausea and vomiting. Musculoskeletal: Negative for myalgias. Skin: Negative for rash. Neurological: Negative for dizziness and headaches. BP 146/96 Pulse 83 Temp (Src) 97.5 (Temporal) Resp 19 Wt 286 lb 9.6 oz (130.0kg) SpO2 98% LMP 05/07/2022 Physical Exam Vitals and nursing note reviewed. Constitutional: General: She is not in acute distress. Appearance: Normal appearance. She is not ill-appearing. HENT: Right Ear: Tympanic membrane and ear canal normal. Left Ear: Tympanic membrane and ear canal normal. Nose: Congestion present. No rhinorrhea. Mouth/Throat: Mouth: Mucous membranes are moist. Pharynx: No oropharyngeal exudate or posterior oropharyngeal erythema. Eyes: Extraocular Movements: Extraocular movements intact. Conjunctiva/sclera: Conjunctivae normal. Pupils: Pupils are equal, round, and reactive to light. Cardiovascular: Rate and Rhythm: Normal rate and regular rhythm. Pulses: Normal pulses. Heart sounds: Normal heart sounds. Pulmonary: Breath sounds: Normal breath sounds. Abdominal: Palpations: Abdomen is soft. Tenderness: There is no abdominal tenderness. Musculoskeletal: Cervical back: Normal range of motion and neck supple. Lymphadenopathy: Cervical: No cervical adenopathy. Skin: Findings: No rash. ASSESSMENT/PLAN: 1. URI with cough and congestion - ICD9: 465.9, ICD10: J06.9 - Discussed viral etiology and rationale for treatment. - Symptomatic treatment with prn analgesia - Supportive care with fluids and rest - The patient may also use OTC cough and cold meds as needed and warm salt water gargles, throat lozenges and/or OTC throat spray as needed. - Follow up with family physician in 3-5 days if symptoms persist or sooner if worsening of symptoms Parmjit Bell MD documented [facility] Instructions* Patient Instructions* Bry Loco PA-C - 01/27/2022 1:48 PM EDT Take medication as prescribed. If no resolution regression of symptoms may follow-up with PCP, ENT return to urgent care for reevaluation in 7 to 10 days documented in this encounterL[facility]09-21-2022 History of Present illness Narrative* Bry Loco PA-C - 01/27/2022 1:32 PM EDT Aissatou Torres is a 36 year old FEMALE who presents with Sore Throat (4 days ), Cough, and Ear Pain (Paulino ear pain /) HPI Presents to urgent care for a chief complaint of feeling ill since Tuesday evening. Symptoms began worse on Tuesday morning. Patient states that Tuesday evening she had a sore throat was unsure if it was due to allergies or her attending her son's football game. Upon awaking Tuesday morning patienthad a complaint of a cough which is intermittently productive increase sputum production in the morning. Runny stuffy nose. Also complains of bilateral ear pain. She denies any fever chills. Denies any nausea vomiting diarrhea denies any shortness of breath or chest pain. 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 guaifenesin (MUCUS RELIEF ORAL) Take by mouth as needed. escitalopram oxalate (LEXAPRO) 10 mg tablet Take 1 tablet by mouth once daily. 30 tablet 11 omeprazole (PRILOSEC) 40 mg capsule losartan (COZAAR) 50 mg tablet Take 1 tablet by mouth once daily. 90 tablet 3 glimepiride (AMARYL) 4 mg tablet Amaryl 4 mg tablet 90 tablet 3 montelukast (SINGULAIR) 10 mg tablet Take 1 tablet by mouth once daily. 90 tablet 3 metFORMIN ER (GLUCOPHAGE XR) 500 mg 24 hr tablet Take 2 tablets by mouth twice daily. 360 tablet 3 albuterol HFA (PROVENTIL HFA, VENTOLIN HFA) 90 mcg/actuation inhaler Apply to affected area. fluticasone (FLONASE) 50 mcg/actuation nasal spray loratadine (CLARITIN) 10 mg tablet Take by mouth. JANUVIA 100 mg tablet acetaminophen (TYLENOL) 325 mg tablet Take 650 mg by mouth every 6 hours as needed. No current facility-administered medications for this visit. Social History Tobacco Use Smoking status: Never Smokeless tobacco: Never Vaping Use Vaping Use: Never used Substance Use Topics Alcohol use: No Drug use: No Alcohol Use: No Tobacco Use: Never FAMILY HISTORY Problem Relation Age of Onset None Mother None Father Review of Systems Constitutional: Negative. HENT: Positive for congestion, sinus pain and sore throat. Eyes: Negative. Respiratory: Positive for cough and sputum production. Cardiovascular: Negative. Gastrointestinal: Negative. Genitourinary: Negative. Musculoskeletal: Negative. Skin: Negative. Neurological: Negative. All other systems reviewed and are negative. BP 147/99 Pulse 88 Temp (Src) 98 (Temporal) Resp 20 Wt 293 lb 9.6 oz (133.2kg) SpO2 97% LMP 03/11/2014 Physical Exam Vitals and nursing note reviewed. Constitutional: General: She is not in acute distress. Appearance: Normal appearance. She is not toxic-appearing. HENT: Head: Normocephalic and atraumatic. Right Ear: Tympanic membrane normal. There is no impacted cerumen. Left Ear: Tympanic membrane normal. There is no impacted cerumen. Nose: Rhinorrhea present. Mouth/Throat: Mouth: Mucous membranes are moist. Pharynx: No oropharyngeal exudate or posterior oropharyngeal erythema. Eyes: General: Right eye: No discharge. Left eye: No discharge. Extraocular Movements: Extraocular movements intact. Pupils: Pupils are equal, round, and reactive to light. Cardiovascular: Rate and Rhythm: Normal rate and regular rhythm. Pulses: Normal pulses. Heart sounds: Normal heart sounds. Pulmonary: Effort: Pulmonary effort is normal. No respiratory distress. Breath sounds: Normal breath sounds. No stridor. No wheezing or rales. Musculoskeletal: Cervical back: Normal range of motion and neck supple. No rigidity or tenderness. Lymphadenopathy: Cervical: No cervical adenopathy. Neurological: General: No focal deficit present. Mental Status: She is alert and oriented to person, place, and time. Psychiatric: Mood and Affect: Mood normal. Behavior: Behavior normal. ASSESSMENT/PLAN: 1. Upper respiratory tract infection, unspecified type - ICD9: 465.9, ICD10: J06.9 (primary diagnosis) - Discussed viral etiology and rationale for treatment. - Symptomatic treatment with prn analgesia - Supportive care with fluids and rest 2. Chronic sinusitis, unspecified location - ICD9: 473.9, ICD10: J32.9 - Will begin treatment with Augmentin 875 mg PO BID for 10 days Bry Loco PA-C documented in this encounterL[facility]08-23-2022 Miscellaneous Notes* Telephone Encounter - Angeles Valdez MA - 12/29/2021 11:15 AM EDT Lexapro needs resent, as it was sent to the wrong pharmacy, almost 2 weeks ago. You just started her on this at her apt on 12/16. Angeles Valdez MA December 29, 2021 11:16 AM documented in this encounterL[facility]08-19-2022 Miscellaneous Notes* Telephone Encounter - Yazmin Tovar LPN - 12/25/2021 12:07 PM EDT Requested Prescriptions Pending Prescriptions Disp Refills losartan (COZAAR) 50 mg tablet 90 tablet 3 Sig: Take 1 tablet by mouth once daily. glimepiride (AMARYL) 4 mg tablet 90 tablet 3 Sig: Amaryl 4 mg tablet montelukast (SINGULAIR) 10 mg tablet 90 tablet 3 Sig: Take 1 tablet by mouth once daily. metFORMIN ER (GLUCOPHAGE XR) 500 mg 24 hr tablet 360 tablet 3 Sig: Take 2 tablets by mouth twice daily. Yazmin Tovar LPN December 25, 2021 12:13 PM documented in this encounterLanc[facility]08-14-2022 History of Present illness Narrative* Mayte Campos MD - 12/20/2021 6:16 PM EDT This note was created using [employer]. Subjective Aissatou Torres is a 36 year old female. She presents today for follow-up for multiple medical problems. See list. Her chronic medical problems been improved and stable. Blood pressure is under goodcontrol. She complains today of abdominal pain to the right side. Also having increased anxiety. HPI Review of Systems Constitutional: Negative. HENT: Negative. Eyes: Negative. Respiratory: Negative. Cardiovascular: Negative. Gastrointestinal: Negative. Endocrine: Negative. Genitourinary: Negative. Musculoskeletal: Negative. Skin: Negative. Allergic/Immunologic: Negative. Neurological: Negative. Hematological: Negative. Psychiatric/Behavioral: Negative. Objective BP 138/88 (BP Site: Left Arm, BP Position: Sitting, BP Cuff Size: Large Adult) Pulse 88 Temp 36.4 C (97.5 F) (Temporal) Resp 18 Ht 168.9 cm (5' 6.5) Wt 132.1 kg (291 lb 3.2 oz) LMP 03/11/2014 SpO2 98% BMI 46.30 kg/m Physical Exam Vitals reviewed. Constitutional: Appearance: Normal appearance. HENT: Head: Normocephalic and atraumatic. Nose: Nose normal. Eyes: Extraocular Movements: Extraocular movements intact. Pupils: Pupils are equal, round, and reactive to light. Cardiovascular: Rate and Rhythm: Normal rate and regular rhythm. Pulmonary: Effort: Pulmonary effort is normal. Breath sounds: Normal breath sounds. Abdominal: General: Bowel sounds are normal. Palpations: Abdomen is soft. Musculoskeletal: General: Normal range of motion. Cervical back: Normal range of motion and neck supple. Skin: General: Skin is warm and dry. Capillary Refill: Capillary refill takes less than 2 seconds. Neurological: General: No focal deficit present. Mental Status: She is alert and oriented to person, place, and time. Mental status is at baseline. Psychiatric: Mood and Affect: Mood normal. Behavior: Behavior normal. Assessment and Plan Aissatou was seen today for f/u 3 month. Diagnoses and all orders for this visit: Primary hypertension - COMP METABOLIC PANEL; Future Mixed hyperlipidemia - LIPID PANEL BASIC; Future - COMP METABOLIC PANEL; Future 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) - HGB A1C; Future - COMP METABOLIC PANEL; Future Pain of upper abdomen - XR ABDOMEN 2V ROUTINE SUPINE W UPRIGHT/DECUB/CTL; Future Other orders - escitalopram oxalate (LEXAPRO) 10 mg tablet; Take 1 tablet by mouth once daily. Obtain x-ray of the abdomen. Begin Lexapro for treatment of her anxiety. Follow- up in 1 month. Obtain labs for chronic medical problems. * Yazmin Tovar LPN - 12/16/2021 1:18 PM EDT Right side pain, c/o panic attacks, stated most of the time feels like she can not breathe due to anxiety Yazmin Tovar LPN December 16, 2021 1:18 PM documented in this encounterL[facility]06-20-2022 Miscellaneous Notes* Telephone Encounter - Amada Alves LPN - 10/26/2021 5:41 PM EDT PT called to ask for a refill of Prednisone and Doxycycline. She needs appt [place]. She leaves for vacation on Tuesday. documented in this encounterL[facility]12-31-2014 Miscellaneous Notes* Telephone Encounter - Ashley Aburto RN - 05/08/2014 12:00 PM EST FMLA forms given to Aissatou GOODEN during office visit on 05/07/14. Completed on 05/08/14 and faxedto Tabitha Stubbs at [phone]. 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 Will follow up with Aissatou GOODEN on 06/04/14. Ashley Aburto RN * Telephone Encounter - Terra Costello - 05/07/2014 12:25 PM EST Employer will not allow patient to return to work on light duty status. If you need to extend time off from work please indicate on FMLA paperwork when patient can return to work without restrictions. documented in this encounterL[facility]07-18-2014 Miscellaneous Notes* Telephone Encounter - Christina Barr - 11/23/2013 11:59 AM EDT Rec'd reports from [facility]. documented in [facility]* Diagnosis Primary hypertension- Primary Unspecified essential hypertension Mixed hyperlipidemia 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) Pain of upper abdomen Abdominal pain, other specified site documented [facility] this encounter [facility]* Diagnosis Upper respiratory tract infection, unspecified type- Primary Chronic sinusitis, unspecified location [facility]* Diagnosis URI with cough and congestion- Primary [facility]* Diagnosis Hypertension, essential- Primary Unspecified essential hypertension Pure hypercholesterolemia 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 (type 2/adult onset) ([facility]) documented in this encounter [facility]* Diagnosis 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)- Primary [facility]* Diagnosis 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 (type 2/adult onset) ([facility])- Primary Essential (primary) hypertension Unspecified essential hypertension [facility]* Diagnosis 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 (type 2/adult onset) ([facility])- Primary Essential (primary) hypertension Unspecified essential hypertension Anxiety Anxiety state, unspecified Other iron deficiency anemia Depression, unspecified depression type [facility]* Diagnosis Encounter for screening mammogram for malignant neoplasm of breast Other screening mammogram Breast pain Mastodynia [facility]* Diagnosis Essential (primary) hypertension- Primary Unspecified essential hypertension 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 (type 2/adult onset) ([facility]) Other iron deficiency anemia Depression, unspecified depression type Anxiety Anxiety state, unspecified Seasonal allergies Allergic rhinitis, cause unspecified Primary insomnia Persistent disorder of initiating or maintaining sleep Pure hypercholesterolemia documented [facility] this encounter [facility]* Diagnosis Acute otitis media, right- Primary Unspecified otitis media documented [facility] this encounter [facility]* Diagnosis Wellness examination- Primary Essential (primary) hypertension Unspecified essential hypertension 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 (type 2/adult onset) ([facility]) Other iron deficiency anemia Depression, unspecified depression type Anxiety Anxiety state, unspecified Seasonal allergies Allergic rhinitis, cause unspecified Pure hypercholesterolemia Fatigue, unspecified type [facility]* Diagnosis Encounter for screening mammogram for breast cancer documented [facility] this encounter [facility]* Diagnosis Other iron deficiency anemia- Primary documented [facility] encounter [facility]* Diagnosis Encounter for screening mammogram for breast cancer documented [facility] this encounter [facility]* Diagnosis Other iron deficiency anemia- Primary [facility]* Diagnosis Iron deficiency anemia, unspecified iron deficiency anemia type- Primary Iron deficiency anemia, unspecified iron deficiency anemia type- Primary [facility]* Diagnosis Iron deficiency anemia, unspecified iron deficiency anemia type- Primary [facility]* Diagnosis Iron deficiency anemia, unspecified iron deficiency anemia type- Primary Microcytic anemia Iron deficiency anemia, unspecified Restless legs syndrome Restless legs syndrome (RLS) Gastroesophageal reflux disease without esophagitis Esophageal reflux documented in this encounter [facility] Narrative No data available for this section [facility] Mode Reason for referral (narrative)* Diagnostic Procedure Only (Routine) - Pending Review Specialty Diagnoses / Procedures Referred By Scott floyd Referred To Contact XR IMAGING Diagnoses Pain of upper abdomen Procedures XR ABDOMEN 2V ROUTINE SUPINE W UPRIGHT/DECUB/CTL RADIOLOGIC EXAM ABDOMEN 2 VIEWS Mayte Campos MD [address] [place] [address] Xr Imaging Referral ID Status Reason Start Date Expiration Date Visits Requested Visits Authorized [id number] Pending Review Auto-Generat ed Referral 12/16/2021 01/15/2023 1 1 [facility] for referral (narrative)* Diagnostic Procedure Only (Routine) - Closed Specialty Diagnoses / Procedures Referred By Scott floyd Referred To Contact [facility] Diagnoses Encounter for screening mammogram for malignant neoplasm of breast Breast pain Procedures AYAD SCREENING SCREENING MAMMOGRAPHY BI 2-VIEW BREAST INC CAD Mayte Campos MD [address] [place] [address] [facility] [address] [place] [address] Referral ID Status Reason Start Date Expiration Date V isits Requested Visits Authorized [id number] Closed Auto-Generate d Referral 04/28/2022 05/28/2023 1 1 [facility] for visit Narrative* Diagnostic Procedure Only (Routine) - Closed Specialty Diagnoses / Procedures Referred By Scott floyd Referred To Contact [facility] IM[facility] Diagnoses Encounter for screening mammogram for malignant neoplasm of breast Breast pain Procedures AYAD SCREENING SCREENING MAMMOGRAPHY BI 2-VIEW BREAST INC CAD Mayte Campos MD [address] [place] [address] [facility] [address] [place] [address] Referral ID Status Reason Start Date Expiration Date V isits Requested Visits Authorized [id number] Closed Auto-Generate d Referral 04/28/2022 05/28/2023 1 1 [facility] for visit Narrative* Diagnostic Procedure Only (Routine) - Closed Specialty Diagnoses / Procedures Referred By Scott t Referred To Contact [facility] Diagnoses Encounter for screening mammogram for breast cancer Procedures AYAD SCREENING W LEONOR SCREENING DIGITAL BREAST TOMOSYNTHESIS BI SCREENING MAMMOGRAPHY BI 2-[place] [address] [place] [id number] Phone: tel: fax: [facility] [address] [place] [address] Referral ID Status Reason Start Date Expiration Date V isits Requested Visits Authorized [id number] Closed Auto-Generate d Referral 07/03/2024 08/02/2025 1 1 [facility] for visit Narrative* [place] Prior Authorization (Routine) - Authorized Specialty Diagnoses / Procedures Referred By Scott floyd Referred To Contact Diagnoses Iron deficiency anemia, unspecified iron deficiency anemia type Procedures IRON SUCROSE INJECTION PER 1 MG Mayte Campos MD [address] [place] [address] Phone: tel: fax: [facility] [address] [place] [address] [place] [address] Phone: tel: fax: Referral ID Status Reason Start Date Expiration Date V isits Requested Visits Authorized [id number] Authorized 10/17/2024 05/08/2025 1 99 [facility] Summary Purpose Family History No Family History Records FoundNo Family History Records Found No data available for this section No Family History Records Found Advance Directives No Advanced Directives Records FoundNo Advanced Directives Records FoundNo Advanced Directives Records Found Reason for Referral Specialty Diagnoses / Procedures Referred By Scott floyd Referred To Contact Mayte Campos MD [address] [place] [address] Referral ID Status Reason Start Date Expiration Date V isits Requested Visits Authorized [id number] Pending Review 1 1 Referral ID Status Reason Start Date Expiration Date Visits Re quested Visits Authorized [id number] Closed 1 1 Additional Source Comments Source Comments (unrecognize d section and content) In the event this informatio n is protected by the Federal Confidentiality of Alcohol and Drug Abuse Patient Records regulations: The Federal rules restrict any use of the information to criminally investigate or prosecute any alcohol or drug abuse patient.[facility] the event this information is protected by the Federal Confidentiality of Alcohol and Drug Abuse Patient Records regulations: The Federal rules restrict any use of the information to criminally investigate or prosecute any alcohol or drug abuse patient.[facility] HospitalIn the event this information is protected by the Federal Confidentiality of Alcohol and Drug Abuse Patient Records regulations: The Federal rules restrict any use of the information to criminally investigate or prosecute any alcohol or drug abuse patient.[facility] HospitalIn the event this information is protected by the Federal Confidentiality of Alcohol and Drug Abuse Patient Records regulations: The Federal rules restrict any use of the information to criminally investigate or prosecute any alcohol or drug abuse patient.[facility] HospitalIn the event this information is protected by the Federal Confidentiality of Alcohol and Drug Abuse Patient Records regulations: The Federal rules restrict any use of the information to criminally investigate or prosecute any alcohol or drug abuse patient.[facility] HospitalIn the event this information is protected by the Federal Confidentiality of Alcohol and Drug Abuse Patient Records regulations: The Federal rules restrict any use of the information to criminally investigate or prosecute any alcohol or drug abuse patient.[facility] HospitalIn the event this information is protected by the Federal Confidentiality of Alcohol and Drug Abuse Patient Records regulations: The Federal rules restrict any use of the information to criminally investigate or prosecute any alcohol or drug abuse patient.[facility] HospitalIn the event this information is protected by the Federal Confidentiality of Alcohol and Drug Abuse Patient Records regulations: The Federal rules restrict any use of the information to criminally investigate or prosecute any alcohol or drug abuse patient.[facility] HospitalIn the event this information is protected by the Federal Confidentiality of Alcohol and Drug Abuse Patient Records regulations: The Federal rules restrict any use of the information to criminally investigate or prosecute any alcohol or drug abuse patient.[facility] HospitalIn the event this information is protected by the Federal Confidentiality of Alcohol and Drug Abuse Patient Records regulations: The Federal rules restrict any use of the information to criminally investigate or prosecute any alcohol or drug abuse patient.[facility] HospitalIn the event this information is protected by the Federal Confidentiality of Alcohol and Drug Abuse Patient Records regulations: The Federal rules restrict any use of the information to criminally investigate or prosecute any alcohol or drug abuse patient.[facility] HospitalIn the event this information is protected by the Federal Confidentiality of Alcohol and Drug Abuse Patient Records regulations: The Federal rules restrict any use of the information to criminally investigate or prosecute any alcohol or drug abuse patient.[facility] HospitalIn the event this information is protected by the Federal Confidentiality of Alcohol and Drug Abuse Patient Records regulations: The Federal rules restrict any use of the information to criminally investigate or prosecute any alcohol or drug abuse patient.[facility] the event this information is protected by the Federal Confidentiality of Alcohol and Drug Abuse Patient Records regulations: The Federal rules restrict any use of the information to criminally investigate or prosecute any alcohol or drug abuse patient.[facility] HospitalIn the event this information is protected by the Federal Confidentiality of Alcohol and Drug Abuse Patient Records regulations: The Federal rules restrict any use of the information to criminally investigate or prosecute any alcohol or drug abuse patient.[facility]In the event this information is protected by the Federal Confidentiality of Alcohol and Drug Abuse Patient Records regulations: The Federal rules restrict any use of the information to criminally investigate or prosecute any alcohol or drug abuse patient.[facility]In the event this information is protected by the Federal Confidentiality of Alcohol and Drug Abuse Patient Records regulations: The Federal rules restrict any use of the information to criminally investigate or prosecute any alcohol or drug abuse patient.[facility]In the event this information is protected by the Federal Confidentiality of Alcohol and Drug Abuse Patient Records regulations: The Federal rules restrict any use of the information to criminally investigate or prosecute any alcohol or drug abuse patient.[facility]In the event this information is protected by the Federal Confidentiality of Alcohol and Drug Abuse Patient Records regulations: The Federal rules restrict any use of the information to criminally investigate or prosecute any alcohol or drug abuse patient.[facility]In the event this information is protected by the Federal Confidentiality of Alcohol and Drug Abuse Patient Records regulations: The Federal rules restrict any use of the information to criminally investigate or prosecute any alcohol or drug abuse patient.[facility]In the event this information is protected by the Federal Confidentiality of Alcohol and Drug Abuse Patient Records regulations: The Federal rules restrict any use of the information to criminally investigate or prosecute any alcohol or drug abuse patient.[facility]In the event this information is protected by the Federal Confidentiality of Alcohol and Drug Abuse Patient Records regulations: The Federal rules restrict any use of the information to criminally investigate or prosecute any alcohol or drug abuse patient.[facility]In the event this information is protected by the Federal Confidentiality of Alcohol and Drug Abuse Patient Records regulations: The Federal rules restrict any use of the information to criminally investigate or prosecute any alcohol or drug abuse patient.[facility]In the event this information is protected by the Federal Confidentiality of Alcohol and Drug Abuse Patient Records regulations: The Federal rules restrict any use of the information to criminally investigate or prosecute any alcohol or drug abuse patient.[facility]In the event this information is protected by the Federal Confidentiality of Alcohol and Drug Abuse Patient Records regulations: The Federal rules restrict any use of the information to criminally investigate or prosecute any alcohol or drug abuse patient.[facility]In the event this information is protected by the Federal Confidentiality of Alcohol and Drug Abuse Patient Records regulations: The Federal rules restrict any use of the information to criminally investigate or prosecute any alcohol or drug abuse patient.[facility]In the event this information is protected by the Federal Confidentiality of Alcohol and Drug Abuse Patient Records regulations: The Federal rules restrict any use of the information to criminally investigate or prosecute any alcohol or drug abuse patient.[facility]In the event this information is protected by the Federal Confidentiality of Alcohol and Drug Abuse Patient Records regulations: The Federal rules restrict any use of the information to criminally investigate or prosecute any alcohol or drug abuse patient.[facility]In the event this information is protected by the Federal Confidentiality of Alcohol and Drug Abuse Patient Records regulations: The Federal rules restrict any use of the information to criminally investigate or prosecute any alcohol or drug abuse patient.[facility]In the event this information is protected by the Federal Confidentiality of Alcohol and Drug Abuse Patient Records regulations: The Federal rules restrict any use of the information to criminally investigate or prosecute any alcohol or drug abuse patient.[facility] HospitalIn the event this information is protected by the Federal Confidentiality of Alcohol and Drug Abuse Patient Records regulations: The Federal rules restrict any use of the information to criminally investigate or prosecute any alcohol or drug abuse patient.[facility] HospitalIn the event this information is protected by the Federal Confidentiality of Alcohol and Drug Abuse Patient Records regulations: The Federal rules restrict any use of the information to criminally investigate or prosecute any alcohol or drug abuse patient.[facility] HospitalIn the event this information is protected by the Federal Confidentiality of Alcohol and Drug Abuse Patient Records regulations: The Federal rules restrict any use of the information to criminally investigate or prosecute any alcohol or drug abuse patient.[facility] HospitalIn the event this information is protected by the Federal Confidentiality of Alcohol and Drug Abuse Patient Records regulations: The Federal rules restrict any use of the information to criminally investigate or prosecute any alcohol or drug abuse patient.[facility]In the event this information is protected by the Federal Confidentiality of Alcohol and Drug Abuse Patient Records regulations: The Federal rules restrict any use of the information to criminally investigate or prosecute any alcohol or drug abuse patient.[facility]In the event this information is protected by the Federal Confidentiality of Alcohol and Drug Abuse Patient Records regulations: The Federal rules restrict any use of the information to criminally investigate or prosecute any alcohol or drug abuse patient.[facility]In the event this information is protected by the Federal Confidentiality of Alcohol and Drug Abuse Patient Records regulations: The Federal rules restrict any use of the information to criminally investigate or prosecute any alcohol or drug abuse patient.[facility]In the event this information is protected by the Federal Confidentiality of Alcohol and Drug Abuse Patient Records regulations: The Federal rules restrict any use of the information to criminally investigate or prosecute any alcohol or drug abuse patient.[facility]In the event this information is protected by the Federal Confidentiality of Alcohol and Drug Abuse Patient Records regulations: The Federal rules restrict any use of the information to criminally investigate or prosecute any alcohol or drug abuse patient.[facility]In the event this information is protected by the Federal Confidentiality of Alcohol and Drug Abuse Patient Records regulations: The Federal rules restrict any use of the information to criminally investigate or prosecute any alcohol or drug abuse patient.[facility]In the event this information is protected by the Federal Confidentiality of Alcohol and Drug Abuse Patient Records regulations: The Federal rules restrict any use of the information to criminally investigate or prosecute any alcohol or drug abuse patient.[facility]In the event this information is protected by the Federal Confidentiality of Alcohol and Drug Abuse Patient Records regulations: The Federal rules restrict any use of the information to criminally investigate or prosecute any alcohol or drug abuse patient.[facility] HospitalIn the event this information is protected by the Federal Confidentiality of Alcohol and Drug Abuse Patient Records regulations: The Federal rules restrict any use of the information to criminally investigate or prosecute any alcohol or drug abuse patient.[facility]In the event this information is protected by the Federal Confidentiality of Alcohol and Drug Abuse Patient Records regulations: The Federal rules restrict any use of the information to criminally investigate or prosecute any alcohol or drug abuse patient.[facility]In the event this information is protected by the Federal Confidentiality of Alcohol and Drug Abuse Patient Records regulations: The Federal rules restrict any use of the information to criminally investigate or prosecute any alcohol or drug abuse patient.[facility] Reason for Visit (unrecogniz ed section and content) Reason Onset Date Comments FMLA 05/07/2014 Reason Comments Patient Update Reason Onset Date Comments Refill Request 10/26/2021 Reason Comments F/U 3 Month Right side pain, c/o panic attacks, stated most of the time feels like she can not breathe due to anxiety Reason Onset Date Comments Refill Request 12/25/2021 Reason Onset Date Comments Refill Request 12/29/2021 Reason Comments Sore Throat 4 days Cough Ear Pain Paulino ear pain Reason Comments cough Started 2 days ago congestion Ear Problem Right ear pain Reason Comments 6 Month Exam Specialty Diagnoses / Procedures Referred By Scott floyd Referred To Contact Family Medicine / FAMILY MEDICINE Diagnoses diabetic checkup Procedures EST PATIENT Mayte Campos MD [address] [place] [address] Mayte Campos MD [address] [place] [address] Referral ID Status Reason Start Date Expiration Date Visits Requested Visits Authorized [id number] Pending Review OON/Self Pay Override 12/01/2022 03/01/2023 1 1 Reason Comments Follow Up Reason Onset Date Comments Refill Request Refill Request 04/15/2023 Reason Comments Follow Up Reason Comments 3 Month Exam Reason Comments Refill Request Reason Comments Cough Cough, congestion, r ight ear pain all x 8 days Reason Onset Date Comments Patient Update 06/15/2024 DM Eye Exam Reason Comments Yearly Exam Reason Comments Consult Specialty Diagnoses / Procedures Referred By Scott floyd Referred To Contact Hematology Diagnoses Iron deficiency anemia, unspecified iron deficiency anemia type Procedures CONSULT TO HEMATOLOGY OFFICE/OUTPATIENT [facility] 60 MINUTES Mayte Campos MD [address] [place] [address] Phone: tel: fax: Referral ID Status Reason Start Date Expiration Date V isits Requested Visits Authorized [id number] Closed PCP Requested Referral 10/17/2024 10/17/2025 1 1 Reason Comments Appointment Care Teams (unrecognized sec tion and content) Ldr Nurse Relationship Specialty Start Date End Date Mayte Campos MD [address] [place], [place] [address] PCP - General Family Practice 02/25/21 Ldr Nurse Relationship Specialty Start Date End Date Mayte Campos MD [address] [place] [address] PCP - General Family Practice 02/25/21 Ldr Nurse Relationship Specialty Start Date End Date Mayte Campos MD [address] [place] [address] PCP - General Family Practice 02/25/21 Ldr Nurse Relationship Specialty Start Date End Date Mayte Campos MD [address] [place] [address] PCP - General Family Practice 02/25/21 Ldr Nurse Relationship Specialty Start Date End Date Mayte Campos MD [address] [place] [address] PCP - General Family Practice 02/25/21 Ldr Nurse Relationship Specialty Start Date End Date Mayte Campos MD [address] [place] [address] PCP - General Family Practice 02/25/21 Ldr Nurse Relationship Specialty Start Date End Date Mayte Campos MD [address] [place] [address] PCP - General Family Practice 02/25/21 Ldr Nurse Relationship Specialty Start Date End Date Mayte Campos MD [address] [place] [address] PCP - General Family Medicine 02/25/21 Ldr Nurse Relationship Specialty Start Date End Date Mayte Campos MD [address] [place] [address] PCP - General Family Medicine 02/25/21 Ldr Nurse Relationship Specialty Start Date End Date Mayte Campos MD [address] [place] [address] PCP - General Family Medicine 02/25/21 Ldr Nurse Relationship Specialty Start Date End Date Mayte Campos MD [address] [place] [address] PCP - General Family Medicine 02/25/21 Ldr Nurse Relationship Specialty Start Date End Date Mayte Campos MD [address] [place] [address] PCP - General Family Medicine 02/25/21 Ldr Nurse Relationship Specialty Start Date End Date Mayte Campos MD [address] [place] [address] PCP - General Family Medicine 02/25/21 Ldr Nurse Relationship Specialty Start Date End Date Mayte Campos MD [address] [place] [address] PCP - General Family Medicine 02/25/21 Ldr Nurse Relationship Specialty Start Date End Date Mayte Campos MD [address] [place] [address] PCP - General Family Medicine 02/25/21 Ldr Nurse Relationship Specialty Start Date End Date Mayte Campos MD [address] [place] [address] PCP - General Family Medicine 02/25/21 Ldr Nurse Relationship Specialty Start Date End Date Mayte Campos MD [address] [place] [address] PCP - General Family Medicine 02/25/21 Ldr Nurse Relationship Specialty Start Date End Date Mayte Campos MD [address] [place] [address] PCP - General Family Medicine 02/25/21 Ldr Nurse Relationship Specialty Start Date End Date Mayte Campos MD [address] [place] [address] PCP - General Family Medicine 02/25/21 Kimberly Alvarado, AUTOMOTIVE STARTER REPAIRER [address] [address] Family Medicine 02/01/24 Ldr Nurse Relationship Specialty Start Date End Date Mayte Campos MD [address] [place] [address] PCP - General Family Medicine 02/25/21 Kimberly Alvarado, AUTOMOTIVE STARTER REPAIRER [address] [address] Family Medicine 02/01/24 Ldr Nurse Relationship Specialty Start Date End Date Mayte Campos MD [address] [place] [address] PCP - General Family Medicine 02/25/21 Kimberly Alvarado, AUTOMOTIVE STARTER REPAIRER [address] [address] Family Medicine 02/01/24 Ldr Nurse Relationship Specialty Start Date End Date Mayte Campos MD [address] [place] [address] PCP - General Family Medicine 02/25/21 Kimberly Alvarado AUTOMOTIVE STARTER REPAIRER [address] [place] [address] Family Medicine 02/01/24 Ldr Nurse Relationship Specialty Start Date End Date Mayte Campos MD [address] [place] [address] PCP - General Family Medicine 02/25/21 Kimberly Alvarado, AUTOMOTIVE STARTER REPAIRER [address] [address] Family Medicine 02/01/24 Ldr Nurse Relationship Specialty Start Date End Date Mayte Campos MD [address] [place] [address] PCP - General Family Medicine 02/25/21 Kimberly Alvarado, AUTOMOTIVE STARTER REPAIRER [address] [place] [address] Family Medicine 02/01/24 Ldr Nurse Relationship Specialty Start Date End Date Mayte Campos MD [address] [facility], [place] [address] [phone] PCP - General Family Medicine 02/25/21 Kimberly Alvarado, AUTOMOTIVE STARTER REPAIRER [address] [place] [address] Family Medicine 02/01/24 Mendoza Boswell Jr., DO [address] [facility] [address] [place] [address] Obstetrics 08/01/24 Ldr Nurse Relationship Specialty Start Date End Date Mayte Campos MD [address] [place] [address] PCP - General Family Medicine 02/25/21 Kimberly Alvarado, AUTOMOTIVE STARTER REPAIRER [address] [address] Family Medicine 02/01/24 Mendoza Boswell Jr., DO [address] [address] Obstetrics 08/01/24 Ldr Nurse Relationship Specialty Start Date End Date Mayte Campos MD [address] [place] [address] PCP - General Family Medicine 02/25/21 Kimberly Alvarado, AUTOMOTIVE STARTER REPAIRER [address] [address] Family Medicine 02/01/24 Mendoza Boswell Jr., DO [address] [address]37[address] Obstetrics 08/01/24 Ldr Nurse Relationship Specialty Start Date End Date Mayte Campos MD [address] [place] [address] PCP - General Family Medicine 02/25/21 Kimberly Alvarado, CHRISTINA [address] [facility] [address] [place] [address] Family Medicine 02/01/24 Mendoza Boswell Jr., DO [address] [facility] [address] [place] [address] Obstetrics 08/01/24 Ldr Nurse Relationship Specialty Start Date End Date Mayte Campos MD [address] [place] [address] PCP - General Family Medicine 02/25/21 Kimberly Alvarado, CHRISTINA [address] [facility] [address] [place] [address] Family Medicine 02/01/24 Mendoza Boswell Jr., DO [address] [facility] [address] [place] [address] Obstetrics 08/01/24 Ldr Nurse Relationship Specialty Start Date End Date Mayte Campos MD [address] [place] [address] PCP - General Family Medicine 02/25/21 Kimberly Alvarado, CHRISTINA [address] [facility] [address] [place] [address] Family Medicine 02/01/24 Mendoza Boswell Jr., DO [address] [facility] [address] [place] [address] Obstetrics 08/01/24 Ldr Nurse Relationship Specialty Start Date End Date Mayte Campos MD [address] [place] [address] PCP - General Family Medicine 02/25/21 Kimberly Alvarado, AUTOMOTIVE STARTER REPAIRER [address] [facility] [address] [facility], [place] [address] Family Medicine 02/01/24 Mendoza Boswell Jr., DO [address] [facility] [address] [place] [address] Obstetrics 08/01/24 Ldr Nurse Relationship Specialty Start Date End Date Mayte Campos MD [address] [place] [address] PCP - General Family Medicine 02/25/21 Kimberly Alvarado, AUTOMOTIVE STARTER REPAIRER [address] [facility] [address] [place] [address] Family Medicine 02/01/24 Mendoza Boswell Jr., DO [address] [facility] [address] [place] [address] Obstetrics 08/01/24 Ldr Nurse Relationship Specialty Start Date End Date Mayte Campos MD [address] [facility], [place] [address] [phone] PCP - General Family Medicine 02/25/21 Kimberly Alvarado, CHRISTINA [address] [address] Family Medicine 02/01/24 Mendoza Boswell Jr., DO [address] [address] Obstetrics 08/01/24 Ldr Nurse Relationship Specialty Start Date End Date Mayte Campos MD [address] [place] [address] PCP - General Family Medicine 02/25/21 Kimberly Alvarado, CHRISTINA [address] [address] Family Medicine 02/01/24 Mendoza Boswell Jr., DO [address] [address] Obstetrics 08/01/24 Davis Velazco APRN.AUTOMOTIVE STARTER REPAIRER [address] [place] [address] Hematology/Oncology 11/01/24 Ldr Nurse Relationship Specialty Start Date End Date Mayte Campos MD [address] [place], [place] [address] PCP - General Family Medicine 02/25/21 Kimberly Alvarado, CHRISTINA [address] [address] Family Medicine 02/01/24 Mendoza Boswell Jr., DO [address] [facility] [address] [place] [address] Obstetrics 08/01/24 Davis Velazco APRN.AUTOMOTIVE STARTER REPAIRER [address] [place] [address] Hematology/Oncology 11/01/24 Ldr Nurse Relationship Specialty Start Date End Date Mayte Campos MD [address] [place] [address] PCP - General Family Medicine 02/25/21 Kimberly Alvarado, CHRISTINA [address] [address] Family Medicine 02/01/24 Mendoza Boswell Jr., DO [address] [address] Obstetrics 08/01/24 Davis Velazco, AUTO SERVICER.AUTOMOTIVE STARTER REPAIRER [address] [place] [address] Hematology/Oncology 11/01/24 Ldr Nurse Relationship Specialty Start Date End Date Mayte Campos MD [address] [place] [address] PCP - General Family Medicine 02/25/21 Kimberly Alvarado, CHRISTINA [address] [place] [address] Family Medicine 02/01/24 Mendoza Boswell Jr., DO [address] [facility] [address] [place] [address] Obstetrics 08/01/24 Davis Velazco APRN.AUTOMOTIVE STARTER REPAIRER [address] [facility] [place] [address] Hematology/Oncology 11/01/24 INFORMATION SOURCE (unrecogn ized section and content) DATE CREATED AUTHOR 09/02/2021 [facility] Sheela ntmary Tanner DATE CREATED AUTHOR AUTHOR'S ORGANIZ ATION 05/05/2023 [facility] ([place]) DATE CREATED AUTHOR AUTHOR'S ORGANIZ ATION 12/17/2024 [facility] Sheela ntmary FOR RECORDS PERTAINING TO PATIENTS WHO ARE OR HAVE BEEN ENROLLED IN A CHEMICAL DEPENDENCY/SUBSTANCEABUSE PROGRAM, SOME INFORMATION MAY BE OMITTED. This clinical summary was aggregated from multiple sources. Caution should be exercised in using it in the provision of clinical care. This summary normalizes information from multiple sources, and as a consequence, information in this document may materially change the coding, format and clinical context of patient data. In addition, data may be omitted in some cases. CLINICAL DECISIONS SHOULD BE BASED ON THE PRIMARY CLINICAL RECORDS. [facility] [employer] [facility]. provides no warranty or guarantee of the accuracy or completeness of information in this document.
[2024-12-23 03:38] LABS: D-Dimer Quantitative (DVT/PE) 0.29 FEU/ug/m (0.27-0.49)
[2024-12-23 04:05] VITALS: BP 147/84; PULSE 74; RESP 18; TEMP 36.4; O2SAT 100
[2024-12-23 04:13] LABS: Anisocytosis 1+
== END 2024-12-23 04:14 | disposition home or self-care (01) ==
LOC: ED 03:28
PROVIDERS: Emergency Provider Emergency Medicine; PCP Family Medicine; Visit Provider Emergency Medicine
DX: S80.861A Insect bite (nonvenomous), right lower leg, initial encounter (principal); E11.9 Type 2 diabetes mellitus without complications; W57.XXXA Bitten or stung by nonvenomous insect and other nonvenomous arthropods, initial encounter; Y93.89 Activity, other specified; Z79.84 Long term (current) use of oral hypoglycemic drugs; Z87.891 Personal history of nicotine dependence
CPT/HCPCS: 85025; 85379; 99282